=== PATIENT | female | born 1955 | race Caucasian/White ===

== ENCOUNTER 2021-02-13 10:24 | Inpatient (IN) ==
[2021-02-13] MEDS ORDERED: NS 1000 ML 1,000 ML IV ONE (11:01)
--- NOTE | 2021-02-13 11:21 | DR.GENAD ---
HPI Time Seen Time Seen by Provider: 02/13/21 10:58 Complaint/Symptoms Chief Complaint Doctors Comments: 65 y/o female presents with worsening breathing. Has been ill x 5 days, seen here yesterday and diagnosed with covid. Sent home on O2. Presented for infusion therapy this am, but is feeling worse, having low pulse ox at home, despite O2 therapy. Currently 90% on 3 L via NC. Is coughing, productive of white sputum. No prior h/o lung issues. Having fever, chills, body aches. Has had some nausea, vomiting, diarrhea, with decreased po intake. COVID-19 Has patient experienced Coronavirus symptoms: Yes Coronavirus symptoms experienced: Fever, Coughing and Shortness of Breath Nurses notes reviewed Nurses Notes Review: Yes Source History Provided: Patient Mode of Arrival Mode of Arrival: Wheelchair Timing Came on: Gradually Duration Duration: Constant Severity Severity: Moderate and Severe Modifying Factors Worsens:: activity Improves:: nothing PMH PMH Past Medical History: Seizures Past Surgical History: Yes Surgical History: Hysterectomy Family History Family Medical History: Diabetes Mellitus, Cancer, AR, Coronary Artery Disease and Hypertension Social History Do you use any recreational Drugs:: No ROS Review of Systems Constitutional: Chills, Fever, Malaise and Weakness Eyes: No Symptoms Reported ENTM: Nose Congestion Respiratoy: Productive Cough and Short of Breath Cardiovascular: No Symptoms Reported Gastrointestinal/Abdominal: Diarrhea, Nausea and Vomiting Genitourinary: No Symptoms Reported Neurological: Weakness Musculoskeletal: Muscle Pain Integumentary: No Symptoms Reported Hematologic/Lymphatic: No Symptoms Reported Endocrine: No Symptoms Reported Psychiatric: No Symptoms Reported All Other Systems: Reviewed and Negative PE Vital Signs Vitals: Blood Pressure [Left Arm] 113/60 General Limitations: No Limitations General Appearance: Alert and In No Apparent Distress Head Head Exam: Normal Inspection Eyes Eye exam: Normal Appearance ENT ENT Exam: Normal Exam Neck Neck Exam: Normal Inspection and Full ROM Chest Chest Inspection: Normal Inspection Respiratory Respiratory Exam: Bilateral: Rales (+ dry cough with deep breaths) Cardiovascular Cardiovascular Exam: Regular Rate, Normal Rhythm and Normal Heart Sounds Abdominal Exam Abdominal Exam: Normal Inspection and Normal Bowel Sounds; negative Tenderness Extremities Extremities Exam: Normal Inspection and Full ROM; negative Edema Back Back Exam: Normal Inspection Neurologic Neurological Exam: Alert, Oriented X3 and CN II-XII Intact; negative Motor Sensory Deficit Psychiatric Psychiatric Exam: Normal Affect Skin Skin Exam: Warm and Dry MDM Differential Diagnosis Differential Diagnosis: covid pneumonia, bacterial pneumonia, volume depletion, PE COURSE Treatment Treatment: Pt diagnosed with covid yesterday, having worsening hypoxia despite starting home O2 therapy. W/u initiated. CXR with bilateral pneumonia changes, probably covid, will cover with antibiotic. Given IV steroids, BS is elevated, given dose of IV regular insulin. Will admit, discussed pt with covering hospitalist, Dr. Gilmore. He accepts the admisson. ROR Labs Reviewed Laboratory Results Reviewed?: Yes Result Diagrams: 02/13/21 11:19 02/13/21 11:19 Laboratory: WBC 8.9 X10^3/uL (3.6-10.0) 02/13/21 11:19 RBC 5.05 X10^6/uL (3.5-5.4) 02/13/21 11:19 Hgb 13.6 g/dL (12.0-16.0) 02/13/21 11:19 Hct 40.5 % (36.0-47.0) 02/13/21 11:19 MCV 80.1 fL (80.0-100.0) 02/13/21 11:19 MCH 26.8 pg (27.0-34.0) L 02/13/21 11:19 MCHC 33.5 g/dL (33.0-35.0) 02/13/21 11:19 RDW 14.7 % (11.6-16.5) 02/13/21 11:19 Plt Count 214 X10^3/uL (150.0-450.0) 02/13/21 11:19 MPV 7.1 fL (7.4-11.0) L 02/13/21 11:19 Neut % (Auto) 86.9 % (42.0-75.0) H 02/13/21 11:19 Lymph % (Auto) 9.3 % (21.0-51.0) L 02/13/21 11:19 [place] % (Auto) 3.5 % (0.0-13.0) 02/13/21 11:19 Eos % (Auto) 0.0 % (0.9-2.9) L 02/13/21 11:19 Baso % (Auto) 0.3 % (0.2-1.0) 02/13/21 11:19 Neut # (Auto) 7.7 x10^3/uL (2.2-4.8) H 02/13/21 11:19 Lymph # (Auto) 0.8 X10^3/uL (1.3-2.9) L 02/13/21 11:19 [place] # (Auto) 0.3 x10^3/uL (0.3-0.8) 02/13/21 11:19 Eos # (Auto) 0.0 x10^3/uL (0.0-0.2) 02/13/21 11:19 Baso # (Auto) 0.0 X10^3/uL (0.0-0.1) 02/13/21 11:19 Absolute Nucleated RBC 0.0 /100WBC 02/13/21 11:19 D-Dimer 0.53 ug/ml (0.0-0.57) 02/13/21 11:17 Sample Site Rr 02/13/21 12:56 ABG pH 7.400 (7.35-7.45) 02/13/21 12:56 ABG pCO2 41.0 mmHg (35.0-45.0) 02/13/21 12:56 ABG pO2 67.0 mmHg (80.0-100.0) L 02/13/21 12:56 ABG HCO3 25.4 mmol/L (22-26) 02/13/21 12:56 ABG O2 Saturation 93.0 % (90-100) 02/13/21 12:56 ABG Base Excess 0.5 mmol/L (-2.0-2.0) 02/13/21 12:56 Gregory Test Pos 02/13/21 12:56 A-a Gradient 110.0 mmHg 02/13/21 12:56 FiO2 32.0 02/13/21 12:56 Blood Gas Comments Jacy well 02/13/21 12:56 Sodium 134 mmol/L (136-145) L 02/13/21 11:19 Corrected Sodium 140 mmol/L (136-145) 02/13/21 11:19 Potassium 3.7 mmol/L (3.5-5.1) 02/13/21 11:19 Chloride 97 mmol/L (98-107) L 02/13/21 11:19 Carbon Dioxide 26.3 mmol/L (21-32) 02/13/21 11:19 BUN 13 mg/dL (7-18) 02/13/21 11:19 Creatinine 1.00 mg/dL (0.55-1.02) 02/13/21 11:19 Est GFR (MDRD) Af Amer > 60 (>60) 02/13/21 11:19 Est GFR (MDRD) Non-Af 59 (>60) 02/13/21 11:19 Glucose 345 mg/dL (65-99) H 02/13/21 11:19 Calcium 7.8 mg/dL (8.5-10.1) L 02/13/21 11:19 Corrected Calcium 9.1 mg/dL (8.5-10.1) 02/13/21 11:19 Total Bilirubin 0.30 mg/dL (0.2-1.0) 02/13/21 11:19 AST 30 Units/L (15-37) 02/13/21 11:19 ALT 17 Units/L (12-78) 02/13/21 11:19 Alkaline Phosphatase 73 Units/L (46-116) 02/13/21 11:19 Creatine Kinase 119 Units/L (26-192) 02/13/21 11:19 CK-MB (CK-2) 1.3 ng/mL (0-4.0) 02/13/21 11:19 CK/CKMB % Calc 1.1 % (<4) 02/13/21 11:19 Troponin I < 0.02 ng/mL (0-1.5) 02/13/21 11:19 Total Protein 6.7 g/dL (6.4-8.2) 02/13/21 11:19 Albumin 2.4 g/dL (3.4-5.0) L 02/13/21 11:19 Globulin 4.3 g/dL (2.5-4.5) 02/13/21 11:19 Albumin/Globulin Ratio 0.6 Ratio (1.1-2.1) L 02/13/21 11:19 Other Results Comments: Labs overall acceptable except for elevated glucose, 345 (per pt, h/o borderline DM in the past, not treated). XRAY XRAY Interpreted by: Both X-ray Results: + marked increased bilateral interstitial opacifications. EKG Rate: 88 [place]: Normal Rhythm: NSR Block: None Hypertrophy: None ST: Normal Opioid Opioid Risk Tool Age (Henry box if 16-45): No History of Preadolescent Sexual Abuse: No Total: 0 Total Score Risk Category: Low Risk Copyright: Kosta EWING predicting aberrant behaviors Diagnosis Discharge Problem: Pneumonia due to COVID-19 virus, Hypoxia
[2021-02-13 11:35] LABS: BASOPHILS % (AUTO) 0.3 % (0.2-1.0); HEMATOCRIT 40.5 % (36.0-47.0); HEMOGLOBIN 13.6 g/dL (12.0-16.0); LYMPHOCYTES # (AUTO) 0.8 X10^3/uL (1.3-2.9); LYMPHOCYTES % (AUTO) 9.3 % (21.0-51.0); MEAN CORPUSCULAR HEMOGLOBIN 26.8 pg (27.0-34.0); MEAN CORPUSCULAR HGB CONC 33.5 g/dL (33.0-35.0); MEAN CORPUSCULAR VOLUME 80.1 fL (80.0-100.0); MEAN PLATELET VOLUME 7.1 fL (7.4-11.0); MONOCYTES # (AUTO) 0.3 x10^3/uL (0.3-0.8); MONOCYTES % (AUTO) 3.5 % (0.0-13.0); NEUTROPHILS # (AUTO) 7.7 x10^3/uL (2.2-4.8); NEUTROPHILS % (AUTO) 86.9 % (42.0-75.0); PLATELET COUNT 214 X10^3/uL (150.0-450.0); RED BLOOD COUNT 5.05 X10^6/uL (3.5-5.4); RED CELL DISTRIBUTION WIDTH 14.7 % (11.6-16.5); WHITE BLOOD COUNT 8.9 X10^3/uL (3.6-10.0)
[2021-02-13] MEDS ORDERED: NS 1000 ML 1,000 ML ONE ×2 (11:45→13:49)
[2021-02-13 11:56] LABS: ALANINE AMINOTRANSFERASE 17 Units/L (12-78); ALBUMIN 2.4 g/dL (3.4-5.0); ALKALINE PHOSPHATASE 73 Units/L (46-116); ASPARTATE AMINO TRANSFERASE 30 Units/L (15-37); BLOOD UREA NITROGEN 13 mg/dL (7-18); CALCIUM 7.8 mg/dL (8.5-10.1); CARBON DIOXIDE 26.3 mmol/L (21-32); CHLORIDE 97 mmol/L (98-107); CKMB % 1.1 % (<4); COR CA(FOR HYPOALB) 9.1 mg/dL (8.5-10.1); COR NA(FOR HYPERGLY) 140 mmol/L (136-145); CREATINE KINASE 119 Units/L (26-192); CREATINE KINASE MB 1.3 ng/mL (0-4.0); SODIUM 134 mmol/L (136-145); TOTAL PROTEIN 6.7 g/dL (6.4-8.2); TROPONIN I < 0.02 ng/mL (0-1.5); eGFR NON BLACK RACES 59 (>60)
--- NOTE | 2021-02-13 12:15 | RAD ---
CHEST, 1 VIEWHISTORY: covid, worsening hypoxiaStudy: Single view of the chest.Comparison:February 12, 2021Findings:The cardiomediastinal silhouette is normal. Worsening of bilateral insterstitial and airspace opacities. Osseous structures demonstrate no acute abnormality.IMPRESSION:1. Worsening multifocal pneumoniaElectronically signed by: NAYE CROW (Feb 13, 2021 12:13:17)
[2021-02-13 13:02] LABS: ABG ALLEN TEST POS; ABG BASE EXCESS 0.5 mmol/L (-2.0-2.0); ABG HCO3 25.4 mmol/L (22-26)
[2021-02-13] MEDS ORDERED: ROCEPHIN VIAL 1 GRAM 1 G in NS 100 ML IV + SPIKE MINIBAG* 100 ML IV ONE (13:04)
[2021-02-13] MEDS ORDERED: SOLU-Medrol 125 MG VIAL IVP ONE (13:18)
[2021-02-13] MEDS ORDERED: HumuLIN R SUBCUT ONE (13:19)
[2021-02-13] MEDS ORDERED: SOLU-Medrol 125 MG VIAL ONE (13:49)
[2021-02-13] MEDS ORDERED: ROCEPHIN 1 GRAM IV PREMIX 1 G/50 ML IV.SOLN. IV ONE (13:49)
[2021-02-13] MEDS ORDERED: HumuLIN R ONE (13:49)
[2021-02-13] MEDS ORDERED: REMDESIVIR 200 MG in NS 250 ML IV 250 ML IV ONE (13:51)
[2021-02-13] MEDS ORDERED: SOLU-Medrol 40 MG VIAL IVP SCH (14:00)
[2021-02-13] MEDS: NS 1000 ML 1,000 ML IV SCH (14:30)
[2021-02-13] MEDS: SOLU-Medrol 40 MG VIAL IVP SCH ×2 (14:32→21:20)
[2021-02-13] MEDS ORDERED: REMDESIVIR IV ONE ×2 (14:36→14:46)
[2021-02-13] MEDS ORDERED: NS 250 ML IV 250 ML IV ONE (14:36)
--- NOTE | 2021-02-13 16:08 | DR.H&P ---
H&P History & Physical for Day of: H&P Date: 02/13/21 Chief Complaint Chief Complaint: SOB Allergies Allergies Allergy/AdvReac Type Severity Reaction Status Date / Time No Known Drug Allergies Allergy Verified 02/12/21 08:46 History of Present Illness History of Present Illness: 65 yo wf with increasing SOB and hypoxia. sPO2 was 88% on Room air during evaluation to recieve Regen Cov. Because of this she was sent to ED for further workup. Workup revealed worsening bronchopneumonia due to Covid-19. She was subsequently admitted for inpatient to recieve treatment with Remdesivir protocol for Covid-19 and brochopneumonia. Past Medical History Past Medical History: Seizures Past Surgical History Surgical History: Hysterectomy Family History Family Medical History: Diabetes Mellitus, Cancer, AR, Coronary Artery Disease and Hypertension Social History Does patient currently use any type of tobacco product: No Have you used tobacco products in the last 12 months: No Does any household member use tobacco: No Alcohol Use: None Medications Home Medications: No Known Drug Allergies Allergy (Verified 02/12/21 08:46) Labs Result Diagrams: 02/14/21 04:50 02/14/21 04:50 Labs: Laboratory WBC 8.9 X10^3/uL (3.6-10.0) 02/13/21 11:19 RBC 5.05 X10^6/uL (3.5-5.4) 02/13/21 11:19 Hgb 13.6 g/dL (12.0-16.0) 02/13/21 11:19 Hct 40.5 % (36.0-47.0) 02/13/21 11:19 MCV 80.1 fL (80.0-100.0) 02/13/21 11:19 MCH 26.8 pg (27.0-34.0) L 02/13/21 11:19 MCHC 33.5 g/dL (33.0-35.0) 02/13/21 11:19 RDW 14.7 % (11.6-16.5) 02/13/21 11:19 Plt Count 214 X10^3/uL (150.0-450.0) 02/13/21 11:19 MPV 7.1 fL (7.4-11.0) L 02/13/21 11:19 Neut % (Auto) 86.9 % (42.0-75.0) H 02/13/21 11:19 Lymph % (Auto) 9.3 % (21.0-51.0) L 02/13/21 11:19 [place] % (Auto) 3.5 % (0.0-13.0) 02/13/21 11:19 Eos % (Auto) 0.0 % (0.9-2.9) L 02/13/21 11:19 Baso % (Auto) 0.3 % (0.2-1.0) 02/13/21 11:19 Neut # (Auto) 7.7 x10^3/uL (2.2-4.8) H 02/13/21 11:19 Lymph # (Auto) 0.8 X10^3/uL (1.3-2.9) L 02/13/21 11:19 [place] # (Auto) 0.3 x10^3/uL (0.3-0.8) 02/13/21 11:19 Eos # (Auto) 0.0 x10^3/uL (0.0-0.2) 02/13/21 11:19 Baso # (Auto) 0.0 X10^3/uL (0.0-0.1) 02/13/21 11:19 Absolute Nucleated RBC 0.0 /100WBC 02/13/21 11:19 D-Dimer 0.53 ug/ml (0.0-0.57) 02/13/21 11:17 Sample Site Rr 02/13/21 12:56 ABG pH 7.400 (7.35-7.45) 02/13/21 12:56 ABG pCO2 41.0 mmHg (35.0-45.0) 02/13/21 12:56 ABG pO2 67.0 mmHg (80.0-100.0) L 02/13/21 12:56 ABG HCO3 25.4 mmol/L (22-26) 02/13/21 12:56 ABG O2 Saturation 93.0 % (90-100) 02/13/21 12:56 ABG Base Excess 0.5 mmol/L (-2.0-2.0) 02/13/21 12:56 Gregory Test Pos 02/13/21 12:56 A-a Gradient 110.0 mmHg 02/13/21 12:56 FiO2 32.0 02/13/21 12:56 Blood Gas Comments Jacy well 02/13/21 12:56 Sodium 134 mmol/L (136-145) L 02/13/21 11:19 Corrected Sodium 140 mmol/L (136-145) 02/13/21 11:19 Potassium 3.7 mmol/L (3.5-5.1) 02/13/21 11:19 Chloride 97 mmol/L (98-107) L 02/13/21 11:19 Carbon Dioxide 26.3 mmol/L (21-32) 02/13/21 11:19 BUN 13 mg/dL (7-18) 02/13/21 11:19 Creatinine 1.00 mg/dL (0.55-1.02) 02/13/21 11:19 Est GFR (MDRD) Af Amer > 60 (>60) 02/13/21 11:19 Est GFR (MDRD) Non-Af 59 (>60) 02/13/21 11:19 Glucose 345 mg/dL (65-99) H 02/13/21 11:19 Calcium 7.8 mg/dL (8.5-10.1) L 02/13/21 11:19 Corrected Calcium 9.1 mg/dL (8.5-10.1) 02/13/21 11:19 Total Bilirubin 0.30 mg/dL (0.2-1.0) 02/13/21 11:19 AST 30 Units/L (15-37) 02/13/21 11:19 ALT 17 Units/L (12-78) 02/13/21 11:19 Alkaline Phosphatase 73 Units/L (46-116) 02/13/21 11:19 Creatine Kinase 119 Units/L (26-192) 02/13/21 11:19 CK-MB (CK-2) 1.3 ng/mL (0-4.0) 02/13/21 11:19 CK/CKMB % Calc 1.1 % (<4) 02/13/21 11:19 Troponin I < 0.02 ng/mL (0-1.5) 02/13/21 11:19 Total Protein 6.7 g/dL (6.4-8.2) 02/13/21 11:19 Albumin 2.4 g/dL (3.4-5.0) L 02/13/21 11:19 Globulin 4.3 g/dL (2.5-4.5) 02/13/21 11:19 Albumin/Globulin Ratio 0.6 Ratio (1.1-2.1) L 02/13/21 11:19 Review of Systems Constitutional: Weakness and Malaise Eyes: No Symptoms Reported ENT: No Symptoms Reported Respiratory: Cough, Shortness of Breath and SOB with Excertion Cardiovascular: No Symptoms Reported Gastrointestinal: No Symptoms Reported Genitourinary: No Symptoms Reported Musculoskeletal: No Symptoms Reported Skin: No Symptoms Reported Neurological: Weakness Physical Exam Vital Signs: Temperature 98.9 F Pulse Rate [Left Radial] 94 Pulse Rate 84 Respiratory Rate 24 Blood Pressure [Left Arm] 129/58 Blood Pressure 98/52 O2 Sat by Pulse Oximetry 92 Oriented: Normal Eyes: Normal Ear: Normal Nose: Normal Throat: Normal Respiratory: Diminished Throughout and Rhonchi Throughout Cardiovascular: Normal Auscultation: Bowel Sounds: Normal Palpation: Normal Tenderness: Normal Skin: Normal Psychiatric: Normal Mood Description: Anxious Affect: Normal Speech Pattern: Clear Assessment/Plan (1) Pneumonia due to COVID-19 virus: Narrative Support Text: Feels SOB. Status: Acute Plan: IV Doxycycline and Rocephin. (2) COVID-19 virus infection: Narrative Support Text: Getting worse since yesterday. Status: Acute Plan: IV Remdesivir. (3) Hypoxia: Status: Acute Plan: Supplemental O2. (4) Hyperglycemia: Status: Acute Plan: Cover with sliding scale regular insulin. Will check and see if a recent HbA1C has been done. Review H&P Reviewed: Yes Patient was examined?: Yes
[2021-02-13] MEDS ORDERED: NS 100 ML IV 100 ML ONE (16:20)
[2021-02-13] MEDS ORDERED: ASCORBIC ACID INJ MULTI-DOSE VIAL IV ONE (16:21)
[2021-02-13] MEDS: ASCORBIC ACID INJ MULTI-DOSE VIAL 1,500 MG in NS 100 ML IV 100 ML IV SCH ×2 (16:25→20:28)
[2021-02-13] MEDS: HumuLIN R SC PRN ×2 (17:44→20:29)
[2021-02-13 17:56] LABS: BASOPHILS % (AUTO) 0.1 % (0.2-1.0); HEMATOCRIT 40.3 % (36.0-47.0); HEMOGLOBIN 13.4 g/dL (12.0-16.0); LYMPHOCYTES # (AUTO) 0.5 X10^3/uL (1.3-2.9); LYMPHOCYTES % (AUTO) 5.9 % (21.0-51.0); MEAN CORPUSCULAR HEMOGLOBIN 26.7 pg (27.0-34.0); MEAN CORPUSCULAR HGB CONC 33.3 g/dL (33.0-35.0); MEAN CORPUSCULAR VOLUME 80.2 fL (80.0-100.0); MEAN PLATELET VOLUME 7.5 fL (7.4-11.0); MONOCYTES # (AUTO) 0.2 x10^3/uL (0.3-0.8); MONOCYTES % (AUTO) 2.6 % (0.0-13.0); NEUTROPHILS # (AUTO) 8.5 x10^3/uL (2.2-4.8); NEUTROPHILS % (AUTO) 91.4 % (42.0-75.0); PLATELET COUNT 182 X10^3/uL (150.0-450.0); RED BLOOD COUNT 5.03 X10^6/uL (3.5-5.4); RED CELL DISTRIBUTION WIDTH 14.9 % (11.6-16.5); WHITE BLOOD COUNT 9.3 X10^3/uL (3.6-10.0)
[2021-02-13 18:19] LABS: PLATELET MORPHOLOGY COMMENT NORMAL (NORMAL)
[2021-02-13 19:20] LABS: ALANINE AMINOTRANSFERASE 17 Units/L (12-78); ALBUMIN 2.3 g/dL (3.4-5.0); ALKALINE PHOSPHATASE 75 Units/L (46-116); ASPARTATE AMINO TRANSFERASE 32 Units/L (15-37); BLOOD UREA NITROGEN 12 mg/dL (7-18); CALCIUM 7.6 mg/dL (8.5-10.1); CARBON DIOXIDE 22.2 mmol/L (21-32); CHLORIDE 99 mmol/L (98-107); COR NA(FOR HYPERGLY) 142 mmol/L (136-145); CREATININE 0.77 mg/dL (0.55-1.02); SODIUM 135 mmol/L (136-145); TOTAL PROTEIN 6.7 g/dL (6.4-8.2); TROPONIN I < 0.02 ng/mL (0-1.5); eGFR NON BLACK RACES > 60 (>60)
[2021-02-13] MEDS ORDERED: TESSALON PERLES PO ONE (19:51)
[2021-02-13] MEDS ORDERED: DILANTIN CAP 100 MG EXT REL PO ONE (19:51)
[2021-02-13] MEDS ORDERED: PEPCID TAB 40 MG ONE (19:52)
[2021-02-13] MEDS ORDERED: LOVENOX INJ 30 MG SYR SC ONE (19:52)
[2021-02-13] MEDS ORDERED: VIBRAMYCIN PO ONE (19:52)
[2021-02-13] MEDS ORDERED: SOLU-Medrol 40 MG VIAL ONE (19:52)
[2021-02-13] MEDS ORDERED: ZINC SULFATE ONE (19:52)
[2021-02-13 19:59] LABS: BILIRUBIN,URINE NEGATIVE (NEGATIVE); BLOOD/HEMOGLOBIN,URINE NEGATIVE (NEGATIVE); GLUCOSE, URINE 4+ (NEGATIVE); KETONES,URINE 3+ (NEGATIVE); LEUKOCYTE ESTERASE ,URINE NEGATIVE (NEGATIVE); NITRITES,URINE NEGATIVE (NEGATIVE); PROTEIN,URINE NEGATIVE (NEGATIVE); UROBILINOGEN,URINE NORMAL (NORMAL)
[2021-02-13] MEDS: SNACK - Diabetic Appropriate PO SCH (20:00)
[2021-02-13 20:06] LABS: APPEARANCE,URINE CLEAR (CLEAR); COLOR,URINE YELLOW (YELLOW)
[2021-02-13] MEDS: LOVENOX INJ 30 MG SYR SC SCH (20:26)
[2021-02-13] MEDS: TESSALON PERLES PO PRN (20:27)
[2021-02-13] MEDS: PEPCID TAB 40 MG PO SCH (20:27)
[2021-02-13] MEDS: DILANTIN CAP 100 MG EXT REL PO SCH (20:28)
[2021-02-13] MEDS: VIBRAMYCIN PO SCH (20:28)
[2021-02-13] MEDS: ZINC SULFATE PO SCH (20:28)
[2021-02-13] MEDS: BROVANA IN SCH (21:00)
[2021-02-13] MEDS: PULMICORT NEB TX 0.5 MG NEB SCH (21:00)
[2021-02-14] MEDS: MOTRIN TAB 800 MG PO PRN ×2 (02:17→11:00)
[2021-02-14] MEDS ORDERED: ROBITUSSIN DM ONE ×2 (02:19→19:45)
[2021-02-14] MEDS: ROBITUSSIN DM PO PRN ×2 (02:40→12:17)
[2021-02-14] MEDS: ASCORBIC ACID INJ MULTI-DOSE VIAL 1,500 MG in NS 100 ML IV 100 ML IV SCH ×4 (04:02→20:49)
[2021-02-14 05:39] LABS: ABG BASE EXCESS -1.6 mmol/L (-2.0-2.0); ABG HCO3 22.9 mmol/L (22-26)
[2021-02-14 05:40] LABS: ABG ALLEN TEST POS
[2021-02-14] MEDS: SOLU-Medrol 40 MG VIAL IVP SCH ×3 (05:49→22:22)
[2021-02-14] MEDS: HumuLIN R SC PRN ×4 (05:50→20:50)
[2021-02-14 06:13] LABS: BASOPHILS % (AUTO) 0.1 % (0.2-1.0); HEMATOCRIT 37.5 % (36.0-47.0); HEMOGLOBIN 12.5 g/dL (12.0-16.0); LYMPHOCYTES # (AUTO) 0.7 X10^3/uL (1.3-2.9); MEAN CORPUSCULAR HEMOGLOBIN 26.8 pg (27.0-34.0); MEAN CORPUSCULAR HGB CONC 33.5 g/dL (33.0-35.0); MEAN CORPUSCULAR VOLUME 80.1 fL (80.0-100.0); MEAN PLATELET VOLUME 7.3 fL (7.4-11.0); MONOCYTES # (AUTO) 0.3 x10^3/uL (0.3-0.8); MONOCYTES % (AUTO) 3.6 % (0.0-13.0); NEUTROPHILS # (AUTO) 7.2 x10^3/uL (2.2-4.8); NEUTROPHILS % (AUTO) 88.3 % (42.0-75.0); PLATELET COUNT 218 X10^3/uL (150.0-450.0); RED BLOOD COUNT 4.68 X10^6/uL (3.5-5.4); RED CELL DISTRIBUTION WIDTH 14.9 % (11.6-16.5); WHITE BLOOD COUNT 8.1 X10^3/uL (3.6-10.0)
[2021-02-14 06:19] LABS: ALANINE AMINOTRANSFERASE 15 Units/L (12-78); ALKALINE PHOSPHATASE 63 Units/L (46-116); ASPARTATE AMINO TRANSFERASE 28 Units/L (15-37); BLOOD UREA NITROGEN 15 mg/dL (7-18); CALCIUM 7.4 mg/dL (8.5-10.1); CARBON DIOXIDE 24.4 mmol/L (21-32); CHLORIDE 102 mmol/L (98-107); COR NA(FOR HYPERGLY) 143 mmol/L (136-145); CREATININE 0.79 mg/dL (0.55-1.02); SODIUM 137 mmol/L (136-145); TOTAL PROTEIN 6.2 g/dL (6.4-8.2); eGFR NON BLACK RACES > 60 (>60)
[2021-02-14] MEDS: PEPCID TAB 40 MG PO SCH ×2 (08:18→20:49)
[2021-02-14] MEDS: TRICOR TAB 160 MG PO SCH (08:18)
[2021-02-14] MEDS: REMDESIVIR 100 MG in NS 250 ML IV 250 ML IV SCH (08:18)
[2021-02-14] MEDS: ZINC SULFATE PO SCH ×2 (08:19→20:49)
[2021-02-14] MEDS: VIBRAMYCIN PO SCH ×2 (08:19→20:49)
[2021-02-14] MEDS: TESSALON PERLES PO PRN (08:20)
[2021-02-14] MEDS: LOVENOX INJ 30 MG SYR SC SCH ×2 (08:27→20:48)
[2021-02-14] MEDS: LEVEMIR SC SCH ×2 (08:34→20:51)
--- NOTE | 2021-02-14 08:59 | PCM.PROG ---
Progress Note Progress Note for Day of Date of Exam: 02/14/21 Subjective Subjective: During the night the patient became shorter of breath. She was put on a venti-mask which helped her breath better she reported. She does want to be intubated if it came to that. Past Medical Family Social History Past Med/Fam/Surg Hx: No changes since H&P Allergies: Allergies No Known Drug Allergies Allergy (Verified 02/12/21 08:46) Review of Systems ROS: No change since H&P Vital Signs and I&O's Vital Signs: Temperature 97.7 F Pulse Rate [Left Radial] 77 Pulse Rate 97 Respiratory Rate 22 Blood Pressure [Right Arm] 137/63 Blood Pressure [Left Arm] 100/57 Blood Pressure 98/52 O2 Sat by Pulse Oximetry 95 Intake and Output: Intake & Output 02/11/21 02/12/21 02/13/21 02/14/21 11:59 11:59 11:59 11:59 Intake Total 1512 / 1512 Output Total 800 / 800 Balance 712 / 712 Physical Exam Oriented: Normal Eyes: Normal Ear: Normal Nose: Normal Throat: Normal Respiratory: Right, Left, Diminished and Rhonchi Cardiovascular: Normal Auscultation: Bowel Sounds: Normal Palpation: Normal Tenderness: Normal Skin: Normal Psychiatric: Normal Mood Description: Calm Affect: Normal Speech Pattern: Clear Laboratory and Diagnostics Result Diagrams: 02/14/21 04:50 02/14/21 04:50 Labs: Laboratory WBC 8.1 X10^3/uL (3.6-10.0) 02/14/21 04:50 RBC 4.68 X10^6/uL (3.5-5.4) 02/14/21 04:50 Hgb 12.5 g/dL (12.0-16.0) 02/14/21 04:50 Hct 37.5 % (36.0-47.0) 02/14/21 04:50 MCV 80.1 fL (80.0-100.0) 02/14/21 04:50 MCH 26.8 pg (27.0-34.0) L 02/14/21 04:50 MCHC 33.5 g/dL (33.0-35.0) 02/14/21 04:50 RDW 14.9 % (11.6-16.5) 02/14/21 04:50 Plt Count 218 X10^3/uL (150.0-450.0) 02/14/21 04:50 Plt Count Comment Adequate (ADEQUATE) 02/13/21 17:35 MPV 7.3 fL (7.4-11.0) L 02/14/21 04:50 Neut % (Auto) 88.3 % (42.0-75.0) H 02/14/21 04:50 Lymph % (Auto) 8.0 % (21.0-51.0) L 02/14/21 04:50 [place] % (Auto) 3.6 % (0.0-13.0) 02/14/21 04:50 Eos % (Auto) 0.0 % (0.9-2.9) L 02/14/21 04:50 Baso % (Auto) 0.1 % (0.2-1.0) L 02/14/21 04:50 Neut # (Auto) 7.2 x10^3/uL (2.2-4.8) H 02/14/21 04:50 Lymph # (Auto) 0.7 X10^3/uL (1.3-2.9) L 02/14/21 04:50 [place] # (Auto) 0.3 x10^3/uL (0.3-0.8) 02/14/21 04:50 Eos # (Auto) 0.0 x10^3/uL (0.0-0.2) 02/14/21 04:50 Baso # (Auto) 0.0 X10^3/uL (0.0-0.1) 02/14/21 04:50 Absolute Nucleated RBC 0.0 /100WBC 02/14/21 04:50 Total Counted 100 02/13/21 17:35 Neutrophils % (Manual) 96 % (39-76) H 02/13/21 17:35 Lymphocytes % (Manual) 4 % (13-43) L 02/13/21 17:35 Plt Morphology Comment Normal (NORMAL) 02/13/21 17:35 RBC Morphology Normal (NORMAL) 02/13/21 17:35 D-Dimer 0.53 ug/ml (0.0-0.57) 02/13/21 11:17 Sample Site Rr 02/14/21 05:00 ABG pH 7.400 (7.35-7.45) 02/14/21 05:00 ABG pCO2 37.0 mmHg (35.0-45.0) 02/14/21 05:00 ABG pO2 92.0 mmHg (80.0-100.0) 02/14/21 05:00 ABG HCO3 22.9 mmol/L (22-26) 02/14/21 05:00 ABG O2 Saturation 97.0 % (90-100) 02/14/21 05:00 ABG Base Excess -1.6 mmol/L (-2.0-2.0) 02/14/21 05:00 Gregory Test Pos 02/14/21 05:00 A-a Gradient 575.0 mmHg 02/14/21 05:00 FiO2 100.0 02/14/21 05:00 Blood Gas Comments Jacy well sw 02/14/21 05:00 Sodium 137 mmol/L (136-145) 02/14/21 04:50 Corrected Sodium 143 mmol/L (136-145) 02/14/21 04:50 Potassium 3.7 mmol/L (3.5-5.1) 02/14/21 04:50 Chloride 102 mmol/L (98-107) 02/14/21 04:50 Carbon Dioxide 24.4 mmol/L (21-32) 02/14/21 04:50 BUN 15 mg/dL (7-18) 02/14/21 04:50 Creatinine 0.79 mg/dL (0.55-1.02) 02/14/21 04:50 Est GFR (MDRD) Af Amer > 60 (>60) 02/14/21 04:50 Est GFR (MDRD) Non-Af > 60 (>60) 02/14/21 04:50 Glucose 348 mg/dL (65-99) H 02/14/21 04:50 POC Glucose (mg/dL) 318 mg/dL (65-99) H 02/14/21 05:21 Calcium 7.4 mg/dL (8.5-10.1) L 02/14/21 04:50 Corrected Calcium 9.0 mg/dL (8.5-10.1) 02/14/21 04:50 Total Bilirubin 0.30 mg/dL (0.2-1.0) 02/14/21 04:50 AST 28 Units/L (15-37) 02/14/21 04:50 ALT 15 Units/L (12-78) 02/14/21 04:50 Alkaline Phosphatase 63 Units/L (46-116) 02/14/21 04:50 Creatine Kinase 119 Units/L (26-192) 02/13/21 11:19 CK-MB (CK-2) 1.3 ng/mL (0-4.0) 02/13/21 11:19 CK/CKMB % Calc 1.1 % (<4) 02/13/21 11:19 Troponin I < 0.02 ng/mL (0-1.5) 02/13/21 17:35 C-Reactive Protein 166.50 mg/L (0-3.0) H 02/13/21 17:35 Total Protein 6.2 g/dL (6.4-8.2) L 02/14/21 04:50 Albumin 2.0 g/dL (3.4-5.0) L 02/14/21 04:50 Globulin 4.2 g/dL (2.5-4.5) 02/14/21 04:50 Albumin/Globulin Ratio 0.5 Ratio (1.1-2.1) L 02/14/21 04:50 Specimen Type Random urine 02/13/21 19:30 Urine Color Yellow (YELLOW) 02/13/21 19:30 Urine Appearance Clear (CLEAR) 02/13/21 19:30 Urine pH 5.0 (5.0 - 8.0) 02/13/21 19:30 Ur Specific [place] 1.005 (1.000-1.030) 02/13/21 19:30 Urine Protein Negative (NEGATIVE) 02/13/21 19:30 Urine Glucose (UA) 4+ (NEGATIVE) 02/13/21 19:30 Urine Ketones 3+ (NEGATIVE) 02/13/21 19:30 Urine Occult Blood Negative (NEGATIVE) 02/13/21 19:30 Urine Nitrite Negative (NEGATIVE) 02/13/21 19:30 Urine Bilirubin Negative (NEGATIVE) 02/13/21 19:30 Urine Urobilinogen Normal (NORMAL) 02/13/21 19:30 Ur Leukocyte Esterase Negative (NEGATIVE) 02/13/21 19:30 Radiology Reviewed: Yes Plan (1) Pneumonia due to COVID-19 virus: Status: Acute Plan: IV Doxycycline and Rocephin. (2) COVID-19 virus infection: Status: Acute Plan: IV Remdesivir. (3) Hypoxia: Status: Acute Plan: Supplemental O2 via venti-mask now. (4) Hyperglycemia: Status: Acute Plan: Cover with sliding scale regular insulin. Will check and see if a recent HbA1C has been done. Add levemir 10 units bid.
[2021-02-14] MEDS ORDERED: VITAMIN A PO SCH (09:00)
[2021-02-14] MEDS ORDERED: VITAMIN D (1.25MG) PO SCH (09:00)
[2021-02-14] MEDS: BROVANA IN SCH ×2 (09:37→21:05)
[2021-02-14] MEDS: PULMICORT NEB TX 0.5 MG NEB SCH ×2 (09:37→21:05)
[2021-02-14 11:01] LABS: ABG BASE EXCESS -1.6 mmol/L (-2.0-2.0); ABG HCO3 22.9 mmol/L (22-26)
[2021-02-14 11:02] LABS: ABG ALLEN TEST POS
[2021-02-14] MEDS: NS 1000 ML 1,000 ML IV SCH (14:02)
[2021-02-14] MEDS: ROBITUSSIN DM PO SCH ×3 (14:36→22:23)
[2021-02-14] MEDS ORDERED: TESSALON PERLES PO ONE (19:44)
[2021-02-14] MEDS: SNACK - Diabetic Appropriate PO SCH (20:00)
[2021-02-14] MEDS: DILANTIN CAP 100 MG EXT REL PO SCH (20:48)
[2021-02-14] MEDS: TESSALON PERLES PO SCH (22:23)
[2021-02-15] MEDS: ASCORBIC ACID INJ MULTI-DOSE VIAL 1,500 MG in NS 100 ML IV 100 ML IV SCH ×4 (03:54→20:44)
[2021-02-15] MEDS: ROBITUSSIN DM PO SCH ×7 (03:55→23:45)
[2021-02-15 04:59] LABS: BASOPHILS % (AUTO) 0.2 % (0.2-1.0); HEMOGLOBIN 13.6 g/dL (12.0-16.0); LYMPHOCYTES # (AUTO) 0.5 X10^3/uL (1.3-2.9); LYMPHOCYTES % (AUTO) 4.6 % (21.0-51.0); MEAN CORPUSCULAR HEMOGLOBIN 26.4 pg (27.0-34.0); MEAN CORPUSCULAR HGB CONC 33.3 g/dL (33.0-35.0); MEAN CORPUSCULAR VOLUME 79.4 fL (80.0-100.0); MEAN PLATELET VOLUME 7.2 fL (7.4-11.0); MONOCYTES # (AUTO) 0.4 x10^3/uL (0.3-0.8); MONOCYTES % (AUTO) 4.5 % (0.0-13.0); NEUTROPHILS # (AUTO) 9.1 x10^3/uL (2.2-4.8); NEUTROPHILS % (AUTO) 90.7 % (42.0-75.0); PLATELET COUNT 292 X10^3/uL (150.0-450.0); RED BLOOD COUNT 5.17 X10^6/uL (3.5-5.4); RED CELL DISTRIBUTION WIDTH 14.8 % (11.6-16.5)
[2021-02-15 05:02] LABS: ABG ALLEN TEST POS; ABG BASE EXCESS 2.8 mmol/L (-2.0-2.0); ABG HCO3 27.2 mmol/L (22-26)
[2021-02-15 05:13] LABS: ALANINE AMINOTRANSFERASE 12 Units/L (12-78); ALKALINE PHOSPHATASE 76 Units/L (46-116); ASPARTATE AMINO TRANSFERASE 32 Units/L (15-37); BLOOD UREA NITROGEN 13 mg/dL (7-18); CALCIUM 7.6 mg/dL (8.5-10.1); CHLORIDE 106 mmol/L (98-107); COR CA(FOR HYPOALB) 9.2 mg/dL (8.5-10.1); COR NA(FOR HYPERGLY) 146 mmol/L (136-145); CREATININE 0.75 mg/dL (0.55-1.02); MAGNESIUM 2.7 mg/dL (1.7-2.9); SODIUM 143 mmol/L (136-145); TOTAL PROTEIN 6.2 g/dL (6.4-8.2); eGFR NON BLACK RACES > 60 (>60)
[2021-02-15 05:36] LABS: BAND NEUTROPHILS % 2 % (0-10); PLATELET MORPHOLOGY COMMENT NORMAL (NORMAL)
[2021-02-15] MEDS: SOLU-Medrol 40 MG VIAL IVP SCH ×3 (05:58→21:32)
[2021-02-15] MEDS: TESSALON PERLES PO SCH ×3 (05:58→21:32)
[2021-02-15] MEDS: HumuLIN R SC PRN ×4 (05:59→20:44)
[2021-02-15] MEDS ORDERED: K-RIDER 10 MEQ/NS 100 ML 10 MEQ/100 ML BAG IV PRN (06:01)
[2021-02-15] MEDS ORDERED: MAGNESIUM SULFATE 1 GRAM/100 mL PREMIX 1 GM/100 ML BAG IV PRN (06:01)
[2021-02-15] MEDS ORDERED: POTASSIUM CHLORIDE LIQ 20 MEQ UDC PO PRN (06:01)
[2021-02-15] MEDS ORDERED: K-DUR TAB 20 MEQ PO PRN (06:01)
[2021-02-15] MEDS ORDERED: K-DUR TAB 20 MEQ PO ONE (06:04)
[2021-02-15] MEDS ORDERED: ZOFRAN INJ 4 MG VIAL IVP PRN (06:10)
[2021-02-15] MEDS ORDERED: ZOFRAN INJ 4 MG VIAL ONE (06:11)
[2021-02-15] MEDS: LEVEMIR SC SCH ×2 (08:08→20:43)
[2021-02-15] MEDS: REMDESIVIR 100 MG in NS 250 ML IV 250 ML IV SCH (08:09)
[2021-02-15] MEDS: LOVENOX INJ 30 MG SYR SC SCH ×2 (08:09→20:42)
[2021-02-15] MEDS: TRICOR TAB 160 MG PO SCH (08:09)
[2021-02-15] MEDS: PEPCID TAB 40 MG PO SCH ×2 (08:09→20:42)
[2021-02-15] MEDS: VITAMIN A PO SCH (08:10)
[2021-02-15] MEDS: VITAMIN D3 125 mcg (5,000 UNITS) PO SCH (08:10)
[2021-02-15] MEDS: VIBRAMYCIN PO SCH ×2 (08:10→20:42)
[2021-02-15] MEDS: ZINC SULFATE PO SCH ×2 (08:10→20:42)
[2021-02-15] MEDS ORDERED: VALIUM INJ IVP PRN (08:29)
[2021-02-15] MEDS: BROVANA IN SCH ×2 (09:25→20:50)
[2021-02-15] MEDS: PULMICORT NEB TX 0.5 MG NEB SCH ×2 (09:25→20:50)
[2021-02-15] MEDS: NS 1000 ML 1,000 ML IV SCH (13:26)
--- NOTE | 2021-02-15 18:27 | PCM.PROG ---
Progress Note Progress Note for Day of Date of Exam: 02/15/21 Subjective Subjective: During the night the patient became shorter of breath. She was put on a bipap which made her anxious. Currently she is on a nonrebreather which helped her breath better she reported. She does want to be intubated if it came to that. Past Medical Family Social History Past Med/Fam/Surg Hx: No changes since H&P Allergies: Allergies No Known Drug Allergies Allergy (Verified 02/12/21 08:46) Review of Systems ROS: No change since H&P ROS changes noted: Anxiety Vital Signs and I&O's Vital Signs: Temperature 98.3 F Pulse Rate [Left Radial] 95 Pulse Rate 88 Respiratory Rate 27 Blood Pressure [Right Arm] 136/64 Blood Pressure [Left Arm] 131/67 Blood Pressure 137/61 O2 Sat by Pulse Oximetry 91 Intake and Output: Intake & Output 02/13/21 02/14/21 02/15/21 02/16/21 11:59 11:59 11:59 11:59 Intake Total 1512 / 1512 3102 / 3102 670 / 670 Output Total 800 / 800 2600 / 2600 800 / 800 Balance 712 / 712 502 / 502 -130 / -130 Physical Exam Oriented: Normal Eyes: Normal Ear: Normal Respiratory: Right, Left, Diminished and Rhonchi Cardiovascular: Normal Auscultation: Bowel Sounds: Normal Tenderness: Normal Skin: Normal Psychiatric: Normal Mood Description: Calm and Anxious Affect: Normal Speech Pattern: Clear and Appropriate Laboratory and Diagnostics Result Diagrams: 02/15/21 04:10 02/15/21 04:10 Labs: Laboratory WBC 10.0 X10^3/uL (3.6-10.0) 02/15/21 04:10 RBC 5.17 X10^6/uL (3.5-5.4) 02/15/21 04:10 Hgb 13.6 g/dL (12.0-16.0) 02/15/21 04:10 Hct 41.0 % (36.0-47.0) 02/15/21 04:10 MCV 79.4 fL (80.0-100.0) L 02/15/21 04:10 MCH 26.4 pg (27.0-34.0) L 02/15/21 04:10 MCHC 33.3 g/dL (33.0-35.0) 02/15/21 04:10 RDW 14.8 % (11.6-16.5) 02/15/21 04:10 Plt Count 292 X10^3/uL (150.0-450.0) 02/15/21 04:10 Plt Count Comment Adequate (ADEQUATE) 02/15/21 04:10 MPV 7.2 fL (7.4-11.0) L 02/15/21 04:10 Neut % (Auto) 90.7 % (42.0-75.0) H 02/15/21 04:10 Lymph % (Auto) 4.6 % (21.0-51.0) L 02/15/21 04:10 [place] % (Auto) 4.5 % (0.0-13.0) 02/15/21 04:10 Eos % (Auto) 0.0 % (0.9-2.9) L 02/15/21 04:10 Baso % (Auto) 0.2 % (0.2-1.0) 02/15/21 04:10 Neut # (Auto) 9.1 x10^3/uL (2.2-4.8) H 02/15/21 04:10 Lymph # (Auto) 0.5 X10^3/uL (1.3-2.9) L 02/15/21 04:10 [place] # (Auto) 0.4 x10^3/uL (0.3-0.8) 02/15/21 04:10 Eos # (Auto) 0.0 x10^3/uL (0.0-0.2) 02/15/21 04:10 Baso # (Auto) 0.0 X10^3/uL (0.0-0.1) 02/15/21 04:10 Absolute Nucleated RBC 0.1 /100WBC 02/15/21 04:10 Total Counted 100 02/15/21 04:10 Neutrophils % (Manual) 90 % (39-76) H 02/15/21 04:10 Band Neutrophils % 2 % (0-10) 02/15/21 04:10 Lymphocytes % (Manual) 4 % (13-43) L 02/15/21 04:10 Monocytes % (Manual) 4 % (4-9) 02/15/21 04:10 Plt Morphology Comment Normal (NORMAL) 02/15/21 04:10 RBC Morphology Normal (NORMAL) 02/15/21 04:10 D-Dimer 0.53 ug/ml (0.0-0.57) 02/13/21 11:17 Sample Site [place]rad 02/15/21 05:00 ABG pH 7.440 (7.35-7.45) 02/15/21 05:00 ABG pCO2 40.0 mmHg (35.0-45.0) 02/15/21 05:00 ABG pO2 59.0 mmHg (80.0-100.0) L 02/15/21 05:00 ABG HCO3 27.2 mmol/L (22-26) H 02/15/21 05:00 ABG O2 Saturation 91.0 % (90-100) 02/15/21 05:00 ABG Base Excess 2.8 mmol/L (-2.0-2.0) H 02/15/21 05:00 Gregory Test Pos 02/15/21 05:00 A-a Gradient 604.0 mmHg 02/15/21 05:00 FiO2 100.0 02/15/21 05:00 Blood Gas [facility] 02/15/21 05:00 Sodium 143 mmol/L (136-145) 02/15/21 04:10 Corrected Sodium 146 mmol/L (136-145) H 02/15/21 04:10 Potassium 3.1 mmol/L (3.5-5.1) L 02/15/21 04:10 Chloride 106 mmol/L (98-107) 02/15/21 04:10 Carbon Dioxide 29.0 mmol/L (21-32) 02/15/21 04:10 BUN 13 mg/dL (7-18) 02/15/21 04:10 Creatinine 0.75 mg/dL (0.55-1.02) 02/15/21 04:10 Est GFR (MDRD) Af Amer > 60 (>60) 02/15/21 04:10 Est GFR (MDRD) Non-Af > 60 (>60) 02/15/21 04:10 Glucose 242 mg/dL (65-99) H 02/15/21 04:10 POC Glucose (mg/dL) 267 mg/dL (65-99) H 02/15/21 16:27 Hemoglobin A1c 13.4 % 02/14/21 04:50 Calcium 7.6 mg/dL (8.5-10.1) L 02/15/21 04:10 Corrected Calcium 9.2 mg/dL (8.5-10.1) 02/15/21 04:10 Magnesium 2.6 mg/dL (1.7-2.9) 02/15/21 04:10 Magnesium 2.7 mg/dL (1.7-2.9) 02/15/21 04:10 Total Bilirubin 0.30 mg/dL (0.2-1.0) 02/15/21 04:10 AST 32 Units/L (15-37) 02/15/21 04:10 ALT 12 Units/L (12-78) 02/15/21 04:10 Alkaline Phosphatase 76 Units/L (46-116) 02/15/21 04:10 Creatine Kinase 119 Units/L (26-192) 02/13/21 11:19 CK-MB (CK-2) 1.3 ng/mL (0-4.0) 02/13/21 11:19 CK/CKMB % Calc 1.1 % (<4) 02/13/21 11:19 Troponin I < 0.02 ng/mL (0-1.5) 02/13/21 17:35 C-Reactive Protein 92.00 mg/L (0-3.0) H 02/15/21 04:10 Total Protein 6.2 g/dL (6.4-8.2) L 02/15/21 04:10 Albumin 2.0 g/dL (3.4-5.0) L 02/15/21 04:10 Globulin 4.2 g/dL (2.5-4.5) 02/15/21 04:10 Albumin/Globulin Ratio 0.5 Ratio (1.1-2.1) L 02/15/21 04:10 Specimen Type Random urine 02/13/21 19:30 Urine Color Yellow (YELLOW) 02/13/21 19:30 Urine Appearance Clear (CLEAR) 02/13/21 19:30 Urine pH 5.0 (5.0 - 8.0) 02/13/21 19:30 Ur Specific [place] 1.005 (1.000-1.030) 02/13/21 19:30 Urine Protein Negative (NEGATIVE) 02/13/21 19:30 Urine Glucose (UA) 4+ (NEGATIVE) 02/13/21 19:30 Urine Ketones 3+ (NEGATIVE) 02/13/21 19:30 Urine Occult Blood Negative (NEGATIVE) 02/13/21 19:30 Urine Nitrite Negative (NEGATIVE) 02/13/21 19:30 Urine Bilirubin Negative (NEGATIVE) 02/13/21 19:30 Urine Urobilinogen Normal (NORMAL) 02/13/21 19:30 Ur Leukocyte Esterase Negative (NEGATIVE) 02/13/21 19:30 Radiology Reviewed: Yes Plan (1) Pneumonia due to COVID-19 virus: Status: Acute Plan: IV Doxycycline and Rocephin. (2) COVID-19 virus infection: Status: Acute Plan: IV Remdesivir. (3) Hypoxia: Status: Acute Plan: Supplemental O2 via nonrebreather now. (4) Hyperglycemia: Status: Acute Plan: Cover with sliding scale regular insulin. Will check and see if a recent HbA1C has been done. increase levemir to 20 units bid. (5) Acute anxiety: Status: Acute Plan: valium prn
[2021-02-15] MEDS: SNACK - Diabetic Appropriate PO SCH (20:00)
[2021-02-15] MEDS: DILANTIN CAP 100 MG EXT REL PO SCH (20:42)
[2021-02-15] MEDS ORDERED: MORPHINE SULFATE INJ 2 MG INJ ONE (21:36)
[2021-02-15] MEDS: MORPHINE SULFATE INJ 2 MG INJ IVP PRN (21:50)
[2021-02-16 00:10] LABS: ABG BASE EXCESS 3.5 mmol/L (-2.0-2.0); ABG HCO3 27.8 mmol/L (22-26)
[2021-02-16 00:11] LABS: ABG ALLEN TEST POS
[2021-02-16] MEDS ORDERED: VALIUM INJ ONE (01:05)
[2021-02-16] MEDS: VALIUM INJ IVP PRN ×2 (01:15→10:30)
[2021-02-16] MEDS: MORPHINE SULFATE INJ 2 MG INJ IVP PRN ×4 (02:59→19:36)
[2021-02-16] MEDS: ASCORBIC ACID INJ MULTI-DOSE VIAL 1,500 MG in NS 100 ML IV 100 ML IV SCH ×4 (02:59→21:28)
[2021-02-16] MEDS: ROBITUSSIN DM PO SCH ×7 (03:44→22:57)
[2021-02-16 05:41] LABS: ABG BASE EXCESS 4.1 mmol/L (-2.0-2.0); ABG HCO3 28.5 mmol/L (22-26)
[2021-02-16 05:41] LABS: BILIRUBIN,URINE NEGATIVE (NEGATIVE); BLOOD/HEMOGLOBIN,URINE NEGATIVE (NEGATIVE); GLUCOSE, URINE 4+ (NEGATIVE); KETONES,URINE 1+ (NEGATIVE); LEUKOCYTE ESTERASE ,URINE NEGATIVE (NEGATIVE); NITRITES,URINE NEGATIVE (NEGATIVE); PROTEIN,URINE 1+ (NEGATIVE); UROBILINOGEN,URINE NORMAL (NORMAL)
[2021-02-16 05:42] LABS: ABG ALLEN TEST POS
[2021-02-16 05:50] LABS: APPEARANCE,URINE CLEAR (CLEAR); BACTERIA,URINE NEGATIVE /HPF (NEGATIVE); COLOR,URINE PALE YELLOW (YELLOW); RBC,URINE NONE SEEN /HPF (0-3); SQUAMOUS EPITHELIAL CELL,UR RARE /HPF (NEGATIVE); YEAST,URINE FEW /HPF (NEGATIVE)
[2021-02-16 06:08] LABS: BASOPHILS % (AUTO) 0.1 % (0.2-1.0); HEMATOCRIT 43.7 % (36.0-47.0); HEMOGLOBIN 14.4 g/dL (12.0-16.0); LYMPHOCYTES # (AUTO) 0.5 X10^3/uL (1.3-2.9); LYMPHOCYTES % (AUTO) 4.2 % (21.0-51.0); MEAN CORPUSCULAR HEMOGLOBIN 26.4 pg (27.0-34.0); MEAN CORPUSCULAR VOLUME 79.8 fL (80.0-100.0); MEAN PLATELET VOLUME 7.5 fL (7.4-11.0); MONOCYTES # (AUTO) 0.5 x10^3/uL (0.3-0.8); NEUTROPHILS % (AUTO) 91.7 % (42.0-75.0); PLATELET COUNT 337 X10^3/uL (150.0-450.0); RED BLOOD COUNT 5.47 X10^6/uL (3.5-5.4); RED CELL DISTRIBUTION WIDTH 15.2 % (11.6-16.5)
[2021-02-16 06:12] LABS: ALANINE AMINOTRANSFERASE 17 Units/L (12-78); ALBUMIN 2.1 g/dL (3.4-5.0); ALKALINE PHOSPHATASE 110 Units/L (46-116); ASPARTATE AMINO TRANSFERASE 42 Units/L (15-37); BLOOD UREA NITROGEN 12 mg/dL (7-18); CALCIUM 7.6 mg/dL (8.5-10.1); CARBON DIOXIDE 28.6 mmol/L (21-32); CHLORIDE 105 mmol/L (98-107); COR CA(FOR HYPOALB) 9.1 mg/dL (8.5-10.1); COR NA(FOR HYPERGLY) 144 mmol/L (136-145); CREATININE 0.84 mg/dL (0.55-1.02); SODIUM 141 mmol/L (136-145); TOTAL PROTEIN 6.5 g/dL (6.4-8.2); eGFR NON BLACK RACES > 60 (>60)
[2021-02-16] MEDS: TESSALON PERLES PO SCH ×3 (06:12→21:15)
[2021-02-16] MEDS: SOLU-Medrol 40 MG VIAL IVP SCH ×3 (06:12→21:20)
[2021-02-16] MEDS: HumuLIN R SC PRN (06:13)
[2021-02-16] MEDS: NS 1000 ML 1,000 ML IV SCH ×2 (06:30→13:50)
[2021-02-16 07:19] LABS: PLATELET MORPHOLOGY COMMENT NORMAL (NORMAL)
--- NOTE | 2021-02-16 07:33 | RAD ---
HISTORYCOVID PNEUMONIASTUDYCHEST, 1 [id number] bilateral areas of opacity could be bronchopneumonia. This has progressed from 3 days ago.Relative sparing of the left apex. But there is no pneumothorax or pleural effusion.The heart size is magnified.Bones are unremarkable.EKG leads are noted.IMPRESSION1. Progressed pneumoniaElectronically signed by: Aston Boss (Feb 16, 2021 07:31:18)
[2021-02-16] MEDS: LEVEMIR SC SCH ×2 (08:51→21:29)
[2021-02-16] MEDS: PULMICORT NEB TX 0.5 MG NEB SCH ×2 (08:52→20:45)
[2021-02-16] MEDS: BROVANA IN SCH ×2 (08:52→20:45)
[2021-02-16] MEDS: LOVENOX INJ 30 MG SYR SC SCH ×2 (08:54→21:28)
[2021-02-16] MEDS ORDERED: INVANZ INJ 1 GM VIAL 1 GM in NS 100 ML IV + SPIKE MINIBAG* 100 ML IV SCH (09:00)
[2021-02-16] MEDS: PEPCID TAB 40 MG PO SCH ×2 (09:07→21:25)
[2021-02-16] MEDS: TRICOR TAB 160 MG PO SCH (09:09)
[2021-02-16] MEDS: VIBRAMYCIN PO SCH ×2 (09:09→21:25)
[2021-02-16] MEDS: REMDESIVIR 100 MG in NS 250 ML IV 250 ML IV SCH (09:09)
[2021-02-16] MEDS: VITAMIN A PO SCH (09:10)
[2021-02-16] MEDS: VITAMIN D3 125 mcg (5,000 UNITS) PO SCH (09:10)
[2021-02-16] MEDS: ZINC SULFATE PO SCH ×2 (09:10→21:15)
--- NOTE | 2021-02-16 15:29 | PCM.PROG ---
Progress Note Progress Note for Day of Date of Exam: 02/16/21 Subjective Subjective: During the night the patient became shorter of breath. Currently she is on bipap which helped her breath better she reported. Anxiety is better with valium. She does want to be intubated if it came to that. Past Medical Family Social History Past Med/Fam/Surg Hx: No changes since H&P Allergies: Allergies No Known Drug Allergies Allergy (Verified 02/12/21 08:46) Review of Systems ROS: No change since H&P Vital Signs and I&O's Vital Signs: Temperature 98.2 F Pulse Rate [Left Radial] 95 Pulse Rate 99 Respiratory Rate 32 Blood Pressure [Right Arm] 136/64 Blood Pressure [Left Arm] 131/67 Blood Pressure 157/72 O2 Sat by Pulse Oximetry 85 Intake and Output: Intake & Output 02/14/21 02/15/21 02/16/21 02/17/21 11:59 11:59 11:59 11:59 Intake Total 1512 / 1512 3102 / 3102 1570 / 1570 Output Total 800 / 800 2600 / 2600 1600 / 1600 Balance 712 / 712 502 / 502 -30 / -30 Physical Exam Oriented: Normal Eyes: Normal Ear: Normal Nose: Normal Throat: Normal Respiratory: Right, Left, Diminished and Rhonchi Cardiovascular: Normal Auscultation: Bowel Sounds: Normal Tenderness: Normal Skin: Normal Psychiatric: Normal Mood Description: Calm and Anxious Affect: Normal Speech Pattern: Clear and Appropriate Laboratory and Diagnostics Result Diagrams: 02/16/21 05:05 02/16/21 05:05 Labs: Laboratory WBC 12.0 X10^3/uL (3.6-10.0) H 02/16/21 05:05 RBC 5.47 X10^6/uL (3.5-5.4) H 02/16/21 05:05 Hgb 14.4 g/dL (12.0-16.0) 02/16/21 05:05 Hct 43.7 % (36.0-47.0) 02/16/21 05:05 MCV 79.8 fL (80.0-100.0) L 02/16/21 05:05 MCH 26.4 pg (27.0-34.0) L 02/16/21 05:05 MCHC 33.0 g/dL (33.0-35.0) 02/16/21 05:05 RDW 15.2 % (11.6-16.5) 02/16/21 05:05 Plt Count 337 X10^3/uL (150.0-450.0) 02/16/21 05:05 Plt Count Comment Adequate (ADEQUATE) 02/16/21 05:05 MPV 7.5 fL (7.4-11.0) 02/16/21 05:05 Neut % (Auto) 91.7 % (42.0-75.0) H 02/16/21 05:05 Lymph % (Auto) 4.2 % (21.0-51.0) L 02/16/21 05:05 [place] % (Auto) 4.0 % (0.0-13.0) 02/16/21 05:05 Eos % (Auto) 0.0 % (0.9-2.9) L 02/16/21 05:05 Baso % (Auto) 0.1 % (0.2-1.0) L 02/16/21 05:05 Neut # (Auto) 11.0 x10^3/uL (2.2-4.8) H 02/16/21 05:05 Lymph # (Auto) 0.5 X10^3/uL (1.3-2.9) L 02/16/21 05:05 [place] # (Auto) 0.5 x10^3/uL (0.3-0.8) 02/16/21 05:05 Eos # (Auto) 0.0 x10^3/uL (0.0-0.2) 02/16/21 05:05 Baso # (Auto) 0.0 X10^3/uL (0.0-0.1) 02/16/21 05:05 Absolute Nucleated RBC 0.0 /100WBC 02/16/21 05:05 Total Counted 100 02/16/21 05:05 Neutrophils % (Manual) 92 % (39-76) H 02/16/21 05:05 Band Neutrophils % 2 % (0-10) 02/15/21 04:10 Lymphocytes % (Manual) 5 % (13-43) L 02/16/21 05:05 Monocytes % (Manual) 3 % (4-9) L 02/16/21 05:05 Plt Morphology Comment Normal (NORMAL) 02/16/21 05:05 RBC Morphology Normal (NORMAL) 02/16/21 05:05 D-Dimer 0.53 ug/ml (0.0-0.57) 02/13/21 11:17 Sample Site Lrad 02/16/21 05:38 ABG pH 7.450 (7.35-7.45) 02/16/21 05:38 ABG pCO2 41.0 mmHg (35.0-45.0) 02/16/21 05:38 ABG pO2 143.0 mmHg (80.0-100.0) H 02/16/21 05:38 ABG HCO3 28.5 mmol/L (22-26) H 02/16/21 05:38 ABG O2 Saturation 99.0 % (90-100) 02/16/21 05:38 ABG Base Excess 4.1 mmol/L (-2.0-2.0) H 02/16/21 05:38 Gregory Test Pos 02/16/21 05:38 A-a Gradient 519.0 mmHg 02/16/21 05:38 FiO2 100.0 02/16/21 05:38 Blood Gas Comments Jacy well mts 02/16/21 05:38 Sodium 141 mmol/L (136-145) 02/16/21 05:05 Corrected Sodium 144 mmol/L (136-145) 02/16/21 05:05 Potassium 3.6 mmol/L (3.5-5.1) 02/16/21 05:05 Chloride 105 mmol/L (98-107) 02/16/21 05:05 Carbon Dioxide 28.6 mmol/L (21-32) 02/16/21 05:05 BUN 12 mg/dL (7-18) 02/16/21 05:05 Creatinine 0.84 mg/dL (0.55-1.02) 02/16/21 05:05 Est GFR (MDRD) Af Amer > 60 (>60) 02/16/21 05:05 Est GFR (MDRD) Non-Af > 60 (>60) 02/16/21 05:05 Glucose 242 mg/dL (65-99) H 02/16/21 05:05 POC Glucose (mg/dL) 165 mg/dL (65-99) H 02/16/21 11:42 Hemoglobin A1c 13.4 % 02/14/21 04:50 Calcium 7.6 mg/dL (8.5-10.1) L 02/16/21 05:05 Corrected Calcium 9.1 mg/dL (8.5-10.1) 02/16/21 05:05 Magnesium 2.6 mg/dL (1.7-2.9) 02/15/21 04:10 Magnesium 2.7 mg/dL (1.7-2.9) 02/15/21 04:10 Total Bilirubin 0.30 mg/dL (0.2-1.0) 02/16/21 05:05 AST 42 Units/L (15-37) H 02/16/21 05:05 ALT 17 Units/L (12-78) 02/16/21 05:05 Alkaline Phosphatase 110 Units/L (46-116) 02/16/21 05:05 Creatine Kinase 119 Units/L (26-192) 02/13/21 11:19 CK-MB (CK-2) 1.3 ng/mL (0-4.0) 02/13/21 11:19 CK/CKMB % Calc 1.1 % (<4) 02/13/21 11:19 Troponin I < 0.02 ng/mL (0-1.5) 02/13/21 17:35 C-Reactive Protein 52.60 mg/L (0-3.0) H 02/16/21 05:05 B-Natriuretic Peptide 66.7 pg/mL (0-79) 02/16/21 05:05 Total Protein 6.5 g/dL (6.4-8.2) 02/16/21 05:05 Albumin 2.1 g/dL (3.4-5.0) L 02/16/21 05:05 Globulin 4.4 g/dL (2.5-4.5) 02/16/21 05:05 Albumin/Globulin Ratio 0.5 Ratio (1.1-2.1) L 02/16/21 05:05 Specimen Type Catherized urine 02/16/21 04:20 Urine Color Pale yellow (YELLOW) 02/16/21 04:20 Urine Appearance Clear (CLEAR) 02/16/21 04:20 Urine pH 6.0 (5.0 - 8.0) 02/16/21 04:20 Ur Specific [place] 1.015 (1.000-1.030) 02/16/21 04:20 Urine Protein 1+ (NEGATIVE) 02/16/21 04:20 Urine Glucose (UA) 4+ (NEGATIVE) 02/16/21 04:20 Urine Ketones 1+ (NEGATIVE) 02/16/21 04:20 Urine Occult Blood Negative (NEGATIVE) 02/16/21 04:20 Urine Nitrite Negative (NEGATIVE) 02/16/21 04:20 Urine Bilirubin Negative (NEGATIVE) 02/16/21 04:20 Urine Urobilinogen Normal (NORMAL) 02/16/21 04:20 Ur Leukocyte Esterase Negative (NEGATIVE) 02/16/21 04:20 Urine RBC None seen /HPF (0-3) 02/16/21 04:20 Urine WBC None seen /HPF (0-5) 02/16/21 04:20 Ur Squamous Epith Cells Rare /HPF (NEGATIVE) 02/16/21 04:20 Urine Bacteria Negative /HPF (NEGATIVE) 02/16/21 04:20 Urine Yeast Few /HPF (NEGATIVE) 02/16/21 04:20 Ur Culture Indicated? No/not indicated 02/16/21 04:20 Radiology Reviewed: Yes Plan (1) Pneumonia due to COVID-19 virus: Status: Acute Plan: IV Doxycycline and Rocephin. Added Invanz this am. (2) COVID-19 virus infection: Status: Acute Plan: IV Remdesivir. (3) Hypoxia: Status: Acute Plan: Supplemental O2 via nonrebreather now. ABG results looked good on bipap. (4) Hyperglycemia: Status: Acute Plan: Cover with sliding scale regular insulin. Will check and see if a recent HbA1C has been done. increase levemir to 20 units bid. (5) Acute anxiety: Status: Acute Narrative Support Text: The higher dose valium at 10mg worked more effectively than 5mg. Plan: valium prn
[2021-02-16] MEDS: SNACK - Diabetic Appropriate PO SCH (21:00)
[2021-02-16] MEDS: DILANTIN CAP 100 MG EXT REL PO SCH (21:15)
[2021-02-17] MEDS: ASCORBIC ACID INJ MULTI-DOSE VIAL 1,500 MG in NS 100 ML IV 100 ML IV SCH ×4 (04:25→22:10)
[2021-02-17] MEDS: ROBITUSSIN DM PO SCH ×8 (04:39→22:49)
[2021-02-17 04:56] LABS: ABG BASE EXCESS 8.1 mmol/L (-2.0-2.0)
[2021-02-17 04:57] LABS: ABG ALLEN TEST POS
[2021-02-17 05:15] LABS: BASOPHILS % (AUTO) 0.2 % (0.2-1.0); EOSINOPHILS % (AUTO) 0.5 % (0.9-2.9); HEMATOCRIT 41.3 % (36.0-47.0); HEMOGLOBIN 13.6 g/dL (12.0-16.0); LYMPHOCYTES # (AUTO) 0.4 X10^3/uL (1.3-2.9); LYMPHOCYTES % (AUTO) 4.4 % (21.0-51.0); MEAN CORPUSCULAR HEMOGLOBIN 26.2 pg (27.0-34.0); MEAN CORPUSCULAR HGB CONC 32.8 g/dL (33.0-35.0); MEAN CORPUSCULAR VOLUME 79.9 fL (80.0-100.0); MEAN PLATELET VOLUME 7.3 fL (7.4-11.0); MONOCYTES # (AUTO) 0.2 x10^3/uL (0.3-0.8); MONOCYTES % (AUTO) 2.1 % (0.0-13.0); NEUTROPHILS # (AUTO) 7.9 x10^3/uL (2.2-4.8); NEUTROPHILS % (AUTO) 92.8 % (42.0-75.0); PLATELET COUNT 267 X10^3/uL (150.0-450.0); RED BLOOD COUNT 5.17 X10^6/uL (3.5-5.4); RED CELL DISTRIBUTION WIDTH 15.1 % (11.6-16.5); WHITE BLOOD COUNT 8.6 X10^3/uL (3.6-10.0)
[2021-02-17 05:27] LABS: ALANINE AMINOTRANSFERASE 11 Units/L (12-78); ALBUMIN 1.9 g/dL (3.4-5.0); ALKALINE PHOSPHATASE 91 Units/L (46-116); ASPARTATE AMINO TRANSFERASE 37 Units/L (15-37); BLOOD UREA NITROGEN 11 mg/dL (7-18); CALCIUM 7.3 mg/dL (8.5-10.1); CARBON DIOXIDE 28.5 mmol/L (21-32); CHLORIDE 107 mmol/L (98-107); COR NA(FOR HYPERGLY) 146 mmol/L (136-145); CREATININE 0.66 mg/dL (0.55-1.02); SODIUM 145 mmol/L (136-145); eGFR NON BLACK RACES > 60 (>60)
[2021-02-17 05:48] LABS: HYPOCHROMASIA SLIGHT; MICROCYTOSIS SLIGHT; PLATELET MORPHOLOGY COMMENT NORMAL (NORMAL)
[2021-02-17] MEDS: SOLU-Medrol 40 MG VIAL IVP SCH ×3 (06:02→22:10)
[2021-02-17] MEDS: TESSALON PERLES PO SCH ×3 (06:25→22:49)
[2021-02-17] MEDS: BROVANA IN SCH ×2 (09:17→21:00)
[2021-02-17] MEDS: PULMICORT NEB TX 0.5 MG NEB SCH ×2 (09:17→21:00)
[2021-02-17] MEDS: LEVEMIR SC SCH ×2 (09:59→22:42)
[2021-02-17] MEDS: LOVENOX INJ 30 MG SYR SC SCH ×2 (09:59→22:47)
[2021-02-17] MEDS: REMDESIVIR 100 MG in NS 250 ML IV 250 ML IV SCH (10:00)
[2021-02-17] MEDS: TRICOR TAB 160 MG PO SCH (10:00)
[2021-02-17] MEDS: PEPCID TAB 40 MG PO SCH ×2 (10:00→22:48)
[2021-02-17] MEDS: MORPHINE SULFATE INJ 2 MG INJ IVP PRN ×4 (10:00→23:01)
[2021-02-17] MEDS: VIBRAMYCIN PO SCH ×2 (10:00→22:49)
[2021-02-17] MEDS: ZINC SULFATE PO SCH ×2 (10:01→22:49)
[2021-02-17] MEDS: VITAMIN A PO SCH (10:01)
[2021-02-17] MEDS: VITAMIN D3 125 mcg (5,000 UNITS) PO SCH (10:01)
[2021-02-17] MEDS: INVANZ INJ 1 GM VIAL 1 GM in NS 100 ML IV 100 ML IV SCH (10:16)
[2021-02-17] MEDS: NS 1000 ML 1,000 ML IV SCH (14:33)
--- NOTE | 2021-02-17 15:27 | PCM.PROG ---
Progress Note Progress Note for Day of Date of Exam: 02/17/21 Subjective Subjective: Still having difficulty breathing. She does want to be intubated if it came to that. Past Medical Family Social History Past Med/Fam/Surg Hx: No changes since H&P Allergies: Allergies No Known Drug Allergies Allergy (Verified 02/12/21 08:46) Review of Systems ROS: No change since H&P Vital Signs and I&O's Vital Signs: Temperature 97.6 F Pulse Rate [Left Radial] 95 Pulse Rate 83 Respiratory Rate 30 Blood Pressure [Right Arm] 136/64 Blood Pressure [Left Arm] 131/67 Blood Pressure 171/73 O2 Sat by Pulse Oximetry 92 Intake and Output: Intake & Output 02/15/21 02/16/21 02/17/21 02/18/21 11:59 11:59 11:59 11:59 Intake Total 3102 / 3102 1570 / 1570 2520 / 2520 Output Total 2600 / 2600 1600 / 1600 2100 / 2100 Balance 502 / 502 -30 / -30 420 / 420 Physical Exam Oriented: Normal Respiratory: Right, Left, Diminished and Rhonchi Cardiovascular: Normal : Normal Auscultation: Bowel Sounds: Normal Palpation: Normal Tenderness: Normal Skin: Normal Psychiatric: Normal Mood Description: Calm Affect: Normal Speech Pattern: Clear and Appropriate Laboratory and Diagnostics Result Diagrams: 02/17/21 04:34 02/17/21 04:34 Labs: Laboratory WBC 8.6 X10^3/uL (3.6-10.0) 02/17/21 04:34 RBC 5.17 X10^6/uL (3.5-5.4) 02/17/21 04:34 Hgb 13.6 g/dL (12.0-16.0) 02/17/21 04:34 Hct 41.3 % (36.0-47.0) 02/17/21 04:34 MCV 79.9 fL (80.0-100.0) L 02/17/21 04:34 MCH 26.2 pg (27.0-34.0) L 02/17/21 04:34 MCHC 32.8 g/dL (33.0-35.0) L 02/17/21 04:34 RDW 15.1 % (11.6-16.5) 02/17/21 04:34 Plt Count 267 X10^3/uL (150.0-450.0) 02/17/21 04:34 Plt Count Comment Adequate (ADEQUATE) 02/17/21 04:34 MPV 7.3 fL (7.4-11.0) L 02/17/21 04:34 Neut % (Auto) 92.8 % (42.0-75.0) H 02/17/21 04:34 Lymph % (Auto) 4.4 % (21.0-51.0) L 02/17/21 04:34 [place] % (Auto) 2.1 % (0.0-13.0) 02/17/21 04:34 Eos % (Auto) 0.5 % (0.9-2.9) L 02/17/21 04:34 Baso % (Auto) 0.2 % (0.2-1.0) 02/17/21 04:34 Neut # (Auto) 7.9 x10^3/uL (2.2-4.8) H 02/17/21 04:34 Lymph # (Auto) 0.4 X10^3/uL (1.3-2.9) L 02/17/21 04:34 [place] # (Auto) 0.2 x10^3/uL (0.3-0.8) L 02/17/21 04:34 Eos # (Auto) 0.0 x10^3/uL (0.0-0.2) 02/17/21 04:34 Baso # (Auto) 0.0 X10^3/uL (0.0-0.1) 02/17/21 04:34 Absolute Nucleated RBC 0.1 /100WBC 02/17/21 04:34 Total Counted 100 02/17/21 04:34 Neutrophils % (Manual) 95 % (39-76) H 02/17/21 04:34 Band Neutrophils % 2 % (0-10) 02/15/21 04:10 Lymphocytes % (Manual) 3 % (13-43) L 02/17/21 04:34 Monocytes % (Manual) 2 % (4-9) L 02/17/21 04:34 Plt Morphology Comment Normal (NORMAL) 02/17/21 04:34 RBC Morphology Abnormal (NORMAL) A 02/17/21 04:34 Hypochromasia Slight A 02/17/21 04:34 Microcytosis Slight A 02/17/21 04:34 D-Dimer 0.53 ug/ml (0.0-0.57) 02/13/21 11:17 Sample Site Lrad 02/17/21 04:52 ABG pH 7.500 (7.35-7.45) H 02/17/21 04:52 ABG pCO2 41.0 mmHg (35.0-45.0) 02/17/21 04:52 ABG pO2 49.0 mmHg (80.0-100.0) L* 02/17/21 04:52 ABG HCO3 32.0 mmol/L (22-26) H* 02/17/21 04:52 ABG O2 Saturation 88.0 % (90-100) L 02/17/21 04:52 ABG Base Excess 8.1 mmol/L (-2.0-2.0) H 02/17/21 04:52 Gregory Test Pos 02/17/21 04:52 A-a Gradient 399.0 mmHg 02/17/21 04:52 FiO2 70.0 02/17/21 04:52 Blood Gas Comments Jacy well ms 02/17/21 04:52 Sodium 145 mmol/L (136-145) 02/17/21 04:34 Corrected Sodium 146 mmol/L (136-145) H 02/17/21 04:34 Potassium 3.4 mmol/L (3.5-5.1) L 02/17/21 04:34 Chloride 107 mmol/L (98-107) 02/17/21 04:34 Carbon Dioxide 28.5 mmol/L (21-32) 02/17/21 04:34 BUN 11 mg/dL (7-18) 02/17/21 04:34 Creatinine 0.66 mg/dL (0.55-1.02) 02/17/21 04:34 Est GFR (MDRD) Af Amer > 60 (>60) 02/17/21 04:34 Est GFR (MDRD) Non-Af > 60 (>60) 02/17/21 04:34 Glucose 142 mg/dL (65-99) H 02/17/21 04:34 POC Glucose (mg/dL) 184 mg/dL (65-99) H 02/17/21 11:25 Hemoglobin A1c 13.4 % 02/14/21 04:50 Calcium 7.3 mg/dL (8.5-10.1) L 02/17/21 04:34 Corrected Calcium 9.0 mg/dL (8.5-10.1) 02/17/21 04:34 Magnesium 2.6 mg/dL (1.7-2.9) 02/15/21 04:10 Magnesium 2.7 mg/dL (1.7-2.9) 02/15/21 04:10 Total Bilirubin 0.30 mg/dL (0.2-1.0) 02/17/21 04:34 AST 37 Units/L (15-37) 02/17/21 04:34 ALT 11 Units/L (12-78) L 02/17/21 04:34 Alkaline Phosphatase 91 Units/L (46-116) 02/17/21 04:34 Creatine Kinase 119 Units/L (26-192) 02/13/21 11:19 CK-MB (CK-2) 1.3 ng/mL (0-4.0) 02/13/21 11:19 CK/CKMB % Calc 1.1 % (<4) 02/13/21 11:19 Troponin I < 0.02 ng/mL (0-1.5) 02/13/21 17:35 C-Reactive Protein 52.60 mg/L (0-3.0) H 02/16/21 05:05 B-Natriuretic Peptide 66.7 pg/mL (0-79) 02/16/21 05:05 Total Protein 6.0 g/dL (6.4-8.2) L 02/17/21 04:34 Albumin 1.9 g/dL (3.4-5.0) L 02/17/21 04:34 Globulin 4.1 g/dL (2.5-4.5) 02/17/21 04:34 Albumin/Globulin Ratio 0.5 Ratio (1.1-2.1) L 02/17/21 04:34 Specimen Type Catherized urine 02/16/21 04:20 Urine Color Pale yellow (YELLOW) 02/16/21 04:20 Urine Appearance Clear (CLEAR) 02/16/21 04:20 Urine pH 6.0 (5.0 - 8.0) 02/16/21 04:20 Ur Specific [place] 1.015 (1.000-1.030) 02/16/21 04:20 Urine Protein 1+ (NEGATIVE) 02/16/21 04:20 Urine Glucose (UA) 4+ (NEGATIVE) 02/16/21 04:20 Urine Ketones 1+ (NEGATIVE) 02/16/21 04:20 Urine Occult Blood Negative (NEGATIVE) 02/16/21 04:20 Urine Nitrite Negative (NEGATIVE) 02/16/21 04:20 Urine Bilirubin Negative (NEGATIVE) 02/16/21 04:20 Urine Urobilinogen Normal (NORMAL) 02/16/21 04:20 Ur Leukocyte Esterase Negative (NEGATIVE) 02/16/21 04:20 Urine RBC None seen /HPF (0-3) 02/16/21 04:20 Urine WBC None seen /HPF (0-5) 02/16/21 04:20 Ur Squamous Epith Cells Rare /HPF (NEGATIVE) 02/16/21 04:20 Urine Bacteria Negative /HPF (NEGATIVE) 02/16/21 04:20 Urine Yeast Few /HPF (NEGATIVE) 02/16/21 04:20 Ur Culture Indicated? No/not indicated 02/16/21 04:20 Plan (1) Pneumonia due to COVID-19 virus: Status: Acute Narrative Support Text: Awaiting todays CXR report. Leukocytosis has no rmalized. Plan: IV Doxycycline and Invanz. Will discontinue Rocephin. (2) COVID-19 virus infection: Status: Acute Narrative Support Text: Today is day 5 for IV Remdsevir. Plan: IV Remdesivir. (3) Hypoxia: Status: Acute Plan: Supplemental O2 via bipap now, O2 sat drops when bipap is removed. (4) Hyperglycemia: Status: Acute Narrative Support Text: Much improved since increasing levemir. Plan: Cover with sliding scale regular insulin. Will check and see if a recent HbA1C has been done. increase levemir to 20 units bid. (5) Acute anxiety: Status: Acute Plan: valium prn (6) Hypokalemia: Status: Acute Plan: Potassium replacement protocol.
[2021-02-17] MEDS: HumuLIN R SC PRN (16:06)
[2021-02-17] MEDS: VALIUM INJ IVP PRN (16:08)
[2021-02-17 16:59] LABS: ABG BASE EXCESS 5.5 mmol/L (-2.0-2.0); ABG HCO3 29.9 mmol/L (22-26)
--- NOTE | 2021-02-17 18:40 | RAD ---
HISTORYCOVID PNEUMONIA, HYPOXIASTUDYCHEST, 1 VIEWCOMPARISONSeptember 2020TECHNIQUEPortable chest radiographFINDINGSInterval development of diffuse subcutaneous emphysema associated with the base of the neck communicating with pneumomediastinum. There is been interval development of a right-sided pneumothorax with at least 28 mm of pleural separation. Estimated volume of the pneumothorax is approximately 15-20 percent. Diffuse bilateral alveolar ground-glass opacities with air bronchograms noted. Heart size is normal.There also may be a tiny left apical pneumothorax. Subcutaneous emphysema is associated with the bilateral chest wall as well.IMPRESSIONInterval development of a right-sided pneumothorax estimated volume of 15 20 percent and possible tiny left apical pneumothoraxDiffuse bilateral subcutaneous emphysema of the base of the neck and chest wall as well as pneumomediastinumPersistent diffuse bilateral alveolar ground-glass opacities associated with COVID-19 pneumonia.Electronically signed by: CELIA TUCKER (Feb 17, 2021 18:39:13)
[2021-02-17] MEDS: SNACK - Diabetic Appropriate PO SCH (20:30)
[2021-02-17 20:43] LABS: ABG BASE EXCESS 6.8 mmol/L (-2.0-2.0)
[2021-02-17 20:44] LABS: ABG HCO3 31.3 mmol/L (22-26)
[2021-02-17 20:45] LABS: ABG ALLEN TEST POS
[2021-02-17] MEDS ORDERED: CATAPRES-TTS-1 TD SCH (21:00)
[2021-02-17] MEDS ORDERED: XYLOCAINE 1 % (PLAIN) ONE (21:09)
[2021-02-17] MEDS ORDERED: NS IRRIGATION* 500 ML IR ONE (21:12)
--- NOTE | 2021-02-17 21:15 | RAD ---
EXAM: CHEST X-RAYHISTORY: Progressive subcutaneous emphysema.TECHNIQUE: AP chest x-ray dated February 17, 2021 at 8:50 PM.COMPARISON: CXR dated February 17, 2021 at 8:46 PM and CXR dated February 16, 2021.FINDINGS:There is interval development of a moderate (estimated 25%) right pneumothorax since yesterday's exam. There is also interval development of extensive pneumomediastinum, soft tissue neck and soft tissue chest wall emphysema, presumed sequela of air leak from pneumothorax; cannot rule out concomitant occult tracheal or esophageal tear or rupture in the appropriate clinical setting. Consider follow-up evaluation with CT for further assessment as clinically warranted.The heart size and mediastinum are otherwise within normal limits. There is stable appearance of severe diffuse bilateral lung parenchymal infiltrates (relatively mild in the lung apices, in keeping with acute pneumonia; rule out Covid pneumonia.No gross pleural effusion is seen. The visualized bony structures are within normal limits.IMPRESSION:1. Interval development of a moderate (estimated 25%) right pneumothorax since yesterday's exam; rule out tension pneumothorax.2. Interval development of extensive pneumomediastinum, soft tissue neck and soft tissue chest wall emphysema, presumed sequela of air leak from pneumothorax compared with yesterday's exam; cannot rule out concomitant occult tracheal or esophageal tear or rupture in the appropriate clinical setting. Consider follow-up evaluation with CT for further assessment as clinically warranted.3. Stable appearance of severe diffuse bilateral lung parenchymal infiltrates (relatively mild in the lung apices, in keeping with acute pneumonia; rule out Covid pneumonia.Electronically signed by: Qi Pedersen (Feb 17, 2021 21:13:40)
--- NOTE | 2021-02-17 22:08 | RAD ---
EXAM: CHEST X-RAYHISTORY: Chest tube placement verification.TECHNIQUE: AP chest x-ray dated February 17, 2021 at 9:34 PM.COMPARISON: CXR dated February 17, 2021 at 8:46 PM.FINDINGS:There is interval placement of a right-sided chest tube with the distal tip superimposed on the central/right perihilar hemithorax. There is significant interval improvement of previously seen right pneumothorax, with mild (estimated 2 to 5%) residual pneumothorax noted.Stable appearance of extensive pneumomediastinum, soft tissue neck emphysema and chest wall emphysema. The heart size and mediastinum are otherwise within normal limits.There is stable severe diffuse lung parenchymal infiltrate. No gross pleural effusion is seen. The visualized bony structures are within normal limits.IMPRESSION:1. Status post interval placement of a right-sided chest tube with the distal tip superimposed on the central/right perihilar hemithorax.2. Significant interval improvement of previously seen right pneumothorax, with mild (estimated 2 to 5%) residual pneumothorax noted.3. Stable appearance of extensive pneumomediastinum, soft tissue neck emphysema and chest wall emphysema.4. Stable severe diffuse bilateral lung infiltrates.Electronically signed by: Qi Pedersen (Feb 17, 2021 22:05:38)
[2021-02-17] MEDS ORDERED: DILANTIN INJ 100 MG VIAL IVP ONE (22:23)
[2021-02-17] MEDS: DILANTIN CAP 100 MG EXT REL PO SCH (22:42)
--- NOTE | 2021-02-17 23:26 | DR.CONSULT ---
CONSULT Consultation for Day of: Date: 02/17/21 Chief Complaint Chief Complaint: Increasing shortness of breath. Chest x-ray now shows a right- sided pneumothorax in addition to bilateral pneumonia secondary to COVID infection. Allergies Allergies Allergy/AdvReac Type Severity Reaction Status Date / Time No Known Drug Allergies Allergy Verified 02/12/21 08:46 History of Present Illness History of Present Illness: 65 year old female not vaccinated for covid with positive covid tests and failed treatment with antibodies and developed increasing shortness of breath and chest x-ray consistent with bilateral pneumonia. Patient admitted for antibiotics, Remdesivir, and steroids. Patient with increasing dyspnea today and chest x-ray showed approximately 20% pne umothorax and repeat chest x-ray showed increase in the size of the thorax to approximately 25% the significant bilateral infiltrates. Past Medical History Past Medical History: Diabetes (patient had been borderline but that has been accelerated by the use of steroids. ) and Seizures Past Surgical History Surgical History: Hysterectomy (Bilateral oophorectomy in addition to hysterectomy ) Family History Family Medical History: Diabetes Mellitus and Cancer Social History Does patient currently use any type of tobacco product: No Have you used tobacco products in the last 12 months: No Type of Tobacco Use: None Does any household member use tobacco: No Alcohol Use: None Drug Use: None Medications Home Medications: No Known Drug Allergies Allergy (Verified 02/12/21 08:46) CONTINUE taking the following medications phenytoin sodium extended 100 mg PO HS 02/14/21 [History] Review of Systems Constitutional: Other (patient with significant dyskinesia on BiPAP. Significant crepitance the both chests consistent with barotrauma ) Respiratory: Other (significant dyspnea ) Physical Exam Vital Signs: Temperature 97.6 F Pulse Rate [Left Radial] 95 Pulse Rate 109 Respiratory Rate 30 Blood Pressure [Right Arm] 136/64 Blood Pressure [Left Arm] 131/67 Blood Pressure 141/73 O2 Sat by Pulse Oximetry 92 hemoglobin equal 13. 6, white blood cell count equal 8. 6 ,chest x-ray as described above Oriented: Normal Eyes: Normal Ear: Normal Nose: Normal Throat: Normal Respiratory: Diminished Throughout (significant crepitance of both chests) Cardiovascular: Normal : Normal Auscultation: Bowel Sounds: Normal Palpation: Normal Tenderness: Normal Skin: Normal Musculoskeletal: Normal Mood Description: Anxious Plan Plan: replace right side of chest tube. Risks and benefits discussed with the patient and her daughter at bedside. They agree to proceed.
--- NOTE | 2021-02-17 23:43 | DR.OPNOTE ---
OP NOTE Pre-Op Diagnosis: Right sided pneumothorax Post-Op Diagnosis: same Procedure Date Date Of Procedure: 02/17/21 Procedure: Right chest prepped and draped in sterile fashion. The skin over lying the anterior lateral right chest just over the 7th intercostal space infiltrated with 1% Xylocaine and a 1 inch incision made. Dissection carried through the subcutaneous tissue to the chest wall with a hemostat and a hemostat use to puncture into the right chest with significant caro of air and fluid. 28 Sami chest tube placed. The chest tube was secured to the skin with interrupted silk sutures. Dressing applied. Post procedure chest x-ray show near complete resolution of the pneumothorax. Chest to place to 20 centimeters of H2O suction. Type of Anesthesia: Local (8 cc of 1% Xylocaine ) Findings: as above EBL: minimal Drains/Tubes Placed: Chest Tube (28 Fr) Complications:: none Needle/Sponge Count:: correct Disposition/Condition: Pt. tolerated procedure without difficulty.
[2021-02-18] MEDS: MORPHINE SULFATE INJ 2 MG INJ IVP PRN ×5 (02:30→12:43)
[2021-02-18] MEDS: ROBITUSSIN DM PO SCH ×3 (02:39→13:18)
[2021-02-18] MEDS ORDERED: MORPHINE SULFATE INJ 2 MG INJ ONE (04:27)
[2021-02-18] MEDS: ASCORBIC ACID INJ MULTI-DOSE VIAL 1,500 MG in NS 100 ML IV 100 ML IV SCH ×4 (04:50→21:34)
[2021-02-18 05:16] LABS: BASOPHILS % (AUTO) 0.1 % (0.2-1.0); HEMOGLOBIN 14.6 g/dL (12.0-16.0); LYMPHOCYTES # (AUTO) 0.2 X10^3/uL (1.3-2.9); LYMPHOCYTES % (AUTO) 2.1 % (21.0-51.0); MEAN CORPUSCULAR HEMOGLOBIN 26.4 pg (27.0-34.0); MEAN CORPUSCULAR HGB CONC 33.1 g/dL (33.0-35.0); MEAN CORPUSCULAR VOLUME 79.6 fL (80.0-100.0); MEAN PLATELET VOLUME 7.2 fL (7.4-11.0); MONOCYTES # (AUTO) 0.2 x10^3/uL (0.3-0.8); MONOCYTES % (AUTO) 1.8 % (0.0-13.0); NEUTROPHILS # (AUTO) 11.5 x10^3/uL (2.2-4.8); PLATELET COUNT 231 X10^3/uL (150.0-450.0); RED BLOOD COUNT 5.52 X10^6/uL (3.5-5.4); RED CELL DISTRIBUTION WIDTH 15.2 % (11.6-16.5)
[2021-02-18 05:18] LABS: ALANINE AMINOTRANSFERASE 12 Units/L (12-78); ALBUMIN 1.8 g/dL (3.4-5.0); ALKALINE PHOSPHATASE 130 Units/L (46-116); ASPARTATE AMINO TRANSFERASE 42 Units/L (15-37); BLOOD UREA NITROGEN 12 mg/dL (7-18); CALCIUM 7.6 mg/dL (8.5-10.1); CARBON DIOXIDE 27.7 mmol/L (21-32); CHLORIDE 105 mmol/L (98-107); COR CA(FOR HYPOALB) 9.4 mg/dL (8.5-10.1); COR NA(FOR HYPERGLY) 149 mmol/L (136-145); CREATININE 0.77 mg/dL (0.55-1.02); SODIUM 145 mmol/L (136-145); TOTAL PROTEIN 6.5 g/dL (6.4-8.2); eGFR NON BLACK RACES > 60 (>60)
[2021-02-18] MEDS: TESSALON PERLES PO SCH (05:54)
[2021-02-18] MEDS: SOLU-Medrol 40 MG VIAL IVP SCH ×3 (05:54→21:36)
[2021-02-18 06:06] LABS: ABG ALLEN TEST POS; ABG BASE EXCESS 2.4 mmol/L (-2.0-2.0); ABG HCO3 27.2 mmol/L (22-26)
[2021-02-18 06:19] LABS: BAND NEUTROPHILS % 2 % (0-10); HYPOCHROMASIA SLIGHT; MICROCYTOSIS SLIGHT; PLATELET MORPHOLOGY COMMENT NORMAL (NORMAL)
[2021-02-18] MEDS: LEVEMIR SC SCH ×2 (08:08→21:35)
[2021-02-18] MEDS: LOVENOX INJ 30 MG SYR SC SCH ×2 (08:09→21:36)
[2021-02-18] MEDS: INVANZ INJ 1 GM VIAL 1 GM in NS 100 ML IV 100 ML IV SCH (08:09)
[2021-02-18] MEDS: PULMICORT NEB TX 0.5 MG NEB SCH ×2 (08:23→20:50)
[2021-02-18] MEDS: BROVANA IN SCH ×2 (08:23→20:50)
--- NOTE | 2021-02-18 08:35 | RAD ---
HISTORYCOVID WITH BRONCHOPNEUMONIA HYSTER, SEIZURESSTUDYCHEST, 1 [id number] trachea is midline. There is a right base chest tube unchanged since prior. There is severe subcutaneous emphysema. There is also pneumomediastinum. There is a right apical pneumothorax slightly increased since prior with the pleural line projecting at at the 4th posterior rib. There is persistent diffuse alveolar and ground-glass radiopacities. Difference with prior study could be technical.IMPRESSIONPersistent bibasal alveolar and ground-glass radiopacitiesMild interval increase of right apical pneumothorax with the pleural line projecting at the level of the 4th posterior rib approximately 20 percent.Worsening pneumomediastinum with new air surrounding the heart.Electronically signed by: Queenie Arredondo (Feb 18, 2021 08:33:46)
[2021-02-18] MEDS: CHECK PATCH XX SCH ×2 (08:47→21:15)
[2021-02-18] MEDS: VIBRAMYCIN PO SCH (08:52)
[2021-02-18] MEDS: TRICOR TAB 160 MG PO SCH (08:52)
[2021-02-18] MEDS: PEPCID TAB 40 MG PO SCH (08:52)
[2021-02-18] MEDS: ZINC SULFATE PO SCH (08:53)
[2021-02-18] MEDS: VITAMIN A PO SCH (08:53)
[2021-02-18] MEDS: VITAMIN D3 125 mcg (5,000 UNITS) PO SCH (08:53)
--- NOTE | 2021-02-18 08:55 | PCM.PROG ---
Progress Note Progress Note for Day of Date of Exam: 02/18/21 Subjective Subjective: Patient had spontaneous right sided pneumothorax yesterday. Surgery was called and a chest tube was placed. This morning the patient reports she is tired and wants to be intubated. She is a full code at this time. Past Medical Family Social History Past Med/Fam/Surg Hx: No changes since H&P Allergies: Allergies No Known Drug Allergies Allergy (Verified 02/12/21 08:46) Review of Systems ROS: No change since H&P Vital Signs and I&O's Vital Signs: Temperature 98.8 F Pulse Rate [Left Radial] 95 Pulse Rate 114 Respiratory Rate 33 Blood Pressure [Right Arm] 136/64 Blood Pressure [Left Arm] 131/67 Blood Pressure 170/81 O2 Sat by Pulse Oximetry 90 Intake and Output: Intake & Output 02/15/21 02/16/21 02/17/21 02/18/21 11:59 11:59 11:59 11:59 Intake Total 3102 / 3102 1570 / 1570 2520 / 2520 965 / 965 Output Total 2600 / 2600 1600 / 1600 2100 / 2100 1510 / 1510 Balance 502 / 502 -30 / -30 420 / 420 -545 / -545 Physical Exam Respiratory: Right, Left, Diminished and Rhonchi Cardiovascular: Tachycardia : Normal Auscultation: Bowel Sounds: Normal Tenderness: Normal Skin: Normal Musculoskeletal: Normal Psychiatric: Anxiety Mood Description: Anxious Affect: Quiet Speech Pattern: Appropriate Laboratory and Diagnostics Result Diagrams: 02/18/21 04:51 02/18/21 04:51 Labs: Laboratory WBC 12.0 X10^3/uL (3.6-10.0) H 02/18/21 04:51 RBC 5.52 X10^6/uL (3.5-5.4) H 02/18/21 04:51 Hgb 14.6 g/dL (12.0-16.0) 02/18/21 04:51 Hct 44.0 % (36.0-47.0) 02/18/21 04:51 MCV 79.6 fL (80.0-100.0) L 02/18/21 04:51 MCH 26.4 pg (27.0-34.0) L 02/18/21 04:51 MCHC 33.1 g/dL (33.0-35.0) 02/18/21 04:51 RDW 15.2 % (11.6-16.5) 02/18/21 04:51 Plt Count 231 X10^3/uL (150.0-450.0) 02/18/21 04:51 Plt Count Comment Adequate (ADEQUATE) 02/18/21 04:51 MPV 7.2 fL (7.4-11.0) L 02/18/21 04:51 Neut % (Auto) 96.0 % (42.0-75.0) H 02/18/21 04:51 Lymph % (Auto) 2.1 % (21.0-51.0) L 02/18/21 04:51 [place] % (Auto) 1.8 % (0.0-13.0) 02/18/21 04:51 Eos % (Auto) 0.0 % (0.9-2.9) L 02/18/21 04:51 Baso % (Auto) 0.1 % (0.2-1.0) L 02/18/21 04:51 Neut # (Auto) 11.5 x10^3/uL (2.2-4.8) H 02/18/21 04:51 Lymph # (Auto) 0.2 X10^3/uL (1.3-2.9) L 02/18/21 04:51 [place] # (Auto) 0.2 x10^3/uL (0.3-0.8) L 02/18/21 04:51 Eos # (Auto) 0.0 x10^3/uL (0.0-0.2) 02/18/21 04:51 Baso # (Auto) 0.0 X10^3/uL (0.0-0.1) 02/18/21 04:51 Absolute Nucleated RBC 0.0 /100WBC 02/18/21 04:51 Total Counted 100 02/18/21 04:51 Neutrophils % (Manual) 96 % (39-76) H 02/18/21 04:51 Band Neutrophils % 2 % (0-10) 02/18/21 04:51 Lymphocytes % (Manual) 1 % (13-43) L 02/18/21 04:51 Monocytes % (Manual) 1 % (4-9) L 02/18/21 04:51 Plt Morphology Comment Normal (NORMAL) 02/18/21 04:51 RBC Morphology Abnormal (NORMAL) A 02/18/21 04:51 Hypochromasia Slight A 02/18/21 04:51 Microcytosis Slight A 02/18/21 04:51 D-Dimer 0.53 ug/ml (0.0-0.57) 02/13/21 11:17 Sample Site Rrad 02/18/21 06:00 ABG pH 7.420 (7.35-7.45) 02/18/21 06:00 ABG pCO2 42.0 mmHg (35.0-45.0) 02/18/21 06:00 ABG pO2 54.0 mmHg (80.0-100.0) L 02/18/21 06:00 ABG HCO3 27.2 mmol/L (22-26) H 02/18/21 06:00 ABG O2 Saturation 88.0 % (90-100) L 02/18/21 06:00 ABG Base Excess 2.4 mmol/L (-2.0-2.0) H 02/18/21 06:00 Gregory Test Pos 02/18/21 06:00 A-a Gradient 607.0 mmHg 02/18/21 06:00 FiO2 100.0 02/18/21 06:00 Blood Gas Comments Jacy abg well-mtf 02/18/21 06:00 Sodium 145 mmol/L (136-145) 02/18/21 04:51 Corrected Sodium 149 mmol/L (136-145) H 02/18/21 04:51 Potassium 3.5 mmol/L (3.5-5.1) 02/18/21 04:51 Chloride 105 mmol/L (98-107) 02/18/21 04:51 Carbon Dioxide 27.7 mmol/L (21-32) 02/18/21 04:51 BUN 12 mg/dL (7-18) 02/18/21 04:51 Creatinine 0.77 mg/dL (0.55-1.02) 02/18/21 04:51 Est GFR (MDRD) Af Amer > 60 (>60) 02/18/21 04:51 Est GFR (MDRD) Non-Af > 60 (>60) 02/18/21 04:51 Glucose 247 mg/dL (65-99) H 02/18/21 04:51 POC Glucose (mg/dL) 213 mg/dL (65-99) H 02/17/21 19:46 Hemoglobin A1c 13.4 % 02/14/21 04:50 Calcium 7.6 mg/dL (8.5-10.1) L 02/18/21 04:51 Corrected Calcium 9.4 mg/dL (8.5-10.1) 02/18/21 04:51 Magnesium 2.6 mg/dL (1.7-2.9) 02/15/21 04:10 Magnesium 2.7 mg/dL (1.7-2.9) 02/15/21 04:10 Total Bilirubin 0.40 mg/dL (0.2-1.0) 02/18/21 04:51 AST 42 Units/L (15-37) H 02/18/21 04:51 ALT 12 Units/L (12-78) 02/18/21 04:51 Alkaline Phosphatase 130 Units/L (46-116) H 02/18/21 04:51 Creatine Kinase 119 Units/L (26-192) 02/13/21 11:19 CK-MB (CK-2) 1.3 ng/mL (0-4.0) 02/13/21 11:19 CK/CKMB % Calc 1.1 % (<4) 02/13/21 11:19 Troponin I < 0.02 ng/mL (0-1.5) 02/13/21 17:35 C-Reactive Protein 194.70 mg/L (0-3.0) H 02/18/21 04:51 B-Natriuretic Peptide 66.7 pg/mL (0-79) 02/16/21 05:05 Total Protein 6.5 g/dL (6.4-8.2) 02/18/21 04:51 Albumin 1.8 g/dL (3.4-5.0) L 02/18/21 04:51 Globulin 4.7 g/dL (2.5-4.5) H 02/18/21 04:51 Albumin/Globulin Ratio 0.4 Ratio (1.1-2.1) L 02/18/21 04:51 Specimen Type Catherized urine 02/16/21 04:20 Urine Color Pale yellow (YELLOW) 02/16/21 04:20 Urine Appearance Clear (CLEAR) 02/16/21 04:20 Urine pH 6.0 (5.0 - 8.0) 02/16/21 04:20 Ur Specific [place] 1.015 (1.000-1.030) 02/16/21 04:20 Urine Protein 1+ (NEGATIVE) 02/16/21 04:20 Urine Glucose (UA) 4+ (NEGATIVE) 02/16/21 04:20 Urine Ketones 1+ (NEGATIVE) 02/16/21 04:20 Urine Occult Blood Negative (NEGATIVE) 02/16/21 04:20 Urine Nitrite Negative (NEGATIVE) 02/16/21 04:20 Urine Bilirubin Negative (NEGATIVE) 02/16/21 04:20 Urine Urobilinogen Normal (NORMAL) 02/16/21 04:20 Ur Leukocyte Esterase Negative (NEGATIVE) 02/16/21 04:20 Urine RBC None seen /HPF (0-3) 02/16/21 04:20 Urine WBC None seen /HPF (0-5) 02/16/21 04:20 Ur Squamous Epith Cells Rare /HPF (NEGATIVE) 02/16/21 04:20 Urine Bacteria Negative /HPF (NEGATIVE) 02/16/21 04:20 Urine Yeast Few /HPF (NEGATIVE) 02/16/21 04:20 Ur Culture Indicated? No/not indicated 02/16/21 04:20 Radiology Reviewed: Yes Plan (1) Pneumonia due to COVID-19 virus: Status: Acute Narrative Support Text: Pneumonia still present per CXR. Plan: IV Doxycycline and Invanz. (2) COVID-19 virus infection: Status: Acute Plan: IV Remdesivir infusion was completed on 02/17/21 after 5 days of infusion. (3) Hypoxia: Status: Acute Plan: Patient to be intubated. (4) Hyperglycemia: Status: Acute Plan: Cover with sliding scale regular insulin. Will check and see if a recent HbA1C has been done. increase levemir to 20 units bid. (5) Acute anxiety: Status: Acute Plan: valium prn (6) Hypokalemia: Status: Resolved Plan: Potassium replacement protocol. (7) Spontaneous pneumothorax: Status: Acute Plan: Chest tube placed on 02/17/21. (8) Respiratory distress: Status: Acute Narrative Support Text: Patient is getting tired and requests to be intubated. Plan: Will have patient intubated today on 02/18/21. (9) HTN (hypertension): Status: Acute Narrative Support Text: BP still elevated at this time. Plan: Clonidine Patch 0.1 mg started yesterday. Will increase to 0.2 mg today.
[2021-02-18] MEDS ORDERED: CATAPRES-TTS-2 TD SCH (09:00)
[2021-02-18] MEDS: HumuLIN R SC PRN ×2 (12:50→18:00)
[2021-02-18] MEDS ORDERED: DIPRIVAN VIAL 20 ML ONE (13:27)
[2021-02-18] MEDS ORDERED: QUELICIN (OR ANECTINE) ONE (13:28)
[2021-02-18] MEDS ORDERED: DIPRIVAN PREMIX 1 GRAM IV 1,000 MG/100 ML VIAL ONE (13:29)
[2021-02-18] MEDS ORDERED: VERSED ONE (13:36)
[2021-02-18] MEDS ORDERED: NS 100 ML IV 100 ML ONE ×2 (13:36→22:52)
[2021-02-18] MEDS: DIPRIVAN PREMIX 1 GRAM IV 1,000 MG/100 ML VIAL IV PRN (14:30)
[2021-02-18] MEDS: VERSED 100 MG in NS 100 ML IV 80 ML IV PRN (15:00)
[2021-02-18 15:05] LABS: ABG BASE EXCESS 2.5 mmol/L (-2.0-2.0)
[2021-02-18 15:06] LABS: ABG ALLEN TEST POS; ABG HCO3 31.6 mmol/L (22-26)
--- NOTE | 2021-02-18 15:30 | RAD ---
HISTORYET TUBE PLACEMENTSTUDYCHEST, 1 [id number]/27/2021FINDINGSThe cardiomediastinal silhouette is stable. Endotracheal tube placement with tip approximately 4.0 cm above the alejandra. Right chest tube unchanged. Slightly decreased size of small right apical pneumothorax. Similar subcutaneous free gas overlying the chest. Similar pneumomediastinum. Similar bilateral airspace opacities. The bony thorax appears intact.IMPRESSIONEndotracheal tube placement with tip 4.0 cm above the alejandra.Decreasing size of small right apical pneumothorax.Electronically signed by: FLOR ESPINOZA (Feb 18, 2021 15:29:57)
[2021-02-18] MEDS: ZEMURON 100 MG VIAL 500 MG in NS 500 ML IV 450 ML IV PRN (16:43)
--- NOTE | 2021-02-18 16:48 | DR.UPDATE ---
H&P Update History and Physical Update: History and Physical reviewed and patient examined. Changes noted: NO Yes with the following:will place central and art lines H&P Reviewed: Yes Patient was examined?: Yes Procedures (ALL) - Arterial Line Consent obtained: written consent Time out performed: Yes Size(gauge): 20 Technique used: guided wire technique Post-procedure: line sutured into place Patient tolerated procedure: Yes Site: right, radial - Central Line Placement PCM.CLCO: written consent Time out performed: Yes Patient placed pm monitor/pulse ox: Yes MD prep: mask, gown, gloves, other Centrial line prep: chlorhexidine scrub, sterile drapes applied Local anesthsia used: lidocane 1% Ultrasound used for placement: Yes (R IJ attempted x1, R fem vis with u/s) Central line lumen ininserted: triple Post procedure: sutured in place, good blood return, all ports aspirated, flushed,capped, sterile dressing applied Post procedure xray: tip oc catheter in good position Patient tolerated procedure: Yes Complications: none
[2021-02-18] MEDS ORDERED: LOPRESSOR INJ 5 MG AMP IVP PRN (17:31)
[2021-02-18] MEDS ORDERED: LOPRESSOR INJ 5 MG AMP ONE (17:38)
[2021-02-18] MEDS: NS 1000 ML 1,000 ML IV SCH (18:12)
[2021-02-18] MEDS: LACRI-LUBE S.O.P. AFFEYE SCH ×2 (18:13→21:35)
--- NOTE | 2021-02-18 19:39 | NOTE.SOAP ---
Soap Note Note for Day of Date of Exam: 02/18/21 Subjective Data Subjective Data: Patients seen in consultation by me last night for right spontaneous pneumothorax with tension. Patient with severe covid pneumonia. She has since deteriorated and has been intubated and placed on the ventilator. Patient on 100% inspired oxygen . Objective Data Pulse Rate: 109 Respiratory Rate: 28 Blood Pressure: 95/56 O2 Sat by Pulse Oximetry: 92 Objective Data: Still with significant subcutaneous emphysema those chest arriaga .history with significant serous drainage around it as they expected. Chest x- ray consistent with bilateral severe pneumonia .Small air leak in chest tube. Small Right apicalpneumothorax present. Assessment Assessment: Tension spontaneous right pneumothorax resolved with chest tube . Severe covid pneumonia with deterioration requiring intubation . Plan Plan: Patient being cared for by the hospitalist service. I will continue to observe the chest tube.
[2021-02-18] MEDS: SNACK - Diabetic Appropriate PO SCH (21:09)
[2021-02-18] MEDS: LOPRESSOR INJ 5 MG AMP IVP SCH (21:15)
[2021-02-18] MEDS: DILANTIN INJ 100 MG VIAL IVP SCH (21:25)
[2021-02-18] MEDS ORDERED: CARDIZEM INJ 125 MG VIAL ONE (22:49)
[2021-02-18] MEDS: CARDIZEM INJ 125 MG VIAL 125 MG in NS 100 ML IV 100 ML IV PRN (23:06)
[2021-02-18] MEDS: PEPCID 20 MG IV PREMIX* 20 MG/50 ML BAG IV SCH (23:07)
[2021-02-18] MEDS: VIBRAMYCIN 100 MG in D5W 250 ML IV 250 ML IV SCH (23:45)
[2021-02-19] MEDS: ZEMURON 100 MG VIAL 500 MG in NS 500 ML IV 450 ML IV PRN ×2 (01:03→13:13)
--- NOTE | 2021-02-19 01:13 | RAD ---
HISTORYNG PLACEMENT HYSTER, [id number]/27/2021FINDINGSEvaluation of the abdomen demonstrates a normal bowel gas pattern. NG tube tip in distal stomach. No pathological soft tissue mass or calcification can be obs erved. Subcutaneous emphysema seen in the chest and abdominal wall. The bony structures are grossly i ntact.IMPRESSIONNG tube tip in distal stomachElectronically signed by: Danilo Tariq (Feb 19, 2021 01 :11:27)
[2021-02-19] MEDS ORDERED: NS 1000 ML 1,000 ML IV ONE (01:47)
[2021-02-19] MEDS: ASCORBIC ACID INJ MULTI-DOSE VIAL 1,500 MG in NS 100 ML IV 100 ML IV SCH ×4 (04:06→21:01)
[2021-02-19 04:32] LABS: ABG BASE EXCESS 1.3 mmol/L (-2.0-2.0)
[2021-02-19] MEDS: SOLU-Medrol 40 MG VIAL IVP SCH ×3 (05:31→21:04)
[2021-02-19 05:42] LABS: BASOPHILS % (AUTO) 0.1 % (0.2-1.0); HEMATOCRIT 44.5 % (36.0-47.0); HEMOGLOBIN 13.8 g/dL (12.0-16.0); LYMPHOCYTES # (AUTO) 0.2 X10^3/uL (1.3-2.9); LYMPHOCYTES % (AUTO) 1.1 % (21.0-51.0); MEAN CORPUSCULAR HEMOGLOBIN 25.8 pg (27.0-34.0); MEAN CORPUSCULAR HGB CONC 31.1 g/dL (33.0-35.0); MEAN CORPUSCULAR VOLUME 83.2 fL (80.0-100.0); MEAN PLATELET VOLUME 7.4 fL (7.4-11.0); MONOCYTES # (AUTO) 0.2 x10^3/uL (0.3-0.8); MONOCYTES % (AUTO) 1.6 % (0.0-13.0); NEUTROPHILS # (AUTO) 14.2 x10^3/uL (2.2-4.8); NEUTROPHILS % (AUTO) 97.2 % (42.0-75.0); PLATELET COUNT 168 X10^3/uL (150.0-450.0); RED BLOOD COUNT 5.35 X10^6/uL (3.5-5.4); RED CELL DISTRIBUTION WIDTH 16.4 % (11.6-16.5); WHITE BLOOD COUNT 14.6 X10^3/uL (3.6-10.0)
[2021-02-19 05:53] LABS: ALANINE AMINOTRANSFERASE 11 Units/L (12-78); ALBUMIN 1.6 g/dL (3.4-5.0); ALKALINE PHOSPHATASE 114 Units/L (46-116); ASPARTATE AMINO TRANSFERASE 27 Units/L (15-37); BLOOD UREA NITROGEN 25 mg/dL (7-18); CALCIUM 7.2 mg/dL (8.5-10.1); CARBON DIOXIDE 32.1 mmol/L (21-32); CHLORIDE 114 mmol/L (98-107); COR CA(FOR HYPOALB) 9.1 mg/dL (8.5-10.1); COR NA(FOR HYPERGLY) 155 mmol/L (136-145); CREATININE 1.09 mg/dL (0.55-1.02); TOTAL PROTEIN 6.3 g/dL (6.4-8.2); eGFR NON BLACK RACES 54 (>60)
[2021-02-19] MEDS: HumuLIN R SC PRN ×3 (05:54→16:52)
--- NOTE | 2021-02-19 05:57 | RAD ---
HISTORYSOB, VENTILATOR DEPENDENCE HYSTER, SEIZURESSTUDYCHEST, 1 [id number]/27/2021FINDINGSThe trachea is midline. Endotracheal tube above the alejandra. NG tube below the hemidiaphragm. Right chest tube unchanged. The cardiac silhouette is unremarkable. Bilateral airspace opacities unchanged. Small pneumomediastinum unchanged. Extensive subcutaneous emphysema a slightly increased from prior study. No obvious pneumothorax. The bony thorax is unremarkable.IMPRESSIONExtensive subcutaneous emphysema slightly increased from previous 02/18/2021.Bilateral airspace opacities and pneumomediastinum unchanged.Electronically signed by: Danilo Tariq (Feb 19, 2021 05:54:53)
[2021-02-19 06:19] LABS: SODIUM 151 mmol/L (136-145)
[2021-02-19 06:23] LABS: BAND NEUTROPHILS % 3 % (0-10); HYPOCHROMASIA SLIGHT; PLATELET MORPHOLOGY COMMENT NORMAL (NORMAL)
[2021-02-19] MEDS: BROVANA IN SCH ×2 (09:20→21:10)
[2021-02-19] MEDS: PULMICORT NEB TX 0.5 MG NEB SCH ×2 (09:20→21:10)
[2021-02-19] MEDS: DILANTIN INJ 100 MG VIAL IVP SCH ×2 (09:39→21:02)
[2021-02-19] MEDS: LOPRESSOR INJ 5 MG AMP IVP SCH ×2 (09:41→21:23)
[2021-02-19] MEDS: LOVENOX INJ 30 MG SYR SC SCH ×2 (09:41→21:02)
[2021-02-19] MEDS: INVANZ INJ 1 GM VIAL 1 GM in NS 100 ML IV 100 ML IV SCH (09:42)
[2021-02-19] MEDS: LEVEMIR SC SCH ×2 (09:42→21:02)
[2021-02-19] MEDS: LACRI-LUBE S.O.P. AFFEYE SCH ×2 (09:43→21:02)
[2021-02-19] MEDS: PEPCID 20 MG IV PREMIX* 20 MG/50 ML BAG IV SCH ×2 (09:43→21:30)
[2021-02-19] MEDS: DIPRIVAN PREMIX 1 GRAM IV 1,000 MG/100 ML VIAL IV PRN (09:47)
[2021-02-19] MEDS: CHECK PATCH XX SCH ×2 (10:39→21:02)
[2021-02-19] MEDS: VITAMIN A PO SCH (10:42)
[2021-02-19] MEDS: D5W 250 ML IV 250 ML IV SCH ×2 (10:59→23:10)
[2021-02-19] MEDS: VIBRAMYCIN 100 MG in D5W 250 ML IV 250 ML IV SCH ×2 (11:55→22:45)
--- NOTE | 2021-02-19 13:01 | PCM.PROG ---
Progress Note Progress Note for Day of Date of Exam: 02/19/21 Subjective Subjective: Patient was ventilated yesterday afternoon per request by patient as she was getting tired while struggling to breathe. During the night patient became tachycardic and Lopressor then later on Cardizem was added. This am the patient I discussed the patients condition with the present family member telling her of the worsening condition of the patient. She reported that she will tell her family. Past Medical Family Social History Past Med/Fam/Surg Hx: No changes since H&P Allergies: Allergies No Known Drug Allergies Allergy (Verified 02/12/21 08:46) Review of Systems ROS: No change since H&P and Changes notes (describe) ROS changes noted: Tachycardia Vital Signs and I&O's Vital Signs: Temperature 98.0 F Pulse Rate [Left Radial] 95 Pulse Rate 119 Respiratory Rate 28 Blood Pressure [Right Arm] 136/64 Blood Pressure [Left Arm] 131/67 Blood Pressure 112/56 O2 Sat by Pulse Oximetry 92 Intake and Output: Intake & Output 02/17/21 02/18/21 02/19/21 02/20/21 11:59 11:59 11:59 11:59 Intake Total 2520 / 2520 965 / 965 2819 / 2904 85 / 85 Output Total 2100 / 2100 1510 / 1510 1156 / 1881 725 / 725 Balance 420 / 420 -545 / -545 1663 / 1023 -640 / -640 Physical Exam Oriented: Unable to test Respiratory: Right, Left, Diminished and Rhonchi Cardiovascular: Tachycardia Auscultation: Bowel Sounds: Normal Palpation: Normal Tenderness: Normal Skin: Normal Speech Pattern: Artificially Ventilated Laboratory and Diagnostics Result Diagrams: 02/19/21 05:03 02/19/21 05:03 Labs: 02/18/21 14:02 Sputum - Endotracheal Wash Sputum Culture - Preliminary 02/18/21 14:02 Sputum - Endotracheal Wash - Final Laboratory WBC 14.6 X10^3/uL (3.6-10.0) H 02/19/21 05:03 RBC 5.35 X10^6/uL (3.5-5.4) 02/19/21 05:03 Hgb 13.8 g/dL (12.0-16.0) 02/19/21 05:03 Hct 44.5 % (36.0-47.0) 02/19/21 05:03 MCV 83.2 fL (80.0-100.0) 02/19/21 05:03 MCH 25.8 pg (27.0-34.0) L 02/19/21 05:03 MCHC 31.1 g/dL (33.0-35.0) L 02/19/21 05:03 RDW 16.4 % (11.6-16.5) 02/19/21 05:03 Plt Count 168 X10^3/uL (150.0-450.0) 02/19/21 05:03 Plt Count Comment Adequate (ADEQUATE) 02/19/21 05:03 MPV 7.4 fL (7.4-11.0) 02/19/21 05:03 Neut % (Auto) 97.2 % (42.0-75.0) H 02/19/21 05:03 Lymph % (Auto) 1.1 % (21.0-51.0) L 02/19/21 05:03 [place] % (Auto) 1.6 % (0.0-13.0) 02/19/21 05:03 Eos % (Auto) 0.0 % (0.9-2.9) L 02/19/21 05:03 Baso % (Auto) 0.1 % (0.2-1.0) L 02/19/21 05:03 Neut # (Auto) 14.2 x10^3/uL (2.2-4.8) H 02/19/21 05:03 Lymph # (Auto) 0.2 X10^3/uL (1.3-2.9) L 02/19/21 05:03 [place] # (Auto) 0.2 x10^3/uL (0.3-0.8) L 02/19/21 05:03 Eos # (Auto) 0.0 x10^3/uL (0.0-0.2) 02/19/21 05:03 Baso # (Auto) 0.0 X10^3/uL (0.0-0.1) 02/19/21 05:03 Absolute Nucleated RBC 0.0 /100WBC 02/19/21 05:03 Total Counted 100 02/19/21 05:03 Neutrophils % (Manual) 94 % (39-76) H 02/19/21 05:03 Band Neutrophils % 3 % (0-10) 02/19/21 05:03 Lymphocytes % (Manual) 1 % (13-43) L 02/19/21 05:03 Monocytes % (Manual) 1 % (4-9) L 02/19/21 05:03 Plt Morphology Comment Normal (NORMAL) 02/19/21 05:03 RBC Morphology Abnormal (NORMAL) A 02/19/21 05:03 Hypochromasia Slight A 02/19/21 05:03 Microcytosis Slight A 02/18/21 04:51 D-Dimer 0.53 ug/ml (0.0-0.57) 02/13/21 11:17 Sample Site Radha 02/19/21 04:25 ABG pH 7.140 (7.35-7.45) L* 02/19/21 04:25 ABG pCO2 97.0 mmHg (35.0-45.0) H* 02/19/21 04:25 ABG pO2 71.0 mmHg (80.0-100.0) L 02/19/21 04:25 ABG HCO3 33.0 mmol/L (22-26) H* 02/19/21 04:25 ABG O2 Saturation 88.0 % (90-100) L 02/19/21 04:25 ABG Base Excess 1.3 mmol/L (-2.0-2.0) 02/19/21 04:25 Gregory Test N/a 02/19/21 04:25 A-a Gradient 521.0 mmHg 02/19/21 04:25 FiO2 100.0 02/19/21 04:25 Blood Gas Comments Jacy well ae 02/19/21 04:25 Sodium 151 mmol/L (136-145) H* 02/19/21 05:03 Corrected Sodium 155 mmol/L (136-145) H 02/19/21 05:03 Potassium 4.6 mmol/L (3.5-5.1) 02/19/21 05:03 Chloride 114 mmol/L (98-107) H 02/19/21 05:03 Carbon Dioxide 32.1 mmol/L (21-32) H 02/19/21 05:03 BUN 25 mg/dL (7-18) H 02/19/21 05:03 Creatinine 1.09 mg/dL (0.55-1.02) H 02/19/21 05:03 Est GFR (MDRD) Af Amer > 60 (>60) 02/19/21 05:03 Est GFR (MDRD) Non-Af 54 (>60) L 02/19/21 05:03 Glucose 285 mg/dL (65-99) H 02/19/21 05:03 POC Glucose (mg/dL) 253 mg/dL (65-99) H 02/19/21 10:51 Hemoglobin A1c 13.4 % 02/14/21 04:50 Calcium 7.2 mg/dL (8.5-10.1) L 02/19/21 05:03 Corrected Calcium 9.1 mg/dL (8.5-10.1) 02/19/21 05:03 Magnesium 3.0 mg/dL (1.7-2.9) H 02/19/21 05:03 Total Bilirubin 0.20 mg/dL (0.2-1.0) 02/19/21 05:03 AST 27 Units/L (15-37) 02/19/21 05:03 ALT 11 Units/L (12-78) L 02/19/21 05:03 Alkaline Phosphatase 114 Units/L (46-116) 02/19/21 05:03 Creatine Kinase 119 Units/L (26-192) 02/13/21 11:19 CK-MB (CK-2) 1.3 ng/mL (0-4.0) 02/13/21 11:19 CK/CKMB % Calc 1.1 % (<4) 02/13/21 11:19 Troponin I < 0.02 ng/mL (0-1.5) 02/13/21 17:35 C-Reactive Protein Cancelled 02/19/21 05:03 B-Natriuretic Peptide 66.7 pg/mL (0-79) 02/16/21 05:05 Total Protein 6.3 g/dL (6.4-8.2) L 02/19/21 05:03 Albumin 1.6 g/dL (3.4-5.0) L 02/19/21 05:03 Globulin 4.7 g/dL (2.5-4.5) H 02/19/21 05:03 Albumin/Globulin Ratio 0.3 Ratio (1.1-2.1) L 02/19/21 05:03 Specimen Type Catherized urine 02/16/21 04:20 Urine Color Pale yellow (YELLOW) 02/16/21 04:20 Urine Appearance Clear (CLEAR) 02/16/21 04:20 Urine pH 6.0 (5.0 - 8.0) 02/16/21 04:20 Ur Specific [place] 1.015 (1.000-1.030) 02/16/21 04:20 Urine Protein 1+ (NEGATIVE) 02/16/21 04:20 Urine Glucose (UA) 4+ (NEGATIVE) 02/16/21 04:20 Urine Ketones 1+ (NEGATIVE) 02/16/21 04:20 Urine Occult Blood Negative (NEGATIVE) 02/16/21 04:20 Urine Nitrite Negative (NEGATIVE) 02/16/21 04:20 Urine Bilirubin Negative (NEGATIVE) 02/16/21 04:20 Urine Urobilinogen Normal (NORMAL) 02/16/21 04:20 Ur Leukocyte Esterase Negative (NEGATIVE) 02/16/21 04:20 Urine RBC None seen /HPF (0-3) 02/16/21 04:20 Urine WBC None seen /HPF (0-5) 02/16/21 04:20 Ur Squamous Epith Cells Rare /HPF (NEGATIVE) 02/16/21 04:20 Urine Bacteria Negative /HPF (NEGATIVE) 02/16/21 04:20 Urine Yeast Few /HPF (NEGATIVE) 02/16/21 04:20 Ur Culture Indicated? No/not indicated 02/16/21 04:20 Radiology Reviewed: Yes Plan (1) Pneumonia due to COVID-19 virus: Status: Acute Plan: IV Doxycycline and Invanz. (2) COVID-19 virus infection: Status: Acute Narrative Support Text: Patient has poor prognosis overall now since development of spontaneous pneumothorax and being placed on ventilator yesterday. Plan: IV Remdesivir infusion was completed on 02/17/21 after 5 days of infusion. (3) Hypoxia: Status: Acute Plan: Continue ventilation. Will ween as tolerated off of vent. (4) Hyperglycemia: Status: Acute Plan: Cover with sliding scale regular insulin. Will check and see if a recent HbA1C has been done. increase levemir to 20 units bid. (5) Acute anxiety: Status: Acute Plan: valium prn (6) Hypokalemia: Status: Resolved Plan: Potassium replacement protocol as needed. (7) Spontaneous pneumothorax: Status: Acute Plan: Chest tube placed on 02/17/21. Still unresolved at this time. (8) Respiratory distress: Status: Inactive Plan: Will have patient intubated today on 02/18/21. (9) HTN (hypertension): Status: Acute Plan: Clonidine Patch 0.1 mg started yesterday. Will increase to 0.2 mg today. (10) Dehydration with hypernatremia: Status: Acute Plan: Change IVF to D5NS@75ml/hr (11) Subcutaneous air: Status: Acute Narrative Support Text: Worsening Plan: Continue with Chest tube (12) Pneumomediastinum: Status: Acute Plan: Continue with chest tube (13) Respiratory failure: Status: Acute Plan: Continue patient on ventilator. (14) Respiratory acidosis: Status: Acute Plan: Will increase Tidal Volume from 310 to 350.
[2021-02-19] MEDS: VERSED 100 MG in NS 100 ML IV 80 ML IV PRN (16:10)
[2021-02-19] MEDS: CARDIZEM INJ 125 MG VIAL 125 MG in NS 100 ML IV 100 ML IV PRN (16:13)
[2021-02-19] MEDS: SNACK - Diabetic Appropriate PO SCH (20:10)
[2021-02-19] MEDS ORDERED: DOPAMINE IV PREMIX 400 MG/250 ML 400 MG/250 ML BAG IV ONE (21:19)
[2021-02-19] MEDS: DOPAMINE IV PREMIX 400 MG/250 ML 400 MG/250 ML BAG IV PRN (21:20)
[2021-02-20] MEDS: CARDIZEM INJ 125 MG VIAL 125 MG in NS 100 ML IV 100 ML IV PRN (02:10)
[2021-02-20] MEDS: DIPRIVAN PREMIX 1 GRAM IV 1,000 MG/100 ML VIAL IV PRN ×2 (03:17→11:43)
[2021-02-20] MEDS: ASCORBIC ACID INJ MULTI-DOSE VIAL 1,500 MG in NS 100 ML IV 100 ML IV SCH ×2 (03:37→09:41)
[2021-02-20 05:02] LABS: ABG BASE EXCESS 6.2 mmol/L (-2.0-2.0)
[2021-02-20 05:03] LABS: ABG HCO3 34.9 mmol/L (22-26)
[2021-02-20] MEDS: DOPAMINE IV PREMIX 400 MG/250 ML 400 MG/250 ML BAG IV PRN ×3 (05:10→17:14)
[2021-02-20] MEDS: ZEMURON 100 MG VIAL 500 MG in NS 500 ML IV 450 ML IV PRN (05:10)
[2021-02-20 05:26] LABS: BASOPHILS % (AUTO) 0 % (0.2-1.0); HEMATOCRIT 41.7 % (36.0-47.0); HEMOGLOBIN 13.2 g/dL (12.0-16.0); LYMPHOCYTES # (AUTO) 0.2 X10^3/uL (1.3-2.9); LYMPHOCYTES % (AUTO) 1.9 % (21.0-51.0); MEAN CORPUSCULAR HEMOGLOBIN 26.1 pg (27.0-34.0); MEAN CORPUSCULAR HGB CONC 31.5 g/dL (33.0-35.0); MEAN PLATELET VOLUME 7.6 fL (7.4-11.0); MONOCYTES # (AUTO) 0.3 x10^3/uL (0.3-0.8); MONOCYTES % (AUTO) 2.4 % (0.0-13.0); NEUTROPHILS # (AUTO) 11.4 x10^3/uL (2.2-4.8); NEUTROPHILS % (AUTO) 95.7 % (42.0-75.0); PLATELET COUNT 168 X10^3/uL (150.0-450.0); RED BLOOD COUNT 5.03 X10^6/uL (3.5-5.4); RED CELL DISTRIBUTION WIDTH 16.4 % (11.6-16.5); WHITE BLOOD COUNT 11.9 X10^3/uL (3.6-10.0)
[2021-02-20 05:37] LABS: ALBUMIN 1.5 g/dL (3.4-5.0); CALCIUM 7.4 mg/dL (8.5-10.1); CARBON DIOXIDE 31.9 mmol/L (21-32); COR CA(FOR HYPOALB) 9.4 mg/dL (8.5-10.1); CREATININE 1.45 mg/dL (0.55-1.02)
--- NOTE | 2021-02-20 05:48 | RAD ---
HISTORYCOVID PNEUMONIA, VENTILATOR DEPENDENCE HYSTER, SEIZURESSTUDYCHEST, 1 [id number]/2021FINDINGSThe trachea is midline. Endotracheal tube tip above the alejandra. NG tube below the hemidiaphragm. Right chest tube unchanged. The cardiac silhouette is unremarkable. Bilateral airspace opacities unchanged. Pneumomediastinum unchanged. Extensive subcutaneous emphysema also unchanged. No obvious pneumothorax. The bony thorax is unremarkable.IMPRESSIONStable portable chestElectronically signed by: Danilo Tariq (Feb 20, 2021 05:46:06)
[2021-02-20 06:04] LABS: BAND NEUTROPHILS % 2 % (0-10)
[2021-02-20 06:07] LABS: HYPOCHROMASIA SLIGHT; PLATELET MORPHOLOGY COMMENT NORMAL (NORMAL)
[2021-02-20] MEDS: SOLU-Medrol 40 MG VIAL IVP SCH ×3 (06:24→21:05)
[2021-02-20] MEDS: HumuLIN R SC PRN ×3 (06:40→17:18)
[2021-02-20] MEDS: VERSED 100 MG in NS 100 ML IV 80 ML IV PRN ×2 (06:56→17:15)
[2021-02-20] MEDS: PULMICORT NEB TX 0.5 MG NEB SCH ×2 (09:40→21:21)
[2021-02-20] MEDS: BROVANA IN SCH ×2 (09:40→21:21)
[2021-02-20] MEDS: VIBRAMYCIN 100 MG in D5W 250 ML IV 250 ML IV SCH ×2 (09:41→21:05)
[2021-02-20] MEDS: INVANZ INJ 1 GM VIAL 1 GM in NS 100 ML IV 100 ML IV SCH (09:41)
[2021-02-20] MEDS: PEPCID 20 MG IV PREMIX* 20 MG/50 ML BAG IV SCH (09:42)
[2021-02-20] MEDS: LOVENOX INJ 30 MG SYR SC SCH ×2 (09:42→21:04)
[2021-02-20] MEDS: LOPRESSOR INJ 5 MG AMP IVP SCH ×2 (09:43→21:03)
[2021-02-20] MEDS: DILANTIN INJ 100 MG VIAL IVP SCH ×2 (09:43→21:02)
[2021-02-20] MEDS: LACRI-LUBE S.O.P. AFFEYE SCH ×2 (09:43→21:03)
[2021-02-20] MEDS: VITAMIN A PO SCH (09:44)
[2021-02-20] MEDS: LEVEMIR SC SCH ×2 (09:44→21:34)
[2021-02-20] MEDS: D5W 1000 ML IV 1,000 ML IV SCH ×2 (10:21→17:19)
--- NOTE | 2021-02-20 14:23 | PCM.PROG ---
Progress Note Progress Note for Day of Date of Exam: 02/20/21 Subjective Subjective: Patient was ventilated 2 days ago per request by patient as she was getting tired while struggling to breathe. Patient became hypotensive last night and a Dopamine gtt was started per protocol. Also last night the family signed a limited DNR. They request no CPR but medical managment. Past Medical Family Social History Past Med/Fam/Surg Hx: No changes since H&P Allergies: Allergies No Known Drug Allergies Allergy (Verified 02/12/21 08:46) Review of Systems ROS: Changes notes (describe) ROS changes noted: Hypotension Vital Signs and I&O's Vital Signs: Temperature 99.0 F Pulse Rate [Left Radial] 95 Pulse Rate 129 Respiratory Rate 28 Blood Pressure [Right Arm] 136/64 Blood Pressure [Left Arm] 131/67 Blood Pressure 140/64 O2 Sat by Pulse Oximetry 90 Intake and Output: Intake & Output 02/18/21 02/19/21 02/20/21 02/21/21 11:59 11:59 11:59 11:59 Intake Total 965 / 965 2819 / 2904 3682 / 3682 Output Total 1510 / 1510 1156 / 1881 2035 / 203 Balance -545 / -545 1663 / 1023 1646 / 1646 Physical Exam Oriented: Unable to test Respiratory: Right, Left, Diminished and Rhonchi Cardiovascular: Tachycardia Auscultation: Bowel Sounds: Decreased Tenderness: Normal Musculoskeletal: Normal Speech Pattern: Artificially Ventilated Laboratory and Diagnostics Result Diagrams: 02/20/21 04:58 02/20/21 04:58 Labs: 02/18/21 14:02 Sputum - Endotracheal Wash Sputum Culture - Preliminary 02/18/21 14:02 Sputum - Endotracheal Wash - Final Laboratory WBC 11.9 X10^3/uL (3.6-10.0) H 02/20/21 04:58 RBC 5.03 X10^6/uL (3.5-5.4) 02/20/21 04:58 Hgb 13.2 g/dL (12.0-16.0) 02/20/21 04:58 Hct 41.7 % (36.0-47.0) 02/20/21 04:58 MCV 83.0 fL (80.0-100.0) 02/20/21 04:58 MCH 26.1 pg (27.0-34.0) L 02/20/21 04:58 MCHC 31.5 g/dL (33.0-35.0) L 02/20/21 04:58 RDW 16.4 % (11.6-16.5) 02/20/21 04:58 Plt Count 168 X10^3/uL (150.0-450.0) 02/20/21 04:58 Plt Count Comment Adequate (ADEQUATE) 02/20/21 04:58 MPV 7.6 fL (7.4-11.0) 02/20/21 04:58 Neut % (Auto) 95.7 % (42.0-75.0) H 02/20/21 04:58 Lymph % (Auto) 1.9 % (21.0-51.0) L 02/20/21 04:58 [place] % (Auto) 2.4 % (0.0-13.0) 02/20/21 04:58 Eos % (Auto) 0.0 % (0.9-2.9) L 02/20/21 04:58 Baso % (Auto) 0 % (0.2-1.0) L 02/20/21 04:58 Neut # (Auto) 11.4 x10^3/uL (2.2-4.8) H 02/20/21 04:58 Lymph # (Auto) 0.2 X10^3/uL (1.3-2.9) L 02/20/21 04:58 [place] # (Auto) 0.3 x10^3/uL (0.3-0.8) 02/20/21 04:58 Eos # (Auto) 0.0 x10^3/uL (0.0-0.2) 02/20/21 04:58 Baso # (Auto) 0.0 X10^3/uL (0.0-0.1) 02/20/21 04:58 Absolute Nucleated RBC 0.0 /100WBC 02/20/21 04:58 Total Counted 100 02/20/21 04:58 Neutrophils % (Manual) 95 % (39-76) H 02/20/21 04:58 Band Neutrophils % 2 % (0-10) 02/20/21 04:58 Lymphocytes % (Manual) 1 % (13-43) L 02/20/21 04:58 Monocytes % (Manual) 2 % (4-9) L 02/20/21 04:58 Plt Morphology Comment Normal (NORMAL) 02/20/21 04:58 RBC Morphology Abnormal (NORMAL) A 02/20/21 04:58 Hypochromasia Slight A 02/20/21 04:58 Microcytosis Slight A 02/18/21 04:51 D-Dimer 0.53 ug/ml (0.0-0.57) 02/13/21 11:17 Sample Site Art-line 02/20/21 04:59 ABG pH 7.300 (7.35-7.45) L 02/20/21 04:59 ABG pCO2 71.0 mmHg (35.0-45.0) H* 02/20/21 04:59 ABG pO2 53.0 mmHg (80.0-100.0) L 02/20/21 04:59 ABG HCO3 34.9 mmol/L (22-26) H* 02/20/21 04:59 ABG O2 Saturation 83.0 % (90-100) L* 02/20/21 04:59 ABG Base Excess 6.2 mmol/L (-2.0-2.0) H 02/20/21 04:59 Gregory Test Na 02/20/21 04:59 A-a Gradient 571.0 mmHg 02/20/21 04:59 FiO2 100.0 02/20/21 04:59 Blood Gas Comments Jacy well-mtf 02/20/21 04:59 Sodium 153 mmol/L (136-145) H* 02/20/21 04:58 Corrected Sodium 158 mmol/L (136-145) H 02/20/21 04:58 Potassium 4.3 mmol/L (3.5-5.1) 02/20/21 04:58 Chloride 117 mmol/L (98-107) H* 02/20/21 04:58 Carbon Dioxide 31.9 mmol/L (21-32) 02/20/21 04:58 BUN 32 mg/dL (7-18) H 02/20/21 04:58 Creatinine 1.45 mg/dL (0.55-1.02) H 02/20/21 04:58 Est GFR (MDRD) Af Amer 47 (>60) L 02/20/21 04:58 Est GFR (MDRD) Non-Af 39 (>60) L 02/20/21 04:58 Glucose 324 mg/dL (65-99) H 02/20/21 04:58 POC Glucose (mg/dL) 377 mg/dL (65-99) H 02/20/21 11:33 Hemoglobin A1c 13.4 % 02/14/21 04:50 Calcium 7.4 mg/dL (8.5-10.1) L 02/20/21 04:58 Corrected Calcium 9.4 mg/dL (8.5-10.1) 02/20/21 04:58 Magnesium 3.0 mg/dL (1.7-2.9) H 02/19/21 05:03 Total Bilirubin 0.30 mg/dL (0.2-1.0) 02/20/21 04:58 AST 22 Units/L (15-37) 02/20/21 04:58 ALT 10 Units/L (12-78) L 02/20/21 04:58 Alkaline Phosphatase 95 Units/L (46-116) 02/20/21 04:58 Creatine Kinase 119 Units/L (26-192) 02/13/21 11:19 CK-MB (CK-2) 1.3 ng/mL (0-4.0) 02/13/21 11:19 CK/CKMB % Calc 1.1 % (<4) 02/13/21 11:19 Troponin I < 0.02 ng/mL (0-1.5) 02/13/21 17:35 C-Reactive Protein 109.00 mg/L (0-3.0) H 02/20/21 04:58 B-Natriuretic Peptide 66.7 pg/mL (0-79) 02/16/21 05:05 Total Protein 6.0 g/dL (6.4-8.2) L 02/20/21 04:58 Albumin 1.5 g/dL (3.4-5.0) L 02/20/21 04:58 Globulin 4.5 g/dL (2.5-4.5) 02/20/21 04:58 Albumin/Globulin Ratio 0.3 Ratio (1.1-2.1) L 02/20/21 04:58 Specimen Type Catherized urine 02/16/21 04:20 Urine Color Pale yellow (YELLOW) 02/16/21 04:20 Urine Appearance Clear (CLEAR) 02/16/21 04:20 Urine pH 6.0 (5.0 - 8.0) 02/16/21 04:20 Ur Specific [place] 1.015 (1.000-1.030) 02/16/21 04:20 Urine Protein 1+ (NEGATIVE) 02/16/21 04:20 Urine Glucose (UA) 4+ (NEGATIVE) 02/16/21 04:20 Urine Ketones 1+ (NEGATIVE) 02/16/21 04:20 Urine Occult Blood Negative (NEGATIVE) 02/16/21 04:20 Urine Nitrite Negative (NEGATIVE) 02/16/21 04:20 Urine Bilirubin Negative (NEGATIVE) 02/16/21 04:20 Urine Urobilinogen Normal (NORMAL) 02/16/21 04:20 Ur Leukocyte Esterase Negative (NEGATIVE) 02/16/21 04:20 Urine RBC None seen /HPF (0-3) 02/16/21 04:20 Urine WBC None seen /HPF (0-5) 02/16/21 04:20 Ur Squamous Epith Cells Rare /HPF (NEGATIVE) 02/16/21 04:20 Urine Bacteria Negative /HPF (NEGATIVE) 02/16/21 04:20 Urine Yeast Few /HPF (NEGATIVE) 02/16/21 04:20 Ur Culture Indicated? No/not indicated 02/16/21 04:20 Radiology Reviewed: Yes Plan (1) Pneumonia due to COVID-19 virus: Status: Acute Plan: IV Doxycycline and Invanz. (2) COVID-19 virus infection: Status: Acute Plan: IV Remdesivir infusion was completed on 02/17/21 after 5 days of infusion. (3) Hypoxia: Status: Acute Plan: Continue ventilation. Will ween as tolerated off of vent. (4) Hyperglycemia: Status: Acute Narrative Support Text: Glucose not controlled. Plan: Cover with sliding scale regular insulin. increase levemir to 30 units bid. (5) Acute anxiety: Status: Resolved (6) Hypokalemia: Status: Resolved Plan: Potassium replacement protocol as needed. (7) Spontaneous pneumothorax: Status: Resolved Plan: Chest tube placed on 02/17/21. Will discuss with General Surgery managing Chest Tube. (8) Respiratory distress: Status: Inactive Plan: Will have patient intubated today on 02/18/21. (9) HTN (hypertension): Status: Inactive Plan: Patient was taken off clonidine patch when lopressor was started. (10) Dehydration with hypernatremia: Status: Acute Plan: Change IVF to D5NS@125ml/hr (11) Subcutaneous air: Status: Acute Plan: Continue with Chest tube. Will discuss with General Surgeon. (12) Pneumomediastinum: Status: Acute Plan: Continue with chest tube (13) Respiratory failure: Status: Acute Plan: Continue patient on ventilator. (14) Respiratory acidosis: Status: Acute Narrative Support Text: Overall improved today. Plan: Will increase Tidal Volume from 310 to 350. (15) Candidiasis of lung: Status: Acute Plan: Start IV Diflucan today.
--- NOTE | 2021-02-20 15:00 | RAD ---
HISTORYOG TUBE PLACEMENTSTUDYKUB x-ray abdomen one viewCOMPARISONX-ray 02/19/2021FINDINGSOG tube tip is in the region of the fundus of the stomach but the side hole is in the distal esophagus. The tube should be advanced approximately 6 cm.IMPRESSIONSide-hole of the OG tube is in the distal esophagus. Tube should be advanced 6 cm.Electronically signed by: Andrea Wheeler (Feb 20, 2021 14:58:36)
[2021-02-20] MEDS: TYLENOL 325 MG TAB PO PRN (17:13)
[2021-02-20] MEDS: DIFLUCAN 100 MG IV (MIX by PHARMACY)* 100 MG/50 ML BAG IV SCH (17:18)
[2021-02-20] MEDS: SNACK - Diabetic Appropriate PO SCH (19:53)
[2021-02-20] MEDS ORDERED: NS 100 ML IV 100 ML ONE (20:01)
[2021-02-20] MEDS: ASCORBIC ACID INJ MULTI-DOSE VIAL 1,500 MG in NS 50 ML IV 50 ML IV SCH (20:56)
[2021-02-20] MEDS ORDERED: MILK OF MAGNESIA PO PRN (23:48)
[2021-02-21] MEDS: DOPAMINE IV PREMIX 400 MG/250 ML 400 MG/250 ML BAG IV PRN ×2 (00:48→05:15)
[2021-02-21] MEDS: D5W 1000 ML IV 1,000 ML IV SCH ×4 (03:00→21:19)
[2021-02-21] MEDS: ASCORBIC ACID INJ MULTI-DOSE VIAL 1,500 MG in NS 50 ML IV 50 ML IV SCH ×4 (03:21→21:14)
[2021-02-21] MEDS: DIPRIVAN PREMIX 1 GRAM IV 1,000 MG/100 ML VIAL IV PRN ×2 (04:30→17:13)
[2021-02-21] MEDS: VERSED 100 MG in NS 100 ML IV 80 ML IV PRN ×2 (04:50→17:12)
[2021-02-21 04:55] LABS: ABG BASE EXCESS 6.4 mmol/L (-2.0-2.0)
[2021-02-21 04:56] LABS: ABG HCO3 34.3 mmol/L (22-26)
[2021-02-21] MEDS ORDERED: DOPAMINE IV PREMIX 400 MG/250 ML 400 MG/250 ML BAG IV ONE (05:10)
[2021-02-21 05:27] LABS: BASOPHILS # (AUTO) 0.1 X10^3/uL (0.0-0.1); BASOPHILS % (AUTO) 0.5 % (0.2-1.0); HEMATOCRIT 40.2 % (36.0-47.0); HEMOGLOBIN 12.6 g/dL (12.0-16.0); LYMPHOCYTES # (AUTO) 0.3 X10^3/uL (1.3-2.9); MEAN CORPUSCULAR HEMOGLOBIN 26.2 pg (27.0-34.0); MEAN CORPUSCULAR HGB CONC 31.5 g/dL (33.0-35.0); MEAN CORPUSCULAR VOLUME 83.2 fL (80.0-100.0); MEAN PLATELET VOLUME 7.6 fL (7.4-11.0); MONOCYTES # (AUTO) 0.3 x10^3/uL (0.3-0.8); MONOCYTES % (AUTO) 3.1 % (0.0-13.0); NEUTROPHILS # (AUTO) 9.7 x10^3/uL (2.2-4.8); NEUTROPHILS % (AUTO) 93.4 % (42.0-75.0); PLATELET COUNT 175 X10^3/uL (150.0-450.0); RED BLOOD COUNT 4.83 X10^6/uL (3.5-5.4); RED CELL DISTRIBUTION WIDTH 15.9 % (11.6-16.5); WHITE BLOOD COUNT 10.4 X10^3/uL (3.6-10.0)
[2021-02-21 05:38] LABS: ALBUMIN 1.5 g/dL (3.4-5.0); CALCIUM 7.3 mg/dL (8.5-10.1); CARBON DIOXIDE 31.9 mmol/L (21-32); COR CA(FOR HYPOALB) 9.3 mg/dL (8.5-10.1); CREATININE 1.48 mg/dL (0.55-1.02); TOTAL PROTEIN 5.9 g/dL (6.4-8.2)
[2021-02-21 05:59] LABS: PLATELET MORPHOLOGY COMMENT NORMAL (NORMAL)
[2021-02-21 06:00] LABS: HYPOCHROMASIA SLIGHT
[2021-02-21] MEDS: SOLU-Medrol 40 MG VIAL IVP SCH ×3 (06:01→21:19)
[2021-02-21] MEDS: HumuLIN R SC PRN ×4 (06:03→21:55)
[2021-02-21 08:18] VITALS: BMI 34.9
[2021-02-21] MEDS: PULMICORT NEB TX 0.5 MG NEB SCH ×2 (08:20→21:26)
[2021-02-21] MEDS: BROVANA IN SCH ×2 (08:20→21:26)
[2021-02-21] MEDS: DIFLUCAN 100 MG IV (MIX by PHARMACY)* 100 MG/50 ML BAG IV SCH (08:49)
[2021-02-21] MEDS: LACRI-LUBE S.O.P. AFFEYE SCH ×2 (08:50→21:15)
[2021-02-21] MEDS: INVANZ INJ 1 GM VIAL 1 GM in NS 100 ML IV 100 ML IV SCH (08:50)
[2021-02-21] MEDS: VIBRAMYCIN 100 MG in D5W 250 ML IV 250 ML IV SCH ×2 (08:51→21:18)
[2021-02-21] MEDS: PEPCID 20 MG IV PREMIX* 20 MG/50 ML BAG IV SCH (08:51)
[2021-02-21] MEDS: LEVEMIR SC SCH ×2 (08:51→21:15)
[2021-02-21] MEDS: LOVENOX INJ 30 MG SYR SC SCH ×2 (08:52→21:17)
[2021-02-21] MEDS: DILANTIN INJ 100 MG VIAL IVP SCH ×2 (08:52→21:14)
[2021-02-21] MEDS: LOPRESSOR INJ 5 MG AMP IVP SCH ×2 (08:52→21:17)
[2021-02-21] MEDS: VITAMIN A PO SCH (10:33)
--- NOTE | 2021-02-21 12:31 | RAD ---
HISTORYCOVID PNEUMONIA, VENTILATOR DEPENDENCESTUDYCHEST x-ray, 1 VIEWCOMPARISONX-ray from previous dayFINDINGSProminent soft tissue emphysema is seen, unchanged. There is pneumomediastinum. Right-sided chest tube is unchanged in position. No definite pneumothorax is seen. Heart is normal in size. Diffuse lung infiltrates are unchanged. Enteric tube passes into the stomach. Endotracheal tube terminates 3.5 cm above the alejandra.IMPRESSIONAppearance of the chest is unchanged.Electronically signed by: Andrea Wheeler (Feb 21, 2021 08:16:59)
--- NOTE | 2021-02-21 15:42 | PCM.PROG ---
Progress Note Progress Note for Day of Date of Exam: 02/21/21 Subjective Subjective: Pt. ventilated. Past Medical Family Social History Past Med/Fam/Surg Hx: No changes since H&P Allergies: Allergies No Known Drug Allergies Allergy (Verified 02/12/21 08:46) Review of Systems ROS: No change since H&P and Changes notes (describe) Vital Signs and I&O's Vital Signs: Temperature 100.9 F Pulse Rate [Left Radial] 95 Pulse Rate 109 Respiratory Rate 28 Blood Pressure [Right Arm] 136/64 Blood Pressure [Left Arm] 131/67 Blood Pressure 127/60 O2 Sat by Pulse Oximetry 94 Intake and Output: Intake & Output 02/19/21 02/20/21 02/21/21 02/22/21 11:59 11:59 11:59 11:59 Intake Total 2819 / 2904 3682 / 3682 7742 / 7742 0 / 0 Output Total 1156 / 1881 2036 / 2036 3130 / 3130 Balance 1663 / 1023 1646 / 1646 4612 / 4612 0 / 0 Physical Exam Oriented: Unable to test Respiratory: Right, Left, Diminished and Rhonchi Cardiovascular: Tachycardia Auscultation: Bowel Sounds: Decreased Tenderness: Normal Skin: Normal Speech Pattern: Artificially Ventilated Laboratory and Diagnostics Result Diagrams: 02/21/21 05:01 02/21/21 05:01 Labs: 02/18/21 14:02 Sputum - Endotracheal Wash Sputum Culture - Preliminary 02/18/21 14:02 Sputum - Endotracheal Wash - Final Laboratory WBC 10.4 X10^3/uL (3.6-10.0) H 02/21/21 05:01 RBC 4.83 X10^6/uL (3.5-5.4) 02/21/21 05:01 Hgb 12.6 g/dL (12.0-16.0) 02/21/21 05:01 Hct 40.2 % (36.0-47.0) 02/21/21 05:01 MCV 83.2 fL (80.0-100.0) 02/21/21 05:01 MCH 26.2 pg (27.0-34.0) L 02/21/21 05:01 MCHC 31.5 g/dL (33.0-35.0) L 02/21/21 05:01 RDW 15.9 % (11.6-16.5) 02/21/21 05:01 Plt Count 175 X10^3/uL (150.0-450.0) 02/21/21 05:01 Plt Count Comment Adequate (ADEQUATE) 02/21/21 05:01 MPV 7.6 fL (7.4-11.0) 02/21/21 05:01 Neut % (Auto) 93.4 % (42.0-75.0) H 02/21/21 05:01 Lymph % (Auto) 3.0 % (21.0-51.0) L 02/21/21 05:01 [place] % (Auto) 3.1 % (0.0-13.0) 02/21/21 05:01 Eos % (Auto) 0.0 % (0.9-2.9) L 02/21/21 05:01 Baso % (Auto) 0.5 % (0.2-1.0) 02/21/21 05:01 Neut # (Auto) 9.7 x10^3/uL (2.2-4.8) H 02/21/21 05:01 Lymph # (Auto) 0.3 X10^3/uL (1.3-2.9) L 02/21/21 05:01 [place] # (Auto) 0.3 x10^3/uL (0.3-0.8) 02/21/21 05:01 Eos # (Auto) 0.0 x10^3/uL (0.0-0.2) 02/21/21 05:01 Baso # (Auto) 0.1 X10^3/uL (0.0-0.1) 02/21/21 05:01 Absolute Nucleated RBC 0.1 /100WBC 02/21/21 05:01 Total Counted 100 02/21/21 05:01 Neutrophils % (Manual) 97 % (39-76) H 02/21/21 05:01 Band Neutrophils % 2 % (0-10) 02/20/21 04:58 Lymphocytes % (Manual) 1 % (13-43) L 02/21/21 05:01 Monocytes % (Manual) 2 % (4-9) L 02/21/21 05:01 Plt Morphology Comment Normal (NORMAL) 02/21/21 05:01 RBC Morphology Abnormal (NORMAL) A 02/21/21 05:01 Hypochromasia Slight A 02/21/21 05:01 Microcytosis Slight A 02/18/21 04:51 D-Dimer 0.53 ug/ml (0.0-0.57) 02/13/21 11:17 Sample Site Art-line 02/21/21 04:49 ABG pH 7.330 (7.35-7.45) L 02/21/21 04:49 ABG pCO2 65.0 mmHg (35.0-45.0) H* 02/21/21 04:49 ABG pO2 64.0 mmHg (80.0-100.0) L 02/21/21 04:49 ABG HCO3 34.3 mmol/L (22-26) H* 02/21/21 04:49 ABG O2 Saturation 90.0 % (90-100) 02/21/21 04:49 ABG Base Excess 6.4 mmol/L (-2.0-2.0) H 02/21/21 04:49 Gregory Test Na 02/21/21 04:49 A-a Gradient 568.0 mmHg 02/21/21 04:49 FiO2 100.0 02/21/21 04:49 Blood Gas Comments Jacy well-mtf 02/21/21 04:49 Sodium 153 mmol/L (136-145) H* 02/21/21 05:01 Corrected Sodium 158 mmol/L (136-145) H 02/21/21 05:01 Potassium 4.7 mmol/L (3.5-5.1) 02/21/21 05:01 Chloride 117 mmol/L (98-107) H* 02/21/21 05:01 Carbon Dioxide 31.9 mmol/L (21-32) 02/21/21 05:01 BUN 34 mg/dL (7-18) H 02/21/21 05:01 Creatinine 1.48 mg/dL (0.55-1.02) H 02/21/21 05:01 Est GFR (MDRD) Af Amer 46 (>60) L 02/21/21 05:01 Est GFR (MDRD) Non-Af 38 (>60) L 02/21/21 05:01 Glucose 329 mg/dL (65-99) H 02/21/21 05:01 POC Glucose (mg/dL) 309 mg/dL (65-99) H 02/21/21 11:08 Hemoglobin A1c 13.4 % 02/14/21 04:50 Calcium 7.3 mg/dL (8.5-10.1) L 02/21/21 05:01 Corrected Calcium 9.3 mg/dL (8.5-10.1) 02/21/21 05:01 Magnesium 3.0 mg/dL (1.7-2.9) H 02/19/21 05:03 Total Bilirubin 0.30 mg/dL (0.2-1.0) 02/21/21 05:01 AST 21 Units/L (15-37) 02/21/21 05:01 ALT 9 Units/L (12-78) L 02/21/21 05:01 Alkaline Phosphatase 87 Units/L (46-116) 02/21/21 05:01 Creatine Kinase 119 Units/L (26-192) 02/13/21 11:19 CK-MB (CK-2) 1.3 ng/mL (0-4.0) 02/13/21 11:19 CK/CKMB % Calc 1.1 % (<4) 02/13/21 11:19 Troponin I < 0.02 ng/mL (0-1.5) 02/13/21 17:35 C-Reactive Protein 109.00 mg/L (0-3.0) H 02/20/21 04:58 B-Natriuretic Peptide 66.7 pg/mL (0-79) 02/16/21 05:05 Total Protein 5.9 g/dL (6.4-8.2) L 02/21/21 05:01 Albumin 1.5 g/dL (3.4-5.0) L 02/21/21 05:01 Globulin 4.4 g/dL (2.5-4.5) 02/21/21 05:01 Albumin/Globulin Ratio 0.3 Ratio (1.1-2.1) L 02/21/21 05:01 Specimen Type Catherized urine 02/16/21 04:20 Urine Color Pale yellow (YELLOW) 02/16/21 04:20 Urine Appearance Clear (CLEAR) 02/16/21 04:20 Urine pH 6.0 (5.0 - 8.0) 02/16/21 04:20 Ur Specific [place] 1.015 (1.000-1.030) 02/16/21 04:20 Urine Protein 1+ (NEGATIVE) 02/16/21 04:20 Urine Glucose (UA) 4+ (NEGATIVE) 02/16/21 04:20 Urine Ketones 1+ (NEGATIVE) 02/16/21 04:20 Urine Occult Blood Negative (NEGATIVE) 02/16/21 04:20 Urine Nitrite Negative (NEGATIVE) 02/16/21 04:20 Urine Bilirubin Negative (NEGATIVE) 02/16/21 04:20 Urine Urobilinogen Normal (NORMAL) 02/16/21 04:20 Ur Leukocyte Esterase Negative (NEGATIVE) 02/16/21 04:20 Urine RBC None seen /HPF (0-3) 02/16/21 04:20 Urine WBC None seen /HPF (0-5) 02/16/21 04:20 Ur Squamous Epith Cells Rare /HPF (NEGATIVE) 02/16/21 04:20 Urine Bacteria Negative /HPF (NEGATIVE) 02/16/21 04:20 Urine Yeast Few /HPF (NEGATIVE) 02/16/21 04:20 Ur Culture Indicated? No/not indicated 02/16/21 04:20 Radiology Reviewed: Yes Plan (1) Pneumonia due to COVID-19 virus: Status: Acute Plan: IV Doxycycline and Invanz. (2) COVID-19 virus infection: Status: Acute Plan: IV Remdesivir infusion was completed on 02/17/21 after 5 days of infusion. (3) Hypoxia: Status: Acute Plan: Continue ventilation. Will ween as tolerated off of vent. (4) Hyperglycemia: Status: Acute Plan: Cover with sliding scale regular insulin. increase Levemir to 40 units bid. (5) Acute anxiety: Status: Resolved Plan: valium prn (6) Hypokalemia: Status: Resolved Plan: Potassium replacement protocol as needed. (7) Spontaneous pneumothorax: Status: Resolved Narrative Support Text: Resolved on 02/20/21. Plan: Clamped Chest Tube. (8) Respiratory distress: Status: Inactive (9) HTN (hypertension): Status: Inactive (10) Dehydration with hypernatremia: Status: Acute Plan: Change IVF to D5NS@150ml/hr (11) Subcutaneous air: Status: Acute Narrative Support Text: Still present. Plan: Continue to monitor. (12) Pneumomediastinum: Status: Acute Narrative Support Text: Still present. Plan: Cont. to monitor. (13) Respiratory failure: Status: Acute Plan: Continue patient on ventilator. (14) Respiratory acidosis: Status: Acute Narrative Support Text: Much improved. Nearly resolved. Plan: Cont. Tv at 350 (15) Candidiasis of lung: Status: Acute Plan: Continue IV Diflucan. (16) Hypoalbuminemia due to protein-calorie malnutrition: Status: Acute Plan: OG tube placed. Tube feedings with Jevity 1.5
[2021-02-21] MEDS: ZEMURON 100 MG VIAL 500 MG in NS 500 ML IV 450 ML IV PRN (17:12)
[2021-02-21] MEDS: SNACK - Diabetic Appropriate PO SCH (20:01)
[2021-02-22] MEDS: D5W 1000 ML IV 1,000 ML IV SCH ×5 (02:20→17:42)
[2021-02-22] MEDS: ASCORBIC ACID INJ MULTI-DOSE VIAL 1,500 MG in NS 50 ML IV 50 ML IV SCH ×4 (02:20→21:23)
[2021-02-22 05:25] LABS: BASOPHILS % (AUTO) 0.3 % (0.2-1.0); HEMATOCRIT 40.5 % (36.0-47.0); HEMOGLOBIN 12.4 g/dL (12.0-16.0); LYMPHOCYTES # (AUTO) 0.4 X10^3/uL (1.3-2.9); LYMPHOCYTES % (AUTO) 2.9 % (21.0-51.0); MEAN CORPUSCULAR HEMOGLOBIN 26.2 pg (27.0-34.0); MEAN CORPUSCULAR HGB CONC 30.8 g/dL (33.0-35.0); MEAN CORPUSCULAR VOLUME 85.2 fL (80.0-100.0); MEAN PLATELET VOLUME 8.1 fL (7.4-11.0); MONOCYTES # (AUTO) 0.3 x10^3/uL (0.3-0.8); MONOCYTES % (AUTO) 2.3 % (0.0-13.0); NEUTROPHILS % (AUTO) 94.5 % (42.0-75.0); PLATELET COUNT 143 X10^3/uL (150.0-450.0); RED BLOOD COUNT 4.75 X10^6/uL (3.5-5.4); RED CELL DISTRIBUTION WIDTH 17.1 % (11.6-16.5); WHITE BLOOD COUNT 13.8 X10^3/uL (3.6-10.0)
[2021-02-22] MEDS: SOLU-Medrol 40 MG VIAL IVP SCH ×3 (05:33→23:05)
[2021-02-22 05:37] LABS: ABG BASE EXCESS 3.9 mmol/L (-2.0-2.0)
[2021-02-22 05:38] LABS: ABG HCO3 33.3 mmol/L (22-26)
[2021-02-22 05:44] LABS: ALBUMIN 1.5 g/dL (3.4-5.0); CALCIUM 7.3 mg/dL (8.5-10.1); COR CA(FOR HYPOALB) 9.3 mg/dL (8.5-10.1); CREATININE 1.23 mg/dL (0.55-1.02); TOTAL PROTEIN 5.5 g/dL (6.4-8.2)
[2021-02-22 06:09] LABS: PLATELET MORPHOLOGY COMMENT NORMAL (NORMAL)
[2021-02-22] MEDS: VERSED 100 MG in NS 100 ML IV 80 ML IV PRN ×2 (06:19→17:40)
[2021-02-22] MEDS: PEPCID 20 MG IV PREMIX* 20 MG/50 ML BAG IV SCH (09:24)
[2021-02-22] MEDS: LEVEMIR SC SCH ×2 (09:35→21:24)
[2021-02-22] MEDS: LACRI-LUBE S.O.P. AFFEYE SCH ×2 (09:35→21:24)
[2021-02-22] MEDS: DILANTIN INJ 100 MG VIAL IVP SCH ×2 (09:35→22:17)
[2021-02-22] MEDS: INVANZ INJ 1 GM VIAL 1 GM in NS 100 ML IV 100 ML IV SCH (09:35)
[2021-02-22] MEDS: LOVENOX INJ 30 MG SYR SC SCH ×2 (09:36→21:25)
[2021-02-22] MEDS: VIBRAMYCIN 100 MG in D5W 250 ML IV 250 ML IV SCH ×2 (09:36→22:17)
[2021-02-22] MEDS: LOPRESSOR INJ 5 MG AMP IVP SCH (09:36)
[2021-02-22] MEDS: VITAMIN A PO SCH (09:37)
[2021-02-22] MEDS: PULMICORT NEB TX 0.5 MG NEB SCH ×2 (09:45→20:10)
[2021-02-22] MEDS: BROVANA IN SCH ×2 (09:45→20:10)
[2021-02-22] MEDS: HumuLIN R SC PRN ×3 (10:50→21:26)
[2021-02-22] MEDS ORDERED: ALBUMIN HUMAN 25%- 100 ML 100 ML IV ONE (11:25)
[2021-02-22] MEDS: DIFLUCAN 100 MG IV (MIX by PHARMACY)* 100 MG/50 ML BAG IV SCH (14:28)
--- NOTE | 2021-02-22 15:00 | PCM.PROG ---
Progress Note Progress Note for Day of Date of Exam: 02/22/21 Subjective Subjective: Pt. ventilated. Past Medical Family Social History Past Med/Fam/Surg Hx: No changes since H&P Allergies: Allergies No Known Drug Allergies Allergy (Verified 02/12/21 08:46) Review of Systems ROS: No change since H&P Vital Signs and I&O's Vital Signs: Temperature 98.2 F Pulse Rate [Left Radial] 95 Pulse Rate 115 Respiratory Rate 29 Blood Pressure [Right Arm] 136/64 Blood Pressure [Left Arm] 131/67 Blood Pressure 146/70 O2 Sat by Pulse Oximetry 98 Intake and Output: Intake & Output 02/20/21 02/21/21 02/22/21 02/23/21 11:59 11:59 11:59 11:59 Intake Total 3682 / 3682 7742 / 7742 6230 / 6230 Output Total 2035 / 2035 3130 / 3130 2815 / 2815 Balance 1646 / 1646 4612 / 4612 3415 / 3415 Physical Exam Oriented: Unable to test Respiratory: Right, Left and Diminished Cardiovascular: Tachycardia Auscultation: Bowel Sounds: Decreased Tenderness: Normal Skin: Normal Speech Pattern: Artificially Ventilated Laboratory and Diagnostics Result Diagrams: 02/22/21 04:54 02/22/21 04:54 Labs: 02/20/21 17:27 Blood Blood Culture - Preliminary 02/20/21 17:18 Blood Blood Culture - Preliminary 02/18/21 14:02 Sputum - Endotracheal Wash Sputum Culture - Preliminary 02/18/21 14:02 Sputum - Endotracheal Wash - Final Laboratory WBC 13.8 X10^3/uL (3.6-10.0) H 02/22/21 04:54 RBC 4.75 X10^6/uL (3.5-5.4) 02/22/21 04:54 Hgb 12.4 g/dL (12.0-16.0) 02/22/21 04:54 Hct 40.5 % (36.0-47.0) 02/22/21 04:54 MCV 85.2 fL (80.0-100.0) 02/22/21 04:54 MCH 26.2 pg (27.0-34.0) L 02/22/21 04:54 MCHC 30.8 g/dL (33.0-35.0) L 02/22/21 04:54 RDW 17.1 % (11.6-16.5) H 02/22/21 04:54 Plt Count 143 X10^3/uL (150.0-450.0) L 02/22/21 04:54 Plt Count Comment Decreased (ADEQUATE) A 02/22/21 04:54 MPV 8.1 fL (7.4-11.0) 02/22/21 04:54 Neut % (Auto) 94.5 % (42.0-75.0) H 02/22/21 04:54 Lymph % (Auto) 2.9 % (21.0-51.0) L 02/22/21 04:54 [place] % (Auto) 2.3 % (0.0-13.0) 02/22/21 04:54 Eos % (Auto) 0.0 % (0.9-2.9) L 02/22/21 04:54 Baso % (Auto) 0.3 % (0.2-1.0) 02/22/21 04:54 Neut # (Auto) 13.0 x10^3/uL (2.2-4.8) H 02/22/21 04:54 Lymph # (Auto) 0.4 X10^3/uL (1.3-2.9) L 02/22/21 04:54 [place] # (Auto) 0.3 x10^3/uL (0.3-0.8) 02/22/21 04:54 Eos # (Auto) 0.0 x10^3/uL (0.0-0.2) 02/22/21 04:54 Baso # (Auto) 0.0 X10^3/uL (0.0-0.1) 02/22/21 04:54 Absolute Nucleated RBC 0.1 /100WBC 02/22/21 04:54 Total Counted 100 02/22/21 04:54 Neutrophils % (Manual) 97 % (39-76) H 02/22/21 04:54 Band Neutrophils % 2 % (0-10) 02/20/21 04:58 Lymphocytes % (Manual) 3 % (13-43) L 02/22/21 04:54 Monocytes % (Manual) 2 % (4-9) L 02/21/21 05:01 Plt Morphology Comment Normal (NORMAL) 02/22/21 04:54 RBC Morphology Normal (NORMAL) 02/22/21 04:54 Hypochromasia Slight A 02/21/21 05:01 Microcytosis Slight A 02/18/21 04:51 D-Dimer 0.53 ug/ml (0.0-0.57) 02/13/21 11:17 Sample Site A line 02/22/21 05:00 ABG pH 7.250 (7.35-7.45) L 02/22/21 05:00 ABG pCO2 76.0 mmHg (35.0-45.0) H* 02/22/21 05:00 ABG pO2 78.0 mmHg (80.0-100.0) L 02/22/21 05:00 ABG HCO3 33.3 mmol/L (22-26) H* 02/22/21 05:00 ABG O2 Saturation 93.0 % (90-100) 02/22/21 05:00 ABG Base Excess 3.9 mmol/L (-2.0-2.0) H 02/22/21 05:00 Gregory Test Na 02/22/21 05:00 A-a Gradient 540.0 mmHg 02/22/21 05:00 FiO2 100.0 02/22/21 05:00 Blood Gas Comments Jacy well sw 02/22/21 05:00 Sodium 145 mmol/L (136-145) 02/22/21 04:54 Corrected Sodium 152 mmol/L (136-145) H 02/22/21 04:54 Potassium 4.7 mmol/L (3.5-5.1) 02/22/21 04:54 Chloride 110 mmol/L (98-107) H 02/22/21 04:54 Carbon Dioxide 29.0 mmol/L (21-32) 02/22/21 04:54 BUN 32 mg/dL (7-18) H 02/22/21 04:54 Creatinine 1.23 mg/dL (0.55-1.02) H 02/22/21 04:54 Est GFR (MDRD) Af Amer 57 (>60) L 02/22/21 04:54 Est GFR (MDRD) Non-Af 47 (>60) L 02/22/21 04:54 Glucose 378 mg/dL (65-99) H 02/22/21 04:54 POC Glucose (mg/dL) 329 mg/dL (65-99) H 02/22/21 10:46 Hemoglobin A1c 13.4 % 02/14/21 04:50 Calcium 7.3 mg/dL (8.5-10.1) L 02/22/21 04:54 Corrected Calcium 9.3 mg/dL (8.5-10.1) 02/22/21 04:54 Magnesium 3.0 mg/dL (1.7-2.9) H 02/19/21 05:03 Total Bilirubin 0.30 mg/dL (0.2-1.0) 02/22/21 04:54 AST 42 Units/L (15-37) H 02/22/21 04:54 ALT 23 Units/L (12-78) 02/22/21 04:54 Alkaline Phosphatase 120 Units/L (46-116) H 02/22/21 04:54 Creatine Kinase 119 Units/L (26-192) 02/13/21 11:19 CK-MB (CK-2) 1.3 ng/mL (0-4.0) 02/13/21 11:19 CK/CKMB % Calc 1.1 % (<4) 02/13/21 11:19 Troponin I < 0.02 ng/mL (0-1.5) 02/13/21 17:35 C-Reactive Protein 21.20 mg/L (0-3.0) H 02/22/21 04:54 B-Natriuretic Peptide 66.7 pg/mL (0-79) 02/16/21 05:05 Total Protein 5.5 g/dL (6.4-8.2) L 02/22/21 04:54 Albumin 1.5 g/dL (3.4-5.0) L 02/22/21 04:54 Globulin 4.0 g/dL (2.5-4.5) 02/22/21 04:54 Albumin/Globulin Ratio 0.4 Ratio (1.1-2.1) L 02/22/21 04:54 Specimen Type Catherized urine 02/16/21 04:20 Urine Color Pale yellow (YELLOW) 02/16/21 04:20 Urine Appearance Clear (CLEAR) 02/16/21 04:20 Urine pH 6.0 (5.0 - 8.0) 02/16/21 04:20 Ur Specific [place] 1.015 (1.000-1.030) 02/16/21 04:20 Urine Protein 1+ (NEGATIVE) 02/16/21 04:20 Urine Glucose (UA) 4+ (NEGATIVE) 02/16/21 04:20 Urine Ketones 1+ (NEGATIVE) 02/16/21 04:20 Urine Occult Blood Negative (NEGATIVE) 02/16/21 04:20 Urine Nitrite Negative (NEGATIVE) 02/16/21 04:20 Urine Bilirubin Negative (NEGATIVE) 02/16/21 04:20 Urine Urobilinogen Normal (NORMAL) 02/16/21 04:20 Ur Leukocyte Esterase Negative (NEGATIVE) 02/16/21 04:20 Urine RBC None seen /HPF (0-3) 02/16/21 04:20 Urine WBC None seen /HPF (0-5) 02/16/21 04:20 Ur Squamous Epith Cells Rare /HPF (NEGATIVE) 02/16/21 04:20 Urine Bacteria Negative /HPF (NEGATIVE) 02/16/21 04:20 Urine Yeast Few /HPF (NEGATIVE) 02/16/21 04:20 Ur Culture Indicated? No/not indicated 02/16/21 04:20 Plan (1) Pneumonia due to COVID-19 virus: Status: Acute Plan: IV Doxycycline and Invanz. (2) COVID-19 virus infection: Status: Acute Plan: IV Remdesivir infusion was completed on 02/17/21 after 5 days of infusion. (3) Hypoxia: Status: Acute Narrative Support Text: Improving. Plan: Continue ventilation. Will ween as tolerated off of vent. (4) Hyperglycemia: Status: Acute Plan: Cover with sliding scale regular insulin. increase Levemir to 50 units bid. (5) Acute anxiety: Status: Resolved Plan: valium prn (6) Hypokalemia: Status: Resolved Plan: Potassium replacement protocol as needed. (7) Spontaneous pneumothorax: Status: Resolved Plan: Clamped Chest Tube. (8) Respiratory distress: Status: Inactive Plan: Patient intubated on 02/18/21. (9) HTN (hypertension): Status: Inactive Narrative Support Text: Stable. Plan: Monitor BP for now. (10) Dehydration with hypernatremia: Status: Acute Narrative Support Text: Improved. Plan: Cont. IVF at D5NS@150ml/hr (11) Subcutaneous air: Status: Acute Plan: Continue to monitor. (12) Pneumomediastinum: Status: Acute Plan: Cont. to monitor. (13) Respiratory failure: Status: Acute Narrative Support Text: Improving still. Plan: Continue patient on ventilator. (14) Respiratory acidosis: Status: Acute Plan: Increase Tv to 380 (15) Candidiasis of lung: Status: Acute Plan: Continue IV Diflucan. (16) Hypoalbuminemia due to protein-calorie malnutrition: Status: Acute Plan: OG tube placed. Tube feeding changed to Glucerna. (17) Hypotension: Status: Acute Narrative Support Text: Resolved on 02/21/21. Plan: Dopamine was discontinued on 02/21/21
--- NOTE | 2021-02-22 16:00 | DR.PROGNOT ---
Hospital Progress Notes - Progress Note for Day of: Progress Note Date: 02/22/21 - Chief Complaint Chief Complaint: Pt is seen with Rt pneumothorax , s/p placement of chest tube . the lung is still expanded with the tube in place . - Past Medical Family Social History Past Med/Fam/Surg Hx: No changes since H&P Allergies: Allergies No Known Drug Allergies Allergy (Verified 02/12/21 08:46) - Review Of Systems ROS: No change since H&P Changes in ROS: Hypotension - Vital Signs Vital Signs: Temperature 98.2 F Pulse Rate [Left Radial] 95 Pulse Rate 113 Respiratory Rate 29 Blood Pressure [Right Arm] 136/64 Blood Pressure [Left Arm] 131/67 Blood Pressure 146/67 O2 Sat by Pulse Oximetry 98 - Physical Exam Oriented: Unable to test Eyes: Normal Ear: Normal Nose: Normal Throat: Normal Respiratory: Right, Left, Diminished, OTHER (Pt is on on mechanical ventilation ) Cardiovascular: Tachycardia : Normal GI:Auscultation: Decreased GI:Palpation: Normal GI: Tenderness: Normal Skin: Other (sub curaneous emphysema ) Musculoskeletal: Normal Psychiatric: Anxiety Mood Description: Anxious Affect: Quiet Speech Pattern: Artificially Ventilated - Laboratory and Diagnostics Result Diagrams: 02/22/21 04:54 02/22/21 04:54 Labs: 02/20/21 17:27 Blood Blood Culture - Preliminary 02/20/21 17:18 Blood Blood Culture - Preliminary 02/18/21 14:02 Sputum - Endotracheal Wash Sputum Culture - Preliminary 02/18/21 14:02 Sputum - Endotracheal Wash - Final Laboratory WBC 13.8 X10^3/uL (3.6-10.0) H 02/22/21 04:54 RBC 4.75 X10^6/uL (3.5-5.4) 02/22/21 04:54 Hgb 12.4 g/dL (12.0-16.0) 02/22/21 04:54 Hct 40.5 % (36.0-47.0) 02/22/21 04:54 MCV 85.2 fL (80.0-100.0) 02/22/21 04:54 MCH 26.2 pg (27.0-34.0) L 02/22/21 04:54 MCHC 30.8 g/dL (33.0-35.0) L 02/22/21 04:54 RDW 17.1 % (11.6-16.5) H 02/22/21 04:54 Plt Count 143 X10^3/uL (150.0-450.0) L 02/22/21 04:54 Plt Count Comment Decreased (ADEQUATE) A 02/22/21 04:54 MPV 8.1 fL (7.4-11.0) 02/22/21 04:54 Neut % (Auto) 94.5 % (42.0-75.0) H 02/22/21 04:54 Lymph % (Auto) 2.9 % (21.0-51.0) L 02/22/21 04:54 [place] % (Auto) 2.3 % (0.0-13.0) 02/22/21 04:54 Eos % (Auto) 0.0 % (0.9-2.9) L 02/22/21 04:54 Baso % (Auto) 0.3 % (0.2-1.0) 02/22/21 04:54 Neut # (Auto) 13.0 x10^3/uL (2.2-4.8) H 02/22/21 04:54 Lymph # (Auto) 0.4 X10^3/uL (1.3-2.9) L 02/22/21 04:54 [place] # (Auto) 0.3 x10^3/uL (0.3-0.8) 02/22/21 04:54 Eos # (Auto) 0.0 x10^3/uL (0.0-0.2) 02/22/21 04:54 Baso # (Auto) 0.0 X10^3/uL (0.0-0.1) 02/22/21 04:54 Absolute Nucleated RBC 0.1 /100WBC 02/22/21 04:54 Total Counted 100 02/22/21 04:54 Neutrophils % (Manual) 97 % (39-76) H 02/22/21 04:54 Band Neutrophils % 2 % (0-10) 02/20/21 04:58 Lymphocytes % (Manual) 3 % (13-43) L 02/22/21 04:54 Monocytes % (Manual) 2 % (4-9) L 02/21/21 05:01 Plt Morphology Comment Normal (NORMAL) 02/22/21 04:54 RBC Morphology Normal (NORMAL) 02/22/21 04:54 Hypochromasia Slight A 02/21/21 05:01 Microcytosis Slight A 02/18/21 04:51 D-Dimer 0.53 ug/ml (0.0-0.57) 02/13/21 11:17 Sample Site A line 02/22/21 05:00 ABG pH 7.250 (7.35-7.45) L 02/22/21 05:00 ABG pCO2 76.0 mmHg (35.0-45.0) H* 02/22/21 05:00 ABG pO2 78.0 mmHg (80.0-100.0) L 02/22/21 05:00 ABG HCO3 33.3 mmol/L (22-26) H* 02/22/21 05:00 ABG O2 Saturation 93.0 % (90-100) 02/22/21 05:00 ABG Base Excess 3.9 mmol/L (-2.0-2.0) H 02/22/21 05:00 Gregory Test Na 02/22/21 05:00 A-a Gradient 540.0 mmHg 02/22/21 05:00 FiO2 100.0 02/22/21 05:00 Blood Gas Comments Jacy well sw 02/22/21 05:00 Sodium 145 mmol/L (136-145) 02/22/21 04:54 Corrected Sodium 152 mmol/L (136-145) H 02/22/21 04:54 Potassium 4.7 mmol/L (3.5-5.1) 02/22/21 04:54 Chloride 110 mmol/L (98-107) H 02/22/21 04:54 Carbon Dioxide 29.0 mmol/L (21-32) 02/22/21 04:54 BUN 32 mg/dL (7-18) H 02/22/21 04:54 Creatinine 1.23 mg/dL (0.55-1.02) H 02/22/21 04:54 Est GFR (MDRD) Af Amer 57 (>60) L 02/22/21 04:54 Est GFR (MDRD) Non-Af 47 (>60) L 02/22/21 04:54 Glucose 378 mg/dL (65-99) H 02/22/21 04:54 POC Glucose (mg/dL) 329 mg/dL (65-99) H 02/22/21 10:46 Hemoglobin A1c 13.4 % 02/14/21 04:50 Calcium 7.3 mg/dL (8.5-10.1) L 02/22/21 04:54 Corrected Calcium 9.3 mg/dL (8.5-10.1) 02/22/21 04:54 Magnesium 3.0 mg/dL (1.7-2.9) H 02/19/21 05:03 Total Bilirubin 0.30 mg/dL (0.2-1.0) 02/22/21 04:54 AST 42 Units/L (15-37) H 02/22/21 04:54 ALT 23 Units/L (12-78) 02/22/21 04:54 Alkaline Phosphatase 120 Units/L (46-116) H 02/22/21 04:54 Creatine Kinase 119 Units/L (26-192) 02/13/21 11:19 CK-MB (CK-2) 1.3 ng/mL (0-4.0) 02/13/21 11:19 CK/CKMB % Calc 1.1 % (<4) 02/13/21 11:19 Troponin I < 0.02 ng/mL (0-1.5) 02/13/21 17:35 C-Reactive Protein 21.20 mg/L (0-3.0) H 02/22/21 04:54 B-Natriuretic Peptide 66.7 pg/mL (0-79) 02/16/21 05:05 Total Protein 5.5 g/dL (6.4-8.2) L 02/22/21 04:54 Albumin 1.5 g/dL (3.4-5.0) L 02/22/21 04:54 Globulin 4.0 g/dL (2.5-4.5) 02/22/21 04:54 Albumin/Globulin Ratio 0.4 Ratio (1.1-2.1) L 02/22/21 04:54 Specimen Type Catherized urine 02/16/21 04:20 Urine Color Pale yellow (YELLOW) 02/16/21 04:20 Urine Appearance Clear (CLEAR) 02/16/21 04:20 Urine pH 6.0 (5.0 - 8.0) 02/16/21 04:20 Ur Specific [place] 1.015 (1.000-1.030) 02/16/21 04:20 Urine Protein 1+ (NEGATIVE) 02/16/21 04:20 Urine Glucose (UA) 4+ (NEGATIVE) 02/16/21 04:20 Urine Ketones 1+ (NEGATIVE) 02/16/21 04:20 Urine Occult Blood Negative (NEGATIVE) 02/16/21 04:20 Urine Nitrite Negative (NEGATIVE) 02/16/21 04:20 Urine Bilirubin Negative (NEGATIVE) 02/16/21 04:20 Urine Urobilinogen Normal (NORMAL) 02/16/21 04:20 Ur Leukocyte Esterase Negative (NEGATIVE) 02/16/21 04:20 Urine RBC None seen /HPF (0-3) 02/16/21 04:20 Urine WBC None seen /HPF (0-5) 02/16/21 04:20 Ur Squamous Epith Cells Rare /HPF (NEGATIVE) 02/16/21 04:20 Urine Bacteria Negative /HPF (NEGATIVE) 02/16/21 04:20 Urine Yeast Few /HPF (NEGATIVE) 02/16/21 04:20 Ur Culture Indicated? No/not indicated 02/16/21 04:20 - Assessment and Plan 1: Covid pneumonia with respiratory failure . on mechanical ventilation . Rt pneumothorax required chest tube . pneumomediastinum and sub cutaneous emphysema . to keep the chest tube today and check chest Xray in am .. - Problem Patient Problems: Patient Problems Pneumonia due to COVID-19 virus (Acute) U07.1, J12.82 Hypoxia (Acute) R09.02
--- NOTE | 2021-02-22 16:19 | RAD ---
HISTORYRESPIRATORY FAILURE PMH: SEIZURES PSH: HYSTSTUDYCHEST, 1 VIEWCOMPARISONPortable chest February 21, 2021.FINDINGSThe trachea is midline. An ET tube is in place with the tip 3 cm above the alejandra. An NG tube is in place with the tip below the diaphragm. A right-sided chest tube is in place but no pneumothorax is seen currently. There is bilateral worsening airspace opacification compared to 22 February 2020. Pneumomediastinum is seen on the left no definite pneumothorax is seen. Subcutaneous emphysema persists bilaterally over the lower neck and bilateral chest wall. The cardiac silhouette is unremarkable. The lungs are clear without focal infiltrate or effusion. The bony thorax is unremarkable.IMPRESSIONWorsening airspace disease bilaterally is specially in the left when compared to the prior study of February 21, 2021.ETT and NG tube in place. Right-sided chest tube is in place without visualized pneumothorax.Pneumomediastinum is seen along the left heart border but no pneumothorax is seen on the left or right.Subcutaneous emphysema persists.Electronically signed by: RADHA RAY (Feb 22, 2021 16:17:40)
[2021-02-22] MEDS: DIPRIVAN PREMIX 1 GRAM IV 1,000 MG/100 ML VIAL IV PRN ×2 (17:39→22:00)
[2021-02-22] MEDS: SNACK - Diabetic Appropriate PO SCH (20:21)
[2021-02-22] MEDS: ZEMURON 100 MG VIAL 500 MG in NS 500 ML IV 450 ML IV PRN (23:15)
[2021-02-23] MEDS: LOPRESSOR INJ 5 MG AMP IVP SCH ×3 (02:12→21:32)
[2021-02-23] MEDS: ASCORBIC ACID INJ MULTI-DOSE VIAL 1,500 MG in NS 50 ML IV 50 ML IV SCH ×4 (02:51→21:30)
[2021-02-23] MEDS: D5W 1000 ML IV 1,000 ML IV SCH ×3 (04:16→18:38)
[2021-02-23 04:43] LABS: ABG BASE EXCESS 5.6 mmol/L (-2.0-2.0)
[2021-02-23 04:45] LABS: ABG HCO3 34.9 mmol/L (22-26)
[2021-02-23 05:12] LABS: BASOPHILS % (AUTO) 0.1 % (0.2-1.0); HEMATOCRIT 37.9 % (36.0-47.0); HEMOGLOBIN 11.8 g/dL (12.0-16.0); LYMPHOCYTES # (AUTO) 0.4 X10^3/uL (1.3-2.9); LYMPHOCYTES % (AUTO) 2.4 % (21.0-51.0); MEAN CORPUSCULAR HGB CONC 31.2 g/dL (33.0-35.0); MEAN CORPUSCULAR VOLUME 83.3 fL (80.0-100.0); MEAN PLATELET VOLUME 8.5 fL (7.4-11.0); MONOCYTES # (AUTO) 0.2 x10^3/uL (0.3-0.8); MONOCYTES % (AUTO) 1.5 % (0.0-13.0); NEUTROPHILS # (AUTO) 14.7 x10^3/uL (2.2-4.8); PLATELET COUNT 118 X10^3/uL (150.0-450.0); RED BLOOD COUNT 4.54 X10^6/uL (3.5-5.4); RED CELL DISTRIBUTION WIDTH 15.8 % (11.6-16.5); WHITE BLOOD COUNT 15.3 X10^3/uL (3.6-10.0)
[2021-02-23 05:16] LABS: ALANINE AMINOTRANSFERASE 27 Units/L (12-78); ALBUMIN 1.8 g/dL (3.4-5.0); ALKALINE PHOSPHATASE 130 Units/L (46-116); ASPARTATE AMINO TRANSFERASE 41 Units/L (15-37); BLOOD UREA NITROGEN 29 mg/dL (7-18); CALCIUM 7.2 mg/dL (8.5-10.1); CARBON DIOXIDE 32.6 mmol/L (21-32); CHLORIDE 106 mmol/L (98-107); COR NA(FOR HYPERGLY) 146 mmol/L (136-145); CREATININE 1.03 mg/dL (0.55-1.02); SODIUM 143 mmol/L (136-145); TOTAL PROTEIN 5.1 g/dL (6.4-8.2); eGFR NON BLACK RACES 57 (>60)
[2021-02-23 05:59] LABS: PLATELET MORPHOLOGY COMMENT NORMAL (NORMAL)
--- NOTE | 2021-02-23 06:12 | RAD ---
HISTORYCOVID PNEUMONIASTUDYSingle-view [id number]/2021FINDINGSAn endotracheal tube is observed stable in position with a nasogastric tube courses through the esophagus. The cardiac silhouette is enlarged with a tortuous thoracic aorta. Diffuse airspace opacities throughout the right left zehra thorax remain with mild improved aeration. Right-sided chest tube remains stable in position with diffuse subcutaneous air throughout the chest. Left apical pneumothorax is suspected but difficult visualized given the extensive subcutaneous air obscuring visualization of the lung markings. The bony thorax is unremarkable.IMPRESSIONDiffuse airspace opacity throughout the right and left zehra thorax consistent with COVID pneumonia and likely underlying ARDS. Right-sided chest tube is noted to be in position without associated pneumothorax identified. A small 10 percent left apical pneumothorax is likely present but perception is difficult given the extensive subcutaneous air throughout the chest.Stable tubes and support lines.Electronically signed by: ALISHA JACKSON (Feb 23, 2021 06:10:55)
[2021-02-23] MEDS: SOLU-Medrol 40 MG VIAL IVP SCH ×3 (06:37→21:36)
--- NOTE | 2021-02-23 08:39 | DR.PROGNOT ---
Hospital Progress Notes - Progress Note for Day of: Progress Note Date: 02/23/21 - Chief Complaint Chief Complaint: repeated chest Xray showed complete expansion of RT lung and very small Lt pneumothorax . no tidaling in the chest tube . - Past Medical Family Social History Past Med/Fam/Surg Hx: No changes since H&P Allergies: Allergies No Known Drug Allergies Allergy (Verified 02/12/21 08:46) - Review Of Systems ROS: No change since H&P Changes in ROS: Hypotension - Vital Signs Vital Signs: Temperature 97.8 F Pulse Rate [Left Radial] 95 Pulse Rate 103 Respiratory Rate 28 Blood Pressure [Right Arm] 136/64 Blood Pressure [Left Arm] 131/67 Blood Pressure 127/60 O2 Sat by Pulse Oximetry 107 - Physical Exam Oriented: Unable to test Eyes: Normal Ear: Normal Nose: Normal Throat: Normal Respiratory: Right, Left, Diminished, OTHER (Pt is on on mechanical ventilation ) Cardiovascular: Tachycardia : Normal GI:Auscultation: Decreased GI:Palpation: Normal GI: Tenderness: Normal Skin: Other (sub curaneous emphysema ) Musculoskeletal: Normal Psychiatric: Anxiety Mood Description: Anxious Affect: Quiet Speech Pattern: Artificially Ventilated - Laboratory and Diagnostics Result Diagrams: 02/23/21 04:35 02/23/21 04:35 Labs: 02/20/21 17:27 Blood Blood Culture - Preliminary 02/20/21 17:18 Blood Blood Culture - Preliminary 02/18/21 14:02 Sputum - Endotracheal Wash Sputum Culture - Preliminary 02/18/21 14:02 Sputum - Endotracheal Wash - Final Laboratory WBC 15.3 X10^3/uL (3.6-10.0) H 02/23/21 04:35 RBC 4.54 X10^6/uL (3.5-5.4) 02/23/21 04:35 Hgb 11.8 g/dL (12.0-16.0) L 02/23/21 04:35 Hct 37.9 % (36.0-47.0) 02/23/21 04:35 MCV 83.3 fL (80.0-100.0) 02/23/21 04:35 MCH 26.0 pg (27.0-34.0) L 02/23/21 04:35 MCHC 31.2 g/dL (33.0-35.0) L 02/23/21 04:35 RDW 15.8 % (11.6-16.5) 02/23/21 04:35 Plt Count 118 X10^3/uL (150.0-450.0) L 02/23/21 04:35 Plt Count Comment Decreased (ADEQUATE) A 02/23/21 04:35 MPV 8.5 fL (7.4-11.0) 02/23/21 04:35 Neut % (Auto) 96.0 % (42.0-75.0) H 02/23/21 04:35 Lymph % (Auto) 2.4 % (21.0-51.0) L 02/23/21 04:35 [place] % (Auto) 1.5 % (0.0-13.0) 02/23/21 04:35 Eos % (Auto) 0.0 % (0.9-2.9) L 02/23/21 04:35 Baso % (Auto) 0.1 % (0.2-1.0) L 02/23/21 04:35 Neut # (Auto) 14.7 x10^3/uL (2.2-4.8) H 02/23/21 04:35 Lymph # (Auto) 0.4 X10^3/uL (1.3-2.9) L 02/23/21 04:35 [place] # (Auto) 0.2 x10^3/uL (0.3-0.8) L 02/23/21 04:35 Eos # (Auto) 0.0 x10^3/uL (0.0-0.2) 02/23/21 04:35 Baso # (Auto) 0.0 X10^3/uL (0.0-0.1) 02/23/21 04:35 Absolute Nucleated RBC 0.1 /100WBC 02/23/21 04:35 Total Counted 100 02/23/21 04:35 Neutrophils % (Manual) 96 % (39-76) H 02/23/21 04:35 Band Neutrophils % 2 % (0-10) 02/20/21 04:58 Lymphocytes % (Manual) 4 % (13-43) L 02/23/21 04:35 Monocytes % (Manual) 2 % (4-9) L 02/21/21 05:01 Plt Morphology Comment Normal (NORMAL) 02/23/21 04:35 RBC Morphology Normal (NORMAL) 02/23/21 04:35 Hypochromasia Slight A 02/21/21 05:01 Microcytosis Slight A 02/18/21 04:51 D-Dimer 0.53 ug/ml (0.0-0.57) 02/13/21 11:17 Sample Site Radha 02/23/21 04:35 ABG pH 7.270 (7.35-7.45) L 02/23/21 04:35 ABG pCO2 76.0 mmHg (35.0-45.0) H* 02/23/21 04:35 ABG pO2 76.0 mmHg (80.0-100.0) L 02/23/21 04:35 ABG HCO3 34.9 mmol/L (22-26) H* 02/23/21 04:35 ABG O2 Saturation 93.0 % (90-100) 02/23/21 04:35 ABG Base Excess 5.6 mmol/L (-2.0-2.0) H 02/23/21 04:35 Gregory Test N/a 02/23/21 04:35 A-a Gradient 542.0 mmHg 02/23/21 04:35 FiO2 100.0 02/23/21 04:35 Blood Gas Comments Jacy well ae 02/23/21 04:35 Sodium 143 mmol/L (136-145) 02/23/21 04:35 Corrected Sodium 146 mmol/L (136-145) H 02/23/21 04:35 Potassium 4.9 mmol/L (3.5-5.1) 02/23/21 04:35 Chloride 106 mmol/L (98-107) 02/23/21 04:35 Carbon Dioxide 32.6 mmol/L (21-32) H 02/23/21 04:35 BUN 29 mg/dL (7-18) H 02/23/21 04:35 Creatinine 1.03 mg/dL (0.55-1.02) H 02/23/21 04:35 Est GFR (MDRD) Af Amer > 60 (>60) 02/23/21 04:35 Est GFR (MDRD) Non-Af 57 (>60) L 02/23/21 04:35 Glucose 234 mg/dL (65-99) H 02/23/21 04:35 POC Glucose (mg/dL) 258 mg/dL (65-99) H 02/22/21 20:56 Hemoglobin A1c 13.4 % 02/14/21 04:50 Calcium 7.2 mg/dL (8.5-10.1) L 02/23/21 04:35 Corrected Calcium 9.0 mg/dL (8.5-10.1) 02/23/21 04:35 Magnesium 3.0 mg/dL (1.7-2.9) H 02/19/21 05:03 Total Bilirubin 0.30 mg/dL (0.2-1.0) 02/23/21 04:35 AST 41 Units/L (15-37) H 02/23/21 04:35 ALT 27 Units/L (12-78) 02/23/21 04:35 Alkaline Phosphatase 130 Units/L (46-116) H 02/23/21 04:35 Creatine Kinase 119 Units/L (26-192) 02/13/21 11:19 CK-MB (CK-2) 1.3 ng/mL (0-4.0) 02/13/21 11:19 CK/CKMB % Calc 1.1 % (<4) 02/13/21 11:19 Troponin I < 0.02 ng/mL (0-1.5) 02/13/21 17:35 C-Reactive Protein 33.70 mg/L (0-3.0) H 02/23/21 04:35 B-Natriuretic Peptide 66.7 pg/mL (0-79) 02/16/21 05:05 Total Protein 5.1 g/dL (6.4-8.2) L 02/23/21 04:35 Albumin 1.8 g/dL (3.4-5.0) L 02/23/21 04:35 Globulin 3.3 g/dL (2.5-4.5) 02/23/21 04:35 Albumin/Globulin Ratio 0.5 Ratio (1.1-2.1) L 02/23/21 04:35 Specimen Type Catherized urine 02/16/21 04:20 Urine Color Pale yellow (YELLOW) 02/16/21 04:20 Urine Appearance Clear (CLEAR) 02/16/21 04:20 Urine pH 6.0 (5.0 - 8.0) 02/16/21 04:20 Ur Specific [place] 1.015 (1.000-1.030) 02/16/21 04:20 Urine Protein 1+ (NEGATIVE) 02/16/21 04:20 Urine Glucose (UA) 4+ (NEGATIVE) 02/16/21 04:20 Urine Ketones 1+ (NEGATIVE) 02/16/21 04:20 Urine Occult Blood Negative (NEGATIVE) 02/16/21 04:20 Urine Nitrite Negative (NEGATIVE) 02/16/21 04:20 Urine Bilirubin Negative (NEGATIVE) 02/16/21 04:20 Urine Urobilinogen Normal (NORMAL) 02/16/21 04:20 Ur Leukocyte Esterase Negative (NEGATIVE) 02/16/21 04:20 Urine RBC None seen /HPF (0-3) 02/16/21 04:20 Urine WBC None seen /HPF (0-5) 02/16/21 04:20 Ur Squamous Epith Cells Rare /HPF (NEGATIVE) 02/16/21 04:20 Urine Bacteria Negative /HPF (NEGATIVE) 02/16/21 04:20 Urine Yeast Few /HPF (NEGATIVE) 02/16/21 04:20 Ur Culture Indicated? No/not indicated 02/16/21 04:20 - Assessment and Plan 1: Covid pneumonia with respiratory failure and on mechanical ventilation . Rt pneumothorax required chest tube . very small Lt pneuomothorax .pneumomediastinum and sub cutaneous emphysema . to clamp the chest tube today and check chest Xray at noon . - Problem Patient Problems: Patient Problems Pneumonia due to COVID-19 virus (Acute) U07.1, J12.82 Hypoxia (Acute) R09.02
[2021-02-23] MEDS ORDERED: VIBRAMYCIN IV ONE (08:43)
[2021-02-23] MEDS: VIBRAMYCIN 100 MG in D5W 250 ML IV 250 ML IV SCH ×2 (08:59→22:00)
[2021-02-23] MEDS: DILANTIN INJ 100 MG VIAL IVP SCH ×2 (09:01→21:30)
[2021-02-23] MEDS: INVANZ INJ 1 GM VIAL 1 GM in NS 100 ML IV 100 ML IV SCH (09:04)
[2021-02-23] MEDS: LACRI-LUBE S.O.P. AFFEYE SCH ×2 (09:04→21:30)
[2021-02-23] MEDS: LEVEMIR SC SCH ×2 (09:04→21:31)
[2021-02-23] MEDS ORDERED: D5W 250 ML IV 250 ML IV ONE (09:06)
[2021-02-23] MEDS: LOVENOX INJ 30 MG SYR SC SCH ×2 (09:08→21:35)
[2021-02-23] MEDS: PEPCID 20 MG IV PREMIX* 20 MG/50 ML BAG IV SCH (09:08)
[2021-02-23] MEDS: VITAMIN A PO SCH (09:09)
[2021-02-23] MEDS: BROVANA IN SCH ×2 (09:50→20:15)
[2021-02-23] MEDS: PULMICORT NEB TX 0.5 MG NEB SCH ×2 (09:50→20:15)
[2021-02-23] MEDS: ZEMURON 100 MG VIAL 500 MG in NS 500 ML IV 450 ML IV PRN (10:54)
[2021-02-23] MEDS: DIFLUCAN 100 MG IV (MIX by PHARMACY)* 100 MG/50 ML BAG IV SCH (10:55)
[2021-02-23] MEDS: DIPRIVAN PREMIX 1 GRAM IV 1,000 MG/100 ML VIAL IV PRN (10:55)
--- NOTE | 2021-02-23 11:53 | RAD ---
HISTORYCHEST TUBESTUDYSingle-view [id number]/02/2021FINDINGSAn endotracheal tube is observed stable in position with a nasogastric tube courses through the esophagus. The cardiac silhouette is cardiomegaly. Diffuse airspace opacities throughout the right left zehra thorax are again observed not significantly changed since prior examination. Right-sided chest tube remains stable in position. Diffuse subcutaneous emphysema is noted obscuring details of the chest. However, lucency in the left apical lung zone consistent with a less than 10 percent pneumothorax is observed.. The bony thorax is unremarkable.IMPRESSIONDiffuse opacity of the right and left zehra thorax consistent with underlying COVID-19 pneumonia and ARDS.Stable tubes and support lines.Persistent left pneumothorax of less than 10 percent lung volume.Electronically signed by: ALISHA JACKSON (Feb 23, 2021 11:50:41)
[2021-02-23] MEDS: LANOXIN INJ IVP SCH (16:38)
[2021-02-23] MEDS: VERSED 100 MG in NS 100 ML IV 80 ML IV PRN (19:40)
[2021-02-23] MEDS: SNACK - Diabetic Appropriate PO SCH (21:30)
[2021-02-23] MEDS ORDERED: NS 500 ML IV 500 ML IV ONE (23:37)
[2021-02-24] MEDS: ASCORBIC ACID INJ MULTI-DOSE VIAL 1,500 MG in NS 50 ML IV 50 ML IV SCH ×4 (04:00→20:00)
[2021-02-24] MEDS: D5W 1000 ML IV 1,000 ML IV SCH ×4 (04:29→19:09)
[2021-02-24 05:00] LABS: ABG BASE EXCESS 7.9 mmol/L (-2.0-2.0)
[2021-02-24 05:01] LABS: ABG HCO3 36.9 mmol/L (22-26)
[2021-02-24 05:10] LABS: BASOPHILS % (AUTO) 0.1 % (0.2-1.0); HEMATOCRIT 37.1 % (36.0-47.0); HEMOGLOBIN 11.7 g/dL (12.0-16.0); LYMPHOCYTES # (AUTO) 0.4 X10^3/uL (1.3-2.9); LYMPHOCYTES % (AUTO) 2.3 % (21.0-51.0); MEAN CORPUSCULAR HGB CONC 31.4 g/dL (33.0-35.0); MEAN CORPUSCULAR VOLUME 82.9 fL (80.0-100.0); MEAN PLATELET VOLUME 8.9 fL (7.4-11.0); MONOCYTES # (AUTO) 0.3 x10^3/uL (0.3-0.8); MONOCYTES % (AUTO) 1.8 % (0.0-13.0); NEUTROPHILS # (AUTO) 15.5 x10^3/uL (2.2-4.8); NEUTROPHILS % (AUTO) 95.8 % (42.0-75.0); PLATELET COUNT 127 X10^3/uL (150.0-450.0); RED BLOOD COUNT 4.48 X10^6/uL (3.5-5.4); RED CELL DISTRIBUTION WIDTH 15.3 % (11.6-16.5); WHITE BLOOD COUNT 16.2 X10^3/uL (3.6-10.0)
[2021-02-24 05:24] LABS: ALANINE AMINOTRANSFERASE 42 Units/L (12-78); ALBUMIN 1.4 g/dL (3.4-5.0); ALKALINE PHOSPHATASE 179 Units/L (46-116); ASPARTATE AMINO TRANSFERASE 63 Units/L (15-37); BLOOD UREA NITROGEN 28 mg/dL (7-18); CALCIUM 7.5 mg/dL (8.5-10.1); CARBON DIOXIDE 32.6 mmol/L (21-32); CHLORIDE 107 mmol/L (98-107); COR CA(FOR HYPOALB) 9.6 mg/dL (8.5-10.1); COR NA(FOR HYPERGLY) 143 mmol/L (136-145); CREATININE 0.91 mg/dL (0.55-1.02); SODIUM 142 mmol/L (136-145); TOTAL PROTEIN 4.9 g/dL (6.4-8.2); eGFR NON BLACK RACES > 60 (>60)
[2021-02-24] MEDS: SOLU-Medrol 40 MG VIAL IVP SCH ×3 (05:43→22:45)
[2021-02-24] MEDS: DIPRIVAN PREMIX 1 GRAM IV 1,000 MG/100 ML VIAL IV PRN (05:44)
[2021-02-24 05:45] LABS: PLATELET MORPHOLOGY COMMENT NORMAL (NORMAL)
[2021-02-24] MEDS: ZEMURON 100 MG VIAL 500 MG in NS 500 ML IV 450 ML IV PRN (05:45)
--- NOTE | 2021-02-24 06:23 | RAD ---
HISTORYCOVID PNEUMONIA, HYPOXIASTUDYSingle-view [id number]/02/2021FINDINGSAn endotracheal tube is observed stable in position with a nasogastric tube courses through the esophagus.. The cardiac silhouette is unremarkable. Diffuse interstitial lung changes and airspace opacity throughout the right left zehra thorax is again observed and stable. Right-sided chest tube remains stable. Improved appearance to overlying subcutaneous emphysema is noted.. The bony thorax is unremarkable.IMPRESSIONDiffuse interstitial lung changes with associated airspace opacities throughout the right and left zehra thorax.Stable tubes and support lines.Electronically signed by: ALISHA JACKSON (Feb 24, 2021 06:21:42)
[2021-02-24] MEDS: VERSED 100 MG in NS 100 ML IV 80 ML IV PRN (06:36)
[2021-02-24] MEDS: LEVEMIR SC SCH ×2 (08:33→20:51)
[2021-02-24] MEDS: DILANTIN INJ 100 MG VIAL IVP SCH ×2 (08:34→20:51)
[2021-02-24] MEDS: INVANZ INJ 1 GM VIAL 1 GM in NS 100 ML IV 100 ML IV SCH (08:36)
[2021-02-24] MEDS: LACRI-LUBE S.O.P. AFFEYE SCH ×2 (08:38→20:53)
[2021-02-24] MEDS: LANOXIN INJ IVP SCH (08:38)
[2021-02-24] MEDS: LOVENOX INJ 30 MG SYR SC SCH ×2 (09:32→20:53)
[2021-02-24] MEDS: VITAMIN A PO SCH (09:33)
[2021-02-24] MEDS: PEPCID 20 MG IV PREMIX* 20 MG/50 ML BAG IV SCH (09:36)
[2021-02-24] MEDS: LOPRESSOR INJ 5 MG AMP IVP SCH (09:43)
[2021-02-24] MEDS: BROVANA IN SCH ×2 (09:45→20:51)
[2021-02-24] MEDS: PULMICORT NEB TX 0.5 MG NEB SCH ×2 (09:45→20:51)
--- NOTE | 2021-02-24 10:11 | DR.PROGNOT ---
Hospital Progress Notes - Progress Note for Day of: Progress Note Date: 02/24/21 - Chief Complaint Chief Complaint: repeated chest Xray showed complete expansion of RT lung . RT chest tube was removed without complications . chest Xray showed expantion RT lung . - Past Medical Family Social History Past Med/Fam/Surg Hx: No changes since H&P Allergies: Allergies No Known Drug Allergies Allergy (Verified 02/12/21 08:46) - Review Of Systems ROS: No change since H&P Changes in ROS: Hypotension - Vital Signs Vital Signs: Temperature 98.2 F Pulse Rate [Left Radial] 95 Pulse Rate 106 Respiratory Rate 28 Blood Pressure [Right Arm] 136/64 Blood Pressure [Left Arm] 131/67 Blood Pressure 149/66 O2 Sat by Pulse Oximetry 96 - Physical Exam Oriented: Unable to test Eyes: Normal Ear: Normal Nose: Normal Throat: Normal Respiratory: Right, Left, Diminished, OTHER (Pt is on on mechanical ventilation ) Cardiovascular: Tachycardia : Normal GI:Auscultation: Decreased GI:Palpation: Normal GI: Tenderness: Normal Skin: Other (sub curaneous emphysema ) Musculoskeletal: Normal Psychiatric: Anxiety Mood Description: Anxious Affect: Quiet Speech Pattern: Artificially Ventilated - Laboratory and Diagnostics Result Diagrams: 02/24/21 04:35 02/24/21 04:35 Labs: 02/20/21 17:27 Blood Blood Culture - Final Methicillin Resis Staph Aureus 02/20/21 17:18 Blood Blood Culture - Preliminary 02/18/21 14:02 Sputum - Endotracheal Wash Sputum Culture - Preliminary 02/18/21 14:02 Sputum - Endotracheal Wash - Final Laboratory WBC 16.2 X10^3/uL (3.6-10.0) H 02/24/21 04:35 RBC 4.48 X10^6/uL (3.5-5.4) 02/24/21 04:35 Hgb 11.7 g/dL (12.0-16.0) L 02/24/21 04:35 Hct 37.1 % (36.0-47.0) 02/24/21 04:35 MCV 82.9 fL (80.0-100.0) 02/24/21 04:35 MCH 26.0 pg (27.0-34.0) L 02/24/21 04:35 MCHC 31.4 g/dL (33.0-35.0) L 02/24/21 04:35 RDW 15.3 % (11.6-16.5) 02/24/21 04:35 Plt Count 127 X10^3/uL (150.0-450.0) L 02/24/21 04:35 Plt Count Comment Decreased (ADEQUATE) A 02/24/21 04:35 MPV 8.9 fL (7.4-11.0) 02/24/21 04:35 Neut % (Auto) 95.8 % (42.0-75.0) H 02/24/21 04:35 Lymph % (Auto) 2.3 % (21.0-51.0) L 02/24/21 04:35 [place] % (Auto) 1.8 % (0.0-13.0) 02/24/21 04:35 Eos % (Auto) 0.0 % (0.9-2.9) L 02/24/21 04:35 Baso % (Auto) 0.1 % (0.2-1.0) L 02/24/21 04:35 Neut # (Auto) 15.5 x10^3/uL (2.2-4.8) H 02/24/21 04:35 Lymph # (Auto) 0.4 X10^3/uL (1.3-2.9) L 02/24/21 04:35 [place] # (Auto) 0.3 x10^3/uL (0.3-0.8) 02/24/21 04:35 Eos # (Auto) 0.0 x10^3/uL (0.0-0.2) 02/24/21 04:35 Baso # (Auto) 0.0 X10^3/uL (0.0-0.1) 02/24/21 04:35 Absolute Nucleated RBC 0.0 /100WBC 02/24/21 04:35 Total Counted 100 02/24/21 04:35 Neutrophils % (Manual) 100 % (39-76) H 02/24/21 04:35 Band Neutrophils % 2 % (0-10) 02/20/21 04:58 Lymphocytes % (Manual) Not Reportable 02/24/21 04:35 Monocytes % (Manual) 2 % (4-9) L 02/21/21 05:01 Plt Morphology Comment Normal (NORMAL) 02/24/21 04:35 RBC Morphology Normal (NORMAL) 02/24/21 04:35 Hypochromasia Slight A 02/21/21 05:01 Microcytosis Slight A 02/18/21 04:51 D-Dimer 0.53 ug/ml (0.0-0.57) 02/13/21 11:17 Sample Site Radha 02/24/21 04:55 ABG pH 7.300 (7.35-7.45) L 02/24/21 04:55 ABG pCO2 75.0 mmHg (35.0-45.0) H* 02/24/21 04:55 ABG pO2 90.0 mmHg (80.0-100.0) 02/24/21 04:55 ABG HCO3 36.9 mmol/L (22-26) H* 02/24/21 04:55 ABG O2 Saturation 96.0 % (90-100) 02/24/21 04:55 ABG Base Excess 7.9 mmol/L (-2.0-2.0) H 02/24/21 04:55 Gregory Test N/a 02/24/21 04:55 A-a Gradient 529.0 mmHg 02/24/21 04:55 FiO2 100.0 02/24/21 04:55 Blood Gas Comments Jacy well ae 02/24/21 04:55 Sodium 142 mmol/L (136-145) 02/24/21 04:35 Corrected Sodium 143 mmol/L (136-145) 02/24/21 04:35 Potassium 5.2 mmol/L (3.5-5.1) H 02/24/21 04:35 Chloride 107 mmol/L (98-107) 02/24/21 04:35 Carbon Dioxide 32.6 mmol/L (21-32) H 02/24/21 04:35 BUN 28 mg/dL (7-18) H 02/24/21 04:35 Creatinine 0.91 mg/dL (0.55-1.02) 02/24/21 04:35 Est GFR (MDRD) Af Amer > 60 (>60) 02/24/21 04:35 Est GFR (MDRD) Non-Af > 60 (>60) 02/24/21 04:35 Glucose 151 mg/dL (65-99) H 02/24/21 04:35 POC Glucose (mg/dL) 147 mg/dL (65-99) H 02/24/21 05:31 Hemoglobin A1c 13.4 % 02/14/21 04:50 Calcium 7.5 mg/dL (8.5-10.1) L 02/24/21 04:35 Corrected Calcium 9.6 mg/dL (8.5-10.1) 02/24/21 04:35 Magnesium 3.0 mg/dL (1.7-2.9) H 02/19/21 05:03 Total Bilirubin 0.40 mg/dL (0.2-1.0) 02/24/21 04:35 AST 63 Units/L (15-37) H 02/24/21 04:35 ALT 42 Units/L (12-78) 02/24/21 04:35 Alkaline Phosphatase 179 Units/L (46-116) H 02/24/21 04:35 Creatine Kinase 119 Units/L (26-192) 02/13/21 11:19 CK-MB (CK-2) 1.3 ng/mL (0-4.0) 02/13/21 11:19 CK/CKMB % Calc 1.1 % (<4) 02/13/21 11:19 Troponin I < 0.02 ng/mL (0-1.5) 02/13/21 17:35 C-Reactive Protein 34.50 mg/L (0-3.0) H 02/24/21 04:35 B-Natriuretic Peptide 66.7 pg/mL (0-79) 02/16/21 05:05 Total Protein 4.9 g/dL (6.4-8.2) L 02/24/21 04:35 Albumin 1.4 g/dL (3.4-5.0) L 02/24/21 04:35 Globulin 3.5 g/dL (2.5-4.5) 02/24/21 04:35 Albumin/Globulin Ratio 0.4 Ratio (1.1-2.1) L 02/24/21 04:35 Specimen Type Catherized urine 02/16/21 04:20 Urine Color Pale yellow (YELLOW) 02/16/21 04:20 Urine Appearance Clear (CLEAR) 02/16/21 04:20 Urine pH 6.0 (5.0 - 8.0) 02/16/21 04:20 Ur Specific [place] 1.015 (1.000-1.030) 02/16/21 04:20 Urine Protein 1+ (NEGATIVE) 02/16/21 04:20 Urine Glucose (UA) 4+ (NEGATIVE) 02/16/21 04:20 Urine Ketones 1+ (NEGATIVE) 02/16/21 04:20 Urine Occult Blood Negative (NEGATIVE) 02/16/21 04:20 Urine Nitrite Negative (NEGATIVE) 02/16/21 04:20 Urine Bilirubin Negative (NEGATIVE) 02/16/21 04:20 Urine Urobilinogen Normal (NORMAL) 02/16/21 04:20 Ur Leukocyte Esterase Negative (NEGATIVE) 02/16/21 04:20 Urine RBC None seen /HPF (0-3) 02/16/21 04:20 Urine WBC None seen /HPF (0-5) 02/16/21 04:20 Ur Squamous Epith Cells Rare /HPF (NEGATIVE) 02/16/21 04:20 Urine Bacteria Negative /HPF (NEGATIVE) 02/16/21 04:20 Urine Yeast Few /HPF (NEGATIVE) 02/16/21 04:20 Ur Culture Indicated? No/not indicated 02/16/21 04:20 - Assessment and Plan 1: Covid pneumonia with respiratory failure and on mechanical ventilation . Rt pneumothorax required chest tube .( resolved with chest tube ). very small Lt pneuomothorax .pneumomediastinum and sub cutaneous emphysema ( improving ). same medical plan... - Problem Patient Problems: Patient Problems Pneumonia due to COVID-19 virus (Acute) U07.1, J12.82 Hypoxia (Acute) R09.02
--- NOTE | 2021-02-24 10:18 | RAD ---
HISTORYchest tube removalSTUDYSingle-view [id number]/2021FINDINGSAn endotracheal tube is observed stable in position with a nasogastric tube courses through the esophagus. The cardiac silhouette is enlarged with a tortuous thoracic aorta. Diffuse interstitial lung changes are observed with multifocal opacification scattered throughout the right and left zehra thorax consistent with multifocal atypical pneumonia. A right-sided chest tube has been removed without residual pneumothorax identified. The bony thorax is unremarkable.IMPRESSIONInterval removal of right sided chest tube. Otherwise, stable tubes and support lines. Stable radiograph when compared to prior examination.Electronically signed by: ALISHA JACKSON (Feb 24, 2021 10:15:30)
[2021-02-24] MEDS: VIBRAMYCIN 100 MG in D5W 250 ML IV 250 ML IV SCH ×2 (11:00→22:00)
[2021-02-24] MEDS ORDERED: PHARMACY CONSULT - VANCOMYCIN XX SCH (11:00)
[2021-02-24] MEDS: VANCOMYCIN IV *PREMIX 1.25 G/250 ML BAG 1.25 G/250 ML PIGGYBACK IV SCH ×2 (12:46→20:50)
[2021-02-24] MEDS: LOPRESSOR INJ 5 MG AMP IVP PRN ×2 (13:38→20:52)
[2021-02-24] MEDS: DIFLUCAN 200 MG IV PREMIX* 200 MG/100 ML BAG IV SCH (13:53)
[2021-02-24] MEDS: MORPHINE SULFATE INJ 2 MG INJ IVP PRN (14:35)
[2021-02-24] MEDS: TYLENOL 325 MG TAB PO PRN (16:48)
[2021-02-24] MEDS: SNACK - Diabetic Appropriate PO SCH (22:34)
[2021-02-25] MEDS: D5W 1000 ML IV 1,000 ML IV SCH ×4 (02:25→20:09)
[2021-02-25] MEDS: ASCORBIC ACID INJ MULTI-DOSE VIAL 1,500 MG in NS 50 ML IV 50 ML IV SCH ×4 (03:50→20:10)
[2021-02-25 05:22] LABS: BASOPHILS % (AUTO) 0.1 % (0.2-1.0); HEMATOCRIT 33.4 % (36.0-47.0); HEMOGLOBIN 10.6 g/dL (12.0-16.0); LYMPHOCYTES # (AUTO) 0.4 X10^3/uL (1.3-2.9); LYMPHOCYTES % (AUTO) 2.2 % (21.0-51.0); MEAN CORPUSCULAR HGB CONC 31.8 g/dL (33.0-35.0); MEAN CORPUSCULAR VOLUME 81.8 fL (80.0-100.0); MEAN PLATELET VOLUME 8.8 fL (7.4-11.0); MONOCYTES # (AUTO) 0.4 x10^3/uL (0.3-0.8); MONOCYTES % (AUTO) 2.3 % (0.0-13.0); NEUTROPHILS # (AUTO) 15.7 x10^3/uL (2.2-4.8); NEUTROPHILS % (AUTO) 95.4 % (42.0-75.0); PLATELET COUNT 164 X10^3/uL (150.0-450.0); RED BLOOD COUNT 4.08 X10^6/uL (3.5-5.4); RED CELL DISTRIBUTION WIDTH 15.3 % (11.6-16.5); WHITE BLOOD COUNT 16.5 X10^3/uL (3.6-10.0)
[2021-02-25 05:45] LABS: ABG BASE EXCESS 10.4 mmol/L (-2.0-2.0)
[2021-02-25 05:46] LABS: ABG HCO3 38.6 mmol/L (22-26)
[2021-02-25 05:51] LABS: ALANINE AMINOTRANSFERASE 56 Units/L (12-78); ALBUMIN 1.4 g/dL (3.4-5.0); ALKALINE PHOSPHATASE 199 Units/L (46-116); ASPARTATE AMINO TRANSFERASE 58 Units/L (15-37); BLOOD UREA NITROGEN 33 mg/dL (7-18); CALCIUM 7.7 mg/dL (8.5-10.1); CHLORIDE 107 mmol/L (98-107); COR CA(FOR HYPOALB) 9.8 mg/dL (8.5-10.1); CREATININE 0.87 mg/dL (0.55-1.02); SODIUM 143 mmol/L (136-145); TOTAL PROTEIN 4.6 g/dL (6.4-8.2); eGFR NON BLACK RACES > 60 (>60)
[2021-02-25 05:52] LABS: PLATELET MORPHOLOGY COMMENT NORMAL (NORMAL)
[2021-02-25] MEDS: SOLU-Medrol 40 MG VIAL IVP SCH ×3 (06:11→21:02)
--- NOTE | 2021-02-25 06:40 | RAD ---
HISTORYCOVID-19 pneumoniaSTUDYAP [id number]/2021FINDINGSHeart size remains normal. Stable position of support lines ET tube in mid trachea. NG tube termination is not identified. Similar extent and distribution of bilateral pulmonary infiltrates without evidence for large pleural effusion or complicating pneumothorax.IMPRESSIONConsidering technical difference, no change in appearance of bilateral pneumonia.Electronically signed by: PAT GLORIA (Feb 25, 2021 06:38:49)
[2021-02-25] MEDS: LANOXIN INJ IVP SCH (08:19)
[2021-02-25] MEDS: BROVANA IN SCH ×2 (08:20→20:40)
[2021-02-25] MEDS: PULMICORT NEB TX 0.5 MG NEB SCH ×2 (08:20→20:40)
[2021-02-25] MEDS ORDERED: NS 100 ML IV + SPIKE MINIBAG* 100 ML IV ONE (09:39)
[2021-02-25] MEDS: DIFLUCAN 200 MG IV PREMIX* 200 MG/100 ML BAG IV SCH (09:49)
[2021-02-25] MEDS: DILANTIN INJ 100 MG VIAL IVP SCH ×2 (09:49→20:11)
[2021-02-25] MEDS: LOVENOX INJ 30 MG SYR SC SCH ×2 (09:50→20:10)
[2021-02-25] MEDS: LEVEMIR SC SCH ×2 (09:51→21:02)
[2021-02-25] MEDS: LACRI-LUBE S.O.P. AFFEYE SCH ×2 (09:52→20:10)
[2021-02-25] MEDS: LOPRESSOR TAB 25 MG NG SCH ×2 (09:52→20:11)
[2021-02-25] MEDS: VITAMIN A PO SCH (09:52)
[2021-02-25] MEDS: INVANZ INJ 1 GM VIAL 1 GM in NS 100 ML IV 100 ML IV SCH (10:27)
[2021-02-25] MEDS: VANCOMYCIN IV *PREMIX 1.25 G/250 ML BAG 1.25 G/250 ML PIGGYBACK IV SCH ×2 (10:50→21:29)
[2021-02-25] MEDS: PEPCID 20 MG IV PREMIX* 20 MG/50 ML BAG IV SCH (12:41)
[2021-02-25] MEDS ORDERED: ACTIVASE CATHFLO ONE (15:06)
[2021-02-25] MEDS: SNACK - Diabetic Appropriate PO SCH (20:09)
[2021-02-25] MEDS ORDERED: PHARMACY COMMENT IV NR (20:30)
[2021-02-25] MEDS: DIPRIVAN PREMIX 1 GRAM IV 1,000 MG/100 ML VIAL IV PRN (21:03)
[2021-02-25 21:12] LABS: CREATININE 0.88 mg/dL (0.55-1.02)
[2021-02-25] MEDS: MORPHINE SULFATE INJ 2 MG INJ IVP PRN (22:54)
[2021-02-25] MEDS: VERSED 100 MG in NS 100 ML IV 80 ML IV PRN ×3 (23:22)
[2021-02-26] MEDS: ASCORBIC ACID INJ MULTI-DOSE VIAL 1,500 MG in NS 50 ML IV 50 ML IV SCH ×4 (03:08→20:11)
[2021-02-26] MEDS: D5W 1000 ML IV 1,000 ML IV SCH ×3 (03:12→17:55)
[2021-02-26 05:02] LABS: ABG BASE EXCESS 12.8 mmol/L (-2.0-2.0)
[2021-02-26 05:03] LABS: ABG HCO3 40.8 mmol/L (22-26)
[2021-02-26] MEDS: SOLU-Medrol 40 MG VIAL IVP SCH ×3 (05:09→20:11)
[2021-02-26] MEDS: MORPHINE SULFATE INJ 2 MG INJ IVP PRN ×2 (05:10→20:14)
[2021-02-26 05:18] LABS: BASOPHILS % (AUTO) 0.1 % (0.2-1.0); HEMATOCRIT 34.8 % (36.0-47.0); LYMPHOCYTES # (AUTO) 0.4 X10^3/uL (1.3-2.9); LYMPHOCYTES % (AUTO) 2.2 % (21.0-51.0); MEAN CORPUSCULAR HGB CONC 31.6 g/dL (33.0-35.0); MEAN CORPUSCULAR VOLUME 82.2 fL (80.0-100.0); MEAN PLATELET VOLUME 8.6 fL (7.4-11.0); MONOCYTES # (AUTO) 0.5 x10^3/uL (0.3-0.8); MONOCYTES % (AUTO) 2.5 % (0.0-13.0); NEUTROPHILS # (AUTO) 18.2 x10^3/uL (2.2-4.8); NEUTROPHILS % (AUTO) 95.2 % (42.0-75.0); PLATELET COUNT 224 X10^3/uL (150.0-450.0); RED BLOOD COUNT 4.24 X10^6/uL (3.5-5.4); RED CELL DISTRIBUTION WIDTH 15.2 % (11.6-16.5); WHITE BLOOD COUNT 19.1 X10^3/uL (3.6-10.0)
[2021-02-26 05:33] LABS: ALANINE AMINOTRANSFERASE 64 Units/L (12-78); ALBUMIN 1.5 g/dL (3.4-5.0); ALKALINE PHOSPHATASE 219 Units/L (46-116); ASPARTATE AMINO TRANSFERASE 58 Units/L (15-37); BLOOD UREA NITROGEN 31 mg/dL (7-18); CHLORIDE 104 mmol/L (98-107); COR NA(FOR HYPERGLY) 141 mmol/L (136-145); SODIUM 140 mmol/L (136-145); TOTAL PROTEIN 5.1 g/dL (6.4-8.2); eGFR NON BLACK RACES > 60 (>60)
[2021-02-26 05:51] LABS: PLATELET MORPHOLOGY COMMENT NORMAL (NORMAL)
[2021-02-26] MEDS ORDERED: KAYEXALATE SUSP PO ONE (05:56)
--- NOTE | 2021-02-26 06:48 | RAD ---
HISTORYPNEUMONIA HYSTERECTOMY, HX OF SEIZURES.brSTUDYCHEST, 1 [id number]/04/2021, 02/24/2021FINDINGSStable support apparatus and cardiomediastinal silhouette. Multifocal bilateral pulmonary opacities mildly worse than prior. No sizable effusion or visible pneumothorax. No acute osseous finding.IMPRESSIONWorsening pulmonary opacities.Electronically signed by: Pablo Almanzar (Feb 26, 2021 06:47:13)
--- NOTE | 2021-02-26 08:24 | PCM.PROG ---
Progress Note Progress Note for Day of Date of Exam: 02/25/21 Subjective Subjective: Pt. ventilated. Past Medical Family Social History Past Med/Fam/Surg Hx: No changes since H&P Allergies: Allergies No Known Drug Allergies Allergy (Verified 02/12/21 08:46) Review of Systems ROS: No change since H&P Vital Signs and I&O's Vital Signs: Temperature 98.5 F Pulse Rate [Left Radial] 95 Pulse Rate 101 Respiratory Rate 28 Blood Pressure [Right Arm] 136/64 Blood Pressure [Left Arm] 131/67 Blood Pressure 154/65 O2 Sat by Pulse Oximetry 90 Intake and Output: Intake & Output 02/23/21 02/24/21 02/25/21 02/26/21 11:59 11:59 11:59 11:59 Intake Total 7470.0 / 7470.0 4558 / 4558 4718 / 4718 4550 / 4550 Output Total 3120 / 3120 1000 / 1000 4150 / 4150 5200 / 5200 Balance 4350.0 / 4350.0 3558 / 3558 568 / 568 -650 / -650 Physical Exam Oriented: Unable to test Respiratory: Right, Left, Diminished and OTHER (Pt is on on mechanical ventilation ) Cardiovascular: Tachycardia : Normal Auscultation: Bowel Sounds: Decreased Tenderness: Normal Speech Pattern: Artificially Ventilated Laboratory and Diagnostics Result Diagrams: 02/26/21 04:31 02/26/21 04:31 Labs: 02/20/21 17:27 Blood Blood Culture - Final Methicillin Resis Staph Aureus 02/20/21 17:18 Blood Blood Culture - Final 02/18/21 14:02 Sputum - Endotracheal Wash Sputum Culture - Final 02/18/21 14:02 Sputum - Endotracheal Wash - Final Laboratory WBC 19.1 X10^3/uL (3.6-10.0) H 02/26/21 04:31 RBC 4.24 X10^6/uL (3.5-5.4) 02/26/21 04:31 Hgb 11.0 g/dL (12.0-16.0) L 02/26/21 04:31 Hct 34.8 % (36.0-47.0) L 02/26/21 04:31 MCV 82.2 fL (80.0-100.0) 02/26/21 04:31 MCH 26.0 pg (27.0-34.0) L 02/26/21 04:31 MCHC 31.6 g/dL (33.0-35.0) L 02/26/21 04:31 RDW 15.2 % (11.6-16.5) 02/26/21 04:31 Plt Count 224 X10^3/uL (150.0-450.0) 02/26/21 04:31 Plt Count Comment Adequate (ADEQUATE) 02/26/21 04:31 MPV 8.6 fL (7.4-11.0) 02/26/21 04:31 Neut % (Auto) 95.2 % (42.0-75.0) H 02/26/21 04:31 Lymph % (Auto) 2.2 % (21.0-51.0) L 02/26/21 04:31 [place] % (Auto) 2.5 % (0.0-13.0) 02/26/21 04:31 Eos % (Auto) 0.0 % (0.9-2.9) L 02/26/21 04:31 Baso % (Auto) 0.1 % (0.2-1.0) L 02/26/21 04:31 Neut # (Auto) 18.2 x10^3/uL (2.2-4.8) H 02/26/21 04:31 Lymph # (Auto) 0.4 X10^3/uL (1.3-2.9) L 02/26/21 04:31 [place] # (Auto) 0.5 x10^3/uL (0.3-0.8) 02/26/21 04:31 Eos # (Auto) 0.0 x10^3/uL (0.0-0.2) 02/26/21 04:31 Baso # (Auto) 0.0 X10^3/uL (0.0-0.1) 02/26/21 04:31 Absolute Nucleated RBC 0.0 /100WBC 02/26/21 04:31 Total Counted 100 02/26/21 04:31 Neutrophils % (Manual) 98 % (39-76) H 02/26/21 04:31 Band Neutrophils % 2 % (0-10) 02/20/21 04:58 Lymphocytes % (Manual) 2 % (13-43) L 02/26/21 04:31 Monocytes % (Manual) 2 % (4-9) L 02/21/21 05:01 Plt Morphology Comment Normal (NORMAL) 02/26/21 04:31 RBC Morphology Normal (NORMAL) 02/26/21 04:31 Hypochromasia Slight A 02/21/21 05:01 Microcytosis Slight A 02/18/21 04:51 D-Dimer 0.53 ug/ml (0.0-0.57) 02/13/21 11:17 Sample Site [place] 02/26/21 05:00 ABG pH 7.380 (7.35-7.45) 02/26/21 05:00 ABG pCO2 69.0 mmHg (35.0-45.0) H* 02/26/21 05:00 ABG pO2 64.0 mmHg (80.0-100.0) L 02/26/21 05:00 ABG HCO3 40.8 mmol/L (22-26) H* 02/26/21 05:00 ABG O2 Saturation 92.0 % (90-100) 02/26/21 05:00 ABG Base Excess 12.8 mmol/L (-2.0-2.0) H 02/26/21 05:00 Gregory Test N/a 02/26/21 05:00 A-a Gradient 491.0 mmHg 02/26/21 05:00 FiO2 90.0 02/26/21 05:00 Blood Gas Comments Jacy well ms 02/26/21 05:00 Sodium 140 mmol/L (136-145) 02/26/21 04:31 Corrected Sodium 141 mmol/L (136-145) 02/26/21 04:31 Potassium 6.0 mmol/L (3.5-5.1) H* 02/26/21 04:31 Chloride 104 mmol/L (98-107) 02/26/21 04:31 Carbon Dioxide 34.0 mmol/L (21-32) H 02/26/21 04:31 BUN 31 mg/dL (7-18) H 02/26/21 04:31 Creatinine 0.80 mg/dL (0.55-1.02) 02/26/21 04:31 Est GFR (MDRD) Af Amer > 60 (>60) 02/26/21 04:31 Est GFR (MDRD) Non-Af > 60 (>60) 02/26/21 04:31 Glucose 146 mg/dL (65-99) H 02/26/21 04:31 POC Glucose (mg/dL) 145 mg/dL (65-99) H 02/25/21 19:34 Hemoglobin A1c 13.4 % 02/14/21 04:50 Calcium 8.0 mg/dL (8.5-10.1) L 02/26/21 04:31 Corrected Calcium 10.0 mg/dL (8.5-10.1) 02/26/21 04:31 Magnesium 3.0 mg/dL (1.7-2.9) H 02/19/21 05:03 Total Bilirubin 0.30 mg/dL (0.2-1.0) 02/26/21 04:31 AST 58 Units/L (15-37) H 02/26/21 04:31 ALT 64 Units/L (12-78) 02/26/21 04:31 Alkaline Phosphatase 219 Units/L (46-116) H 02/26/21 04:31 Creatine Kinase 119 Units/L (26-192) 02/13/21 11:19 CK-MB (CK-2) 1.3 ng/mL (0-4.0) 02/13/21 11:19 CK/CKMB % Calc 1.1 % (<4) 02/13/21 11:19 Troponin I < 0.02 ng/mL (0-1.5) 02/13/21 17:35 C-Reactive Protein 16.10 mg/L (0-3.0) H 02/25/21 04:45 B-Natriuretic Peptide 66.7 pg/mL (0-79) 02/16/21 05:05 Total Protein 5.1 g/dL (6.4-8.2) L 02/26/21 04:31 Albumin 1.5 g/dL (3.4-5.0) L 02/26/21 04:31 Globulin 3.6 g/dL (2.5-4.5) 02/26/21 04:31 Albumin/Globulin Ratio 0.4 Ratio (1.1-2.1) L 02/26/21 04:31 Specimen Type Catherized urine 02/16/21 04:20 Urine Color Pale yellow (YELLOW) 02/16/21 04:20 Urine Appearance Clear (CLEAR) 02/16/21 04:20 Urine pH 6.0 (5.0 - 8.0) 02/16/21 04:20 Ur Specific [place] 1.015 (1.000-1.030) 02/16/21 04:20 Urine Protein 1+ (NEGATIVE) 02/16/21 04:20 Urine Glucose (UA) 4+ (NEGATIVE) 02/16/21 04:20 Urine Ketones 1+ (NEGATIVE) 02/16/21 04:20 Urine Occult Blood Negative (NEGATIVE) 02/16/21 04:20 Urine Nitrite Negative (NEGATIVE) 02/16/21 04:20 Urine Bilirubin Negative (NEGATIVE) 02/16/21 04:20 Urine Urobilinogen Normal (NORMAL) 02/16/21 04:20 Ur Leukocyte Esterase Negative (NEGATIVE) 02/16/21 04:20 Urine RBC None seen /HPF (0-3) 02/16/21 04:20 Urine WBC None seen /HPF (0-5) 02/16/21 04:20 Ur Squamous Epith Cells Rare /HPF (NEGATIVE) 02/16/21 04:20 Urine Bacteria Negative /HPF (NEGATIVE) 02/16/21 04:20 Urine Yeast Few /HPF (NEGATIVE) 02/16/21 04:20 Ur Culture Indicated? No/not indicated 02/16/21 04:20 Vancomycin Trough 21.0 ug/mL (15-20) H* 02/25/21 20:30 Digoxin 1.18 ng/mL (0.9-2) 02/26/21 04:31 Radiology Reviewed: Yes Plan (1) Hyperkalemia: Status: Acute Plan: Kayexalate 30 Grams PO. Change IV Solumedrol to bid from tid. (2) Pneumonia due to COVID-19 virus: Status: Acute Plan: IV Levaquin and Invanz. (3) COVID-19 virus infection: Status: Acute Plan: IV Remdesivir infusion was completed on 02/17/21 after 5 days of infusion. (4) Hypoxia: Status: Acute Plan: Continue ventilation. Will ween as tolerated off of vent. (5) Hyperglycemia: Status: Acute Plan: Cover with sliding scale regular insulin. increase Levemir to 50 units bid. (6) Acute anxiety: Status: Resolved Plan: valium prn (7) Hypokalemia: Status: Resolved Plan: Potassium replacement protocol as needed. (8) Spontaneous pneumothorax: Status: Resolved Plan: Chest Tube removed. (9) Respiratory distress: Status: Inactive Plan: Patient intubated on 02/18/21. (10) Dehydration with hypernatremia: Status: Acute Plan: Cont. IVF at D5NS@150ml/hr (11) HTN (hypertension): Status: Chronic Plan: Start Lopressor 25mg bid. (12) Subcutaneous air: Status: Resolved (13) Pneumomediastinum: Status: Resolved Plan: Cont. to monitor. (14) Respiratory failure: Status: Acute Plan: Continue patient on ventilator. (15) Respiratory acidosis: Status: Resolved (16) Candidiasis of lung: Status: Acute Plan: Continue IV Diflucan. (17) Hypoalbuminemia due to protein-calorie malnutrition: Status: Acute Plan: OG tube placed. Tube feeding changed to Glucerna. (18) Hypotension: Status: Resolved Plan: Dopamine was discontinued on 02/21/21
[2021-02-26] MEDS: LANOXIN INJ IVP SCH (08:25)
[2021-02-26] MEDS: LOVENOX INJ 30 MG SYR SC SCH ×2 (08:26→20:13)
[2021-02-26] MEDS: VITAMIN A PO SCH (08:26)
[2021-02-26] MEDS: DILANTIN INJ 100 MG VIAL IVP SCH ×2 (08:28→20:12)
[2021-02-26] MEDS: DIFLUCAN 200 MG IV PREMIX* 200 MG/100 ML BAG IV SCH (08:28)
[2021-02-26] MEDS: VANCOMYCIN HCL 1 G in D5W 250 ML IV 250 ML IV SCH ×2 (08:29→20:14)
--- NOTE | 2021-02-26 08:31 | PCM.PROG ---
Progress Note Progress Note for Day of Date of Exam: 02/26/21 Subjective Subjective: Pt. ventilated. Past Medical Family Social History Past Med/Fam/Surg Hx: No changes since H&P Allergies: Allergies No Known Drug Allergies Allergy (Verified 02/12/21 08:46) Review of Systems ROS: No change since H&P Vital Signs and I&O's Vital Signs: Temperature 98.5 F Pulse Rate [Left Radial] 95 Pulse Rate 101 Respiratory Rate 28 Blood Pressure [Right Arm] 136/64 Blood Pressure [Left Arm] 131/67 Blood Pressure 154/65 O2 Sat by Pulse Oximetry 90 Intake and Output: Intake & Output 02/23/21 02/24/21 02/25/21 02/26/21 11:59 11:59 11:59 11:59 Intake Total 7470.0 / 7470.0 4558 / 4558 4718 / 4718 4550 / 4550 Output Total 3120 / 3120 1000 / 1000 4150 / 4150 5200 / 5200 Balance 4350.0 / 4350.0 3558 / 3558 568 / 568 -650 / -650 Physical Exam Oriented: Unable to test Respiratory: Right, Left, Rhonchi and OTHER (Pt is on on mechanical ventilation ) Cardiovascular: Tachycardia : Normal Auscultation: Bowel Sounds: Decreased Tenderness: Normal Speech Pattern: Artificially Ventilated Laboratory and Diagnostics Result Diagrams: 02/26/21 04:31 02/26/21 04:31 Labs: 02/20/21 17:27 Blood Blood Culture - Final Methicillin Resis Staph Aureus 02/20/21 17:18 Blood Blood Culture - Final 02/18/21 14:02 Sputum - Endotracheal Wash Sputum Culture - Final 02/18/21 14:02 Sputum - Endotracheal Wash - Final Laboratory WBC 19.1 X10^3/uL (3.6-10.0) H 02/26/21 04:31 RBC 4.24 X10^6/uL (3.5-5.4) 02/26/21 04:31 Hgb 11.0 g/dL (12.0-16.0) L 02/26/21 04:31 Hct 34.8 % (36.0-47.0) L 02/26/21 04:31 MCV 82.2 fL (80.0-100.0) 02/26/21 04:31 MCH 26.0 pg (27.0-34.0) L 02/26/21 04:31 MCHC 31.6 g/dL (33.0-35.0) L 02/26/21 04:31 RDW 15.2 % (11.6-16.5) 02/26/21 04:31 Plt Count 224 X10^3/uL (150.0-450.0) 02/26/21 04:31 Plt Count Comment Adequate (ADEQUATE) 02/26/21 04:31 MPV 8.6 fL (7.4-11.0) 02/26/21 04:31 Neut % (Auto) 95.2 % (42.0-75.0) H 02/26/21 04:31 Lymph % (Auto) 2.2 % (21.0-51.0) L 02/26/21 04:31 [place] % (Auto) 2.5 % (0.0-13.0) 02/26/21 04:31 Eos % (Auto) 0.0 % (0.9-2.9) L 02/26/21 04:31 Baso % (Auto) 0.1 % (0.2-1.0) L 02/26/21 04:31 Neut # (Auto) 18.2 x10^3/uL (2.2-4.8) H 02/26/21 04:31 Lymph # (Auto) 0.4 X10^3/uL (1.3-2.9) L 02/26/21 04:31 [place] # (Auto) 0.5 x10^3/uL (0.3-0.8) 02/26/21 04:31 Eos # (Auto) 0.0 x10^3/uL (0.0-0.2) 02/26/21 04:31 Baso # (Auto) 0.0 X10^3/uL (0.0-0.1) 02/26/21 04:31 Absolute Nucleated RBC 0.0 /100WBC 02/26/21 04:31 Total Counted 100 02/26/21 04:31 Neutrophils % (Manual) 98 % (39-76) H 02/26/21 04:31 Band Neutrophils % 2 % (0-10) 02/20/21 04:58 Lymphocytes % (Manual) 2 % (13-43) L 02/26/21 04:31 Monocytes % (Manual) 2 % (4-9) L 02/21/21 05:01 Plt Morphology Comment Normal (NORMAL) 02/26/21 04:31 RBC Morphology Normal (NORMAL) 02/26/21 04:31 Hypochromasia Slight A 02/21/21 05:01 Microcytosis Slight A 02/18/21 04:51 D-Dimer 0.53 ug/ml (0.0-0.57) 02/13/21 11:17 Sample Site [place] 02/26/21 05:00 ABG pH 7.380 (7.35-7.45) 02/26/21 05:00 ABG pCO2 69.0 mmHg (35.0-45.0) H* 02/26/21 05:00 ABG pO2 64.0 mmHg (80.0-100.0) L 02/26/21 05:00 ABG HCO3 40.8 mmol/L (22-26) H* 02/26/21 05:00 ABG O2 Saturation 92.0 % (90-100) 02/26/21 05:00 ABG Base Excess 12.8 mmol/L (-2.0-2.0) H 02/26/21 05:00 Gregory Test N/a 02/26/21 05:00 A-a Gradient 491.0 mmHg 02/26/21 05:00 FiO2 90.0 02/26/21 05:00 Blood Gas Comments Jacy well ms 02/26/21 05:00 Sodium 140 mmol/L (136-145) 02/26/21 04:31 Corrected Sodium 141 mmol/L (136-145) 02/26/21 04:31 Potassium 6.0 mmol/L (3.5-5.1) H* 02/26/21 04:31 Chloride 104 mmol/L (98-107) 02/26/21 04:31 Carbon Dioxide 34.0 mmol/L (21-32) H 02/26/21 04:31 BUN 31 mg/dL (7-18) H 02/26/21 04:31 Creatinine 0.80 mg/dL (0.55-1.02) 02/26/21 04:31 Est GFR (MDRD) Af Amer > 60 (>60) 02/26/21 04:31 Est GFR (MDRD) Non-Af > 60 (>60) 02/26/21 04:31 Glucose 146 mg/dL (65-99) H 02/26/21 04:31 POC Glucose (mg/dL) 145 mg/dL (65-99) H 02/25/21 19:34 Hemoglobin A1c 13.4 % 02/14/21 04:50 Calcium 8.0 mg/dL (8.5-10.1) L 02/26/21 04:31 Corrected Calcium 10.0 mg/dL (8.5-10.1) 02/26/21 04:31 Magnesium 3.0 mg/dL (1.7-2.9) H 02/19/21 05:03 Total Bilirubin 0.30 mg/dL (0.2-1.0) 02/26/21 04:31 AST 58 Units/L (15-37) H 02/26/21 04:31 ALT 64 Units/L (12-78) 02/26/21 04:31 Alkaline Phosphatase 219 Units/L (46-116) H 02/26/21 04:31 Creatine Kinase 119 Units/L (26-192) 02/13/21 11:19 CK-MB (CK-2) 1.3 ng/mL (0-4.0) 02/13/21 11:19 CK/CKMB % Calc 1.1 % (<4) 02/13/21 11:19 Troponin I < 0.02 ng/mL (0-1.5) 02/13/21 17:35 C-Reactive Protein 16.10 mg/L (0-3.0) H 02/25/21 04:45 B-Natriuretic Peptide 66.7 pg/mL (0-79) 02/16/21 05:05 Total Protein 5.1 g/dL (6.4-8.2) L 02/26/21 04:31 Albumin 1.5 g/dL (3.4-5.0) L 02/26/21 04:31 Globulin 3.6 g/dL (2.5-4.5) 02/26/21 04:31 Albumin/Globulin Ratio 0.4 Ratio (1.1-2.1) L 02/26/21 04:31 Specimen Type Catherized urine 02/16/21 04:20 Urine Color Pale yellow (YELLOW) 02/16/21 04:20 Urine Appearance Clear (CLEAR) 02/16/21 04:20 Urine pH 6.0 (5.0 - 8.0) 02/16/21 04:20 Ur Specific [place] 1.015 (1.000-1.030) 02/16/21 04:20 Urine Protein 1+ (NEGATIVE) 02/16/21 04:20 Urine Glucose (UA) 4+ (NEGATIVE) 02/16/21 04:20 Urine Ketones 1+ (NEGATIVE) 02/16/21 04:20 Urine Occult Blood Negative (NEGATIVE) 02/16/21 04:20 Urine Nitrite Negative (NEGATIVE) 02/16/21 04:20 Urine Bilirubin Negative (NEGATIVE) 02/16/21 04:20 Urine Urobilinogen Normal (NORMAL) 02/16/21 04:20 Ur Leukocyte Esterase Negative (NEGATIVE) 02/16/21 04:20 Urine RBC None seen /HPF (0-3) 02/16/21 04:20 Urine WBC None seen /HPF (0-5) 02/16/21 04:20 Ur Squamous Epith Cells Rare /HPF (NEGATIVE) 02/16/21 04:20 Urine Bacteria Negative /HPF (NEGATIVE) 02/16/21 04:20 Urine Yeast Few /HPF (NEGATIVE) 02/16/21 04:20 Ur Culture Indicated? No/not indicated 02/16/21 04:20 Vancomycin Trough 21.0 ug/mL (15-20) H* 02/25/21 20:30 Digoxin 1.18 ng/mL (0.9-2) 02/26/21 04:31 Radiology Reviewed: Yes Plan (1) Sepsis due to methicillin resistant Staphylococcus aureus (MRSA): Status: Acute Plan: Continue Vancomycin. (2) Hyperkalemia: Status: Acute Plan: Kayexalate 30 Grams PO. Change IV Solumedrol to bid from tid. (3) Pneumonia due to COVID-19 virus: Status: Acute Narrative Support Text: Worsening per CXR. Plan: IV Levaquin and Invanz. (4) COVID-19 virus infection: Status: Acute Plan: IV Remdesivir infusion was completed on 02/17/21 after 5 days of infusion. (5) Hypoxia: Status: Acute Plan: Continue ventilation. Will ween as tolerated off of vent. (6) Hyperglycemia: Status: Acute Plan: Cover with sliding scale regular insulin. increase Levemir to 50 units bid. (7) HTN (hypertension): Status: Chronic Plan: Start Lopressor 25mg bid. (8) Respiratory failure: Status: Acute Plan: Continue patient on ventilator. (9) Candidiasis of lung: Status: Acute Plan: Continue IV Diflucan.
[2021-02-26] MEDS: BROVANA IN SCH ×2 (08:45→20:20)
[2021-02-26] MEDS: PULMICORT NEB TX 0.5 MG NEB SCH ×2 (08:45→20:20)
[2021-02-26] MEDS ORDERED: LOPRESSOR TAB 50 MG PO SCH (09:00)
[2021-02-26] MEDS: LOPRESSOR TAB 50 MG PEG SCH ×2 (09:02→20:12)
[2021-02-26] MEDS: LACRI-LUBE S.O.P. AFFEYE SCH ×2 (09:03→20:13)
[2021-02-26] MEDS ORDERED: NS 100 ML IV + SPIKE MINIBAG* 100 ML IV ONE (09:11)
[2021-02-26] MEDS: LEVEMIR SC SCH ×2 (09:23→20:12)
[2021-02-26] MEDS: INVANZ INJ 1 GM VIAL 1 GM in NS 100 ML IV 100 ML IV SCH (10:32)
[2021-02-26] MEDS: PEPCID 20 MG IV PREMIX* 20 MG/50 ML BAG IV SCH (11:00)
[2021-02-26] MEDS: VERSED 100 MG in NS 100 ML IV 80 ML IV PRN (15:55)
[2021-02-26] MEDS ORDERED: VANCOMYCIN HCL ONE (19:07)
[2021-02-26] MEDS ORDERED: D5W 250 ML IV 250 ML IV ONE (19:20)
[2021-02-26] MEDS: SNACK - Diabetic Appropriate PO SCH (19:52)
[2021-02-26] MEDS: TYLENOL 325 MG TAB PO PRN (22:30)
[2021-02-27] MEDS: DIPRIVAN PREMIX 1 GRAM IV 1,000 MG/100 ML VIAL IV PRN ×2 (01:08→15:57)
[2021-02-27] MEDS: ASCORBIC ACID INJ MULTI-DOSE VIAL 1,500 MG in NS 50 ML IV 50 ML IV SCH ×4 (03:28→20:21)
[2021-02-27] MEDS: D5W 1000 ML IV 1,000 ML IV SCH ×3 (03:28→17:04)
[2021-02-27 05:15] LABS: BASOPHILS % (AUTO) 0.2 % (0.2-1.0); EOSINOPHILS % (AUTO) 0.2 % (0.9-2.9); HEMATOCRIT 30.5 % (36.0-47.0); HEMOGLOBIN 9.9 g/dL (12.0-16.0); LYMPHOCYTES # (AUTO) 0.4 X10^3/uL (1.3-2.9); LYMPHOCYTES % (AUTO) 2.8 % (21.0-51.0); MEAN CORPUSCULAR HEMOGLOBIN 26.3 pg (27.0-34.0); MEAN CORPUSCULAR HGB CONC 32.5 g/dL (33.0-35.0); MEAN CORPUSCULAR VOLUME 80.9 fL (80.0-100.0); MEAN PLATELET VOLUME 8.3 fL (7.4-11.0); MONOCYTES # (AUTO) 0.3 x10^3/uL (0.3-0.8); MONOCYTES % (AUTO) 1.9 % (0.0-13.0); NEUTROPHILS # (AUTO) 14.6 x10^3/uL (2.2-4.8); NEUTROPHILS % (AUTO) 94.9 % (42.0-75.0); PLATELET COUNT 246 X10^3/uL (150.0-450.0); RED BLOOD COUNT 3.77 X10^6/uL (3.5-5.4); RED CELL DISTRIBUTION WIDTH 14.8 % (11.6-16.5); WHITE BLOOD COUNT 15.4 X10^3/uL (3.6-10.0)
[2021-02-27 05:17] LABS: ABG BASE EXCESS 18.5 mmol/L (-2.0-2.0); ABG HCO3 45.9 mmol/L (22-26)
[2021-02-27 05:34] LABS: ALANINE AMINOTRANSFERASE 58 Units/L (12-78); ALBUMIN 1.4 g/dL (3.4-5.0); ALKALINE PHOSPHATASE 206 Units/L (46-116); ASPARTATE AMINO TRANSFERASE 42 Units/L (15-37); BLOOD UREA NITROGEN 25 mg/dL (7-18); CALCIUM 7.5 mg/dL (8.5-10.1); CHLORIDE 102 mmol/L (98-107); COR CA(FOR HYPOALB) 9.6 mg/dL (8.5-10.1); COR NA(FOR HYPERGLY) 141 mmol/L (136-145); CREATININE 0.79 mg/dL (0.55-1.02); SODIUM 140 mmol/L (136-145); TOTAL PROTEIN 4.7 g/dL (6.4-8.2); eGFR NON BLACK RACES > 60 (>60)
[2021-02-27] MEDS: ZEMURON 100 MG VIAL 500 MG in NS 500 ML IV 450 ML IV PRN (05:36)
[2021-02-27 05:57] LABS: PLATELET MORPHOLOGY COMMENT NORMAL (NORMAL)
[2021-02-27] MEDS: VERSED 100 MG in NS 100 ML IV 80 ML IV PRN ×2 (06:12→17:05)
--- NOTE | 2021-02-27 06:28 | RAD ---
HISTORYCOVID-19 pneumoniaSTUDYPortable AP [id number]/05/2021FINDINGSThe heart is not significantly enlarged. Stable position of support lines. There is no change in extent or distribution of diffuse bilateral airspace pulmonary involvement. No pneumothorax is identified.IMPRESSIONNo change in appearance of bilateral pneumoniaElectronically signed by: PAT GLORIA (Feb 27, 2021 06:26:58)
[2021-02-27] MEDS: VANCOMYCIN HCL 1 G in D5W 250 ML IV 250 ML IV SCH ×2 (08:22→21:38)
[2021-02-27] MEDS: SOLU-Medrol 40 MG VIAL IVP SCH ×2 (08:24→20:23)
[2021-02-27] MEDS: DIFLUCAN 200 MG IV PREMIX* 200 MG/100 ML BAG IV SCH (08:26)
[2021-02-27] MEDS: DILANTIN INJ 100 MG VIAL IVP SCH ×2 (08:28→20:24)
[2021-02-27] MEDS: LACRI-LUBE S.O.P. AFFEYE SCH ×2 (08:30→20:23)
[2021-02-27] MEDS: LEVEMIR SC SCH ×2 (08:31→20:23)
[2021-02-27] MEDS: LOPRESSOR TAB 50 MG PEG SCH ×2 (08:32→20:24)
[2021-02-27] MEDS: LOVENOX INJ 30 MG SYR SC SCH ×2 (08:33→20:24)
[2021-02-27] MEDS: PEPCID 20 MG IV PREMIX* 20 MG/50 ML BAG IV SCH (08:34)
[2021-02-27] MEDS: LANOXIN INJ IVP SCH (08:35)
[2021-02-27] MEDS: VITAMIN A PO SCH (08:44)
[2021-02-27] MEDS: INVANZ INJ 1 GM VIAL 1 GM in NS 100 ML IV 100 ML IV SCH (08:44)
[2021-02-27] MEDS: BROVANA IN SCH ×2 (09:20→20:00)
[2021-02-27] MEDS: PULMICORT NEB TX 0.5 MG NEB SCH ×2 (09:20→20:00)
[2021-02-27] MEDS: HumuLIN R SC PRN ×2 (11:33→17:05)
[2021-02-27] MEDS ORDERED: KAYEXALATE SUSP PO ONE (14:00)
--- NOTE | 2021-02-27 14:20 | PCM.PROG ---
Progress Note Progress Note for Day of Date of Exam: 02/27/21 Subjective Subjective: Pt. ventilated. Past Medical Family Social History Past Med/Fam/Surg Hx: No changes since H&P Allergies: Allergies No Known Drug Allergies Allergy (Verified 02/12/21 08:46) Review of Systems ROS: No change since H&P Vital Signs and I&O's Vital Signs: Temperature 99.4 F Pulse Rate [Left Radial] 95 Pulse Rate 86 Respiratory Rate 29 Blood Pressure [Right Arm] 136/64 Blood Pressure [Left Arm] 131/67 Blood Pressure 150/65 O2 Sat by Pulse Oximetry 90 Intake and Output: Intake & Output 02/25/21 02/26/21 02/27/21 02/28/21 11:59 11:59 11:59 11:59 Intake Total 4718 / 4718 4550 / 4550 5908 / 5908 Output Total 4150 / 4150 5200 / 5200 4900 / 4900 Balance 568 / 568 -650 / -650 1008 / 1008 Physical Exam Oriented: Unable to test Respiratory: Right, Left and Rhonchi Cardiovascular: Normal : Normal Auscultation: Bowel Sounds: Normal Tenderness: Normal Speech Pattern: Artificially Ventilated Laboratory and Diagnostics Result Diagrams: 02/27/21 04:35 02/27/21 04:35 Labs: 02/20/21 17:27 Blood Blood Culture - Final Methicillin Resis Staph Aureus 02/20/21 17:18 Blood Blood Culture - Final 02/18/21 14:02 Sputum - Endotracheal Wash Sputum Culture - Final 02/18/21 14:02 Sputum - Endotracheal Wash - Final Laboratory WBC 15.4 X10^3/uL (3.6-10.0) H 02/27/21 04:35 RBC 3.77 X10^6/uL (3.5-5.4) 02/27/21 04:35 Hgb 9.9 g/dL (12.0-16.0) L 02/27/21 04:35 Hct 30.5 % (36.0-47.0) L 02/27/21 04:35 MCV 80.9 fL (80.0-100.0) 02/27/21 04:35 MCH 26.3 pg (27.0-34.0) L 02/27/21 04:35 MCHC 32.5 g/dL (33.0-35.0) L 02/27/21 04:35 RDW 14.8 % (11.6-16.5) 02/27/21 04:35 Plt Count 246 X10^3/uL (150.0-450.0) 02/27/21 04:35 Plt Count Comment Adequate (ADEQUATE) 02/27/21 04:35 MPV 8.3 fL (7.4-11.0) 02/27/21 04:35 Neut % (Auto) 94.9 % (42.0-75.0) H 02/27/21 04:35 Lymph % (Auto) 2.8 % (21.0-51.0) L 02/27/21 04:35 [place] % (Auto) 1.9 % (0.0-13.0) 02/27/21 04:35 Eos % (Auto) 0.2 % (0.9-2.9) L 02/27/21 04:35 Baso % (Auto) 0.2 % (0.2-1.0) 02/27/21 04:35 Neut # (Auto) 14.6 x10^3/uL (2.2-4.8) H 02/27/21 04:35 Lymph # (Auto) 0.4 X10^3/uL (1.3-2.9) L 02/27/21 04:35 [place] # (Auto) 0.3 x10^3/uL (0.3-0.8) 02/27/21 04:35 Eos # (Auto) 0.0 x10^3/uL (0.0-0.2) 02/27/21 04:35 Baso # (Auto) 0.0 X10^3/uL (0.0-0.1) 02/27/21 04:35 Absolute Nucleated RBC 0.0 /100WBC 02/27/21 04:35 Total Counted 100 02/27/21 04:35 Neutrophils % (Manual) 98 % (39-76) H 02/27/21 04:35 Band Neutrophils % 2 % (0-10) 02/20/21 04:58 Lymphocytes % (Manual) 1 % (13-43) L 02/27/21 04:35 Monocytes % (Manual) 1 % (4-9) L 02/27/21 04:35 Plt Morphology Comment Normal (NORMAL) 02/27/21 04:35 RBC Morphology Normal (NORMAL) 02/27/21 04:35 Hypochromasia Slight A 02/21/21 05:01 Microcytosis Slight A 02/18/21 04:51 D-Dimer 0.53 ug/ml (0.0-0.57) 02/13/21 11:17 Sample Site [place] 02/27/21 05:12 ABG pH 7.450 (7.35-7.45) 02/27/21 05:12 ABG pCO2 66.0 mmHg (35.0-45.0) H* 02/27/21 05:12 ABG pO2 73.0 mmHg (80.0-100.0) L 02/27/21 05:12 ABG HCO3 45.9 mmol/L (22-26) H* 02/27/21 05:12 ABG O2 Saturation 95.0 % (90-100) 02/27/21 05:12 ABG Base Excess 18.5 mmol/L (-2.0-2.0) H 02/27/21 05:12 Gregory Test N/a 02/27/21 05:12 A-a Gradient 486.0 mmHg 02/27/21 05:12 FiO2 90.0 02/27/21 05:12 Blood Gas Comments Jacy well ae 02/27/21 05:12 Sodium 140 mmol/L (136-145) 02/27/21 04:35 Corrected Sodium 141 mmol/L (136-145) 02/27/21 04:35 Potassium 5.4 mmol/L (3.5-5.1) H 02/27/21 04:35 Chloride 102 mmol/L (98-107) 02/27/21 04:35 Carbon Dioxide 38.0 mmol/L (21-32) H 02/27/21 04:35 BUN 25 mg/dL (7-18) H 02/27/21 04:35 Creatinine 0.79 mg/dL (0.55-1.02) 02/27/21 04:35 Est GFR (MDRD) Af Amer > 60 (>60) 02/27/21 04:35 Est GFR (MDRD) Non-Af > 60 (>60) 02/27/21 04:35 Glucose 155 mg/dL (65-99) H 02/27/21 04:35 POC Glucose (mg/dL) 158 mg/dL (65-99) H 02/27/21 11:12 Hemoglobin A1c 13.4 % 02/14/21 04:50 Calcium 7.5 mg/dL (8.5-10.1) L 02/27/21 04:35 Corrected Calcium 9.6 mg/dL (8.5-10.1) 02/27/21 04:35 Magnesium 3.0 mg/dL (1.7-2.9) H 02/19/21 05:03 Total Bilirubin 0.30 mg/dL (0.2-1.0) 02/27/21 04:35 AST 42 Units/L (15-37) H 02/27/21 04:35 ALT 58 Units/L (12-78) 02/27/21 04:35 Alkaline Phosphatase 206 Units/L (46-116) H 02/27/21 04:35 Creatine Kinase 119 Units/L (26-192) 02/13/21 11:19 CK-MB (CK-2) 1.3 ng/mL (0-4.0) 02/13/21 11:19 CK/CKMB % Calc 1.1 % (<4) 02/13/21 11:19 Troponin I < 0.02 ng/mL (0-1.5) 02/13/21 17:35 C-Reactive Protein 16.10 mg/L (0-3.0) H 02/25/21 04:45 B-Natriuretic Peptide 66.7 pg/mL (0-79) 02/16/21 05:05 Total Protein 4.7 g/dL (6.4-8.2) L 02/27/21 04:35 Albumin 1.4 g/dL (3.4-5.0) L 02/27/21 04:35 Globulin 3.3 g/dL (2.5-4.5) 02/27/21 04:35 Albumin/Globulin Ratio 0.4 Ratio (1.1-2.1) L 02/27/21 04:35 Specimen Type Catherized urine 02/16/21 04:20 Urine Color Pale yellow (YELLOW) 02/16/21 04:20 Urine Appearance Clear (CLEAR) 02/16/21 04:20 Urine pH 6.0 (5.0 - 8.0) 02/16/21 04:20 Ur Specific [place] 1.015 (1.000-1.030) 02/16/21 04:20 Urine Protein 1+ (NEGATIVE) 02/16/21 04:20 Urine Glucose (UA) 4+ (NEGATIVE) 02/16/21 04:20 Urine Ketones 1+ (NEGATIVE) 02/16/21 04:20 Urine Occult Blood Negative (NEGATIVE) 02/16/21 04:20 Urine Nitrite Negative (NEGATIVE) 02/16/21 04:20 Urine Bilirubin Negative (NEGATIVE) 02/16/21 04:20 Urine Urobilinogen Normal (NORMAL) 02/16/21 04:20 Ur Leukocyte Esterase Negative (NEGATIVE) 02/16/21 04:20 Urine RBC None seen /HPF (0-3) 02/16/21 04:20 Urine WBC None seen /HPF (0-5) 02/16/21 04:20 Ur Squamous Epith Cells Rare /HPF (NEGATIVE) 02/16/21 04:20 Urine Bacteria Negative /HPF (NEGATIVE) 02/16/21 04:20 Urine Yeast Few /HPF (NEGATIVE) 02/16/21 04:20 Ur Culture Indicated? No/not indicated 02/16/21 04:20 Vancomycin Trough 21.0 ug/mL (15-20) H* 02/25/21 20:30 Digoxin 1.18 ng/mL (0.9-2) 02/26/21 04:31 Radiology Reviewed: Yes Plan (1) Respiratory failure with hypercapnia: Status: Acute Plan: Increase Tidal Volume to 430. (2) Sepsis due to methicillin resistant Staphylococcus aureus (MRSA): Status: Acute Plan: Continue Vancomycin. (3) Hyperkalemia: Status: Acute Plan: Kayexalate 30 Grams Per OGT x 1. (4) Pneumonia due to COVID-19 virus: Status: Acute Plan: IV Levaquin and Invanz. (5) COVID-19 virus infection: Status: Acute Plan: IV Remdesivir infusion was completed on 02/17/21 after 5 days of infusion. (6) Hyperglycemia: Status: Chronic Narrative Support Text: Overall stable. Plan: Cover with sliding scale regular insulin. Continue Levemir at 50 units bid. (7) HTN (hypertension): Status: Chronic Plan: Start Lopressor 25mg bid. (8) Respiratory failure: Status: Acute Plan: Continue patient on ventilator. (9) Candidiasis of lung: Status: Acute Plan: Discontinue IV Diflucan.
[2021-02-27 14:24] LABS: BASOPHILS # (AUTO) 0.1 X10^3/uL (0.0-0.1); BASOPHILS % (AUTO) 0.4 % (0.2-1.0); EOSINOPHILS # (AUTO) 0.1 x10^3/uL (0.0-0.2); EOSINOPHILS % (AUTO) 0.3 % (0.9-2.9); HEMOGLOBIN 10.4 g/dL (12.0-16.0); LYMPHOCYTES # (AUTO) 0.4 X10^3/uL (1.3-2.9); LYMPHOCYTES % (AUTO) 2.3 % (21.0-51.0); MEAN CORPUSCULAR HEMOGLOBIN 25.9 pg (27.0-34.0); MEAN CORPUSCULAR HGB CONC 31.4 g/dL (33.0-35.0); MEAN CORPUSCULAR VOLUME 82.5 fL (80.0-100.0); MEAN PLATELET VOLUME 7.9 fL (7.4-11.0); MONOCYTES # (AUTO) 0.3 x10^3/uL (0.3-0.8); MONOCYTES % (AUTO) 1.8 % (0.0-13.0); NEUTROPHILS # (AUTO) 17.4 x10^3/uL (2.2-4.8); NEUTROPHILS % (AUTO) 95.2 % (42.0-75.0); PLATELET COUNT 265 X10^3/uL (150.0-450.0); RED BLOOD COUNT 4.01 X10^6/uL (3.5-5.4); RED CELL DISTRIBUTION WIDTH 14.3 % (11.6-16.5); WHITE BLOOD COUNT 18.3 X10^3/uL (3.6-10.0)
[2021-02-27 14:45] LABS: PLATELET MORPHOLOGY COMMENT NORMAL (NORMAL)
[2021-02-27 15:04] LABS: ALANINE AMINOTRANSFERASE 57 Units/L (12-78); ALBUMIN 1.5 g/dL (3.4-5.0); ALKALINE PHOSPHATASE 204 Units/L (46-116); ASPARTATE AMINO TRANSFERASE 40 Units/L (15-37); BLOOD UREA NITROGEN 22 mg/dL (7-18); CALCIUM 7.8 mg/dL (8.5-10.1); CHLORIDE 102 mmol/L (98-107); COR CA(FOR HYPOALB) 9.8 mg/dL (8.5-10.1); COR NA(FOR HYPERGLY) 141 mmol/L (136-145); CREATININE 0.79 mg/dL (0.55-1.02); SODIUM 140 mmol/L (136-145); eGFR NON BLACK RACES > 60 (>60)
[2021-02-27] MEDS: SNACK - Diabetic Appropriate PO SCH (20:21)
[2021-02-27] MEDS ORDERED: PHARMACY COMMENT IV ONE (20:30)
[2021-02-27 21:03] LABS: CREATININE 0.78 mg/dL (0.55-1.02); VANCOMYCIN,TROUGH 18.7 ug/mL (15-20)
[2021-02-27] MEDS: TYLENOL 325 MG TAB PO PRN (21:10)
[2021-02-28] MEDS: DIPRIVAN PREMIX 1 GRAM IV 1,000 MG/100 ML VIAL IV PRN ×2 (01:29→14:24)
[2021-02-28] MEDS: ASCORBIC ACID INJ MULTI-DOSE VIAL 1,500 MG in NS 50 ML IV 50 ML IV SCH ×4 (02:09→21:00)
[2021-02-28] MEDS: D5W 1000 ML IV 1,000 ML IV SCH ×3 (02:09→17:30)
[2021-02-28] MEDS: ZEMURON 100 MG VIAL 500 MG in NS 500 ML IV 450 ML IV PRN (04:20)
[2021-02-28 04:25] LABS: ABG BASE EXCESS 22.4 mmol/L (-2.0-2.0)
[2021-02-28 04:26] LABS: ABG HCO3 48.1 mmol/L (22-26)
[2021-02-28 05:17] LABS: BASOPHILS % (AUTO) 0.1 % (0.2-1.0); EOSINOPHILS % (AUTO) 0.2 % (0.9-2.9); HEMATOCRIT 28.3 % (36.0-47.0); HEMOGLOBIN 9.3 g/dL (12.0-16.0); LYMPHOCYTES # (AUTO) 0.4 X10^3/uL (1.3-2.9); LYMPHOCYTES % (AUTO) 3.8 % (21.0-51.0); MEAN CORPUSCULAR HEMOGLOBIN 26.3 pg (27.0-34.0); MEAN CORPUSCULAR HGB CONC 32.8 g/dL (33.0-35.0); MEAN CORPUSCULAR VOLUME 80.3 fL (80.0-100.0); MEAN PLATELET VOLUME 8.1 fL (7.4-11.0); MONOCYTES # (AUTO) 0.2 x10^3/uL (0.3-0.8); MONOCYTES % (AUTO) 2.2 % (0.0-13.0); NEUTROPHILS # (AUTO) 10.5 x10^3/uL (2.2-4.8); NEUTROPHILS % (AUTO) 93.7 % (42.0-75.0); PLATELET COUNT 281 X10^3/uL (150.0-450.0); RED BLOOD COUNT 3.53 X10^6/uL (3.5-5.4); RED CELL DISTRIBUTION WIDTH 14.5 % (11.6-16.5); WHITE BLOOD COUNT 11.2 X10^3/uL (3.6-10.0)
[2021-02-28 05:33] LABS: ALANINE AMINOTRANSFERASE 43 Units/L (12-78); ALBUMIN 1.4 g/dL (3.4-5.0); ALKALINE PHOSPHATASE 152 Units/L (46-116); ASPARTATE AMINO TRANSFERASE 35 Units/L (15-37); BLOOD UREA NITROGEN 19 mg/dL (7-18); CALCIUM 7.4 mg/dL (8.5-10.1); CARBON DIOXIDE 39.4 mmol/L (21-32); CHLORIDE 98 mmol/L (98-107); COR CA(FOR HYPOALB) 9.5 mg/dL (8.5-10.1); CREATININE 0.73 mg/dL (0.55-1.02); SODIUM 139 mmol/L (136-145); TOTAL PROTEIN 4.5 g/dL (6.4-8.2); eGFR NON BLACK RACES > 60 (>60)
[2021-02-28 05:42] LABS: PLATELET MORPHOLOGY COMMENT NORMAL (NORMAL)
[2021-02-28] MEDS: VERSED 100 MG in NS 100 ML IV 80 ML IV PRN ×2 (05:56→21:50)
[2021-02-28] MEDS: DILANTIN INJ 100 MG VIAL IVP SCH ×2 (08:23→21:36)
[2021-02-28] MEDS: INVANZ INJ 1 GM VIAL 1 GM in NS 100 ML IV 100 ML IV SCH (08:27)
[2021-02-28] MEDS: LACRI-LUBE S.O.P. AFFEYE SCH ×2 (08:27→21:00)
[2021-02-28] MEDS: LANOXIN INJ IVP SCH (08:28)
[2021-02-28] MEDS: LOPRESSOR TAB 50 MG PEG SCH ×2 (08:29→21:10)
[2021-02-28] MEDS: SOLU-Medrol 40 MG VIAL IVP SCH ×2 (08:29→21:08)
[2021-02-28] MEDS: PEPCID 20 MG IV PREMIX* 20 MG/50 ML BAG IV SCH (08:29)
[2021-02-28] MEDS: VANCOMYCIN HCL 1 G in D5W 250 ML IV 250 ML IV SCH ×2 (08:29→21:36)
[2021-02-28] MEDS: LEVEMIR SC SCH ×2 (08:30→22:06)
[2021-02-28] MEDS: VITAMIN A PO SCH (08:30)
[2021-02-28] MEDS: LOVENOX INJ 30 MG SYR SC SCH ×2 (08:36→21:05)
[2021-02-28] MEDS: BROVANA IN SCH ×2 (09:45→21:22)
[2021-02-28] MEDS: PULMICORT NEB TX 0.5 MG NEB SCH ×2 (09:45→21:22)
--- NOTE | 2021-02-28 10:09 | RAD ---
HISTORYCOVID-19 pneumoniaSTUDYAP [id number] ed normal heart size with no change in degree or distribution of bilateral airspace disease. Stable position of support lines. No complicating pneumothorax seen.IMPRESSIONNo change in appearance of bilateral pneumonia.Electronically signed by: PAT GLORIA (Feb 28, 2021 10:06:56)
--- NOTE | 2021-02-28 11:30 | PCM.PROG ---
Progress Note Progress Note for Day of Date of Exam: 02/28/21 Subjective Subjective: Pt. ventilated. Past Medical Family Social History Past Med/Fam/Surg Hx: No changes since H&P Allergies: Allergies No Known Drug Allergies Allergy (Verified 02/12/21 08:46) Review of Systems ROS: No change since H&P Vital Signs and I&O's Vital Signs: Temperature 98.3 F Pulse Rate [Left Radial] 95 Pulse Rate 70 Respiratory Rate 28 Blood Pressure [Right Arm] 136/64 Blood Pressure [Left Arm] 131/67 Blood Pressure 128/58 O2 Sat by Pulse Oximetry 89 Intake and Output: Intake & Output 02/25/21 02/26/21 02/27/21 02/28/21 11:59 11:59 11:59 11:59 Intake Total 4718 / 4718 4550 / 4550 5908 / 5908 6029 / 6029 Output Total 4150 / 4150 5200 / 5200 4900 / 4900 5700 / 5700 Balance 568 / 568 -650 / -650 1008 / 1008 329 / 329 Physical Exam Oriented: Unable to test Respiratory: Right, Left and Rhonchi Cardiovascular: Normal Auscultation: Bowel Sounds: Normal Tenderness: Normal Skin: Other (sub curaneous emphysema ) Speech Pattern: Artificially Ventilated Laboratory and Diagnostics Result Diagrams: 02/28/21 04:30 02/28/21 04:30 Labs: 02/20/21 17:27 Blood Blood Culture - Final Methicillin Resis Staph Aureus 02/20/21 17:18 Blood Blood Culture - Final 02/18/21 14:02 Sputum - Endotracheal Wash Sputum Culture - Final 02/18/21 14:02 Sputum - Endotracheal Wash - Final Laboratory WBC 11.2 X10^3/uL (3.6-10.0) H 02/28/21 04:30 RBC 3.53 X10^6/uL (3.5-5.4) 02/28/21 04:30 Hgb 9.3 g/dL (12.0-16.0) L 02/28/21 04:30 Hct 28.3 % (36.0-47.0) L 02/28/21 04:30 MCV 80.3 fL (80.0-100.0) 02/28/21 04:30 MCH 26.3 pg (27.0-34.0) L 02/28/21 04:30 MCHC 32.8 g/dL (33.0-35.0) L 02/28/21 04:30 RDW 14.5 % (11.6-16.5) 02/28/21 04:30 Plt Count 281 X10^3/uL (150.0-450.0) 02/28/21 04:30 Plt Count Comment Adequate (ADEQUATE) 02/28/21 04:30 MPV 8.1 fL (7.4-11.0) 02/28/21 04:30 Neut % (Auto) 93.7 % (42.0-75.0) H 02/28/21 04:30 Lymph % (Auto) 3.8 % (21.0-51.0) L 02/28/21 04:30 [place] % (Auto) 2.2 % (0.0-13.0) 02/28/21 04:30 Eos % (Auto) 0.2 % (0.9-2.9) L 02/28/21 04:30 Baso % (Auto) 0.1 % (0.2-1.0) L 02/28/21 04:30 Neut # (Auto) 10.5 x10^3/uL (2.2-4.8) H 02/28/21 04:30 Lymph # (Auto) 0.4 X10^3/uL (1.3-2.9) L 02/28/21 04:30 [place] # (Auto) 0.2 x10^3/uL (0.3-0.8) L 02/28/21 04:30 Eos # (Auto) 0.0 x10^3/uL (0.0-0.2) 02/28/21 04:30 Baso # (Auto) 0.0 X10^3/uL (0.0-0.1) 02/28/21 04:30 Absolute Nucleated RBC 0.0 /100WBC 02/28/21 04:30 Total Counted 100 02/28/21 04:30 Neutrophils % (Manual) 97 % (39-76) H 02/28/21 04:30 Band Neutrophils % 2 % (0-10) 02/20/21 04:58 Lymphocytes % (Manual) 3 % (13-43) L 02/28/21 04:30 Monocytes % (Manual) 1 % (4-9) L 02/27/21 04:35 Plt Morphology Comment Normal (NORMAL) 02/28/21 04:30 RBC Morphology Normal (NORMAL) 02/28/21 04:30 Hypochromasia Slight A 02/21/21 05:01 Microcytosis Slight A 02/18/21 04:51 D-Dimer 0.53 ug/ml (0.0-0.57) 02/13/21 11:17 [address] Site [employer] [place] 02/28/21 04:20 ABG pH 7.550 (7.35-7.45) H 02/28/21 04:20 ABG pCO2 55.0 mmHg (35.0-45.0) H* 02/28/21 04:20 ABG pO2 70.0 mmHg (80.0-100.0) L 02/28/21 04:20 ABG HCO3 48.1 mmol/L (22-26) H* 02/28/21 04:20 ABG O2 Saturation 96.0 % (90-100) 02/28/21 04:20 ABG Base Excess 22.4 mmol/L (-2.0-2.0) H 02/28/21 04:20 Gregory Test N/a 02/28/21 04:20 A-a Gradient 503.0 mmHg 02/28/21 04:20 FiO2 90.0 02/28/21 04:20 Blood Gas Comments Jacy well ae 02/28/21 04:20 Sodium 139 mmol/L (136-145) 02/28/21 04:30 Corrected Sodium TNP 02/28/21 04:30 Potassium 4.4 mmol/L (3.5-5.1) 02/28/21 04:30 Chloride 98 mmol/L (98-107) 02/28/21 04:30 Carbon Dioxide 39.4 mmol/L (21-32) H 02/28/21 04:30 BUN 19 mg/dL (7-18) H 02/28/21 04:30 Creatinine 0.73 mg/dL (0.55-1.02) 02/28/21 04:30 Est GFR (MDRD) Af Amer > 60 (>60) 02/28/21 04:30 Est GFR (MDRD) Non-Af > 60 (>60) 02/28/21 04:30 Glucose 99 mg/dL (65-99) 02/28/21 04:30 POC Glucose (mg/dL) 90 mg/dL (65-99) 02/28/21 11:01 Hemoglobin A1c 13.4 % 02/14/21 04:50 Calcium 7.4 mg/dL (8.5-10.1) L 02/28/21 04:30 Corrected Calcium 9.5 mg/dL (8.5-10.1) 02/28/21 04:30 Magnesium 3.0 mg/dL (1.7-2.9) H 02/19/21 05:03 Total Bilirubin 0.30 mg/dL (0.2-1.0) 02/28/21 04:30 AST 35 Units/L (15-37) 02/28/21 04:30 ALT 43 Units/L (12-78) 02/28/21 04:30 Alkaline Phosphatase 152 Units/L (46-116) H 02/28/21 04:30 Creatine Kinase 119 Units/L (26-192) 02/13/21 11:19 CK-MB (CK-2) 1.3 ng/mL (0-4.0) 02/13/21 11:19 CK/CKMB % Calc 1.1 % (<4) 02/13/21 11:19 Troponin I < 0.02 ng/mL (0-1.5) 02/13/21 17:35 C-Reactive Protein 16.10 mg/L (0-3.0) H 02/25/21 04:45 B-Natriuretic Peptide 66.7 pg/mL (0-79) 02/16/21 05:05 Total Protein 4.5 g/dL (6.4-8.2) L 02/28/21 04:30 Albumin 1.4 g/dL (3.4-5.0) L 02/28/21 04:30 Globulin 3.1 g/dL (2.5-4.5) 02/28/21 04:30 Albumin/Globulin Ratio 0.5 Ratio (1.1-2.1) L 02/28/21 04:30 Specimen Type Catherized urine 02/16/21 04:20 Urine Color Pale yellow (YELLOW) 02/16/21 04:20 Urine Appearance Clear (CLEAR) 02/16/21 04:20 Urine pH 6.0 (5.0 - 8.0) 02/16/21 04:20 Ur Specific [place] 1.015 (1.000-1.030) 02/16/21 04:20 Urine Protein 1+ (NEGATIVE) 02/16/21 04:20 Urine Glucose (UA) 4+ (NEGATIVE) 02/16/21 04:20 Urine Ketones 1+ (NEGATIVE) 02/16/21 04:20 Urine Occult Blood Negative (NEGATIVE) 02/16/21 04:20 Urine Nitrite Negative (NEGATIVE) 02/16/21 04:20 Urine Bilirubin Negative (NEGATIVE) 02/16/21 04:20 Urine Urobilinogen Normal (NORMAL) 02/16/21 04:20 Ur Leukocyte Esterase Negative (NEGATIVE) 02/16/21 04:20 Urine RBC None seen /HPF (0-3) 02/16/21 04:20 Urine WBC None seen /HPF (0-5) 02/16/21 04:20 Ur Squamous Epith Cells Rare /HPF (NEGATIVE) 02/16/21 04:20 Urine Bacteria Negative /HPF (NEGATIVE) 02/16/21 04:20 Urine Yeast Few /HPF (NEGATIVE) 02/16/21 04:20 Ur Culture Indicated? No/not indicated 02/16/21 04:20 Vancomycin Trough 18.7 ug/mL (15-20) 02/27/21 20:36 Digoxin 1.18 ng/mL (0.9-2) 02/26/21 04:31 Radiology Reviewed: Yes Plan (1) Anemia: Status: Acute Plan: Continue IV Pepcid. Repeat CBC in am. (2) Respiratory failure with hypercapnia: Status: Resolved Plan: Increase Tidal Volume to 430. (3) Sepsis due to methicillin resistant Staphylococcus aureus (MRSA): Status: Acute Plan: Continue Vancomycin. (4) Hyperkalemia: Status: Resolved (5) Pneumonia due to COVID-19 virus: Status: Acute Plan: IV Levaquin and Invanz. Will ask Respiratory to try and ween down FiO2 today if patient tolerates it. (6) COVID-19 virus infection: Status: Acute Plan: IV Remdesivir infusion was completed on 02/17/21 after 5 days of infusion. (7) Hyperglycemia: Status: Chronic Plan: Cover with sliding scale regular insulin. Continue Levemir at 50 units bid. (8) HTN (hypertension): Status: Chronic Plan: Lopressor 50mg bid. (9) Respiratory failure: Status: Acute Plan: Continue patient on ventilator. Ween down FiO2 as tolerated.
[2021-02-28] MEDS: SNACK - Diabetic Appropriate PO SCH (19:41)
[2021-03-01] MEDS: D5W 1000 ML IV 1,000 ML IV SCH ×3 (01:07→20:55)
[2021-03-01] MEDS: ZEMURON 100 MG VIAL 500 MG in NS 500 ML IV 450 ML IV PRN (01:08)
[2021-03-01] MEDS: DIPRIVAN PREMIX 1 GRAM IV 1,000 MG/100 ML VIAL IV PRN ×3 (01:20→14:13)
[2021-03-01] MEDS: ASCORBIC ACID INJ MULTI-DOSE VIAL 1,500 MG in NS 50 ML IV 50 ML IV SCH ×4 (02:13→20:45)
[2021-03-01 05:01] LABS: ABG BASE EXCESS 18.6 mmol/L (-2.0-2.0)
[2021-03-01 05:16] LABS: BASOPHILS % (AUTO) 0.2 % (0.2-1.0); EOSINOPHILS % (AUTO) 0.4 % (0.9-2.9); HEMOGLOBIN 9.5 g/dL (12.0-16.0); LYMPHOCYTES # (AUTO) 0.5 X10^3/uL (1.3-2.9); LYMPHOCYTES % (AUTO) 3.9 % (21.0-51.0); MEAN CORPUSCULAR HEMOGLOBIN 26.3 pg (27.0-34.0); MEAN CORPUSCULAR HGB CONC 32.7 g/dL (33.0-35.0); MEAN CORPUSCULAR VOLUME 80.3 fL (80.0-100.0); MEAN PLATELET VOLUME 7.8 fL (7.4-11.0); MONOCYTES # (AUTO) 0.2 x10^3/uL (0.3-0.8); MONOCYTES % (AUTO) 1.8 % (0.0-13.0); NEUTROPHILS # (AUTO) 11.4 x10^3/uL (2.2-4.8); NEUTROPHILS % (AUTO) 93.7 % (42.0-75.0); PLATELET COUNT 343 X10^3/uL (150.0-450.0); RED BLOOD COUNT 3.61 X10^6/uL (3.5-5.4); RED CELL DISTRIBUTION WIDTH 14.2 % (11.6-16.5); WHITE BLOOD COUNT 12.1 X10^3/uL (3.6-10.0)
[2021-03-01 05:24] LABS: ALANINE AMINOTRANSFERASE 37 Units/L (12-78); ALBUMIN 1.3 g/dL (3.4-5.0); ALKALINE PHOSPHATASE 132 Units/L (46-116); ASPARTATE AMINO TRANSFERASE 39 Units/L (15-37); BLOOD UREA NITROGEN 17 mg/dL (7-18); CALCIUM 7.5 mg/dL (8.5-10.1); CARBON DIOXIDE 36.3 mmol/L (21-32); CHLORIDE 96 mmol/L (98-107); COR CA(FOR HYPOALB) 9.7 mg/dL (8.5-10.1); COR NA(FOR HYPERGLY) 135 mmol/L (136-145); CREATININE 0.79 mg/dL (0.55-1.02); SODIUM 134 mmol/L (136-145); TOTAL PROTEIN 4.6 g/dL (6.4-8.2); eGFR NON BLACK RACES > 60 (>60)
--- NOTE | 2021-03-01 06:08 | RAD ---
HISTORYCOVID-19 pneumoniaSTUDYPortable AP [id number]/07/2021FINDINGSContinu ed normal heart size, cardiac margins remain partly obscured by adjacent bilateral airspace disease, which is unchanged in extent and distribution. No large pleural effusion or pneumothorax seen. Stable position of support lines.IMPRESSIONNo significant change in appearance of bilateral pneumonia.Electronically signed by: PAT GLORIA (Mar 01, 2021 06:06:06)
[2021-03-01 06:11] LABS: BAND NEUTROPHILS % 2 % (0-10)
[2021-03-01 06:12] LABS: HYPOCHROMASIA SLIGHT; PLATELET MORPHOLOGY COMMENT NORMAL (NORMAL)
[2021-03-01] MEDS: BROVANA IN SCH ×2 (09:25→20:43)
[2021-03-01] MEDS: PULMICORT NEB TX 0.5 MG NEB SCH ×2 (09:25→20:43)
[2021-03-01] MEDS: LOPRESSOR TAB 50 MG PEG SCH ×2 (09:41→20:50)
[2021-03-01] MEDS: VITAMIN A PO SCH (09:42)
[2021-03-01] MEDS: DILANTIN INJ 100 MG VIAL IVP SCH ×2 (09:44→20:40)
[2021-03-01] MEDS: LACRI-LUBE S.O.P. AFFEYE SCH ×2 (09:44→20:55)
[2021-03-01] MEDS: LOVENOX INJ 30 MG SYR SC SCH ×2 (09:45→20:55)
[2021-03-01] MEDS: LANOXIN INJ IVP SCH (09:47)
[2021-03-01] MEDS: PEPCID 20 MG IV PREMIX* 20 MG/50 ML BAG IV SCH (09:48)
[2021-03-01] MEDS: LEVEMIR SC SCH ×2 (10:35→20:54)
[2021-03-01] MEDS: SOLU-Medrol 40 MG VIAL IVP SCH ×2 (10:36→20:52)
[2021-03-01] MEDS: VANCOMYCIN HCL 1 G in D5W 250 ML IV 250 ML IV SCH (10:50)
--- NOTE | 2021-03-01 11:33 | PCM.PROG ---
Progress Note Progress Note for Day of Date of Exam: 03/01/21 Subjective Subjective: Pt. ventilated. Past Medical Family Social History Past Med/Fam/Surg Hx: No changes since H&P Allergies: Allergies No Known Drug Allergies Allergy (Verified 02/12/21 08:46) Review of Systems ROS: No change since H&P Vital Signs and I&O's Vital Signs: Temperature 98.6 F Pulse Rate [Left Radial] 95 Pulse Rate 80 Respiratory Rate 28 Blood Pressure [Right Arm] 136/64 Blood Pressure [Left Arm] 131/67 Blood Pressure 105/51 O2 Sat by Pulse Oximetry 90 Intake and Output: Intake & Output 02/26/21 02/27/21 02/28/21 03/01/21 11:59 11:59 11:59 11:59 Intake Total 4550 / 4550 5908 / 5908 6129 / 6129 7021 / 7021 Output Total 5200 / 5200 4900 / 4900 5700 / 5700 6000 / 6000 Balance -650 / -650 1008 / 1008 429 / 429 1021 / 1021 Physical Exam Oriented: Unable to test Respiratory: Right, Left and Rhonchi Cardiovascular: Normal Auscultation: Bowel Sounds: Normal Tenderness: Normal Skin: Normal Speech Pattern: Artificially Ventilated Laboratory and Diagnostics Result Diagrams: 03/01/21 04:35 03/01/21 04:35 Labs: 02/20/21 17:27 Blood Blood Culture - Final Methicillin Resis Staph Aureus 02/20/21 17:18 Blood Blood Culture - Final 02/18/21 14:02 Sputum - Endotracheal Wash Sputum Culture - Final 02/18/21 14:02 Sputum - Endotracheal Wash - Final Laboratory WBC 12.1 X10^3/uL (3.6-10.0) H 03/01/21 04:35 RBC 3.61 X10^6/uL (3.5-5.4) 03/01/21 04:35 Hgb 9.5 g/dL (12.0-16.0) L 03/01/21 04:35 Hct 29.0 % (36.0-47.0) L 03/01/21 04:35 MCV 80.3 fL (80.0-100.0) 03/01/21 04:35 MCH 26.3 pg (27.0-34.0) L 03/01/21 04:35 MCHC 32.7 g/dL (33.0-35.0) L 03/01/21 04:35 RDW 14.2 % (11.6-16.5) 03/01/21 04:35 Plt Count 343 X10^3/uL (150.0-450.0) 03/01/21 04:35 Plt Count Comment Adequate (ADEQUATE) 03/01/21 04:35 MPV 7.8 fL (7.4-11.0) 03/01/21 04:35 Neut % (Auto) 93.7 % (42.0-75.0) H 03/01/21 04:35 Lymph % (Auto) 3.9 % (21.0-51.0) L 03/01/21 04:35 [place] % (Auto) 1.8 % (0.0-13.0) 03/01/21 04:35 Eos % (Auto) 0.4 % (0.9-2.9) L 03/01/21 04:35 Baso % (Auto) 0.2 % (0.2-1.0) 03/01/21 04:35 Neut # (Auto) 11.4 x10^3/uL (2.2-4.8) H 03/01/21 04:35 Lymph # (Auto) 0.5 X10^3/uL (1.3-2.9) L 03/01/21 04:35 [place] # (Auto) 0.2 x10^3/uL (0.3-0.8) L 03/01/21 04:35 Eos # (Auto) 0.0 x10^3/uL (0.0-0.2) 03/01/21 04:35 Baso # (Auto) 0.0 X10^3/uL (0.0-0.1) 03/01/21 04:35 Absolute Nucleated RBC 0.0 /100WBC 03/01/21 04:35 Total Counted 100 03/01/21 04:35 Neutrophils % (Manual) 92 % (39-76) H 03/01/21 04:35 Band Neutrophils % 2 % (0-10) 03/01/21 04:35 Lymphocytes % (Manual) 3 % (13-43) L 03/01/21 04:35 Monocytes % (Manual) 3 % (4-9) L 03/01/21 04:35 Plt Morphology Comment Normal (NORMAL) 03/01/21 04:35 RBC Morphology Abnormal (NORMAL) A 03/01/21 04:35 Hypochromasia Slight A 03/01/21 04:35 Microcytosis Slight A 02/18/21 04:51 D-Dimer 0.53 ug/ml (0.0-0.57) 02/13/21 11:17 Sample Site [place] 03/01/21 04:59 ABG pH 7.490 (7.35-7.45) H 03/01/21 04:59 ABG pCO2 59.0 mmHg (35.0-45.0) H* 03/01/21 04:59 ABG pO2 69.0 mmHg (80.0-100.0) L 03/01/21 04:59 ABG HCO3 45.0 mmol/L (22-26) H* 03/01/21 04:59 ABG O2 Saturation 95.0 % (90-100) 03/01/21 04:59 ABG Base Excess 18.6 mmol/L (-2.0-2.0) H 03/01/21 04:59 Gregory Test Na 03/01/21 04:59 A-a Gradient 463.0 mmHg 03/01/21 04:59 FiO2 85.0 03/01/21 04:59 Blood Gas Comments Jacy well 03/01/21 04:59 Sodium 134 mmol/L (136-145) L 03/01/21 04:35 Corrected Sodium 135 mmol/L (136-145) L 03/01/21 04:35 Potassium 4.7 mmol/L (3.5-5.1) 03/01/21 04:35 Chloride 96 mmol/L (98-107) L 03/01/21 04:35 Carbon Dioxide 36.3 mmol/L (21-32) H 03/01/21 04:35 BUN 17 mg/dL (7-18) 03/01/21 04:35 Creatinine 0.79 mg/dL (0.55-1.02) 03/01/21 04:35 Est GFR (MDRD) Af Amer > 60 (>60) 03/01/21 04:35 Est GFR (MDRD) Non-Af > 60 (>60) 03/01/21 04:35 Glucose 136 mg/dL (65-99) H 03/01/21 04:35 POC Glucose (mg/dL) 114 mg/dL (65-99) H 02/28/21 21:01 Hemoglobin A1c 13.4 % 02/14/21 04:50 Calcium 7.5 mg/dL (8.5-10.1) L 03/01/21 04:35 Corrected Calcium 9.7 mg/dL (8.5-10.1) 03/01/21 04:35 Magnesium 3.0 mg/dL (1.7-2.9) H 02/19/21 05:03 Total Bilirubin 0.30 mg/dL (0.2-1.0) 03/01/21 04:35 AST 39 Units/L (15-37) H 03/01/21 04:35 ALT 37 Units/L (12-78) 03/01/21 04:35 Alkaline Phosphatase 132 Units/L (46-116) H 03/01/21 04:35 Creatine Kinase 119 Units/L (26-192) 02/13/21 11:19 CK-MB (CK-2) 1.3 ng/mL (0-4.0) 02/13/21 11:19 CK/CKMB % Calc 1.1 % (<4) 02/13/21 11:19 Troponin I < 0.02 ng/mL (0-1.5) 02/13/21 17:35 C-Reactive Protein 16.10 mg/L (0-3.0) H 02/25/21 04:45 B-Natriuretic Peptide 66.7 pg/mL (0-79) 02/16/21 05:05 Total Protein 4.6 g/dL (6.4-8.2) L 03/01/21 04:35 Albumin 1.3 g/dL (3.4-5.0) L 03/01/21 04:35 Globulin 3.3 g/dL (2.5-4.5) 03/01/21 04:35 Albumin/Globulin Ratio 0.4 Ratio (1.1-2.1) L 03/01/21 04:35 Specimen Type Catherized urine 02/16/21 04:20 Urine Color Pale yellow (YELLOW) 02/16/21 04:20 Urine Appearance Clear (CLEAR) 02/16/21 04:20 Urine pH 6.0 (5.0 - 8.0) 02/16/21 04:20 Ur Specific [place] 1.015 (1.000-1.030) 02/16/21 04:20 Urine Protein 1+ (NEGATIVE) 02/16/21 04:20 Urine Glucose (UA) 4+ (NEGATIVE) 02/16/21 04:20 Urine Ketones 1+ (NEGATIVE) 02/16/21 04:20 Urine Occult Blood Negative (NEGATIVE) 02/16/21 04:20 Urine Nitrite Negative (NEGATIVE) 02/16/21 04:20 Urine Bilirubin Negative (NEGATIVE) 02/16/21 04:20 Urine Urobilinogen Normal (NORMAL) 02/16/21 04:20 Ur Leukocyte Esterase Negative (NEGATIVE) 02/16/21 04:20 Urine RBC None seen /HPF (0-3) 02/16/21 04:20 Urine WBC None seen /HPF (0-5) 02/16/21 04:20 Ur Squamous Epith Cells Rare /HPF (NEGATIVE) 02/16/21 04:20 Urine Bacteria Negative /HPF (NEGATIVE) 02/16/21 04:20 Urine Yeast Few /HPF (NEGATIVE) 02/16/21 04:20 Ur Culture Indicated? No/not indicated 02/16/21 04:20 Vancomycin Trough 18.7 ug/mL (15-20) 02/27/21 20:36 Digoxin 1.18 ng/mL (0.9-2) 02/26/21 04:31 Radiology Reviewed: Yes Plan (1) Anemia: Status: Acute Narrative Support Text: Stable. Plan: Continue IV Pepcid. Repeat CBC in am. (2) Respiratory failure with hypercapnia: Status: Resolved Plan: Continue Tidal Volume at 430. (3) Sepsis due to methicillin resistant Staphylococcus aureus (MRSA): Status: Acute Plan: Continue Vancomycin. (4) Pneumonia due to COVID-19 virus: Status: Acute Plan: IV Levaquin and Invanz. Will ask Respiratory to try and ween down FiO2 today if patient tolerates it. (5) COVID-19 virus infection: Status: Acute Plan: IV Remdesivir infusion was completed on 02/17/21 after 5 days of infusion. (6) Hyperglycemia: Status: Chronic Plan: Cover with sliding scale regular insulin. Continue Levemir at 50 units bid. (7) HTN (hypertension): Status: Chronic Plan: Lopressor 50mg bid. (8) Respiratory failure: Status: Acute Narrative Support Text: FiO2 was down to 75 this am. Continuing to improve overall. Plan: Continue patient on ventilator. Ween down FiO2 as tolerated.
[2021-03-01] MEDS: VERSED 100 MG in NS 100 ML IV 80 ML IV PRN (12:52)
[2021-03-01] MEDS: INVANZ INJ 1 GM VIAL 1 GM in NS 100 ML IV 100 ML IV SCH (12:52)
[2021-03-01] MEDS: HumuLIN R SC PRN (17:07)
[2021-03-01] MEDS ORDERED: BUTT CREAM (COMPOUND) ONE (17:19)
[2021-03-01] MEDS ORDERED: NS 500 ML IV 500 ML IV ONE (17:35)
[2021-03-01] MEDS: BUTT CREAM (COMPOUND) TOP PRN (17:45)
[2021-03-01] MEDS: SNACK - Diabetic Appropriate PO SCH (20:53)
[2021-03-01 21:31] LABS: CREATININE 0.72 mg/dL (0.55-1.02)
[2021-03-01 21:35] LABS: VANCOMYCIN,TROUGH 20.6 ug/mL (15-20)
[2021-03-01] MEDS: VANCOMYCIN IV *PREMIX 750 mg/150 ML BAG 750 MG/150 ML PIGGYBACK IV SCH (22:00)
[2021-03-02] MEDS: DIPRIVAN PREMIX 1 GRAM IV 1,000 MG/100 ML VIAL IV PRN ×3 (00:30→16:37)
[2021-03-02] MEDS: D5W 1000 ML IV 1,000 ML IV SCH ×4 (01:30→20:30)
[2021-03-02] MEDS: ASCORBIC ACID INJ MULTI-DOSE VIAL 1,500 MG in NS 50 ML IV 50 ML IV SCH ×4 (03:00→20:30)
[2021-03-02] MEDS: ZEMURON 100 MG VIAL 500 MG in NS 500 ML IV 450 ML IV PRN ×3 (05:00→20:56)
[2021-03-02 05:25] LABS: ABG BASE EXCESS 16.2 mmol/L (-2.0-2.0)
[2021-03-02 05:26] LABS: ABG HCO3 43.1 mmol/L (22-26)
[2021-03-02 05:29] LABS: BASOPHILS # (AUTO) 0.1 X10^3/uL (0.0-0.1); BASOPHILS % (AUTO) 0.4 % (0.2-1.0); EOSINOPHILS % (AUTO) 0.3 % (0.9-2.9); HEMOGLOBIN 10.1 g/dL (12.0-16.0); LYMPHOCYTES # (AUTO) 0.5 X10^3/uL (1.3-2.9); LYMPHOCYTES % (AUTO) 3.2 % (21.0-51.0); MEAN CORPUSCULAR HEMOGLOBIN 26.6 pg (27.0-34.0); MEAN CORPUSCULAR HGB CONC 32.8 g/dL (33.0-35.0); MEAN CORPUSCULAR VOLUME 81.1 fL (80.0-100.0); MEAN PLATELET VOLUME 7.7 fL (7.4-11.0); MONOCYTES # (AUTO) 0.2 x10^3/uL (0.3-0.8); MONOCYTES % (AUTO) 1.3 % (0.0-13.0); NEUTROPHILS # (AUTO) 14.6 x10^3/uL (2.2-4.8); NEUTROPHILS % (AUTO) 94.8 % (42.0-75.0); PLATELET COUNT 446 X10^3/uL (150.0-450.0); RED BLOOD COUNT 3.82 X10^6/uL (3.5-5.4); RED CELL DISTRIBUTION WIDTH 14.5 % (11.6-16.5); WHITE BLOOD COUNT 15.4 X10^3/uL (3.6-10.0)
[2021-03-02 05:42] LABS: ALANINE AMINOTRANSFERASE 48 Units/L (12-78); ALBUMIN 1.5 g/dL (3.4-5.0); ALKALINE PHOSPHATASE 167 Units/L (46-116); ASPARTATE AMINO TRANSFERASE 33 Units/L (15-37); BLOOD UREA NITROGEN 17 mg/dL (7-18); CALCIUM 7.5 mg/dL (8.5-10.1); CARBON DIOXIDE 37.5 mmol/L (21-32); CHLORIDE 98 mmol/L (98-107); COR CA(FOR HYPOALB) 9.5 mg/dL (8.5-10.1); COR NA(FOR HYPERGLY) 137 mmol/L (136-145); CREATININE 0.73 mg/dL (0.55-1.02); SODIUM 136 mmol/L (136-145); TOTAL PROTEIN 5.3 g/dL (6.4-8.2); eGFR NON BLACK RACES > 60 (>60)
[2021-03-02 06:10] LABS: BAND NEUTROPHILS % 1 % (0-10); HYPOCHROMASIA SLIGHT; PLATELET MORPHOLOGY COMMENT NORMAL (NORMAL)
--- NOTE | 2021-03-02 06:19 | RAD ---
HISTORYTube placementSTUDYKUBCOMPARISONKUB 02/20/2021FINDINGSEnteric tube tip is in position consistent with mid to distal stomach. There is no coiling of the tube in the gastric lumen.IMPRESSIONAs above.Electronically signed by: PAT GLORIA (Mar 02, 2021 06:15:37)
[2021-03-02] MEDS: LACRI-LUBE S.O.P. AFFEYE SCH ×2 (08:11→20:25)
[2021-03-02] MEDS: PEPCID 20 MG IV PREMIX* 20 MG/50 ML BAG IV SCH (08:33)
[2021-03-02] MEDS: LEVEMIR SC SCH ×2 (09:07→20:36)
[2021-03-02] MEDS: VANCOMYCIN IV *PREMIX 750 mg/150 ML BAG 750 MG/150 ML PIGGYBACK IV SCH ×2 (09:07→20:30)
[2021-03-02] MEDS: PULMICORT NEB TX 0.5 MG NEB SCH ×2 (09:10→21:15)
[2021-03-02] MEDS: BROVANA IN SCH ×2 (09:10→21:15)
[2021-03-02] MEDS: DILANTIN INJ 100 MG VIAL IVP SCH ×2 (09:52→20:25)
[2021-03-02] MEDS: VITAMIN A PO SCH (09:53)
[2021-03-02] MEDS: SOLU-Medrol 40 MG VIAL IVP SCH ×2 (09:54→20:40)
[2021-03-02] MEDS: LOVENOX INJ 30 MG SYR SC SCH ×2 (09:55→20:35)
[2021-03-02] MEDS: LOPRESSOR TAB 50 MG PEG SCH ×2 (09:57→20:30)
[2021-03-02] MEDS: LANOXIN INJ IVP SCH (09:58)
[2021-03-02] MEDS: INVANZ INJ 1 GM VIAL 1 GM in NS 100 ML IV 100 ML IV SCH (10:55)
--- NOTE | 2021-03-02 11:49 | PCM.PROG ---
Progress Note Progress Note for Day of Date of Exam: 03/02/21 Subjective Subjective: Pt. ventilated. Past Medical Family Social History Past Med/Fam/Surg Hx: No changes since H&P Allergies: Allergies No Known Drug Allergies Allergy (Verified 02/12/21 08:46) Review of Systems ROS: No change since H&P Vital Signs and I&O's Vital Signs: Temperature 97.9 F Pulse Rate [Left Radial] 95 Pulse Rate 79 Respiratory Rate 28 Blood Pressure [Right Arm] 136/64 Blood Pressure [Left Arm] 131/67 Blood Pressure 114/57 O2 Sat by Pulse Oximetry 90 Intake and Output: Intake & Output 02/27/21 02/28/21 03/01/21 03/02/21 11:59 11:59 11:59 11:59 Intake Total 5908 / 5908 6129 / 6129 7030 / 7030 7109 / 7109 Output Total 4900 / 4900 5700 / 5700 6000 / 6000 5925 / 5925 Balance 1008 / 1008 429 / 429 1030 / 1030 1184 / 1184 Physical Exam Oriented: Unable to test Respiratory: Right, Left and Rhonchi Cardiovascular: Normal Auscultation: Bowel Sounds: Normal Tenderness: Normal Skin: Normal Speech Pattern: Artificially Ventilated Laboratory and Diagnostics Result Diagrams: 03/02/21 04:46 03/02/21 04:46 Labs: 02/20/21 17:27 Blood Blood Culture - Final Methicillin Resis Staph Aureus 02/20/21 17:18 Blood Blood Culture - Final 02/18/21 14:02 Sputum - Endotracheal Wash Sputum Culture - Final 02/18/21 14:02 Sputum - Endotracheal Wash - Final Laboratory WBC 15.4 X10^3/uL (3.6-10.0) H 03/02/21 04:46 RBC 3.82 X10^6/uL (3.5-5.4) 03/02/21 04:46 Hgb 10.1 g/dL (12.0-16.0) L 03/02/21 04:46 Hct 31.0 % (36.0-47.0) L 03/02/21 04:46 MCV 81.1 fL (80.0-100.0) 03/02/21 04:46 MCH 26.6 pg (27.0-34.0) L 03/02/21 04:46 MCHC 32.8 g/dL (33.0-35.0) L 03/02/21 04:46 RDW 14.5 % (11.6-16.5) 03/02/21 04:46 Plt Count 446 X10^3/uL (150.0-450.0) 03/02/21 04:46 Plt Count Comment Adequate (ADEQUATE) 03/02/21 04:46 MPV 7.7 fL (7.4-11.0) 03/02/21 04:46 Neut % (Auto) 94.8 % (42.0-75.0) H 03/02/21 04:46 Lymph % (Auto) 3.2 % (21.0-51.0) L 03/02/21 04:46 [place] % (Auto) 1.3 % (0.0-13.0) 03/02/21 04:46 Eos % (Auto) 0.3 % (0.9-2.9) L 03/02/21 04:46 Baso % (Auto) 0.4 % (0.2-1.0) 03/02/21 04:46 Neut # (Auto) 14.6 x10^3/uL (2.2-4.8) H 03/02/21 04:46 Lymph # (Auto) 0.5 X10^3/uL (1.3-2.9) L 03/02/21 04:46 [place] # (Auto) 0.2 x10^3/uL (0.3-0.8) L 03/02/21 04:46 Eos # (Auto) 0.0 x10^3/uL (0.0-0.2) 03/02/21 04:46 Baso # (Auto) 0.1 X10^3/uL (0.0-0.1) 03/02/21 04:46 Absolute Nucleated RBC 0.0 /100WBC 03/02/21 04:46 Total Counted 100 03/02/21 04:46 Neutrophils % (Manual) 94 % (39-76) H 03/02/21 04:46 Band Neutrophils % 1 % (0-10) 03/02/21 04:46 Lymphocytes % (Manual) 3 % (13-43) L 03/02/21 04:46 Monocytes % (Manual) 2 % (4-9) L 03/02/21 04:46 Plt Morphology Comment Normal (NORMAL) 03/02/21 04:46 RBC Morphology Abnormal (NORMAL) A 03/02/21 04:46 Hypochromasia Slight A 03/02/21 04:46 Microcytosis Slight A 02/18/21 04:51 D-Dimer 0.53 ug/ml (0.0-0.57) 02/13/21 11:17 Sample Site Art-line 03/02/21 05:23 ABG pH 7.450 (7.35-7.45) 03/02/21 05:23 ABG pCO2 62.0 mmHg (35.0-45.0) H* 03/02/21 05:23 ABG pO2 63.0 mmHg (80.0-100.0) L 03/02/21 05:23 ABG HCO3 43.1 mmol/L (22-26) H* 03/02/21 05:23 ABG O2 Saturation 93.0 % (90-100) 03/02/21 05:23 ABG Base Excess 16.2 mmol/L (-2.0-2.0) H 03/02/21 05:23 Gregory Test Na 03/02/21 05:23 A-a Gradient 466.0 mmHg 03/02/21 05:23 FiO2 85.0 03/02/21 05:23 Blood Gas Comments Jacy well 03/02/21 05:23 Sodium 136 mmol/L (136-145) 03/02/21 04:46 Corrected Sodium 137 mmol/L (136-145) 03/02/21 04:46 Potassium 4.7 mmol/L (3.5-5.1) 03/02/21 04:46 Chloride 98 mmol/L (98-107) 03/02/21 04:46 Carbon Dioxide 37.5 mmol/L (21-32) H 03/02/21 04:46 BUN 17 mg/dL (7-18) 03/02/21 04:46 Creatinine 0.73 mg/dL (0.55-1.02) 03/02/21 04:46 Est GFR (MDRD) Af Amer > 60 (>60) 03/02/21 04:46 Est GFR (MDRD) Non-Af > 60 (>60) 03/02/21 04:46 Glucose 123 mg/dL (65-99) H 03/02/21 04:46 POC Glucose (mg/dL) 89 mg/dL (65-99) 03/02/21 11:10 Hemoglobin A1c 13.4 % 02/14/21 04:50 Calcium 7.5 mg/dL (8.5-10.1) L 03/02/21 04:46 Corrected Calcium 9.5 mg/dL (8.5-10.1) 03/02/21 04:46 Magnesium 3.0 mg/dL (1.7-2.9) H 02/19/21 05:03 Total Bilirubin 0.30 mg/dL (0.2-1.0) 03/02/21 04:46 AST 33 Units/L (15-37) 03/02/21 04:46 ALT 48 Units/L (12-78) 03/02/21 04:46 Alkaline Phosphatase 167 Units/L (46-116) H 03/02/21 04:46 Creatine Kinase 119 Units/L (26-192) 02/13/21 11:19 CK-MB (CK-2) 1.3 ng/mL (0-4.0) 02/13/21 11:19 CK/CKMB % Calc 1.1 % (<4) 02/13/21 11:19 Troponin I < 0.02 ng/mL (0-1.5) 02/13/21 17:35 C-Reactive Protein 16.10 mg/L (0-3.0) H 02/25/21 04:45 B-Natriuretic Peptide 66.7 pg/mL (0-79) 02/16/21 05:05 Total Protein 5.3 g/dL (6.4-8.2) L 03/02/21 04:46 Albumin 1.5 g/dL (3.4-5.0) L 03/02/21 04:46 Globulin 3.8 g/dL (2.5-4.5) 03/02/21 04:46 Albumin/Globulin Ratio 0.4 Ratio (1.1-2.1) L 03/02/21 04:46 Specimen Type Catherized urine 02/16/21 04:20 Urine Color Pale yellow (YELLOW) 02/16/21 04:20 Urine Appearance Clear (CLEAR) 02/16/21 04:20 Urine pH 6.0 (5.0 - 8.0) 02/16/21 04:20 Ur Specific [place] 1.015 (1.000-1.030) 02/16/21 04:20 Urine Protein 1+ (NEGATIVE) 02/16/21 04:20 Urine Glucose (UA) 4+ (NEGATIVE) 02/16/21 04:20 Urine Ketones 1+ (NEGATIVE) 02/16/21 04:20 Urine Occult Blood Negative (NEGATIVE) 02/16/21 04:20 Urine Nitrite Negative (NEGATIVE) 02/16/21 04:20 Urine Bilirubin Negative (NEGATIVE) 02/16/21 04:20 Urine Urobilinogen Normal (NORMAL) 02/16/21 04:20 Ur Leukocyte Esterase Negative (NEGATIVE) 02/16/21 04:20 Urine RBC None seen /HPF (0-3) 02/16/21 04:20 Urine WBC None seen /HPF (0-5) 02/16/21 04:20 Ur Squamous Epith Cells Rare /HPF (NEGATIVE) 02/16/21 04:20 Urine Bacteria Negative /HPF (NEGATIVE) 02/16/21 04:20 Urine Yeast Few /HPF (NEGATIVE) 02/16/21 04:20 Ur Culture Indicated? No/not indicated 02/16/21 04:20 Vancomycin Trough 20.6 ug/mL (15-20) H* 03/01/21 20:39 Digoxin 1.18 ng/mL (0.9-2) 02/26/21 04:31 Plan (1) Anemia: Status: Acute Narrative Support Text: Improved and stable. Plan: Continue IV Pepcid. Repeat CBC in am. (2) Respiratory failure with hypercapnia: Status: Resolved Narrative Support Text: Stable and slowing improving overall. Plan: Continue Tidal Volume at 430. (3) Sepsis due to methicillin resistant Staphylococcus aureus (MRSA): Status: Acute Plan: Continue Vancomycin. (4) Pneumonia due to COVID-19 virus: Status: Acute Plan: IV Levaquin and Invanz. Will ask Respiratory to try and ween down FiO2 today if patient tolerates it. (5) COVID-19 virus infection: Status: Acute Plan: IV Remdesivir infusion was completed on 02/17/21 after 5 days of infusion. (6) Hyperglycemia: Status: Chronic Plan: Cover with sliding scale regular insulin. Continue Levemir at 50 units bid. (7) HTN (hypertension): Status: Chronic Narrative Support Text: Stable overall. Plan: Lopressor 50mg bid. (8) Respiratory failure: Status: Acute Plan: Continue patient on ventilator. Ween down FiO2 as tolerated. FiO2 is 80 this am.
[2021-03-02] MEDS: SNACK - Diabetic Appropriate PO SCH (20:35)
[2021-03-03] MEDS: VERSED IV PREMIX 100 MG/100 ML IV.SOLN IV PRN ×2 (00:19→17:33)
[2021-03-03] MEDS: DIPRIVAN PREMIX 1 GRAM IV 1,000 MG/100 ML VIAL IV PRN ×4 (00:37→22:13)
[2021-03-03] MEDS: D5W 1000 ML IV 1,000 ML IV SCH ×4 (02:48→18:18)
[2021-03-03] MEDS: ASCORBIC ACID INJ MULTI-DOSE VIAL 1,500 MG in NS 50 ML IV 50 ML IV SCH ×4 (03:50→20:43)
[2021-03-03] MEDS: ZEMURON 100 MG VIAL 500 MG in NS 500 ML IV 450 ML IV PRN ×3 (04:16→19:08)
[2021-03-03 06:06] LABS: BASOPHILS % (AUTO) 0.1 % (0.2-1.0); EOSINOPHILS % (AUTO) 0.2 % (0.9-2.9); HEMOGLOBIN 8.6 g/dL (12.0-16.0); LYMPHOCYTES # (AUTO) 0.3 X10^3/uL (1.3-2.9); MEAN CORPUSCULAR HEMOGLOBIN 26.9 pg (27.0-34.0); MEAN CORPUSCULAR HGB CONC 32.9 g/dL (33.0-35.0); MEAN CORPUSCULAR VOLUME 81.7 fL (80.0-100.0); MEAN PLATELET VOLUME 7.5 fL (7.4-11.0); MONOCYTES # (AUTO) 0.1 x10^3/uL (0.3-0.8); MONOCYTES % (AUTO) 1.3 % (0.0-13.0); NEUTROPHILS # (AUTO) 10.6 x10^3/uL (2.2-4.8); NEUTROPHILS % (AUTO) 95.4 % (42.0-75.0); PLATELET COUNT 401 X10^3/uL (150.0-450.0); RED BLOOD COUNT 3.18 X10^6/uL (3.5-5.4); RED CELL DISTRIBUTION WIDTH 14.5 % (11.6-16.5); WHITE BLOOD COUNT 11.1 X10^3/uL (3.6-10.0)
[2021-03-03 06:11] LABS: ALANINE AMINOTRANSFERASE 36 Units/L (12-78); ALBUMIN 1.3 g/dL (3.4-5.0); ALKALINE PHOSPHATASE 115 Units/L (46-116); ASPARTATE AMINO TRANSFERASE 24 Units/L (15-37); BLOOD UREA NITROGEN 16 mg/dL (7-18); CALCIUM 7.2 mg/dL (8.5-10.1); CARBON DIOXIDE 33.9 mmol/L (21-32); CHLORIDE 98 mmol/L (98-107); COR CA(FOR HYPOALB) 9.4 mg/dL (8.5-10.1); COR NA(FOR HYPERGLY) 136 mmol/L (136-145); CREATININE 0.63 mg/dL (0.55-1.02); SODIUM 134 mmol/L (136-145); TOTAL PROTEIN 4.5 g/dL (6.4-8.2); eGFR NON BLACK RACES > 60 (>60)
--- NOTE | 2021-03-03 06:19 | RAD ---
HISTORYCOVID-19STUDYCHEST, 1 [id number]/2021FINDINGSThe cardiomediastinal silhouette is stable. Endotracheal and enteric tubes unchanged. Similar bilateral airspace opacities. The bony thorax appears intact.IMPRESSIONNo significant change.Electronically signed by: FLOR ESPINOZA (Mar 03, 2021 06:17:58)
[2021-03-03 06:51] LABS: BAND NEUTROPHILS % 1 % (0-10); PLATELET MORPHOLOGY COMMENT NORMAL (NORMAL)
[2021-03-03 06:52] LABS: HYPOCHROMASIA SLIGHT; TARGET CELLS PRESENT
[2021-03-03] MEDS: PULMICORT NEB TX 0.5 MG NEB SCH ×2 (08:20→20:30)
[2021-03-03] MEDS: BROVANA IN SCH ×2 (08:20→20:30)
[2021-03-03 08:48] LABS: CREATININE 0.6 mg/dL (0.55-1.02); VANCOMYCIN,TROUGH 19.2 ug/mL (15-20)
[2021-03-03] MEDS: PEPCID 20 MG IV PREMIX* 20 MG/50 ML BAG IV SCH (08:48)
[2021-03-03] MEDS: LEVEMIR SC SCH ×2 (08:55→21:39)
[2021-03-03] MEDS: DILANTIN INJ 100 MG VIAL IVP SCH ×2 (09:45→21:38)
[2021-03-03] MEDS: LANOXIN INJ IVP SCH (09:46)
[2021-03-03] MEDS: LACRI-LUBE S.O.P. AFFEYE SCH ×2 (09:48→20:46)
[2021-03-03] MEDS: INVANZ INJ 1 GM VIAL 1 GM in NS 100 ML IV 100 ML IV SCH (09:48)
[2021-03-03] MEDS: VITAMIN A PO SCH (09:50)
[2021-03-03] MEDS: LOPRESSOR TAB 50 MG PEG SCH ×2 (09:50→21:38)
[2021-03-03] MEDS: SOLU-Medrol 40 MG VIAL IVP SCH ×2 (09:50→20:46)
[2021-03-03] MEDS: LOVENOX INJ 30 MG SYR SC SCH ×2 (09:51→21:38)
[2021-03-03] MEDS: VANCOMYCIN IV *PREMIX 750 mg/150 ML BAG 750 MG/150 ML PIGGYBACK IV SCH ×2 (11:40→21:47)
[2021-03-03] MEDS: PROTONIX INJ 40 MG VIAL IVP SCH ×2 (11:59→20:47)
--- NOTE | 2021-03-03 13:57 | PCM.PROG ---
Progress Note Progress Note for Day of Date of Exam: 03/03/21 Subjective Subjective: Pt. ventilated. Past Medical Family Social History Past Med/Fam/Surg Hx: No changes since H&P Allergies: Allergies No Known Drug Allergies Allergy (Verified 02/12/21 08:46) Review of Systems ROS: No change since H&P Vital Signs and I&O's Vital Signs: Temperature 97.5 F Pulse Rate [Left Radial] 95 Pulse Rate 74 Respiratory Rate 28 Blood Pressure [Right Arm] 136/64 Blood Pressure [Left Arm] 131/67 Blood Pressure 126/58 O2 Sat by Pulse Oximetry 87 Intake and Output: Intake & Output 03/01/21 03/02/21 03/03/21 03/04/21 11:59 11:59 11:59 11:59 Intake Total 7030 / 7030 7109 / 7109 8371 / 8371 Output Total 6000 / 6000 5925 / 5925 6008 / 6008 Balance 1030 / 1030 1184 / 1184 2363 / 2363 Physical Exam Oriented: Unable to test Respiratory: Right, Left and Rhonchi Cardiovascular: Normal : Normal Auscultation: Bowel Sounds: Normal Tenderness: Normal Skin: Normal Musculoskeletal: Normal Psychiatric: Anxiety Mood Description: Anxious Affect: Quiet Speech Pattern: Artificially Ventilated Laboratory and Diagnostics Result Diagrams: 03/03/21 05:11 03/03/21 08:20 Labs: 02/20/21 17:27 Blood Blood Culture - Final Methicillin Resis Staph Aureus 02/20/21 17:18 Blood Blood Culture - Final 02/18/21 14:02 Sputum - Endotracheal Wash Sputum Culture - Final 02/18/21 14:02 Sputum - Endotracheal Wash - Final Laboratory WBC 11.1 X10^3/uL (3.6-10.0) H 03/03/21 05:11 RBC 3.18 X10^6/uL (3.5-5.4) L 03/03/21 05:11 Hgb 8.6 g/dL (12.0-16.0) L 03/03/21 05:11 Hct 26.0 % (36.0-47.0) L 03/03/21 05:11 MCV 81.7 fL (80.0-100.0) 03/03/21 05:11 MCH 26.9 pg (27.0-34.0) L 03/03/21 05:11 MCHC 32.9 g/dL (33.0-35.0) L 03/03/21 05:11 RDW 14.5 % (11.6-16.5) 03/03/21 05:11 Plt Count 401 X10^3/uL (150.0-450.0) 03/03/21 05:11 Plt Count Comment Adequate (ADEQUATE) 03/03/21 05:11 MPV 7.5 fL (7.4-11.0) 03/03/21 05:11 Neut % (Auto) 95.4 % (42.0-75.0) H 03/03/21 05:11 Lymph % (Auto) 3.0 % (21.0-51.0) L 03/03/21 05:11 [place] % (Auto) 1.3 % (0.0-13.0) 03/03/21 05:11 Eos % (Auto) 0.2 % (0.9-2.9) L 03/03/21 05:11 Baso % (Auto) 0.1 % (0.2-1.0) L 03/03/21 05:11 Neut # (Auto) 10.6 x10^3/uL (2.2-4.8) H 03/03/21 05:11 Lymph # (Auto) 0.3 X10^3/uL (1.3-2.9) L 03/03/21 05:11 [place] # (Auto) 0.1 x10^3/uL (0.3-0.8) L 03/03/21 05:11 Eos # (Auto) 0.0 x10^3/uL (0.0-0.2) 03/03/21 05:11 Baso # (Auto) 0.0 X10^3/uL (0.0-0.1) 03/03/21 05:11 Absolute Nucleated RBC 0.0 /100WBC 03/03/21 05:11 Total Counted 100 03/03/21 05:11 Neutrophils % (Manual) 95 % (39-76) H 03/03/21 05:11 Band Neutrophils % 1 % (0-10) 03/03/21 05:11 Lymphocytes % (Manual) 3 % (13-43) L 03/03/21 05:11 Monocytes % (Manual) 1 % (4-9) L 03/03/21 05:11 Plt Morphology Comment Normal (NORMAL) 03/03/21 05:11 RBC Morphology Abnormal (NORMAL) A 03/03/21 05:11 Hypochromasia Slight A 03/03/21 05:11 Microcytosis Slight A 02/18/21 04:51 Target Cells Present 03/03/21 05:11 D-Dimer 0.53 ug/ml (0.0-0.57) 02/13/21 11:17 Sample Site Art-line 03/03/21 04:56 ABG pH 7.470 (7.35-7.45) H 03/03/21 04:56 ABG pCO2 55.0 mmHg (35.0-45.0) H* 03/03/21 04:56 ABG pO2 60.0 mmHg (80.0-100.0) L 03/03/21 04:56 ABG HCO3 40.0 mmol/L (22-26) H* 03/03/21 04:56 ABG O2 Saturation 92.0 % (90-100) 03/03/21 04:56 ABG Base Excess 14.0 mmol/L (-2.0-2.0) H 03/03/21 04:56 Gregory Test Na 03/03/21 04:56 A-a Gradient 406.0 mmHg 03/03/21 04:56 FiO2 75.0 03/03/21 04:56 Blood Gas Comments Jacy well 03/03/21 04:56 Sodium 134 mmol/L (136-145) L 03/03/21 05:11 Corrected Sodium 136 mmol/L (136-145) 03/03/21 05:11 Potassium 4.3 mmol/L (3.5-5.1) 03/03/21 05:11 Chloride 98 mmol/L (98-107) 03/03/21 05:11 Carbon Dioxide 33.9 mmol/L (21-32) H 03/03/21 05:11 BUN 16 mg/dL (7-18) 03/03/21 05:11 Creatinine 0.60 mg/dL (0.55-1.02) 03/03/21 08:20 Est GFR (MDRD) Af Amer > 60 (>60) 03/03/21 05:11 Est GFR (MDRD) Non-Af > 60 (>60) 03/03/21 05:11 Glucose 174 mg/dL (65-99) H 03/03/21 05:11 POC Glucose (mg/dL) 68 mg/dL (65-99) 03/03/21 11:20 Hemoglobin A1c 13.4 % 02/14/21 04:50 Calcium 7.2 mg/dL (8.5-10.1) L 03/03/21 05:11 Corrected Calcium 9.4 mg/dL (8.5-10.1) 03/03/21 05:11 Magnesium 3.0 mg/dL (1.7-2.9) H 02/19/21 05:03 Total Bilirubin 0.30 mg/dL (0.2-1.0) 03/03/21 05:11 AST 24 Units/L (15-37) 03/03/21 05:11 ALT 36 Units/L (12-78) 03/03/21 05:11 Alkaline Phosphatase 115 Units/L (46-116) 03/03/21 05:11 Creatine Kinase 119 Units/L (26-192) 02/13/21 11:19 CK-MB (CK-2) 1.3 ng/mL (0-4.0) 02/13/21 11:19 CK/CKMB % Calc 1.1 % (<4) 02/13/21 11:19 Troponin I < 0.02 ng/mL (0-1.5) 02/13/21 17:35 C-Reactive Protein 16.10 mg/L (0-3.0) H 02/25/21 04:45 B-Natriuretic Peptide 66.7 pg/mL (0-79) 02/16/21 05:05 Total Protein 4.5 g/dL (6.4-8.2) L 03/03/21 05:11 Albumin 1.3 g/dL (3.4-5.0) L 03/03/21 05:11 Globulin 3.2 g/dL (2.5-4.5) 03/03/21 05:11 Albumin/Globulin Ratio 0.4 Ratio (1.1-2.1) L 03/03/21 05:11 Specimen Type Catherized urine 02/16/21 04:20 Urine Color Pale yellow (YELLOW) 02/16/21 04:20 Urine Appearance Clear (CLEAR) 02/16/21 04:20 Urine pH 6.0 (5.0 - 8.0) 02/16/21 04:20 Ur Specific [place] 1.015 (1.000-1.030) 02/16/21 04:20 Urine Protein 1+ (NEGATIVE) 02/16/21 04:20 Urine Glucose (UA) 4+ (NEGATIVE) 02/16/21 04:20 Urine Ketones 1+ (NEGATIVE) 02/16/21 04:20 Urine Occult Blood Negative (NEGATIVE) 02/16/21 04:20 Urine Nitrite Negative (NEGATIVE) 02/16/21 04:20 Urine Bilirubin Negative (NEGATIVE) 02/16/21 04:20 Urine Urobilinogen Normal (NORMAL) 02/16/21 04:20 Ur Leukocyte Esterase Negative (NEGATIVE) 02/16/21 04:20 Urine RBC None seen /HPF (0-3) 02/16/21 04:20 Urine WBC None seen /HPF (0-5) 02/16/21 04:20 Ur Squamous Epith Cells Rare /HPF (NEGATIVE) 02/16/21 04:20 Urine Bacteria Negative /HPF (NEGATIVE) 02/16/21 04:20 Urine Yeast Few /HPF (NEGATIVE) 02/16/21 04:20 Ur Culture Indicated? No/not indicated 02/16/21 04:20 Vancomycin Trough 19.2 ug/mL (15-20) 03/03/21 08:20 Digoxin 1.18 ng/mL (0.9-2) 02/26/21 04:31 Radiology Reviewed: Yes Plan (1) Anemia: Status: Acute Plan: Change to IV Protonix bid. Repeat CBC in am. H/H at 1500 today. (2) Respiratory failure with hypercapnia: Status: Resolved Plan: Continue Tidal Volume at 430. (3) Sepsis due to methicillin resistant Staphylococcus aureus (MRSA): Status: Acute Plan: Continue Vancomycin. (4) Pneumonia due to COVID-19 virus: Status: Acute Plan: IV Levaquin and Invanz. Will ask Respiratory to try and ween down FiO2 today if patient tolerates it. (5) COVID-19 virus infection: Status: Acute Plan: IV Remdesivir infusion was completed on 02/17/21 after 5 days of i nfusion. (6) Hyperglycemia: Status: Chronic Plan: Cover with sliding scale regular insulin. Continue Levemir at 50 units bid. (7) HTN (hypertension): Status: Chronic Plan: Lopressor 50mg bid. (8) Respiratory failure: Status: Acute Plan: Continue patient on ventilator. Ween down FiO2 as tolerated. FiO2 is 80 this am.
[2021-03-03 15:34] LABS: HEMOGLOBIN 9.7 g/dL (12.0-16.0)
[2021-03-03] MEDS: SNACK - Diabetic Appropriate PO SCH (20:42)
[2021-03-04] MEDS: D5W 1000 ML IV 1,000 ML IV SCH ×4 (01:18→18:50)
[2021-03-04] MEDS: ASCORBIC ACID INJ MULTI-DOSE VIAL 1,500 MG in NS 50 ML IV 50 ML IV SCH ×4 (02:53→21:56)
[2021-03-04] MEDS: ZEMURON 100 MG VIAL 500 MG in NS 500 ML IV 450 ML IV PRN ×3 (02:54→17:37)
[2021-03-04 04:35] LABS: ABG HCO3 36.8 mmol/L (22-26)
[2021-03-04 05:24] LABS: BASOPHILS % (AUTO) 0.2 % (0.2-1.0); EOSINOPHILS % (AUTO) 0.2 % (0.9-2.9); HEMATOCRIT 28.2 % (36.0-47.0); HEMOGLOBIN 9.1 g/dL (12.0-16.0); LYMPHOCYTES # (AUTO) 0.5 X10^3/uL (1.3-2.9); LYMPHOCYTES % (AUTO) 4.1 % (21.0-51.0); MEAN CORPUSCULAR HEMOGLOBIN 26.8 pg (27.0-34.0); MEAN CORPUSCULAR HGB CONC 32.3 g/dL (33.0-35.0); MEAN CORPUSCULAR VOLUME 83.2 fL (80.0-100.0); MEAN PLATELET VOLUME 7.4 fL (7.4-11.0); MONOCYTES # (AUTO) 0.3 x10^3/uL (0.3-0.8); MONOCYTES % (AUTO) 2.2 % (0.0-13.0); NEUTROPHILS % (AUTO) 93.3 % (42.0-75.0); PLATELET COUNT 421 X10^3/uL (150.0-450.0); RED BLOOD COUNT 3.39 X10^6/uL (3.5-5.4); RED CELL DISTRIBUTION WIDTH 14.9 % (11.6-16.5); WHITE BLOOD COUNT 12.9 X10^3/uL (3.6-10.0)
[2021-03-04 05:32] LABS: ALANINE AMINOTRANSFERASE 36 Units/L (12-78); ALBUMIN 1.4 g/dL (3.4-5.0); ALKALINE PHOSPHATASE 107 Units/L (46-116); ASPARTATE AMINO TRANSFERASE 22 Units/L (15-37); BLOOD UREA NITROGEN 16 mg/dL (7-18); CALCIUM 7.5 mg/dL (8.5-10.1); CARBON DIOXIDE 31.8 mmol/L (21-32); CHLORIDE 100 mmol/L (98-107); COR CA(FOR HYPOALB) 9.6 mg/dL (8.5-10.1); COR NA(FOR HYPERGLY) 136 mmol/L (136-145); CREATININE 0.61 mg/dL (0.55-1.02); SODIUM 136 mmol/L (136-145); TOTAL PROTEIN 4.8 g/dL (6.4-8.2); eGFR NON BLACK RACES > 60 (>60)
[2021-03-04] MEDS: DIPRIVAN PREMIX 1 GRAM IV 1,000 MG/100 ML VIAL IV PRN ×3 (05:46→23:56)
[2021-03-04 05:50] LABS: PLATELET MORPHOLOGY COMMENT NORMAL (NORMAL)
[2021-03-04 05:51] LABS: HYPOCHROMASIA SLIGHT
--- NOTE | 2021-03-04 06:44 | RAD ---
HISTORYFollow-up COVID-19STUDYChest AP [id number]/2021FINDINGSThere is an endotracheal tube above the alejandra. There is a nasogastric tube coursing below the left hemidiaphragm. Its tip is not visible. Heart remains normal in size. Diffuse bilateral alveolar infiltrates are unchanged in degree or distribution from the prior examination. No pleural effusion or pneumothorax is identified. Bony thorax is unremarkable.IMPRESSIONNo change diffuse bilateral alveolar infiltratesElectronically signed by: FLOR ESPINOZA (Mar 04, 2021 06:43:25)
--- NOTE | 2021-03-04 08:46 | PCM.PROG ---
Progress Note Progress Note for Day of Date of Exam: 03/04/21 Subjective Subjective: Pt. ventilated. Past Medical Family Social History Past Med/Fam/Surg Hx: No changes since H&P Allergies: Allergies No Known Drug Allergies Allergy (Verified 02/12/21 08:46) Review of Systems ROS: No change since H&P Vital Signs and I&O's Vital Signs: Temperature 97.6 F Pulse Rate [Left Radial] 95 Pulse Rate 75 Respiratory Rate 28 Blood Pressure [Right Arm] 136/64 Blood Pressure [Left Arm] 131/67 Blood Pressure 116/57 O2 Sat by Pulse Oximetry 93 Intake and Output: Intake & Output 03/01/21 03/02/21 03/03/21 03/04/21 11:59 11:59 11:59 11:59 Intake Total 7030 / 7030 7109 / 7109 8371 / 8371 8021 / 8021 Output Total 6000 / 6000 5925 / 5925 6008 / 6008 6450 / 6450 Balance 1030 / 1030 1184 / 1184 2363 / 2363 1571 / 1571 Physical Exam Oriented: Unable to test Eyes: Normal Respiratory: Right, Left and Rhonchi Cardiovascular: Normal Auscultation: Bowel Sounds: Normal Tenderness: Normal Skin: Decreased Turgur Musculoskeletal: Normal Psychiatric: Anxiety Mood Description: Anxious Affect: Quiet Speech Pattern: Artificially Ventilated Laboratory and Diagnostics Result Diagrams: 03/04/21 04:35 03/04/21 04:35 Labs: 02/20/21 17:27 Blood Blood Culture - Final Methicillin Resis Staph Aureus 02/20/21 17:18 Blood Blood Culture - Final 02/18/21 14:02 Sputum - Endotracheal Wash Sputum Culture - Final 02/18/21 14:02 Sputum - Endotracheal Wash - Final Laboratory WBC 12.9 X10^3/uL (3.6-10.0) H 03/04/21 04:35 RBC 3.39 X10^6/uL (3.5-5.4) L 03/04/21 04:35 Hgb 9.1 g/dL (12.0-16.0) L 03/04/21 04:35 Hct 28.2 % (36.0-47.0) L 03/04/21 04:35 MCV 83.2 fL (80.0-100.0) 03/04/21 04:35 MCH 26.8 pg (27.0-34.0) L 03/04/21 04:35 MCHC 32.3 g/dL (33.0-35.0) L 03/04/21 04:35 RDW 14.9 % (11.6-16.5) 03/04/21 04:35 Plt Count 421 X10^3/uL (150.0-450.0) 03/04/21 04:35 Plt Count Comment Adequate (ADEQUATE) 03/04/21 04:35 MPV 7.4 fL (7.4-11.0) 03/04/21 04:35 Neut % (Auto) 93.3 % (42.0-75.0) H 03/04/21 04:35 Lymph % (Auto) 4.1 % (21.0-51.0) L 03/04/21 04:35 [place] % (Auto) 2.2 % (0.0-13.0) 03/04/21 04:35 Eos % (Auto) 0.2 % (0.9-2.9) L 03/04/21 04:35 Baso % (Auto) 0.2 % (0.2-1.0) 03/04/21 04:35 Neut # (Auto) 12.0 x10^3/uL (2.2-4.8) H 03/04/21 04:35 Lymph # (Auto) 0.5 X10^3/uL (1.3-2.9) L 03/04/21 04:35 [place] # (Auto) 0.3 x10^3/uL (0.3-0.8) 03/04/21 04:35 Eos # (Auto) 0.0 x10^3/uL (0.0-0.2) 03/04/21 04:35 Baso # (Auto) 0.0 X10^3/uL (0.0-0.1) 03/04/21 04:35 Absolute Nucleated RBC 0.0 /100WBC 03/04/21 04:35 Total Counted 100 03/04/21 04:35 Neutrophils % (Manual) 95 % (39-76) H 03/04/21 04:35 Band Neutrophils % 1 % (0-10) 03/03/21 05:11 Lymphocytes % (Manual) 4 % (13-43) L 03/04/21 04:35 Monocytes % (Manual) 1 % (4-9) L 03/04/21 04:35 Plt Morphology Comment Normal (NORMAL) 03/04/21 04:35 RBC Morphology Abnormal (NORMAL) A 03/04/21 04:35 Hypochromasia Slight A 03/04/21 04:35 Microcytosis Slight A 02/18/21 04:51 Target Cells Present 03/03/21 05:11 D-Dimer 0.53 ug/ml (0.0-0.57) 02/13/21 11:17 Sample Site Radha 03/04/21 04:29 ABG pH 7.450 (7.35-7.45) 03/04/21 04:29 ABG pCO2 53.0 mmHg (35.0-45.0) H* 03/04/21 04:29 ABG pO2 57.0 mmHg (80.0-100.0) L 03/04/21 04:29 ABG HCO3 36.8 mmol/L (22-26) H* 03/04/21 04:29 ABG O2 Saturation 91.0 % (90-100) 03/04/21 04:29 ABG Base Excess 11.0 mmol/L (-2.0-2.0) H 03/04/21 04:29 Gregory Test N/a 03/04/21 04:29 A-a Gradient 269.0 mmHg 03/04/21 04:29 FiO2 55.0 03/04/21 04:29 Blood Gas Comments Jacy well ae 03/04/21 04:29 Sodium 136 mmol/L (136-145) 03/04/21 04:35 Corrected Sodium 136 mmol/L (136-145) 03/04/21 04:35 Potassium 4.6 mmol/L (3.5-5.1) 03/04/21 04:35 Chloride 100 mmol/L (98-107) 03/04/21 04:35 Carbon Dioxide 31.8 mmol/L (21-32) 03/04/21 04:35 BUN 16 mg/dL (7-18) 03/04/21 04:35 Creatinine 0.61 mg/dL (0.55-1.02) 03/04/21 04:35 Est GFR (MDRD) Af Amer > 60 (>60) 03/04/21 04:35 Est GFR (MDRD) Non-Af > 60 (>60) 03/04/21 04:35 Glucose 114 mg/dL (65-99) H 03/04/21 04:35 POC Glucose (mg/dL) 127 mg/dL (65-99) H 03/04/21 03:58 Hemoglobin A1c 13.4 % 02/14/21 04:50 Calcium 7.5 mg/dL (8.5-10.1) L 03/04/21 04:35 Corrected Calcium 9.6 mg/dL (8.5-10.1) 03/04/21 04:35 Magnesium 3.0 mg/dL (1.7-2.9) H 02/19/21 05:03 Total Bilirubin 0.20 mg/dL (0.2-1.0) 03/04/21 04:35 AST 22 Units/L (15-37) 03/04/21 04:35 ALT 36 Units/L (12-78) 03/04/21 04:35 Alkaline Phosphatase 107 Units/L (46-116) 03/04/21 04:35 Creatine Kinase 119 Units/L (26-192) 02/13/21 11:19 CK-MB (CK-2) 1.3 ng/mL (0-4.0) 02/13/21 11:19 CK/CKMB % Calc 1.1 % (<4) 02/13/21 11:19 Troponin I < 0.02 ng/mL (0-1.5) 02/13/21 17:35 C-Reactive Protein 16.10 mg/L (0-3.0) H 02/25/21 04:45 B-Natriuretic Peptide 66.7 pg/mL (0-79) 02/16/21 05:05 Total Protein 4.8 g/dL (6.4-8.2) L 03/04/21 04:35 Albumin 1.4 g/dL (3.4-5.0) L 03/04/21 04:35 Globulin 3.4 g/dL (2.5-4.5) 03/04/21 04:35 Albumin/Globulin Ratio 0.4 Ratio (1.1-2.1) L 03/04/21 04:35 Specimen Type Catherized urine 02/16/21 04:20 Urine Color Pale yellow (YELLOW) 02/16/21 04:20 Urine Appearance Clear (CLEAR) 02/16/21 04:20 Urine pH 6.0 (5.0 - 8.0) 02/16/21 04:20 Ur Specific [place] 1.015 (1.000-1.030) 02/16/21 04:20 Urine Protein 1+ (NEGATIVE) 02/16/21 04:20 Urine Glucose (UA) 4+ (NEGATIVE) 02/16/21 04:20 Urine Ketones 1+ (NEGATIVE) 02/16/21 04:20 Urine Occult Blood Negative (NEGATIVE) 02/16/21 04:20 Urine Nitrite Negative (NEGATIVE) 02/16/21 04:20 Urine Bilirubin Negative (NEGATIVE) 02/16/21 04:20 Urine Urobilinogen Normal (NORMAL) 02/16/21 04:20 Ur Leukocyte Esterase Negative (NEGATIVE) 02/16/21 04:20 Urine RBC None seen /HPF (0-3) 02/16/21 04:20 Urine WBC None seen /HPF (0-5) 02/16/21 04:20 Ur Squamous Epith Cells Rare /HPF (NEGATIVE) 02/16/21 04:20 Urine Bacteria Negative /HPF (NEGATIVE) 02/16/21 04:20 Urine Yeast Few /HPF (NEGATIVE) 02/16/21 04:20 Ur Culture Indicated? No/not indicated 02/16/21 04:20 Vancomycin Trough 19.2 ug/mL (15-20) 03/03/21 08:20 Digoxin 1.18 ng/mL (0.9-2) 02/26/21 04:31 Radiology Reviewed: Yes Plan (1) Anemia: Status: Acute Narrative Support Text: Anemia improved. Plan: Continue IV Protonix bid. (2) Sepsis due to methicillin resistant Staphylococcus aureus (MRSA): Status: Acute Plan: Continue Vancomycin. (3) Pneumonia due to COVID-19 virus: Status: Acute Plan: IV Levaquin and Invanz. Will ask Respiratory to try and ween down FiO2 today if patient tolerates it. Patient currently on FiO2 of 55. (4) COVID-19 virus infection: Status: Acute Plan: IV Remdesivir infusion was completed on 02/17/21 after 5 days of infusion. (5) Hyperglycemia: Status: Chronic Plan: Cover with sliding scale regular insulin. Continue Levemir at 50 units bid. (6) HTN (hypertension): Status: Chronic Plan: Lopressor 50mg bid. (7) Respiratory failure: Status: Acute Plan: Continue patient on ventilator. Ween down FiO2 as tolerated. FiO2 is 55this am. Decrease Solumedrol to IV 80mg daily from bid.
[2021-03-04] MEDS: LACRI-LUBE S.O.P. AFFEYE SCH ×2 (08:59→21:55)
[2021-03-04] MEDS: LOVENOX INJ 30 MG SYR SC SCH ×2 (08:59→21:52)
[2021-03-04] MEDS: LOPRESSOR TAB 50 MG PEG SCH ×2 (09:00→21:55)
[2021-03-04] MEDS: BROVANA IN SCH ×2 (09:00→20:20)
[2021-03-04] MEDS: PULMICORT NEB TX 0.5 MG NEB SCH ×2 (09:00→20:20)
[2021-03-04] MEDS: PROTONIX INJ 40 MG VIAL IVP SCH ×2 (09:01→21:52)
[2021-03-04] MEDS: VITAMIN A PO SCH (09:01)
[2021-03-04] MEDS: SOLU-Medrol 40 MG VIAL IVP SCH (09:12)
[2021-03-04] MEDS: INVANZ INJ 1 GM VIAL 1 GM in NS 100 ML IV 100 ML IV SCH (09:12)
[2021-03-04] MEDS: DILANTIN INJ 100 MG VIAL IVP SCH ×2 (09:14→21:55)
[2021-03-04] MEDS: LEVEMIR SC SCH (09:40)
[2021-03-04] MEDS: LANOXIN INJ IVP SCH (09:42)
[2021-03-04] MEDS: VANCOMYCIN IV *PREMIX 750 mg/150 ML BAG 750 MG/150 ML PIGGYBACK IV SCH ×2 (10:41→21:52)
[2021-03-04] MEDS: VERSED IV PREMIX 100 MG/100 ML IV.SOLN IV PRN (14:03)
[2021-03-04] MEDS: BUTT CREAM (COMPOUND) TOP PRN (15:00)
[2021-03-04] MEDS: HumuLIN R SC PRN ×2 (16:11→21:00)
[2021-03-04] MEDS ORDERED: SNACK - Diabetic Appropriate PO SCH (20:00)
[2021-03-04] MEDS ORDERED: LEVEMIR SC SCH (21:00)
[2021-03-04] MEDS: SNACK - Diabetic Appropriate PO SCH (21:45)
[2021-03-05] MEDS: ZEMURON 100 MG VIAL 500 MG in NS 500 ML IV 450 ML IV PRN ×3 (01:10→17:25)
[2021-03-05] MEDS: ASCORBIC ACID INJ MULTI-DOSE VIAL 1,500 MG in NS 50 ML IV 50 ML IV SCH ×4 (02:43→21:00)
[2021-03-05 04:51] LABS: ABG BASE EXCESS 8.4 mmol/L (-2.0-2.0)
[2021-03-05 04:52] LABS: ABG HCO3 34.4 mmol/L (22-26)
[2021-03-05 05:28] LABS: BASOPHILS # (AUTO) 0.1 X10^3/uL (0.0-0.1); BASOPHILS % (AUTO) 0.6 % (0.2-1.0); EOSINOPHILS # (AUTO) 0.3 x10^3/uL (0.0-0.2); EOSINOPHILS % (AUTO) 2.3 % (0.9-2.9); HEMATOCRIT 31.9 % (36.0-47.0); HEMOGLOBIN 10.3 g/dL (12.0-16.0); LYMPHOCYTES # (AUTO) 1.4 X10^3/uL (1.3-2.9); LYMPHOCYTES % (AUTO) 9.8 % (21.0-51.0); MEAN CORPUSCULAR HGB CONC 32.3 g/dL (33.0-35.0); MEAN CORPUSCULAR VOLUME 83.5 fL (80.0-100.0); MONOCYTES # (AUTO) 0.4 x10^3/uL (0.3-0.8); MONOCYTES % (AUTO) 2.9 % (0.0-13.0); NEUTROPHILS # (AUTO) 11.7 x10^3/uL (2.2-4.8); NEUTROPHILS % (AUTO) 84.4 % (42.0-75.0); PLATELET COUNT 498 X10^3/uL (150.0-450.0); RED BLOOD COUNT 3.82 X10^6/uL (3.5-5.4); RED CELL DISTRIBUTION WIDTH 15.3 % (11.6-16.5); WHITE BLOOD COUNT 13.9 X10^3/uL (3.6-10.0)
[2021-03-05] MEDS: D5W 1000 ML IV 1,000 ML IV SCH ×2 (05:35→10:36)
[2021-03-05 05:43] LABS: ALANINE AMINOTRANSFERASE 47 Units/L (12-78); ALBUMIN 1.6 g/dL (3.4-5.0); ALKALINE PHOSPHATASE 130 Units/L (46-116); ASPARTATE AMINO TRANSFERASE 22 Units/L (15-37); BLOOD UREA NITROGEN 17 mg/dL (7-18); CALCIUM 7.6 mg/dL (8.5-10.1); CARBON DIOXIDE 31.6 mmol/L (21-32); CHLORIDE 98 mmol/L (98-107); COR CA(FOR HYPOALB) 9.5 mg/dL (8.5-10.1); COR NA(FOR HYPERGLY) 138 mmol/L (136-145); CREATININE 0.65 mg/dL (0.55-1.02); SODIUM 137 mmol/L (136-145); TOTAL PROTEIN 5.3 g/dL (6.4-8.2); eGFR NON BLACK RACES > 60 (>60)
--- NOTE | 2021-03-05 06:29 | RAD ---
HISTORYFollow-up COVID-19STUDYChest AP [id number]/11/2021FINDINGSTher e is an endotracheal tube in good position above the alejandra. There is a nasogastric tube in good position. Heart size is normal. Diffuse bilateral alveolar infiltrates are unchanged when compared to the prior examination considering a difference in film technique. No pleural effusion or pneumothorax is identified. Bony thorax is unremarkable.IMPRESSIONNo change diffuse bilateral under infiltratesElectronically signed by: FLOR ESPINOZA (Mar 05, 2021 06:28:18)
[2021-03-05] MEDS: DIPRIVAN PREMIX 1 GRAM IV 1,000 MG/100 ML VIAL IV PRN ×2 (07:40→15:49)
[2021-03-05] MEDS: LACRI-LUBE S.O.P. AFFEYE SCH ×2 (08:48→21:00)
[2021-03-05] MEDS: SOLU-Medrol 40 MG VIAL IVP SCH (08:49)
[2021-03-05] MEDS: VITAMIN A PO SCH (08:49)
[2021-03-05] MEDS: PROTONIX INJ 40 MG VIAL IVP SCH ×2 (08:50→21:00)
[2021-03-05] MEDS: LOVENOX INJ 30 MG SYR SC SCH ×2 (08:51→21:00)
[2021-03-05] MEDS: DILANTIN INJ 100 MG VIAL IVP SCH ×2 (08:52→21:00)
[2021-03-05] MEDS: LANOXIN INJ IVP SCH (08:53)
[2021-03-05] MEDS: LOPRESSOR TAB 25 MG PO SCH ×2 (08:53→21:00)
--- NOTE | 2021-03-05 09:09 | PCM.PROG ---
Progress Note Progress Note for Day of Date of Exam: 03/05/21 Subjective Subjective: Pt. ventilated. Past Medical Family Social History Past Med/Fam/Surg Hx: No changes since H&P Allergies: Allergies No Known Drug Allergies Allergy (Verified 02/12/21 08:46) Review of Systems ROS: No change since H&P ROS changes noted: hypotension Vital Signs and I&O's Vital Signs: Temperature 98.5 F Pulse Rate [Left Radial] 95 Pulse Rate 89 Respiratory Rate 28 Blood Pressure [Right Arm] 136/64 Blood Pressure [Left Arm] 131/67 Blood Pressure 106/54 O2 Sat by Pulse Oximetry 95 Intake and Output: Intake & Output 03/02/21 03/03/21 03/04/21 03/05/21 11:59 11:59 11:59 11:59 Intake Total 7109 / 7109 8371 / 8371 8521 / 8521 7489 / 7489 Output Total 5925 / 5925 6008 / 6008 6450 / 6450 6250 / 6250 Balance 1184 / 1184 2363 / 2363 2071 / 2071 1239 / 1239 Physical Exam Oriented: Unable to test Eyes: Normal Ear: Normal Respiratory: Right, Left and Rhonchi Cardiovascular: Normal : Normal Auscultation: Bowel Sounds: Normal Tenderness: Normal Skin: Decreased Turgur Affect: Quiet Speech Pattern: Artificially Ventilated Laboratory and Diagnostics Result Diagrams: 03/05/21 04:59 03/05/21 04:59 Labs: 02/20/21 17:27 Blood Blood Culture - Final Methicillin Resis Staph Aureus 02/20/21 17:18 Blood Blood Culture - Final 02/18/21 14:02 Sputum - Endotracheal Wash Sputum Culture - Final 02/18/21 14:02 Sputum - Endotracheal Wash - Final Laboratory WBC 13.9 X10^3/uL (3.6-10.0) H 03/05/21 04:59 RBC 3.82 X10^6/uL (3.5-5.4) 03/05/21 04:59 Hgb 10.3 g/dL (12.0-16.0) L 03/05/21 04:59 Hct 31.9 % (36.0-47.0) L 03/05/21 04:59 MCV 83.5 fL (80.0-100.0) 03/05/21 04:59 MCH 27.0 pg (27.0-34.0) 03/05/21 04:59 MCHC 32.3 g/dL (33.0-35.0) L 03/05/21 04:59 RDW 15.3 % (11.6-16.5) 03/05/21 04:59 Plt Count 498 X10^3/uL (150.0-450.0) H 03/05/21 04:59 Plt Count Comment Adequate (ADEQUATE) 03/04/21 04:35 MPV 7.0 fL (7.4-11.0) L 03/05/21 04:59 Neut % (Auto) 84.4 % (42.0-75.0) H 03/05/21 04:59 Lymph % (Auto) 9.8 % (21.0-51.0) L 03/05/21 04:59 [place] % (Auto) 2.9 % (0.0-13.0) 03/05/21 04:59 Eos % (Auto) 2.3 % (0.9-2.9) 03/05/21 04:59 Baso % (Auto) 0.6 % (0.2-1.0) 03/05/21 04:59 Neut # (Auto) 11.7 x10^3/uL (2.2-4.8) H 03/05/21 04:59 Lymph # (Auto) 1.4 X10^3/uL (1.3-2.9) 03/05/21 04:59 [place] # (Auto) 0.4 x10^3/uL (0.3-0.8) 03/05/21 04:59 Eos # (Auto) 0.3 x10^3/uL (0.0-0.2) H 03/05/21 04:59 Baso # (Auto) 0.1 X10^3/uL (0.0-0.1) 03/05/21 04:59 Absolute Nucleated RBC 0.1 /100WBC 03/05/21 04:59 Total Counted 100 03/04/21 04:35 Neutrophils % (Manual) 95 % (39-76) H 03/04/21 04:35 Band Neutrophils % 1 % (0-10) 03/03/21 05:11 Lymphocytes % (Manual) 4 % (13-43) L 03/04/21 04:35 Monocytes % (Manual) 1 % (4-9) L 03/04/21 04:35 Plt Morphology Comment Normal (NORMAL) 03/04/21 04:35 RBC Morphology Abnormal (NORMAL) A 03/04/21 04:35 Hypochromasia Slight A 03/04/21 04:35 Microcytosis Slight A 02/18/21 04:51 Target Cells Present 03/03/21 05:11 D-Dimer 0.53 ug/ml (0.0-0.57) 02/13/21 11:17 Sample Site Radha 03/05/21 04:45 ABG pH 7.420 (7.35-7.45) 03/05/21 04:45 ABG pCO2 53.0 mmHg (35.0-45.0) H* 03/05/21 04:45 ABG pO2 64.0 mmHg (80.0-100.0) L 03/05/21 04:45 ABG HCO3 34.4 mmol/L (22-26) H* 03/05/21 04:45 ABG O2 Saturation 92.0 % (90-100) 03/05/21 04:45 ABG Base Excess 8.4 mmol/L (-2.0-2.0) H 03/05/21 04:45 Gregory Test N/a 03/05/21 04:45 A-a Gradient 262.0 mmHg 03/05/21 04:45 FiO2 55.0 03/05/21 04:45 Blood Gas Comments Jacy well ae 03/05/21 04:45 Sodium 137 mmol/L (136-145) 03/05/21 04:59 Corrected Sodium 138 mmol/L (136-145) 03/05/21 04:59 Potassium 4.3 mmol/L (3.5-5.1) 03/05/21 04:59 Chloride 98 mmol/L (98-107) 03/05/21 04:59 Carbon Dioxide 31.6 mmol/L (21-32) 03/05/21 04:59 BUN 17 mg/dL (7-18) 03/05/21 04:59 Creatinine 0.65 mg/dL (0.55-1.02) 03/05/21 04:59 Est GFR (MDRD) Af Amer > 60 (>60) 03/05/21 04:59 Est GFR (MDRD) Non-Af > 60 (>60) 03/05/21 04:59 Glucose 149 mg/dL (65-99) H 03/05/21 04:59 POC Glucose (mg/dL) 155 mg/dL (65-99) H 03/04/21 21:39 Hemoglobin A1c 13.4 % 02/14/21 04:50 Calcium 7.6 mg/dL (8.5-10.1) L 03/05/21 04:59 Corrected Calcium 9.5 mg/dL (8.5-10.1) 03/05/21 04:59 Magnesium 3.0 mg/dL (1.7-2.9) H 02/19/21 05:03 Total Bilirubin 0.30 mg/dL (0.2-1.0) 03/05/21 04:59 AST 22 Units/L (15-37) 03/05/21 04:59 ALT 47 Units/L (12-78) 03/05/21 04:59 Alkaline Phosphatase 130 Units/L (46-116) H 03/05/21 04:59 Creatine Kinase 119 Units/L (26-192) 02/13/21 11:19 CK-MB (CK-2) 1.3 ng/mL (0-4.0) 02/13/21 11:19 CK/CKMB % Calc 1.1 % (<4) 02/13/21 11:19 Troponin I < 0.02 ng/mL (0-1.5) 02/13/21 17:35 C-Reactive Protein 16.10 mg/L (0-3.0) H 02/25/21 04:45 B-Natriuretic Peptide 66.7 pg/mL (0-79) 02/16/21 05:05 Total Protein 5.3 g/dL (6.4-8.2) L 03/05/21 04:59 Albumin 1.6 g/dL (3.4-5.0) L 03/05/21 04:59 Globulin 3.7 g/dL (2.5-4.5) 03/05/21 04:59 Albumin/Globulin Ratio 0.4 Ratio (1.1-2.1) L 03/05/21 04:59 Specimen Type Catherized urine 02/16/21 04:20 Urine Color Pale yellow (YELLOW) 02/16/21 04:20 Urine Appearance Clear (CLEAR) 02/16/21 04:20 Urine pH 6.0 (5.0 - 8.0) 02/16/21 04:20 Ur Specific [place] 1.015 (1.000-1.030) 02/16/21 04:20 Urine Protein 1+ (NEGATIVE) 02/16/21 04:20 Urine Glucose (UA) 4+ (NEGATIVE) 02/16/21 04:20 Urine Ketones 1+ (NEGATIVE) 02/16/21 04:20 Urine Occult Blood Negative (NEGATIVE) 02/16/21 04:20 Urine Nitrite Negative (NEGATIVE) 02/16/21 04:20 Urine Bilirubin Negative (NEGATIVE) 02/16/21 04:20 Urine Urobilinogen Normal (NORMAL) 02/16/21 04:20 Ur Leukocyte Esterase Negative (NEGATIVE) 02/16/21 04:20 Urine RBC None seen /HPF (0-3) 02/16/21 04:20 Urine WBC None seen /HPF (0-5) 02/16/21 04:20 Ur Squamous Epith Cells Rare /HPF (NEGATIVE) 02/16/21 04:20 Urine Bacteria Negative /HPF (NEGATIVE) 02/16/21 04:20 Urine Yeast Few /HPF (NEGATIVE) 02/16/21 04:20 Ur Culture Indicated? No/not indicated 02/16/21 04:20 Vancomycin Trough 19.2 ug/mL (15-20) 03/03/21 08:20 Digoxin 1.51 ng/mL (0.9-2) 03/04/21 04:35 Radiology Reviewed: Yes Plan (1) Low blood pressure, not hypotension: Status: Acute (2) Anemia: Status: Chronic Narrative Support Text: Decrease Lopressor to 25mg bid from 50mg bid. Plan: Continue IV Protonix bid. (3) Sepsis due to methicillin resistant Staphylococcus aureus (MRSA): Status: Acute Plan: Continue Vancomycin. (4) Pneumonia due to COVID-19 virus: Status: Acute Plan: IV Levaquin and Invanz. Will ask Respiratory to try and ween down FiO2 today if patient tolerates it. Patient currently on FiO2 of 55. (5) COVID-19 virus infection: Status: Acute Plan: IV Remdesivir infusion was completed on 02/17/21 after 5 days of infusion. (6) Hyperglycemia: Status: Resolved Narrative Support Text: Blood glucose has been running lower. Plan: Hold Levemir at this time. (7) HTN (hypertension): Status: Chronic Plan: Lopressor 25mg bid. (8) Respiratory failure: Status: Acute Plan: Continue patient on ventilator. Ween down FiO2 as tolerated. FiO2 is 55 this am. Decrease Solumedrol to IV 80mg daily from bid.
[2021-03-05] MEDS: INVANZ INJ 1 GM VIAL 1 GM in NS 100 ML IV 100 ML IV SCH (09:16)
[2021-03-05] MEDS: PULMICORT NEB TX 0.5 MG NEB SCH ×2 (10:00→20:40)
[2021-03-05] MEDS: BROVANA IN SCH ×2 (10:00→20:40)
[2021-03-05] MEDS: VANCOMYCIN IV *PREMIX 750 mg/150 ML BAG 750 MG/150 ML PIGGYBACK IV SCH ×2 (10:22→22:09)
[2021-03-05] MEDS: HumuLIN R SC PRN ×3 (11:27→22:05)
[2021-03-05] MEDS: VERSED IV PREMIX 100 MG/100 ML IV.SOLN IV PRN (12:30)
[2021-03-05 20:24] LABS: CREATININE 0.67 mg/dL (0.55-1.02); VANCOMYCIN,TROUGH 19.5 ug/mL (15-20)
[2021-03-05] MEDS: SNACK - Diabetic Appropriate PO SCH (22:05)
[2021-03-05] MEDS: BUTT CREAM (COMPOUND) TOP PRN (22:09)
[2021-03-06] MEDS: D5W 1000 ML IV 1,000 ML IV SCH ×5 (01:53→19:20)
[2021-03-06] MEDS: ZEMURON 100 MG VIAL 500 MG in NS 500 ML IV 450 ML IV PRN ×3 (01:54→15:59)
[2021-03-06] MEDS: ASCORBIC ACID INJ MULTI-DOSE VIAL 1,500 MG in NS 50 ML IV 50 ML IV SCH ×4 (02:59→20:41)
[2021-03-06 04:20] LABS: ABG BASE EXCESS 9.7 mmol/L (-2.0-2.0)
[2021-03-06 04:22] LABS: ABG HCO3 35.8 mmol/L (22-26)
[2021-03-06 05:26] LABS: BASOPHILS # (AUTO) 0.1 X10^3/uL (0.0-0.1); BASOPHILS % (AUTO) 0.7 % (0.2-1.0); EOSINOPHILS # (AUTO) 0.3 x10^3/uL (0.0-0.2); EOSINOPHILS % (AUTO) 2.7 % (0.9-2.9); HEMATOCRIT 29.4 % (36.0-47.0); HEMOGLOBIN 9.5 g/dL (12.0-16.0); LYMPHOCYTES # (AUTO) 0.9 X10^3/uL (1.3-2.9); LYMPHOCYTES % (AUTO) 9.1 % (21.0-51.0); MEAN CORPUSCULAR HEMOGLOBIN 26.9 pg (27.0-34.0); MEAN CORPUSCULAR HGB CONC 32.3 g/dL (33.0-35.0); MEAN CORPUSCULAR VOLUME 83.4 fL (80.0-100.0); MEAN PLATELET VOLUME 6.9 fL (7.4-11.0); MONOCYTES # (AUTO) 0.3 x10^3/uL (0.3-0.8); MONOCYTES % (AUTO) 2.8 % (0.0-13.0); NEUTROPHILS # (AUTO) 8.6 x10^3/uL (2.2-4.8); NEUTROPHILS % (AUTO) 84.7 % (42.0-75.0); PLATELET COUNT 462 X10^3/uL (150.0-450.0); RED BLOOD COUNT 3.52 X10^6/uL (3.5-5.4); RED CELL DISTRIBUTION WIDTH 15.8 % (11.6-16.5); WHITE BLOOD COUNT 10.2 X10^3/uL (3.6-10.0)
[2021-03-06 05:36] LABS: ALANINE AMINOTRANSFERASE 38 Units/L (12-78); ALBUMIN 1.6 g/dL (3.4-5.0); ALKALINE PHOSPHATASE 123 Units/L (46-116); ASPARTATE AMINO TRANSFERASE 15 Units/L (15-37); BLOOD UREA NITROGEN 15 mg/dL (7-18); CALCIUM 7.9 mg/dL (8.5-10.1); CARBON DIOXIDE 32.2 mmol/L (21-32); CHLORIDE 104 mmol/L (98-107); COR CA(FOR HYPOALB) 9.8 mg/dL (8.5-10.1); COR NA(FOR HYPERGLY) 144 mmol/L (136-145); CREATININE 0.58 mg/dL (0.55-1.02); SODIUM 142 mmol/L (136-145); TOTAL PROTEIN 5.2 g/dL (6.4-8.2); eGFR NON BLACK RACES > 60 (>60)
--- NOTE | 2021-03-06 06:01 | RAD ---
HISTORYFollow-up COVID-19, respiratory failureSTUDYChest AP [id number] ent is rotated slightly to the right. There is an endotracheal tube in good position. There is a nasogastric tube in good position. Heart size is normal. Diffuse bilateral interstitial, ground-glass and some alveolar infiltrates are unchanged when compared to the prior examination. No pleural effusion or pneumothorax is identified. Bony thorax is unremarkable.IMPRESSIONNo change diffuse bilateral interstitial, ground-glass and some alveolar infiltrates.Electronically signed by: FLOR ESPINOZA (Mar 06, 2021 06:00:14)
[2021-03-06] MEDS: HumuLIN R SC PRN ×4 (06:03→21:07)
[2021-03-06] MEDS: VERSED IV PREMIX 100 MG/100 ML IV.SOLN IV PRN ×3 (09:00→23:10)
[2021-03-06] MEDS: DILANTIN INJ 100 MG VIAL IVP SCH ×2 (09:33→20:42)
[2021-03-06] MEDS: LACRI-LUBE S.O.P. AFFEYE SCH ×2 (09:34→21:05)
[2021-03-06] MEDS: LOVENOX INJ 30 MG SYR SC SCH ×2 (09:34→21:05)
[2021-03-06] MEDS: SOLU-Medrol 40 MG VIAL IVP SCH (09:37)
[2021-03-06] MEDS: PROTONIX INJ 40 MG VIAL IVP SCH ×2 (09:40→21:06)
[2021-03-06] MEDS ORDERED: NS 100 ML IV 100 ML ONE (09:46)
[2021-03-06] MEDS: LANOXIN INJ IVP SCH (09:54)
[2021-03-06] MEDS: INVANZ INJ 1 GM VIAL 1 GM in NS 100 ML IV 100 ML IV SCH (09:55)
[2021-03-06] MEDS: VITAMIN A PO SCH (09:55)
[2021-03-06] MEDS: BROVANA IN SCH ×2 (10:00→20:42)
[2021-03-06] MEDS: PULMICORT NEB TX 0.5 MG NEB SCH ×2 (10:00→20:42)
[2021-03-06] MEDS: DIPRIVAN PREMIX 1 GRAM IV 1,000 MG/100 ML VIAL IV PRN ×4 (10:50→18:33)
--- NOTE | 2021-03-06 19:49 | PCM.PROG ---
Progress Note Progress Note for Day of Date of Exam: 03/06/21 Subjective Subjective: Pt. ventilated. Past Medical Family Social History Past Med/Fam/Surg Hx: No changes since H&P Allergies: Allergies No Known Drug Allergies Allergy (Verified 02/12/21 08:46) Review of Systems ROS: No change since H&P Vital Signs and I&O's Vital Signs: Temperature 99.1 F Pulse Rate [Left Radial] 95 Pulse Rate 118 Respiratory Rate 28 Blood Pressure [Right Arm] 136/64 Blood Pressure [Left Arm] 131/67 Blood Pressure 120/57 O2 Sat by Pulse Oximetry 93 Intake and Output: Intake & Output 03/04/21 03/05/21 03/06/21 03/07/21 11:59 11:59 11:59 11:59 Intake Total 8521 / 8521 7989 / 7989 7453 / 7453 2256 / 2256 Output Total 6450 / 6450 8850 / 8850 4950 / 4950 2100 / 2100 Balance 2071 / 2070 -861 / -861 2503 / 2503 156 / 156 Physical Exam Oriented: Unable to test Eyes: Normal Respiratory: Right, Left and Rhonchi Cardiovascular: Normal Auscultation: Bowel Sounds: Normal Tenderness: Normal Skin: Decreased [place] Musculoskeletal: Normal Speech Pattern: Artificially Ventilated Laboratory and Diagnostics Result Diagrams: 03/06/21 05:03 03/06/21 05:03 Labs: 02/20/21 17:27 Blood Blood Culture - Final Methicillin Resis Staph Aureus 02/20/21 17:18 Blood Blood Culture - Final 02/18/21 14:02 Sputum - Endotracheal Wash Sputum Culture - Final 02/18/21 14:02 Sputum - Endotracheal Wash - Final Laboratory WBC 10.2 X10^3/uL (3.6-10.0) H 03/06/21 05:03 RBC 3.52 X10^6/uL (3.5-5.4) 03/06/21 05:03 Hgb 9.5 g/dL (12.0-16.0) L 03/06/21 05:03 Hct 29.4 % (36.0-47.0) L 03/06/21 05:03 MCV 83.4 fL (80.0-100.0) 03/06/21 05:03 MCH 26.9 pg (27.0-34.0) L 03/06/21 05:03 MCHC 32.3 g/dL (33.0-35.0) L 03/06/21 05:03 RDW 15.8 % (11.6-16.5) 03/06/21 05:03 Plt Count 462 X10^3/uL (150.0-450.0) H 03/06/21 05:03 Plt Count Comment Adequate (ADEQUATE) 03/04/21 04:35 MPV 6.9 fL (7.4-11.0) L 03/06/21 05:03 Neut % (Auto) 84.7 % (42.0-75.0) H 03/06/21 05:03 Lymph % (Auto) 9.1 % (21.0-51.0) L 03/06/21 05:03 [place] % (Auto) 2.8 % (0.0-13.0) 03/06/21 05:03 Eos % (Auto) 2.7 % (0.9-2.9) 03/06/21 05:03 Baso % (Auto) 0.7 % (0.2-1.0) 03/06/21 05:03 Neut # (Auto) 8.6 x10^3/uL (2.2-4.8) H 03/06/21 05:03 Lymph # (Auto) 0.9 X10^3/uL (1.3-2.9) L 03/06/21 05:03 [place] # (Auto) 0.3 x10^3/uL (0.3-0.8) 03/06/21 05:03 Eos # (Auto) 0.3 x10^3/uL (0.0-0.2) H 03/06/21 05:03 Baso # (Auto) 0.1 X10^3/uL (0.0-0.1) 03/06/21 05:03 Absolute Nucleated RBC 0.1 /100WBC 03/06/21 05:03 Total Counted 100 03/04/21 04:35 Neutrophils % (Manual) 95 % (39-76) H 03/04/21 04:35 Band Neutrophils % 1 % (0-10) 03/03/21 05:11 Lymphocytes % (Manual) 4 % (13-43) L 03/04/21 04:35 Monocytes % (Manual) 1 % (4-9) L 03/04/21 04:35 Plt Morphology Comment Normal (NORMAL) 03/04/21 04:35 RBC Morphology Abnormal (NORMAL) A 03/04/21 04:35 Hypochromasia Slight A 03/04/21 04:35 Microcytosis Slight A 02/18/21 04:51 Target Cells Present 03/03/21 05:11 D-Dimer 0.53 ug/ml (0.0-0.57) 02/13/21 11:17 Sample Site [place] 03/06/21 04:15 ABG pH 7.430 (7.35-7.45) 03/06/21 04:15 ABG pCO2 54.0 mmHg (35.0-45.0) H* 03/06/21 04:15 ABG pO2 68.0 mmHg (80.0-100.0) L 03/06/21 04:15 ABG HCO3 35.8 mmol/L (22-26) H* 03/06/21 04:15 ABG O2 Saturation 94.0 % (90-100) 03/06/21 04:15 ABG Base Excess 9.7 mmol/L (-2.0-2.0) H 03/06/21 04:15 Gregory Test N/a 03/06/21 04:15 A-a Gradient 221.0 mmHg 03/06/21 04:15 FiO2 50.0 03/06/21 04:15 Blood Gas Comments Jacy well ae 03/06/21 04:15 Sodium 142 mmol/L (136-145) 03/06/21 05:03 Corrected Sodium 144 mmol/L (136-145) 03/06/21 05:03 Potassium 4.1 mmol/L (3.5-5.1) 03/06/21 05:03 Chloride 104 mmol/L (98-107) 03/06/21 05:03 Carbon Dioxide 32.2 mmol/L (21-32) H 03/06/21 05:03 BUN 15 mg/dL (7-18) 03/06/21 05:03 Creatinine 0.58 mg/dL (0.55-1.02) 03/06/21 05:03 Est GFR (MDRD) Af Amer > 60 (>60) 03/06/21 05:03 Est GFR (MDRD) Non-Af > 60 (>60) 03/06/21 05:03 Glucose 163 mg/dL (65-99) H 03/06/21 05:03 POC Glucose (mg/dL) 240 mg/dL (65-99) H 03/06/21 19:35 Hemoglobin A1c 13.4 % 02/14/21 04:50 Calcium 7.9 mg/dL (8.5-10.1) L 03/06/21 05:03 Corrected Calcium 9.8 mg/dL (8.5-10.1) 03/06/21 05:03 Magnesium 3.0 mg/dL (1.7-2.9) H 02/19/21 05:03 Total Bilirubin 0.30 mg/dL (0.2-1.0) 03/06/21 05:03 AST 15 Units/L (15-37) 03/06/21 05:03 ALT 38 Units/L (12-78) 03/06/21 05:03 Alkaline Phosphatase 123 Units/L (46-116) H 03/06/21 05:03 Creatine Kinase 119 Units/L (26-192) 02/13/21 11:19 CK-MB (CK-2) 1.3 ng/mL (0-4.0) 02/13/21 11:19 CK/CKMB % Calc 1.1 % (<4) 02/13/21 11:19 Troponin I < 0.02 ng/mL (0-1.5) 02/13/21 17:35 C-Reactive Protein 16.10 mg/L (0-3.0) H 02/25/21 04:45 B-Natriuretic Peptide 66.7 pg/mL (0-79) 02/16/21 05:05 Total Protein 5.2 g/dL (6.4-8.2) L 03/06/21 05:03 Albumin 1.6 g/dL (3.4-5.0) L 03/06/21 05:03 Globulin 3.6 g/dL (2.5-4.5) 03/06/21 05:03 Albumin/Globulin Ratio 0.4 Ratio (1.1-2.1) L 03/06/21 05:03 Specimen Type Catherized urine 02/16/21 04:20 Urine Color Pale yellow (YELLOW) 02/16/21 04:20 Urine Appearance Clear (CLEAR) 02/16/21 04:20 Urine pH 6.0 (5.0 - 8.0) 02/16/21 04:20 Ur Specific [place] 1.015 (1.000-1.030) 02/16/21 04:20 Urine Protein 1+ (NEGATIVE) 02/16/21 04:20 Urine Glucose (UA) 4+ (NEGATIVE) 02/16/21 04:20 Urine Ketones 1+ (NEGATIVE) 02/16/21 04:20 Urine Occult Blood Negative (NEGATIVE) 02/16/21 04:20 Urine Nitrite Negative (NEGATIVE) 02/16/21 04:20 Urine Bilirubin Negative (NEGATIVE) 02/16/21 04:20 Urine Urobilinogen Normal (NORMAL) 02/16/21 04:20 Ur Leukocyte Esterase Negative (NEGATIVE) 02/16/21 04:20 Urine RBC None seen /HPF (0-3) 02/16/21 04:20 Urine WBC None seen /HPF (0-5) 02/16/21 04:20 Ur Squamous Epith Cells Rare /HPF (NEGATIVE) 02/16/21 04:20 Urine Bacteria Negative /HPF (NEGATIVE) 02/16/21 04:20 Urine Yeast Few /HPF (NEGATIVE) 02/16/21 04:20 Ur Culture Indicated? No/not indicated 02/16/21 04:20 Vancomycin Trough 19.5 ug/mL (15-20) 03/05/21 19:53 Digoxin 1.51 ng/mL (0.9-2) 03/04/21 04:35 Radiology Reviewed: Yes Plan (1) Low blood pressure, not hypotension: Status: Acute Plan: hold lopressor for now. (2) Anemia: Status: Chronic Plan: Continue IV Protonix bid. (3) Sepsis due to methicillin resistant Staphylococcus aureus (MRSA): Status: Resolved Plan: d/c Vancomycin. (4) Pneumonia due to COVID-19 virus: Status: Acute Plan: IV Levaquin and Invanz. Will ask Respiratory to try and ween down FiO2 today if patient tolerates it. Patient currently on FiO2 of 45. (5) COVID-19 virus infection: Status: Acute Plan: IV Remdesivir infusion was completed on 02/17/21 after 5 days of infusion. (6) Hyperglycemia: Status: Resolved Plan: Hold Levemir at this time. (7) HTN (hypertension): Status: Chronic Plan: Lopressor 25mg bid. (8) Respiratory failure: Status: Acute Plan: Continue patient on ventilator. Ween down FiO2 as tolerated. FiO2 is 50 this am. On Solumedrol IV 80mg qday. Ween down sedation to see how patient does.
[2021-03-06] MEDS ORDERED: NS 500 ML IV 500 ML IV ONE (21:30)
[2021-03-07] MEDS: ZEMURON 100 MG VIAL 500 MG in NS 500 ML IV 450 ML IV PRN (02:45)
[2021-03-07] MEDS: ASCORBIC ACID INJ MULTI-DOSE VIAL 1,500 MG in NS 50 ML IV 50 ML IV SCH ×4 (04:00→20:31)
[2021-03-07 04:44] LABS: ABG BASE EXCESS 12.6 mmol/L (-2.0-2.0)
[2021-03-07 05:11] LABS: BASOPHILS # (AUTO) 0.1 X10^3/uL (0.0-0.1); BASOPHILS % (AUTO) 0.9 % (0.2-1.0); EOSINOPHILS # (AUTO) 0.2 x10^3/uL (0.0-0.2); EOSINOPHILS % (AUTO) 2.1 % (0.9-2.9); HEMOGLOBIN 9.3 g/dL (12.0-16.0); LYMPHOCYTES # (AUTO) 0.9 X10^3/uL (1.3-2.9); LYMPHOCYTES % (AUTO) 7.7 % (21.0-51.0); MEAN CORPUSCULAR HEMOGLOBIN 26.5 pg (27.0-34.0); MEAN PLATELET VOLUME 6.7 fL (7.4-11.0); MONOCYTES # (AUTO) 0.3 x10^3/uL (0.3-0.8); MONOCYTES % (AUTO) 2.6 % (0.0-13.0); NEUTROPHILS # (AUTO) 9.9 x10^3/uL (2.2-4.8); NEUTROPHILS % (AUTO) 86.7 % (42.0-75.0); PLATELET COUNT 452 X10^3/uL (150.0-450.0); RED BLOOD COUNT 3.49 X10^6/uL (3.5-5.4); RED CELL DISTRIBUTION WIDTH 16.1 % (11.6-16.5); WHITE BLOOD COUNT 11.4 X10^3/uL (3.6-10.0)
[2021-03-07 05:24] LABS: ALANINE AMINOTRANSFERASE 29 Units/L (12-78); ALBUMIN 1.6 g/dL (3.4-5.0); ALKALINE PHOSPHATASE 106 Units/L (46-116); ASPARTATE AMINO TRANSFERASE 16 Units/L (15-37); BLOOD UREA NITROGEN 13 mg/dL (7-18); CALCIUM 8.1 mg/dL (8.5-10.1); CARBON DIOXIDE 34.7 mmol/L (21-32); CHLORIDE 107 mmol/L (98-107); COR NA(FOR HYPERGLY) 146 mmol/L (136-145); CREATININE 0.53 mg/dL (0.55-1.02); SODIUM 145 mmol/L (136-145); TOTAL PROTEIN 5.5 g/dL (6.4-8.2); eGFR NON BLACK RACES > 60 (>60)
[2021-03-07] MEDS: DIPRIVAN PREMIX 1 GRAM IV 1,000 MG/100 ML VIAL IV PRN ×2 (06:00→13:51)
--- NOTE | 2021-03-07 06:36 | RAD ---
HISTORYCOVID PNEUMONIASTUDYCHEST, 1 VIEWCOMPARISONOne day prior.TECHNIQUEAP view of the chestFINDINGSET tube in good position. NG tube in good position. Cardiac and mediastinal contours are within normal limits. No significant change in bilateral airspace and interstitial opacities. No definite pleural effusion or pneumothorax.IMPRESSIONNo significant change.Electronically signed by: Mendel Edwards (Mar 07, 2021 06:34:22)
[2021-03-07] MEDS: D5W 1000 ML IV 1,000 ML IV SCH ×3 (06:37→18:00)
[2021-03-07] MEDS: DILANTIN INJ 100 MG VIAL IVP SCH ×2 (08:21→20:32)
[2021-03-07] MEDS: LANOXIN INJ IVP SCH (08:22)
[2021-03-07] MEDS: INVANZ INJ 1 GM VIAL 1 GM in NS 100 ML IV 100 ML IV SCH (08:22)
[2021-03-07] MEDS: LACRI-LUBE S.O.P. AFFEYE SCH ×2 (08:23→20:32)
[2021-03-07] MEDS: LOVENOX INJ 30 MG SYR SC SCH ×2 (08:23→20:32)
[2021-03-07] MEDS: PROTONIX INJ 40 MG VIAL IVP SCH ×2 (08:24→21:00)
[2021-03-07] MEDS: VITAMIN A PO SCH (08:24)
[2021-03-07] MEDS: SOLU-Medrol 40 MG VIAL IVP SCH (08:24)
[2021-03-07] MEDS: BROVANA IN SCH ×2 (09:30→20:25)
[2021-03-07] MEDS: PULMICORT NEB TX 0.5 MG NEB SCH ×2 (09:30→20:25)
[2021-03-07] MEDS: HumuLIN R SC PRN ×3 (11:19→20:33)
[2021-03-07] MEDS: VERSED IV PREMIX 100 MG/100 ML IV.SOLN IV PRN (18:00)
--- NOTE | 2021-03-07 20:54 | PCM.PROG ---
Progress Note Progress Note for Day of Date of Exam: 03/07/21 Subjective Subjective: Pt. ventilated. Past Medical Family Social History Past Med/Fam/Surg Hx: No changes since H&P Allergies: Allergies No Known Drug Allergies Allergy (Verified 02/12/21 08:46) Review of Systems ROS: No change since H&P Vital Signs and I&O's Vital Signs: Temperature 99.2 F Pulse Rate [Left Radial] 95 Pulse Rate 93 Respiratory Rate 25 Blood Pressure [Right Arm] 136/64 Blood Pressure [Left Arm] 131/67 Blood Pressure 128/58 O2 Sat by Pulse Oximetry 94 Intake and Output: Intake & Output 03/05/21 03/06/21 03/07/21 03/08/21 11:59 11:59 11:59 11:59 Intake Total 7989 / 7989 7453 / 7453 4334 / 4334 1460 / 1460 Output Total 8850 / 8850 4950 / 4950 6500 / 6500 2300 / 2300 Balance -861 / -861 2503 / 2503 -2166 / -2166 -840 / -840 Physical Exam Oriented: Unable to test Eyes: Normal Respiratory: Right, Left and Rhonchi Cardiovascular: Normal : Normal Auscultation: Bowel Sounds: Normal Tenderness: Normal Skin: Normal Musculoskeletal: negative Normal Speech Pattern: Artificially Ventilated Laboratory and Diagnostics Result Diagrams: 03/07/21 04:49 03/07/21 04:49 Labs: 02/20/21 17:27 Blood Blood Culture - Final Methicillin Resis Staph Aureus 02/20/21 17:18 Blood Blood Culture - Final 02/18/21 14:02 Sputum - Endotracheal Wash Sputum Culture - Final 02/18/21 14:02 Sputum - Endotracheal Wash - Final Laboratory WBC 11.4 X10^3/uL (3.6-10.0) H 03/07/21 04:49 RBC 3.49 X10^6/uL (3.5-5.4) L 03/07/21 04:49 Hgb 9.3 g/dL (12.0-16.0) L 03/07/21 04:49 Hct 29.0 % (36.0-47.0) L 03/07/21 04:49 MCV 83.0 fL (80.0-100.0) 03/07/21 04:49 MCH 26.5 pg (27.0-34.0) L 03/07/21 04:49 MCHC 32.0 g/dL (33.0-35.0) L 03/07/21 04:49 RDW 16.1 % (11.6-16.5) 03/07/21 04:49 Plt Count 452 X10^3/uL (150.0-450.0) H 03/07/21 04:49 Plt Count Comment Adequate (ADEQUATE) 03/04/21 04:35 MPV 6.7 fL (7.4-11.0) L 03/07/21 04:49 Neut % (Auto) 86.7 % (42.0-75.0) H 03/07/21 04:49 Lymph % (Auto) 7.7 % (21.0-51.0) L 03/07/21 04:49 [place] % (Auto) 2.6 % (0.0-13.0) 03/07/21 04:49 Eos % (Auto) 2.1 % (0.9-2.9) 03/07/21 04:49 Baso % (Auto) 0.9 % (0.2-1.0) 03/07/21 04:49 Neut # (Auto) 9.9 x10^3/uL (2.2-4.8) H 03/07/21 04:49 Lymph # (Auto) 0.9 X10^3/uL (1.3-2.9) L 03/07/21 04:49 [place] # (Auto) 0.3 x10^3/uL (0.3-0.8) 03/07/21 04:49 Eos # (Auto) 0.2 x10^3/uL (0.0-0.2) 03/07/21 04:49 Baso # (Auto) 0.1 X10^3/uL (0.0-0.1) 03/07/21 04:49 Absolute Nucleated RBC 0.1 /100WBC 03/07/21 04:49 Total Counted 100 03/04/21 04:35 Neutrophils % (Manual) 95 % (39-76) H 03/04/21 04:35 Band Neutrophils % 1 % (0-10) 03/03/21 05:11 Lymphocytes % (Manual) 4 % (13-43) L 03/04/21 04:35 Monocytes % (Manual) 1 % (4-9) L 03/04/21 04:35 Plt Morphology Comment Normal (NORMAL) 03/04/21 04:35 RBC Morphology Abnormal (NORMAL) A 03/04/21 04:35 Hypochromasia Slight A 03/04/21 04:35 Microcytosis Slight A 02/18/21 04:51 Target Cells Present 03/03/21 05:11 D-Dimer 0.53 ug/ml (0.0-0.57) 02/13/21 11:17 Sample Site A-line 03/07/21 04:39 ABG pH 7.480 (7.35-7.45) H 03/07/21 04:39 ABG pCO2 51.0 mmHg (35.0-45.0) H* 03/07/21 04:39 ABG pO2 60.0 mmHg (80.0-100.0) L 03/07/21 04:39 ABG HCO3 38.0 mmol/L (22-26) H* 03/07/21 04:39 ABG O2 Saturation 92.0 % (90-100) 03/07/21 04:39 ABG Base Excess 12.6 mmol/L (-2.0-2.0) H 03/07/21 04:39 Gregory Test N/a 03/07/21 04:39 A-a Gradient 197.0 mmHg 03/07/21 04:39 FiO2 45.0 03/07/21 04:39 Blood Gas Comments Pt amos well elj 03/07/21 04:39 Sodium 145 mmol/L (136-145) 03/07/21 04:49 Corrected Sodium 146 mmol/L (136-145) H 03/07/21 04:49 Potassium 4.0 mmol/L (3.5-5.1) 03/07/21 04:49 Chloride 107 mmol/L (98-107) 03/07/21 04:49 Carbon Dioxide 34.7 mmol/L (21-32) H 03/07/21 04:49 BUN 13 mg/dL (7-18) 03/07/21 04:49 Creatinine 0.53 mg/dL (0.55-1.02) L 03/07/21 04:49 Est GFR (MDRD) Af Amer > 60 (>60) 03/07/21 04:49 Est GFR (MDRD) Non-Af > 60 (>60) 03/07/21 04:49 Glucose 141 mg/dL (65-99) H 03/07/21 04:49 POC Glucose (mg/dL) 223 mg/dL (65-99) H 03/07/21 19:43 Hemoglobin A1c 13.4 % 02/14/21 04:50 Calcium 8.1 mg/dL (8.5-10.1) L 03/07/21 04:49 Corrected Calcium 10.0 mg/dL (8.5-10.1) 03/07/21 04:49 Magnesium 3.0 mg/dL (1.7-2.9) H 02/19/21 05:03 Total Bilirubin 0.30 mg/dL (0.2-1.0) 03/07/21 04:49 AST 16 Units/L (15-37) 03/07/21 04:49 ALT 29 Units/L (12-78) 03/07/21 04:49 Alkaline Phosphatase 106 Units/L (46-116) 03/07/21 04:49 Creatine Kinase 119 Units/L (26-192) 02/13/21 11:19 CK-MB (CK-2) 1.3 ng/mL (0-4.0) 02/13/21 11:19 CK/CKMB % Calc 1.1 % (<4) 02/13/21 11:19 Troponin I < 0.02 ng/mL (0-1.5) 02/13/21 17:35 C-Reactive Protein 16.10 mg/L (0-3.0) H 02/25/21 04:45 B-Natriuretic Peptide 66.7 pg/mL (0-79) 02/16/21 05:05 Total Protein 5.5 g/dL (6.4-8.2) L 03/07/21 04:49 Albumin 1.6 g/dL (3.4-5.0) L 03/07/21 04:49 Globulin 3.9 g/dL (2.5-4.5) 03/07/21 04:49 Albumin/Globulin Ratio 0.4 Ratio (1.1-2.1) L 03/07/21 04:49 Specimen Type Catherized urine 02/16/21 04:20 Urine Color Pale yellow (YELLOW) 02/16/21 04:20 Urine Appearance Clear (CLEAR) 02/16/21 04:20 Urine pH 6.0 (5.0 - 8.0) 02/16/21 04:20 Ur Specific [place] 1.015 (1.000-1.030) 02/16/21 04:20 Urine Protein 1+ (NEGATIVE) 02/16/21 04:20 Urine Glucose (UA) 4+ (NEGATIVE) 02/16/21 04:20 Urine Ketones 1+ (NEGATIVE) 02/16/21 04:20 Urine Occult Blood Negative (NEGATIVE) 02/16/21 04:20 Urine Nitrite Negative (NEGATIVE) 02/16/21 04:20 Urine Bilirubin Negative (NEGATIVE) 02/16/21 04:20 Urine Urobilinogen Normal (NORMAL) 02/16/21 04:20 Ur Leukocyte Esterase Negative (NEGATIVE) 02/16/21 04:20 Urine RBC None seen /HPF (0-3) 02/16/21 04:20 Urine WBC None seen /HPF (0-5) 02/16/21 04:20 Ur Squamous Epith Cells Rare /HPF (NEGATIVE) 02/16/21 04:20 Urine Bacteria Negative /HPF (NEGATIVE) 02/16/21 04:20 Urine Yeast Few /HPF (NEGATIVE) 02/16/21 04:20 Ur Culture Indicated? No/not indicated 02/16/21 04:20 Vancomycin Trough 19.5 ug/mL (15-20) 03/05/21 19:53 Digoxin 1.51 ng/mL (0.9-2) 03/04/21 04:35 Radiology Reviewed: Yes Plan (1) Low blood pressure, not hypotension: Status: Acute Plan: hold lopressor for now. (2) Anemia: Status: Chronic Plan: Continue IV Protonix bid. (3) Sepsis due to methicillin resistant Staphylococcus aureus (MRSA): Status: Resolved Plan: d/c Vancomycin. (4) Pneumonia due to COVID-19 virus: Status: Acute Plan: IV Levaquin and Invanz. Will ask Respiratory to try and ween down FiO2 today if patient tolerates it. Patient currently on FiO2 of 45. (5) COVID-19 virus infection: Status: Acute Plan: IV Remdesivir infusion was completed on 02/17/21 after 5 days of infusion. (6) Hyperglycemia: Status: Resolved Plan: Hold Levemir at this time. (7) HTN (hypertension): Status: Chronic Plan: Lopressor 25mg bid. (8) Respiratory failure: Status: Acute Plan: Continue patient on ventilator. Ween down FiO2 as tolerated. FiO2 is 45 this am. On Solumedrol IV 80mg qday. Ween down sedation to see how patient does. Sedation vacation this am.
[2021-03-08] MEDS: D5W 1000 ML IV 1,000 ML IV SCH ×3 (02:23→17:19)
[2021-03-08] MEDS: ASCORBIC ACID INJ MULTI-DOSE VIAL 1,500 MG in NS 50 ML IV 50 ML IV SCH ×4 (03:00→20:48)
--- NOTE | 2021-03-08 04:31 | RAD ---
PROCEDURE: Abdomen X-ray 1 View .HISTORY: NG tube placement.TECHNIQUE: AP supine abdomen view .COMPARISON: None .TECHNICAL QUALITY: Satisfactory .FINDINGS:NG tube tips projected just to the right of the L2 vertebral body and probably in the antrum of the stomach in good position.No dilated bowel loops.IMPRESSION:Good NG-tube placement.Electronically signed by: Cruz Jalloh (Mar 08, 2021 04:28:40)
[2021-03-08 04:37] LABS: ABG BASE EXCESS 14.1 mmol/L (-2.0-2.0)
[2021-03-08 04:39] LABS: ABG HCO3 39.6 mmol/L (22-26)
[2021-03-08 04:52] LABS: BASOPHILS # (AUTO) 0.1 X10^3/uL (0.0-0.1); BASOPHILS % (AUTO) 0.9 % (0.2-1.0); EOSINOPHILS # (AUTO) 0.3 x10^3/uL (0.0-0.2); HEMATOCRIT 27.2 % (36.0-47.0); HEMOGLOBIN 8.8 g/dL (12.0-16.0); LYMPHOCYTES # (AUTO) 0.9 X10^3/uL (1.3-2.9); LYMPHOCYTES % (AUTO) 10.3 % (21.0-51.0); MEAN CORPUSCULAR HEMOGLOBIN 26.9 pg (27.0-34.0); MEAN CORPUSCULAR HGB CONC 32.3 g/dL (33.0-35.0); MEAN CORPUSCULAR VOLUME 83.3 fL (80.0-100.0); MEAN PLATELET VOLUME 6.9 fL (7.4-11.0); MONOCYTES # (AUTO) 0.3 x10^3/uL (0.3-0.8); NEUTROPHILS # (AUTO) 7.2 x10^3/uL (2.2-4.8); NEUTROPHILS % (AUTO) 81.8 % (42.0-75.0); PLATELET COUNT 399 X10^3/uL (150.0-450.0); RED BLOOD COUNT 3.27 X10^6/uL (3.5-5.4); RED CELL DISTRIBUTION WIDTH 16.6 % (11.6-16.5); WHITE BLOOD COUNT 8.8 X10^3/uL (3.6-10.0)
[2021-03-08 05:05] LABS: ALANINE AMINOTRANSFERASE 26 Units/L (12-78); ALBUMIN 1.6 g/dL (3.4-5.0); ALKALINE PHOSPHATASE 92 Units/L (46-116); ASPARTATE AMINO TRANSFERASE 13 Units/L (15-37); BLOOD UREA NITROGEN 11 mg/dL (7-18); CALCIUM 7.8 mg/dL (8.5-10.1); CARBON DIOXIDE 36.7 mmol/L (21-32); CHLORIDE 104 mmol/L (98-107); COR CA(FOR HYPOALB) 9.7 mg/dL (8.5-10.1); COR NA(FOR HYPERGLY) 142 mmol/L (136-145); CREATININE 0.47 mg/dL (0.55-1.02); SODIUM 142 mmol/L (136-145); TOTAL PROTEIN 5.5 g/dL (6.4-8.2); eGFR NON BLACK RACES > 60 (>60)
[2021-03-08] MEDS: DIPRIVAN PREMIX 1 GRAM IV 1,000 MG/100 ML VIAL IV PRN (05:45)
--- NOTE | 2021-03-08 06:02 | RAD ---
HISTORYFollow-up COVID-19STUDYChest AP [id number] e is an endotracheal tube in good position. There is a nasogastric tube coursing below the left hemidiaphragm. Its tip is not visible. Heart size is difficult to assess due to obscuration of both heart borders by diffuse bilateral ground-glass and alveolar infiltrates which are unchanged. No pleural effusion or pneumothorax is identified. Bony thorax is unremarkable.IMPRESSIONNo significant change from the prior examinationElectronically signed by: FLOR ESPINOZA (Mar 08, 2021 06:00:04)
[2021-03-08] MEDS: PULMICORT NEB TX 0.5 MG NEB SCH ×2 (08:30→20:26)
[2021-03-08] MEDS: BROVANA IN SCH ×2 (08:30→20:26)
[2021-03-08] MEDS: LOVENOX INJ 30 MG SYR SC SCH ×2 (08:36→20:49)
[2021-03-08] MEDS: VITAMIN A PO SCH (08:36)
[2021-03-08] MEDS: LANOXIN INJ IVP SCH (08:37)
[2021-03-08] MEDS: LACRI-LUBE S.O.P. AFFEYE SCH ×2 (08:38→20:49)
[2021-03-08] MEDS: DILANTIN INJ 100 MG VIAL IVP SCH ×2 (08:38→20:48)
[2021-03-08] MEDS: INVANZ INJ 1 GM VIAL 1 GM in NS 100 ML IV 100 ML IV SCH (08:38)
[2021-03-08] MEDS: SOLU-Medrol 40 MG VIAL IVP SCH (08:39)
[2021-03-08] MEDS: PROTONIX INJ 40 MG VIAL IVP SCH ×2 (08:39→20:50)
[2021-03-08] MEDS ORDERED: ALBUMIN HUMAN 25%- 100 ML 100 ML IV ONE (08:42)
[2021-03-08] MEDS: HumuLIN R SC PRN ×2 (11:38→17:00)
[2021-03-08] MEDS: VERSED IV PREMIX 100 MG/100 ML IV.SOLN IV PRN (17:10)
--- NOTE | 2021-03-08 19:27 | PCM.PROG ---
Progress Note Progress Note for Day of Date of Exam: 03/08/21 Subjective Subjective: Pt. ventilated. Past Medical Family Social History Past Med/Fam/Surg Hx: No changes since H&P Allergies: Allergies No Known Drug Allergies Allergy (Verified 02/12/21 08:46) Review of Systems ROS: No change since H&P Vital Signs and I&O's Vital Signs: Temperature 99.4 F Pulse Rate [Left Radial] 95 Pulse Rate 107 Respiratory Rate 29 Blood Pressure [Right Arm] 136/64 Blood Pressure [Left Arm] 131/67 Blood Pressure 131/61 O2 Sat by Pulse Oximetry 92 Intake and Output: Intake & Output 03/06/21 03/07/21 03/08/21 03/09/21 11:59 11:59 11:59 11:59 Intake Total 7453 / 7453 4334 / 4334 2637 / 2637 1440 / 1440 Output Total 4950 / 4950 6500 / 6500 4875 / 4875 2100 / 2100 Balance 2503 / 2503 -2166 / -2166 -2238 / -2238 -660 / -660 Physical Exam Oriented: Unable to test Eyes: Normal Respiratory: Right, Left and Rhonchi Cardiovascular: Normal Auscultation: Bowel Sounds: Normal Tenderness: Normal Skin: Normal Speech Pattern: Artificially Ventilated Laboratory and Diagnostics Result Diagrams: 03/08/21 03:58 03/08/21 03:58 Labs: 02/20/21 17:27 Blood Blood Culture - Final Methicillin Resis Staph Aureus 02/20/21 17:18 Blood Blood Culture - Final 02/18/21 14:02 Sputum - Endotracheal Wash Sputum Culture - Final 02/18/21 14:02 Sputum - Endotracheal Wash - Final Laboratory WBC 8.8 X10^3/uL (3.6-10.0) 03/08/21 03:58 RBC 3.27 X10^6/uL (3.5-5.4) L 03/08/21 03:58 Hgb 8.8 g/dL (12.0-16.0) L 03/08/21 03:58 Hct 27.2 % (36.0-47.0) L 03/08/21 03:58 MCV 83.3 fL (80.0-100.0) 03/08/21 03:58 MCH 26.9 pg (27.0-34.0) L 03/08/21 03:58 MCHC 32.3 g/dL (33.0-35.0) L 03/08/21 03:58 RDW 16.6 % (11.6-16.5) H 03/08/21 03:58 Plt Count 399 X10^3/uL (150.0-450.0) 03/08/21 03:58 Plt Count Comment Adequate (ADEQUATE) 03/04/21 04:35 MPV 6.9 fL (7.4-11.0) L 03/08/21 03:58 Neut % (Auto) 81.8 % (42.0-75.0) H 03/08/21 03:58 Lymph % (Auto) 10.3 % (21.0-51.0) L 03/08/21 03:58 [place] % (Auto) 3.0 % (0.0-13.0) 03/08/21 03:58 Eos % (Auto) 4.0 % (0.9-2.9) H 03/08/21 03:58 Baso % (Auto) 0.9 % (0.2-1.0) 03/08/21 03:58 Neut # (Auto) 7.2 x10^3/uL (2.2-4.8) H 03/08/21 03:58 Lymph # (Auto) 0.9 X10^3/uL (1.3-2.9) L 03/08/21 03:58 [place] # (Auto) 0.3 x10^3/uL (0.3-0.8) 03/08/21 03:58 Eos # (Auto) 0.3 x10^3/uL (0.0-0.2) H 03/08/21 03:58 Baso # (Auto) 0.1 X10^3/uL (0.0-0.1) 03/08/21 03:58 Absolute Nucleated RBC 0.0 /100WBC 03/08/21 03:58 Total Counted 100 03/04/21 04:35 Neutrophils % (Manual) 95 % (39-76) H 03/04/21 04:35 Band Neutrophils % 1 % (0-10) 03/03/21 05:11 Lymphocytes % (Manual) 4 % (13-43) L 03/04/21 04:35 Monocytes % (Manual) 1 % (4-9) L 03/04/21 04:35 Plt Morphology Comment Normal (NORMAL) 03/04/21 04:35 RBC Morphology Abnormal (NORMAL) A 03/04/21 04:35 Hypochromasia Slight A 03/04/21 04:35 Microcytosis Slight A 02/18/21 04:51 Target Cells Present 03/03/21 05:11 D-Dimer 0.53 ug/ml (0.0-0.57) 02/13/21 11:17 Sample Site A-line 03/08/21 04:26 ABG pH 7.490 (7.35-7.45) H 03/08/21 04:26 ABG pCO2 52.0 mmHg (35.0-45.0) H* 03/08/21 04:26 ABG pO2 58.0 mmHg (80.0-100.0) L 03/08/21 04:26 ABG HCO3 39.6 mmol/L (22-26) H* 03/08/21 04:26 ABG O2 Saturation 92.0 % (90-100) 03/08/21 04:26 ABG Base Excess 14.1 mmol/L (-2.0-2.0) H 03/08/21 04:26 Gregory Test N/a 03/08/21 04:26 A-a Gradient 162.0 mmHg 03/08/21 04:26 FiO2 40.0 03/08/21 04:26 Blood Gas Comments Pt amos well sa 03/08/21 04:26 Sodium 142 mmol/L (136-145) 03/08/21 03:58 Corrected Sodium 142 mmol/L (136-145) 03/08/21 03:58 Potassium 3.8 mmol/L (3.5-5.1) 03/08/21 03:58 Chloride 104 mmol/L (98-107) 03/08/21 03:58 Carbon Dioxide 36.7 mmol/L (21-32) H 03/08/21 03:58 BUN 11 mg/dL (7-18) 03/08/21 03:58 Creatinine 0.47 mg/dL (0.55-1.02) L 03/08/21 03:58 Est GFR (MDRD) Af Amer > 60 (>60) 03/08/21 03:58 Est GFR (MDRD) Non-Af > 60 (>60) 03/08/21 03:58 Glucose 118 mg/dL (65-99) H 03/08/21 03:58 POC Glucose (mg/dL) 278 mg/dL (65-99) H 03/08/21 16:51 Hemoglobin A1c 13.4 % 02/14/21 04:50 Calcium 7.8 mg/dL (8.5-10.1) L 03/08/21 03:58 Corrected Calcium 9.7 mg/dL (8.5-10.1) 03/08/21 03:58 Magnesium 3.0 mg/dL (1.7-2.9) H 02/19/21 05:03 Total Bilirubin 0.40 mg/dL (0.2-1.0) 03/08/21 03:58 AST 13 Units/L (15-37) L 03/08/21 03:58 ALT 26 Units/L (12-78) 03/08/21 03:58 Alkaline Phosphatase 92 Units/L (46-116) 03/08/21 03:58 Creatine Kinase 119 Units/L (26-192) 02/13/21 11:19 CK-MB (CK-2) 1.3 ng/mL (0-4.0) 02/13/21 11:19 CK/CKMB % Calc 1.1 % (<4) 02/13/21 11:19 Troponin I < 0.02 ng/mL (0-1.5) 02/13/21 17:35 C-Reactive Protein 16.10 mg/L (0-3.0) H 02/25/21 04:45 B-Natriuretic Peptide 66.7 pg/mL (0-79) 02/16/21 05:05 Total Protein 5.5 g/dL (6.4-8.2) L 03/08/21 03:58 Albumin 1.6 g/dL (3.4-5.0) L 03/08/21 03:58 Globulin 3.9 g/dL (2.5-4.5) 03/08/21 03:58 Albumin/Globulin Ratio 0.4 Ratio (1.1-2.1) L 03/08/21 03:58 Specimen Type Catherized urine 02/16/21 04:20 Urine Color Pale yellow (YELLOW) 02/16/21 04:20 Urine Appearance Clear (CLEAR) 02/16/21 04:20 Urine pH 6.0 (5.0 - 8.0) 02/16/21 04:20 Ur Specific Wellman 1.015 (1.000-1.030) 02/16/21 04:20 Urine Protein 1+ (NEGATIVE) 02/16/21 04:20 Urine Glucose (UA) 4+ (NEGATIVE) 02/16/21 04:20 Urine Ketones 1+ (NEGATIVE) 02/16/21 04:20 Urine Occult Blood Negative (NEGATIVE) 02/16/21 04:20 Urine Nitrite Negative (NEGATIVE) 02/16/21 04:20 Urine Bilirubin Negative (NEGATIVE) 02/16/21 04:20 Urine Urobilinogen Normal (NORMAL) 02/16/21 04:20 Ur Leukocyte Esterase Negative (NEGATIVE) 02/16/21 04:20 Urine RBC None seen /HPF (0-3) 02/16/21 04:20 Urine WBC None seen /HPF (0-5) 02/16/21 04:20 Ur Squamous Epith Cells Rare /HPF (NEGATIVE) 02/16/21 04:20 Urine Bacteria Negative /HPF (NEGATIVE) 02/16/21 04:20 Urine Yeast Few /HPF (NEGATIVE) 02/16/21 04:20 Ur Culture Indicated? No/not indicated 02/16/21 04:20 Vancomycin Trough 19.5 ug/mL (15-20) 03/05/21 19:53 Digoxin 1.51 ng/mL (0.9-2) 03/04/21 04:35 Radiology Reviewed: Yes Plan (1) Respiratory failure: Status: Acute Plan: Continue patient on ventilator. Ween down FiO2 as tolerated. FiO2 is 40 this am. On Solumedrol IV 80mg qday. Ween down sedation to see how patient does. Sedation vacation this am. (2) HTN (hypertension): Status: Chronic Plan: Lopressor 25mg bid. (3) Anemia: Status: Chronic Plan: Continue IV Protonix bid. cbc in am. (4) Pneumonia due to COVID-19 virus: Status: Acute Plan: IV Levaquin and Invanz. Will ask Respiratory to try and ween down FiO2 today if patient tolerates it. Patient currently on FiO2 of 45. (5) COVID-19 virus infection: Status: Resolved Plan: IV Remdesivir infusion was completed on 02/17/21 after 5 days of infusion. (6) Hyperglycemia: Status: Resolved Plan: Hold Levemir at this time.
[2021-03-09] MEDS: ASCORBIC ACID INJ MULTI-DOSE VIAL 1,500 MG in NS 50 ML IV 50 ML IV SCH ×4 (02:21→20:25)
[2021-03-09 04:28] LABS: ABG BASE EXCESS 14.8 mmol/L (-2.0-2.0)
[2021-03-09 04:29] LABS: ABG HCO3 40.4 mmol/L (22-26)
[2021-03-09] MEDS: D5W 1000 ML IV 1,000 ML IV SCH ×3 (04:48→17:24)
[2021-03-09] MEDS: DIPRIVAN PREMIX 1 GRAM IV 1,000 MG/100 ML VIAL IV PRN ×2 (05:05→15:18)
[2021-03-09 05:15] LABS: BASOPHILS # (AUTO) 0.1 X10^3/uL (0.0-0.1); BASOPHILS % (AUTO) 1.2 % (0.2-1.0); EOSINOPHILS # (AUTO) 0.4 x10^3/uL (0.0-0.2); EOSINOPHILS % (AUTO) 4.7 % (0.9-2.9); HEMATOCRIT 27.3 % (36.0-47.0); HEMOGLOBIN 8.9 g/dL (12.0-16.0); LYMPHOCYTES # (AUTO) 0.8 X10^3/uL (1.3-2.9); LYMPHOCYTES % (AUTO) 10.6 % (21.0-51.0); MEAN CORPUSCULAR HEMOGLOBIN 27.1 pg (27.0-34.0); MEAN CORPUSCULAR HGB CONC 32.7 g/dL (33.0-35.0); MEAN CORPUSCULAR VOLUME 82.8 fL (80.0-100.0); MEAN PLATELET VOLUME 6.6 fL (7.4-11.0); MONOCYTES # (AUTO) 0.3 x10^3/uL (0.3-0.8); MONOCYTES % (AUTO) 4.2 % (0.0-13.0); NEUTROPHILS # (AUTO) 6.2 x10^3/uL (2.2-4.8); NEUTROPHILS % (AUTO) 79.3 % (42.0-75.0); PLATELET COUNT 351 X10^3/uL (150.0-450.0); RED CELL DISTRIBUTION WIDTH 16.1 % (11.6-16.5); WHITE BLOOD COUNT 7.9 X10^3/uL (3.6-10.0)
[2021-03-09 05:22] LABS: ALANINE AMINOTRANSFERASE 43 Units/L (12-78); ALBUMIN 2.1 g/dL (3.4-5.0); ALKALINE PHOSPHATASE 90 Units/L (46-116); ASPARTATE AMINO TRANSFERASE 22 Units/L (15-37); BLOOD UREA NITROGEN 10 mg/dL (7-18); CHLORIDE 101 mmol/L (98-107); COR CA(FOR HYPOALB) 9.5 mg/dL (8.5-10.1); COR NA(FOR HYPERGLY) 142 mmol/L (136-145); CREATININE 0.51 mg/dL (0.55-1.02); SODIUM 141 mmol/L (136-145); TOTAL PROTEIN 5.9 g/dL (6.4-8.2); eGFR NON BLACK RACES > 60 (>60)
[2021-03-09] MEDS: PROTONIX INJ 40 MG VIAL IVP SCH ×2 (08:16→20:25)
[2021-03-09] MEDS: VITAMIN A PO SCH (08:16)
[2021-03-09] MEDS: LOVENOX INJ 30 MG SYR SC SCH ×2 (08:18→20:50)
[2021-03-09] MEDS: INVANZ INJ 1 GM VIAL 1 GM in NS 100 ML IV 100 ML IV SCH (08:18)
[2021-03-09] MEDS: LACRI-LUBE S.O.P. AFFEYE SCH ×2 (08:18→20:27)
[2021-03-09] MEDS: DILANTIN INJ 100 MG VIAL IVP SCH ×2 (08:18→20:50)
[2021-03-09] MEDS: SOLU-Medrol 40 MG VIAL IVP SCH (08:19)
[2021-03-09] MEDS: PULMICORT NEB TX 0.5 MG NEB SCH ×2 (08:50→20:28)
[2021-03-09] MEDS: BROVANA IN SCH ×2 (08:50→20:28)
--- NOTE | 2021-03-09 09:49 | RAD ---
HISTORYCOVID PNEUMONIA SX: HYSTERECTOMYSTUDYCHEST, 1 [id number] right greater than left infiltrates persist and appear worsened since prior exam. Cardiac silhouette is again obscured by the bilateral lung infiltrates. No significant pleural effusion is identified. Support lines and tubes remain stable/satisfactory in position without pneumothorax.IMPRESSIONPersistent and worsening multifocal pneumonia.Electronically signed by: COREY SEGOVIA (Mar 09, 2021 09:47:25)
[2021-03-09] MEDS: VERSED IV PREMIX 100 MG/100 ML IV.SOLN IV PRN (10:28)
[2021-03-09] MEDS: HumuLIN R SC PRN ×2 (11:38→16:08)
[2021-03-10] MEDS: VERSED IV PREMIX 100 MG/100 ML IV.SOLN IV PRN ×2 (02:17→16:54)
[2021-03-10] MEDS: D5W 1000 ML IV 1,000 ML IV SCH ×3 (03:00→17:25)
[2021-03-10] MEDS: ASCORBIC ACID INJ MULTI-DOSE VIAL 1,500 MG in NS 50 ML IV 50 ML IV SCH ×4 (03:00→20:22)
[2021-03-10 04:21] LABS: ABG BASE EXCESS 13.7 mmol/L (-2.0-2.0)
[2021-03-10 04:23] LABS: ABG HCO3 39.8 mmol/L (22-26)
[2021-03-10 04:49] LABS: BASOPHILS % (AUTO) 0.6 % (0.2-1.0); EOSINOPHILS # (AUTO) 0.4 x10^3/uL (0.0-0.2); EOSINOPHILS % (AUTO) 7.4 % (0.9-2.9); HEMATOCRIT 25.8 % (36.0-47.0); HEMOGLOBIN 8.6 g/dL (12.0-16.0); LYMPHOCYTES # (AUTO) 0.7 X10^3/uL (1.3-2.9); LYMPHOCYTES % (AUTO) 12.4 % (21.0-51.0); MEAN CORPUSCULAR HEMOGLOBIN 27.6 pg (27.0-34.0); MEAN CORPUSCULAR HGB CONC 33.4 g/dL (33.0-35.0); MEAN CORPUSCULAR VOLUME 82.6 fL (80.0-100.0); MEAN PLATELET VOLUME 6.5 fL (7.4-11.0); MONOCYTES # (AUTO) 0.2 x10^3/uL (0.3-0.8); MONOCYTES % (AUTO) 4.3 % (0.0-13.0); NEUTROPHILS # (AUTO) 4.4 x10^3/uL (2.2-4.8); NEUTROPHILS % (AUTO) 75.3 % (42.0-75.0); PLATELET COUNT 325 X10^3/uL (150.0-450.0); RED BLOOD COUNT 3.12 X10^6/uL (3.5-5.4); RED CELL DISTRIBUTION WIDTH 16.8 % (11.6-16.5); WHITE BLOOD COUNT 5.8 X10^3/uL (3.6-10.0)
[2021-03-10 05:04] LABS: ALANINE AMINOTRANSFERASE 39 Units/L (12-78); ALBUMIN 1.9 g/dL (3.4-5.0); ALKALINE PHOSPHATASE 88 Units/L (46-116); ASPARTATE AMINO TRANSFERASE 16 Units/L (15-37); BLOOD UREA NITROGEN 9 mg/dL (7-18); CALCIUM 8.3 mg/dL (8.5-10.1); CHLORIDE 104 mmol/L (98-107); COR NA(FOR HYPERGLY) 146 mmol/L (136-145); CREATININE 0.46 mg/dL (0.55-1.02); SODIUM 144 mmol/L (136-145); TOTAL PROTEIN 5.9 g/dL (6.4-8.2); eGFR NON BLACK RACES > 60 (>60)
[2021-03-10] MEDS: DIPRIVAN PREMIX 1 GRAM IV 1,000 MG/100 ML VIAL IV PRN ×3 (05:39→23:57)
[2021-03-10] MEDS: KLOR-CON PO PRN (05:50)
[2021-03-10] MEDS: HumuLIN R SC PRN ×3 (05:51→16:14)
--- NOTE | 2021-03-10 06:35 | RAD ---
HISTORYCOVID PNEUMONIA SX: HYSTERECTOMYSTUDYCHEST, 1 [id number]/16/2021FINDINGSCardiac silhouette is stable in size. There are diffuse right greater than left interstitial and alveolar opacities, which appear essentially unchanged since prior. No significant pleural effusion is identified. Support lines and tubes appear stable/satisfactory in position without pneumothorax.IMPRESSIONPersistent but stable bilateral airspace disease.Electronically signed by: COREY SEGOVIA (Mar 10, 2021 06:33:39)
[2021-03-10] MEDS: DILANTIN INJ 100 MG VIAL IVP SCH ×2 (08:09→20:23)
[2021-03-10] MEDS: SOLU-Medrol 40 MG VIAL IVP SCH (08:10)
[2021-03-10] MEDS: VITAMIN A PO SCH (08:10)
[2021-03-10] MEDS: LOVENOX INJ 30 MG SYR SC SCH ×2 (08:10→20:23)
[2021-03-10] MEDS: INVANZ INJ 1 GM VIAL 1 GM in NS 100 ML IV 100 ML IV SCH (08:10)
[2021-03-10] MEDS: LACRI-LUBE S.O.P. AFFEYE SCH ×2 (08:11→20:24)
[2021-03-10] MEDS: PROTONIX INJ 40 MG VIAL IVP SCH ×2 (08:11→20:23)
[2021-03-10] MEDS: PULMICORT NEB TX 0.5 MG NEB SCH ×2 (08:55→21:30)
[2021-03-10] MEDS: BROVANA IN SCH ×2 (08:55→21:30)
[2021-03-11] MEDS: ASCORBIC ACID INJ MULTI-DOSE VIAL 1,500 MG in NS 50 ML IV 50 ML IV SCH ×4 (04:00→20:11)
[2021-03-11] MEDS: VERSED IV PREMIX 100 MG/100 ML IV.SOLN IV PRN ×2 (04:47→19:40)
--- NOTE | 2021-03-11 05:34 | RAD ---
HISTORYVENTILATOR DEPENDENCE SX: HYSTERECTOMYSTUDYCHEST, 1 [id number]/17/2021FINDINGSThe trachea is midline. Endotracheal tube above the alejandra. NG tube below the hemidiaphragm. The cardiac silhouette is stable. Diffuse interstitial infiltrates right greater than left unchanged. No pneumothorax.. The bony thorax is unremarkable.IMPRESSIONStable portable chestElectronically signed by: Danilo Tariq (Mar 11, 2021 05:32:40)
[2021-03-11] MEDS: D5W 1000 ML IV 1,000 ML IV SCH ×3 (05:41→18:04)
[2021-03-11] MEDS: HumuLIN R SC PRN ×3 (05:41→16:17)
[2021-03-11 05:55] LABS: ABG BASE EXCESS 16.9 mmol/L (-2.0-2.0); ABG HCO3 43.2 mmol/L (22-26)
[2021-03-11 06:23] LABS: BASOPHILS % (AUTO) 0.5 % (0.2-1.0); EOSINOPHILS # (AUTO) 0.5 x10^3/uL (0.0-0.2); EOSINOPHILS % (AUTO) 9.9 % (0.9-2.9); HEMATOCRIT 26.8 % (36.0-47.0); HEMOGLOBIN 8.8 g/dL (12.0-16.0); LYMPHOCYTES # (AUTO) 0.6 X10^3/uL (1.3-2.9); MEAN CORPUSCULAR HEMOGLOBIN 27.6 pg (27.0-34.0); MEAN CORPUSCULAR HGB CONC 32.8 g/dL (33.0-35.0); MEAN CORPUSCULAR VOLUME 83.9 fL (80.0-100.0); MEAN PLATELET VOLUME 6.3 fL (7.4-11.0); MONOCYTES # (AUTO) 0.2 x10^3/uL (0.3-0.8); MONOCYTES % (AUTO) 4.9 % (0.0-13.0); NEUTROPHILS # (AUTO) 3.7 x10^3/uL (2.2-4.8); NEUTROPHILS % (AUTO) 72.7 % (42.0-75.0); PLATELET COUNT 296 X10^3/uL (150.0-450.0); RED BLOOD COUNT 3.19 X10^6/uL (3.5-5.4); WHITE BLOOD COUNT 5.1 X10^3/uL (3.6-10.0)
[2021-03-11 06:30] LABS: ALANINE AMINOTRANSFERASE 30 Units/L (12-78); ALBUMIN 1.9 g/dL (3.4-5.0); ALKALINE PHOSPHATASE 86 Units/L (46-116); ASPARTATE AMINO TRANSFERASE 13 Units/L (15-37); BLOOD UREA NITROGEN 8 mg/dL (7-18); CALCIUM 8.5 mg/dL (8.5-10.1); CHLORIDE 103 mmol/L (98-107); COR CA(FOR HYPOALB) 10.2 mg/dL (8.5-10.1); COR NA(FOR HYPERGLY) 145 mmol/L (136-145); CREATININE 0.49 mg/dL (0.55-1.02); SODIUM 143 mmol/L (136-145); TOTAL PROTEIN 5.9 g/dL (6.4-8.2); eGFR NON BLACK RACES > 60 (>60)
[2021-03-11] MEDS: PROTONIX INJ 40 MG VIAL IVP SCH ×2 (08:19→20:12)
[2021-03-11] MEDS: SOLU-Medrol 40 MG VIAL IVP SCH (08:20)
[2021-03-11] MEDS: DILANTIN INJ 100 MG VIAL IVP SCH ×2 (08:20→20:11)
[2021-03-11] MEDS: VITAMIN A PO SCH (08:20)
[2021-03-11] MEDS: INVANZ INJ 1 GM VIAL 1 GM in NS 100 ML IV 100 ML IV SCH (08:21)
[2021-03-11] MEDS: LACRI-LUBE S.O.P. AFFEYE SCH ×2 (08:21→20:11)
[2021-03-11] MEDS: LOVENOX INJ 30 MG SYR SC SCH ×2 (08:21→20:11)
[2021-03-11] MEDS: BROVANA IN SCH ×2 (09:30→20:43)
[2021-03-11] MEDS: PULMICORT NEB TX 0.5 MG NEB SCH ×2 (09:30→20:43)
--- NOTE | 2021-03-11 19:07 | PCM.PROG ---
Progress Note Progress Note for Day of Date of Exam: 03/11/21 Subjective Subjective: Pt. ventilated. She does open her eyes. Past Medical Family Social History Past Med/Fam/Surg Hx: No changes since H&P Allergies: Allergies No Known Drug Allergies Allergy (Verified 02/12/21 08:46) Review of Systems ROS: No change since H&P Vital Signs and I&O's Vital Signs: Temperature 97.9 F Pulse Rate [Left Radial] 95 Pulse Rate 78 Respiratory Rate 31 Blood Pressure [Right Arm] 136/64 Blood Pressure [Left Arm] 131/67 Blood Pressure 113/57 O2 Sat by Pulse Oximetry 95 Intake and Output: Intake & Output 03/09/21 03/10/21 03/11/21 03/12/21 11:59 11:59 11:59 11:59 Intake Total 2729 / 2729 4100 / 4100 4294 / 4294 1813 / 1813 Output Total 5400 / 5400 5300 / 5300 6300 / 6300 2500 / 2500 Balance -2671 / -2671 -1200 / -1200 -2005 / -2005 -7 / -687 Physical Exam Oriented: Unable to test Eyes: Normal Respiratory: Right, Left and Rhonchi Cardiovascular: Normal Auscultation: Bowel Sounds: Normal Tenderness: Normal Skin: Normal Speech Pattern: Artificially Ventilated Laboratory and Diagnostics Result Diagrams: 03/11/21 05:15 03/11/21 05:15 Labs: 02/20/21 17:27 Blood Blood Culture - Final Methicillin Resis Staph Aureus 02/20/21 17:18 Blood Blood Culture - Final 02/18/21 14:02 Sputum - Endotracheal Wash Sputum Culture - Final 02/18/21 14:02 Sputum - Endotracheal Wash - Final Laboratory WBC 5.1 X10^3/uL (3.6-10.0) 03/11/21 05:15 RBC 3.19 X10^6/uL (3.5-5.4) L 03/11/21 05:15 Hgb 8.8 g/dL (12.0-16.0) L 03/11/21 05:15 Hct 26.8 % (36.0-47.0) L 03/11/21 05:15 MCV 83.9 fL (80.0-100.0) 03/11/21 05:15 MCH 27.6 pg (27.0-34.0) 03/11/21 05:15 MCHC 32.8 g/dL (33.0-35.0) L 03/11/21 05:15 RDW 17.0 % (11.6-16.5) H 03/11/21 05:15 Plt Count 296 X10^3/uL (150.0-450.0) 03/11/21 05:15 Plt Count Comment Adequate (ADEQUATE) 03/04/21 04:35 MPV 6.3 fL (7.4-11.0) L 03/11/21 05:15 Neut % (Auto) 72.7 % (42.0-75.0) 03/11/21 05:15 Lymph % (Auto) 12.0 % (21.0-51.0) L 03/11/21 05:15 [place] % (Auto) 4.9 % (0.0-13.0) 03/11/21 05:15 Eos % (Auto) 9.9 % (0.9-2.9) H 03/11/21 05:15 Baso % (Auto) 0.5 % (0.2-1.0) 03/11/21 05:15 Neut # (Auto) 3.7 x10^3/uL (2.2-4.8) 03/11/21 05:15 Lymph # (Auto) 0.6 X10^3/uL (1.3-2.9) L 03/11/21 05:15 [place] # (Auto) 0.2 x10^3/uL (0.3-0.8) L 03/11/21 05:15 Eos # (Auto) 0.5 x10^3/uL (0.0-0.2) H 03/11/21 05:15 Baso # (Auto) 0.0 X10^3/uL (0.0-0.1) 03/11/21 05:15 Absolute Nucleated RBC 0.1 /100WBC 03/11/21 05:15 Total Counted 100 03/04/21 04:35 Neutrophils % (Manual) 95 % (39-76) H 03/04/21 04:35 Band Neutrophils % 1 % (0-10) 03/03/21 05:11 Lymphocytes % (Manual) 4 % (13-43) L 03/04/21 04:35 Monocytes % (Manual) 1 % (4-9) L 03/04/21 04:35 Plt Morphology Comment Normal (NORMAL) 03/04/21 04:35 RBC Morphology Abnormal (NORMAL) A 03/04/21 04:35 Hypochromasia Slight A 03/04/21 04:35 Microcytosis Slight A 02/18/21 04:51 Target Cells Present 03/03/21 05:11 D-Dimer 0.53 ug/ml (0.0-0.57) 02/13/21 11:17 Sample Site Art line 03/11/21 05:53 ABG pH 7.480 (7.35-7.45) H 03/11/21 05:53 ABG pCO2 58.0 mmHg (35.0-45.0) H* 03/11/21 05:53 ABG pO2 58.0 mmHg (80.0-100.0) L 03/11/21 05:53 ABG HCO3 43.2 mmol/L (22-26) H* 03/11/21 05:53 ABG O2 Saturation 92.0 % (90-100) 03/11/21 05:53 ABG Base Excess 16.9 mmol/L (-2.0-2.0) H 03/11/21 05:53 Gregory Test N/a 03/11/21 05:53 A-a Gradient 155.0 mmHg 03/11/21 05:53 FiO2 40.0 03/11/21 05:53 Blood Gas Comments Jacy well mtf/mts 03/11/21 05:53 Sodium 143 mmol/L (136-145) 03/11/21 05:15 Corrected Sodium 145 mmol/L (136-145) 03/11/21 05:15 Potassium 3.6 mmol/L (3.5-5.1) 03/11/21 05:15 Chloride 103 mmol/L (98-107) 03/11/21 05:15 Carbon Dioxide 34.0 mmol/L (21-32) H 03/11/21 05:15 BUN 8 mg/dL (7-18) 03/11/21 05:15 Creatinine 0.49 mg/dL (0.55-1.02) L 03/11/21 05:15 Est GFR (MDRD) Af Amer > 60 (>60) 03/11/21 05:15 Est GFR (MDRD) Non-Af > 60 (>60) 03/11/21 05:15 Glucose 189 mg/dL (65-99) H 03/11/21 05:15 POC Glucose (mg/dL) 257 mg/dL (65-99) H 03/11/21 16:12 Hemoglobin A1c 13.4 % 02/14/21 04:50 Calcium 8.5 mg/dL (8.5-10.1) 03/11/21 05:15 Corrected Calcium 10.2 mg/dL (8.5-10.1) H 03/11/21 05:15 Magnesium 3.0 mg/dL (1.7-2.9) H 02/19/21 05:03 Total Bilirubin 0.40 mg/dL (0.2-1.0) 03/11/21 05:15 AST 13 Units/L (15-37) L 03/11/21 05:15 ALT 30 Units/L (12-78) 03/11/21 05:15 Alkaline Phosphatase 86 Units/L (46-116) 03/11/21 05:15 Creatine Kinase 119 Units/L (26-192) 02/13/21 11:19 CK-MB (CK-2) 1.3 ng/mL (0-4.0) 02/13/21 11:19 CK/CKMB % Calc 1.1 % (<4) 02/13/21 11:19 Troponin I < 0.02 ng/mL (0-1.5) 02/13/21 17:35 C-Reactive Protein 16.10 mg/L (0-3.0) H 02/25/21 04:45 B-Natriuretic Peptide 66.7 pg/mL (0-79) 02/16/21 05:05 Total Protein 5.9 g/dL (6.4-8.2) L 03/11/21 05:15 Albumin 1.9 g/dL (3.4-5.0) L 03/11/21 05:15 Globulin 4.0 g/dL (2.5-4.5) 03/11/21 05:15 Albumin/Globulin Ratio 0.5 Ratio (1.1-2.1) L 03/11/21 05:15 Specimen Type Catherized urine 02/16/21 04:20 Urine Color Pale yellow (YELLOW) 02/16/21 04:20 Urine Appearance Clear (CLEAR) 02/16/21 04:20 Urine pH 6.0 (5.0 - 8.0) 02/16/21 04:20 Ur Specific [place] 1.015 (1.000-1.030) 02/16/21 04:20 Urine Protein 1+ (NEGATIVE) 02/16/21 04:20 Urine Glucose (UA) 4+ (NEGATIVE) 02/16/21 04:20 Urine Ketones 1+ (NEGATIVE) 02/16/21 04:20 Urine Occult Blood Negative (NEGATIVE) 02/16/21 04:20 Urine Nitrite Negative (NEGATIVE) 02/16/21 04:20 Urine Bilirubin Negative (NEGATIVE) 02/16/21 04:20 Urine Urobilinogen Normal (NORMAL) 02/16/21 04:20 Ur Leukocyte Esterase Negative (NEGATIVE) 02/16/21 04:20 Urine RBC None seen /HPF (0-3) 02/16/21 04:20 Urine WBC None seen /HPF (0-5) 02/16/21 04:20 Ur Squamous Epith Cells Rare /HPF (NEGATIVE) 02/16/21 04:20 Urine Bacteria Negative /HPF (NEGATIVE) 02/16/21 04:20 Urine Yeast Few /HPF (NEGATIVE) 02/16/21 04:20 Ur Culture Indicated? No/not indicated 02/16/21 04:20 Vancomycin Trough 19.5 ug/mL (15-20) 03/05/21 19:53 Digoxin 1.51 ng/mL (0.9-2) 03/04/21 04:35 Radiology Reviewed: Yes Plan (1) Respiratory failure: Status: Acute Narrative Support Text: Continues to improve. Plan: Continue patient on ventilator. Ween down FiO2 as tolerated. FiO2 is 40 this am. On Solumedrol IV 40mg qday. Ween down sedation to see how patient does. Sedation vacation this am. (2) HTN (hypertension): Status: Chronic Plan: Lopressor 25mg bid. (3) Anemia: Status: Chronic Plan: Continue IV Protonix bid. cbc in am. (4) Pneumonia due to COVID-19 virus: Status: Acute Plan: IV Levaquin and Invanz. Will ask Respiratory to try and ween down FiO2 today if patient tolerates it. Patient currently on FiO2 of 40. (5) COVID-19 virus infection: Status: Resolved Plan: IV Remdesivir infusion was completed on 02/17/21 after 5 days of infusion. (6) Hyperglycemia: Status: Resolved Plan: Hold Levemir at this time.
[2021-03-11] MEDS: KLOR-CON PO PRN (20:10)
[2021-03-12] MEDS: DIPRIVAN PREMIX 1 GRAM IV 1,000 MG/100 ML VIAL IV PRN ×2 (02:55→20:26)
[2021-03-12] MEDS: ASCORBIC ACID INJ MULTI-DOSE VIAL 1,500 MG in NS 50 ML IV 50 ML IV SCH ×4 (02:55→20:26)
[2021-03-12] MEDS: D5W 1000 ML IV 1,000 ML IV SCH ×3 (02:55→17:17)
[2021-03-12] MEDS: HumuLIN R SC PRN ×4 (05:36→20:27)
[2021-03-12 06:11] LABS: BASOPHILS % (AUTO) 0.8 % (0.2-1.0); EOSINOPHILS # (AUTO) 0.4 x10^3/uL (0.0-0.2); EOSINOPHILS % (AUTO) 9.8 % (0.9-2.9); HEMATOCRIT 28.3 % (36.0-47.0); HEMOGLOBIN 9.2 g/dL (12.0-16.0); LYMPHOCYTES # (AUTO) 0.6 X10^3/uL (1.3-2.9); LYMPHOCYTES % (AUTO) 14.3 % (21.0-51.0); MEAN CORPUSCULAR HEMOGLOBIN 27.2 pg (27.0-34.0); MEAN CORPUSCULAR HGB CONC 32.6 g/dL (33.0-35.0); MEAN CORPUSCULAR VOLUME 83.3 fL (80.0-100.0); MEAN PLATELET VOLUME 6.3 fL (7.4-11.0); MONOCYTES # (AUTO) 0.3 x10^3/uL (0.3-0.8); MONOCYTES % (AUTO) 6.8 % (0.0-13.0); NEUTROPHILS # (AUTO) 3.1 x10^3/uL (2.2-4.8); NEUTROPHILS % (AUTO) 68.3 % (42.0-75.0); PLATELET COUNT 321 X10^3/uL (150.0-450.0); RED BLOOD COUNT 3.39 X10^6/uL (3.5-5.4); RED CELL DISTRIBUTION WIDTH 16.6 % (11.6-16.5); WHITE BLOOD COUNT 4.5 X10^3/uL (3.6-10.0)
[2021-03-12 06:20] LABS: ALANINE AMINOTRANSFERASE 29 Units/L (12-78); ALKALINE PHOSPHATASE 90 Units/L (46-116); ASPARTATE AMINO TRANSFERASE 13 Units/L (15-37); BLOOD UREA NITROGEN 8 mg/dL (7-18); CALCIUM 8.7 mg/dL (8.5-10.1); CARBON DIOXIDE 35.2 mmol/L (21-32); CHLORIDE 103 mmol/L (98-107); COR CA(FOR HYPOALB) 10.3 mg/dL (8.5-10.1); COR NA(FOR HYPERGLY) 145 mmol/L (136-145); SODIUM 142 mmol/L (136-145); TOTAL PROTEIN 6.3 g/dL (6.4-8.2); eGFR NON BLACK RACES > 60 (>60)
[2021-03-12] MEDS: VITAMIN A PO SCH (08:22)
[2021-03-12] MEDS: LACRI-LUBE S.O.P. AFFEYE SCH ×2 (08:22→20:28)
[2021-03-12] MEDS: PROTONIX INJ 40 MG VIAL IVP SCH ×2 (08:22→20:28)
[2021-03-12] MEDS: INVANZ INJ 1 GM VIAL 1 GM in NS 100 ML IV 100 ML IV SCH (08:22)
[2021-03-12] MEDS: DILANTIN INJ 100 MG VIAL IVP SCH ×2 (08:23→20:29)
[2021-03-12] MEDS: SOLU-Medrol 40 MG VIAL IVP SCH (08:23)
[2021-03-12] MEDS: LOVENOX INJ 30 MG SYR SC SCH ×2 (08:23→20:29)
[2021-03-12] MEDS: PULMICORT NEB TX 0.5 MG NEB SCH ×2 (08:34→20:10)
[2021-03-12] MEDS: BROVANA IN SCH ×2 (08:34→20:10)
[2021-03-12] MEDS: KLOR-CON PO PRN (20:28)
[2021-03-12] MEDS: BUTT CREAM (COMPOUND) TOP PRN (20:30)
[2021-03-13] MEDS: BUTT CREAM (COMPOUND) TOP PRN (02:05)
[2021-03-13] MEDS: ASCORBIC ACID INJ MULTI-DOSE VIAL 1,500 MG in NS 50 ML IV 50 ML IV SCH ×3 (02:32→15:31)
[2021-03-13] MEDS: DIPRIVAN PREMIX 1 GRAM IV 1,000 MG/100 ML VIAL IV PRN (02:33)
[2021-03-13 04:09] LABS: ABG BASE EXCESS 17.9 mmol/L (-2.0-2.0); ABG HCO3 44.2 mmol/L (22-26)
[2021-03-13 05:22] LABS: EOSINOPHILS # (AUTO) 0.4 x10^3/uL (0.0-0.2); EOSINOPHILS % (AUTO) 11.2 % (0.9-2.9); HEMATOCRIT 28.4 % (36.0-47.0); HEMOGLOBIN 9.3 g/dL (12.0-16.0); LYMPHOCYTES # (AUTO) 0.7 X10^3/uL (1.3-2.9); LYMPHOCYTES % (AUTO) 19.1 % (21.0-51.0); MEAN CORPUSCULAR HEMOGLOBIN 27.1 pg (27.0-34.0); MEAN CORPUSCULAR HGB CONC 32.6 g/dL (33.0-35.0); MEAN CORPUSCULAR VOLUME 83.1 fL (80.0-100.0); MEAN PLATELET VOLUME 6.4 fL (7.4-11.0); MONOCYTES # (AUTO) 0.4 x10^3/uL (0.3-0.8); MONOCYTES % (AUTO) 10.2 % (0.0-13.0); NEUTROPHILS # (AUTO) 2.1 x10^3/uL (2.2-4.8); NEUTROPHILS % (AUTO) 58.5 % (42.0-75.0); PLATELET COUNT 331 X10^3/uL (150.0-450.0); RED BLOOD COUNT 3.41 X10^6/uL (3.5-5.4); RED CELL DISTRIBUTION WIDTH 17.3 % (11.6-16.5); WHITE BLOOD COUNT 3.6 X10^3/uL (3.6-10.0)
[2021-03-13] MEDS: HumuLIN R SC PRN ×3 (05:30→16:49)
[2021-03-13] MEDS: D5W 1000 ML IV 1,000 ML IV SCH ×2 (05:31→13:23)
[2021-03-13 05:41] LABS: ALANINE AMINOTRANSFERASE 27 Units/L (12-78); ALKALINE PHOSPHATASE 93 Units/L (46-116); ASPARTATE AMINO TRANSFERASE 13 Units/L (15-37); BLOOD UREA NITROGEN 6 mg/dL (7-18); CALCIUM 8.8 mg/dL (8.5-10.1); CARBON DIOXIDE 35.6 mmol/L (21-32); CHLORIDE 105 mmol/L (98-107); COR CA(FOR HYPOALB) 10.4 mg/dL (8.5-10.1); COR NA(FOR HYPERGLY) 147 mmol/L (136-145); CREATININE 0.44 mg/dL (0.55-1.02); SODIUM 145 mmol/L (136-145); TOTAL PROTEIN 6.5 g/dL (6.4-8.2); eGFR NON BLACK RACES > 60 (>60)
[2021-03-13] MEDS: LOPRESSOR INJ 5 MG AMP IVP PRN (07:40)
[2021-03-13] MEDS: BROVANA IN SCH (08:09)
[2021-03-13] MEDS: PULMICORT NEB TX 0.5 MG NEB SCH (08:09)
--- NOTE | 2021-03-13 08:28 | PCM.PROG ---
Progress Note Progress Note for Day of Date of Exam: 03/13/21 Subjective Subjective: Pt. ventilated. She does open her eyes. More alert this am. Past Medical Family Social History Past Med/Fam/Surg Hx: No changes since H&P Allergies: Allergies No Known Drug Allergies Allergy (Verified 02/12/21 08:46) Review of Systems ROS: No change since H&P Vital Signs and I&O's Vital Signs: Temperature 98.7 F Pulse Rate [Left Radial] 95 Pulse Rate 107 Respiratory Rate 40 Blood Pressure [Right Arm] 136/64 Blood Pressure [Left Arm] 131/67 Blood Pressure 159/71 O2 Sat by Pulse Oximetry 89 Intake and Output: Intake & Output 03/10/21 03/11/21 03/12/21 03/13/21 11:59 11:59 11:59 11:59 Intake Total 4100 / 4100 4294 / 4294 3574 / 3594 3702 / 3702 Output Total 5300 / 5300 6300 / 6300 5800 / 5800 5700 / 5700 Balance -1200 / -1200 -2005 / -6 / -2205 -1997 / Physical Exam Oriented: Unable to test Eyes: Normal Ear: Normal Nose: Normal Respiratory: Right, Left and Rhonchi Cardiovascular: Normal : Normal Auscultation: Bowel Sounds: Normal Tenderness: Normal Skin: Decreased Turgur Psychiatric: Anxiety Mood Description: Anxious Affect: Quiet Speech Pattern: Artificially Ventilated Laboratory and Diagnostics Result Diagrams: 03/13/21 04:55 03/13/21 04:55 Labs: 02/20/21 17:27 Blood Blood Culture - Final Methicillin Resis Staph Aureus 02/20/21 17:18 Blood Blood Culture - Final 02/18/21 14:02 Sputum - Endotracheal Wash Sputum Culture - Final 02/18/21 14:02 Sputum - Endotracheal Wash - Final Laboratory WBC 3.6 X10^3/uL (3.6-10.0) 03/13/21 04:55 RBC 3.41 X10^6/uL (3.5-5.4) L 03/13/21 04:55 Hgb 9.3 g/dL (12.0-16.0) L 03/13/21 04:55 Hct 28.4 % (36.0-47.0) L 03/13/21 04:55 MCV 83.1 fL (80.0-100.0) 03/13/21 04:55 MCH 27.1 pg (27.0-34.0) 03/13/21 04:55 MCHC 32.6 g/dL (33.0-35.0) L 03/13/21 04:55 RDW 17.3 % (11.6-16.5) H 03/13/21 04:55 Plt Count 331 X10^3/uL (150.0-450.0) 03/13/21 04:55 Plt Count Comment Adequate (ADEQUATE) 03/04/21 04:35 MPV 6.4 fL (7.4-11.0) L 03/13/21 04:55 Neut % (Auto) 58.5 % (42.0-75.0) 03/13/21 04:55 Lymph % (Auto) 19.1 % (21.0-51.0) L 03/13/21 04:55 [place] % (Auto) 10.2 % (0.0-13.0) 03/13/21 04:55 Eos % (Auto) 11.2 % (0.9-2.9) H 03/13/21 04:55 Baso % (Auto) 1.0 % (0.2-1.0) 03/13/21 04:55 Neut # (Auto) 2.1 x10^3/uL (2.2-4.8) L 03/13/21 04:55 Lymph # (Auto) 0.7 X10^3/uL (1.3-2.9) L 03/13/21 04:55 [place] # (Auto) 0.4 x10^3/uL (0.3-0.8) 03/13/21 04:55 Eos # (Auto) 0.4 x10^3/uL (0.0-0.2) H 03/13/21 04:55 Baso # (Auto) 0.0 X10^3/uL (0.0-0.1) 03/13/21 04:55 Absolute Nucleated RBC 0.1 /100WBC 03/13/21 04:55 Total Counted 100 03/04/21 04:35 Neutrophils % (Manual) 95 % (39-76) H 03/04/21 04:35 Band Neutrophils % 1 % (0-10) 03/03/21 05:11 Lymphocytes % (Manual) 4 % (13-43) L 03/04/21 04:35 Monocytes % (Manual) 1 % (4-9) L 03/04/21 04:35 Plt Morphology Comment Normal (NORMAL) 03/04/21 04:35 RBC Morphology Abnormal (NORMAL) A 03/04/21 04:35 Hypochromasia Slight A 03/04/21 04:35 Microcytosis Slight A 02/18/21 04:51 Target Cells Present 03/03/21 05:11 D-Dimer 0.53 ug/ml (0.0-0.57) 02/13/21 11:17 Sample Site Radha 03/13/21 04:04 ABG pH 7.490 (7.35-7.45) H 03/13/21 04:04 ABG pCO2 58.0 mmHg (35.0-45.0) H* 03/13/21 04:04 ABG pO2 60.0 mmHg (80.0-100.0) L 03/13/21 04:04 ABG HCO3 44.2 mmol/L (22-26) H* 03/13/21 04:04 ABG O2 Saturation 93.0 % (90-100) 03/13/21 04:04 ABG Base Excess 17.9 mmol/L (-2.0-2.0) H 03/13/21 04:04 Gregory Test N/a 03/13/21 04:04 A-a Gradient 153.0 mmHg 03/13/21 04:04 FiO2 40.0 03/13/21 04:04 Blood Gas Comments Jacy well ae 03/13/21 04:04 Sodium 145 mmol/L (136-145) 03/13/21 04:55 Corrected Sodium 147 mmol/L (136-145) H 03/13/21 04:55 Potassium 3.7 mmol/L (3.5-5.1) 03/13/21 04:55 Chloride 105 mmol/L (98-107) 03/13/21 04:55 Carbon Dioxide 35.6 mmol/L (21-32) H 03/13/21 04:55 BUN 6 mg/dL (7-18) L 03/13/21 04:55 Creatinine 0.44 mg/dL (0.55-1.02) L 03/13/21 04:55 Est GFR (MDRD) Af Amer > 60 (>60) 03/13/21 04:55 Est GFR (MDRD) Non-Af > 60 (>60) 03/13/21 04:55 Glucose 204 mg/dL (65-99) H 03/13/21 04:55 POC Glucose (mg/dL) 213 mg/dL (65-99) H 03/13/21 04:43 Hemoglobin A1c 13.4 % 02/14/21 04:50 Calcium 8.8 mg/dL (8.5-10.1) 03/13/21 04:55 Corrected Calcium 10.4 mg/dL (8.5-10.1) H 03/13/21 04:55 Magnesium 3.0 mg/dL (1.7-2.9) H 02/19/21 05:03 Total Bilirubin 0.30 mg/dL (0.2-1.0) 03/13/21 04:55 AST 13 Units/L (15-37) L 03/13/21 04:55 ALT 27 Units/L (12-78) 03/13/21 04:55 Alkaline Phosphatase 93 Units/L (46-116) 03/13/21 04:55 Creatine Kinase 119 Units/L (26-192) 02/13/21 11:19 CK-MB (CK-2) 1.3 ng/mL (0-4.0) 02/13/21 11:19 CK/CKMB % Calc 1.1 % (<4) 02/13/21 11:19 Troponin I < 0.02 ng/mL (0-1.5) 02/13/21 17:35 C-Reactive Protein 16.10 mg/L (0-3.0) H 02/25/21 04:45 B-Natriuretic Peptide 66.7 pg/mL (0-79) 02/16/21 05:05 Total Protein 6.5 g/dL (6.4-8.2) 03/13/21 04:55 Albumin 2.0 g/dL (3.4-5.0) L 03/13/21 04:55 Globulin 4.5 g/dL (2.5-4.5) 03/13/21 04:55 Albumin/Globulin Ratio 0.4 Ratio (1.1-2.1) L 03/13/21 04:55 Specimen Type Catherized urine 02/16/21 04:20 Urine Color Pale yellow (YELLOW) 02/16/21 04:20 Urine Appearance Clear (CLEAR) 02/16/21 04:20 Urine pH 6.0 (5.0 - 8.0) 02/16/21 04:20 Ur Specific [place] 1.015 (1.000-1.030) 02/16/21 04:20 Urine Protein 1+ (NEGATIVE) 02/16/21 04:20 Urine Glucose (UA) 4+ (NEGATIVE) 02/16/21 04:20 Urine Ketones 1+ (NEGATIVE) 02/16/21 04:20 Urine Occult Blood Negative (NEGATIVE) 02/16/21 04:20 Urine Nitrite Negative (NEGATIVE) 02/16/21 04:20 Urine Bilirubin Negative (NEGATIVE) 02/16/21 04:20 Urine Urobilinogen Normal (NORMAL) 02/16/21 04:20 Ur Leukocyte Esterase Negative (NEGATIVE) 02/16/21 04:20 Urine RBC None seen /HPF (0-3) 02/16/21 04:20 Urine WBC None seen /HPF (0-5) 02/16/21 04:20 Ur Squamous Epith Cells Rare /HPF (NEGATIVE) 02/16/21 04:20 Urine Bacteria Negative /HPF (NEGATIVE) 02/16/21 04:20 Urine Yeast Few /HPF (NEGATIVE) 02/16/21 04:20 Ur Culture Indicated? No/not indicated 02/16/21 04:20 Vancomycin Trough 19.5 ug/mL (15-20) 03/05/21 19:53 Digoxin 1.51 ng/mL (0.9-2) 03/04/21 04:35 Plan (1) Respiratory failure: Status: Acute Plan: Continue patient on ventilator. Ween down FiO2 as tolerated. FiO2 is 40 this am. On Solumedrol IV 40mg qday. Ween down sedation to see how patient does. Sedation vacation this am. Plan on extubating pt. this am. (2) HTN (hypertension): Status: Chronic Plan: Lopressor 5mg IV this am. After extubating will change to PO. (3) Anemia: Status: Chronic Plan: Continue IV Protonix bid. cbc in am. (4) Pneumonia due to COVID-19 virus: Status: Acute Plan: IV Levaquin and Invanz. Will ask Respiratory to try and ween down FiO2 today if patient tolerates it. Patient currently on FiO2 of 40. (5) COVID-19 virus infection: Status: Resolved Plan: IV Remdesivir infusion was completed on 02/17/21 after 5 days of infusion. (6) Hyperglycemia: Status: Resolved Plan: Hold Levemir at this time.
[2021-03-13] MEDS ORDERED: CATAPRES-TTS-1 TD SCH (09:00)
[2021-03-13] MEDS ORDERED: ATROPINE SULFATE ABBOJECT ONE ×3 (09:15→09:41)
[2021-03-13] MEDS ORDERED: LEVOPHED INJ 8 MG in D5W 250 ML IV 242 ML IV PRN (09:37)
[2021-03-13] MEDS: SOLU-Medrol 40 MG VIAL IVP SCH (10:00)
[2021-03-13] MEDS: INVANZ INJ 1 GM VIAL 1 GM in NS 100 ML IV 100 ML IV SCH (11:00)
[2021-03-13] MEDS ORDERED: VERSED ONE (11:05)
[2021-03-13] MEDS ORDERED: ATIVAN INJ 2 MG VIAL ONE (11:19)
[2021-03-13] MEDS: DILANTIN INJ 100 MG VIAL IVP SCH (11:20)
[2021-03-13] MEDS: LACRI-LUBE S.O.P. AFFEYE SCH (11:57)
--- NOTE | 2021-03-13 12:02 | RAD ---
HISTORYET TUBE PLACEMENT, RESP FAILURE, COVID PNEUMONIASTUDYCHEST, 1 ANDICIFDVUVAFV26/18/2021.TECHNIQUEAP view of the chestFINDINGSET tube in good position. Cardiac and mediastinal contours are within normal limits. Mild improvement in diffuse bilateral airspace and interstitial opacities. No definite pleural effusion or pneumothorax.IMPRESSIONMildly improved appearance of COVID pneumonia.Electronically signed by: Mendel Edwards (Mar 13, 2021 12:00:40)
[2021-03-13] MEDS: LOVENOX INJ 30 MG SYR SC SCH (12:35)
[2021-03-13] MEDS ORDERED: ATROPINE SULFATE IVP ONE (12:46)
[2021-03-13] MEDS: PROTONIX INJ 40 MG VIAL IVP SCH (12:51)
[2021-03-13] MEDS: VITAMIN A PO SCH (12:51)
[2021-03-13] MEDS ORDERED: LEVOPHED INJ ONE (13:32)
[2021-03-13 14:05] LABS: CREATINE KINASE 41 Units/L (26-192); TROPONIN I < 0.02 ng/mL (0-1.5)
[2021-03-13 14:07] LABS: ABG BASE EXCESS 9.3 mmol/L (-2.0-2.0)
[2021-03-13 14:08] LABS: ABG HCO3 36.3 mmol/L (22-26)
[2021-03-13 14:26] VITALS: BP 118/59
[2021-03-13] MEDS ORDERED: NS 500 ML IV 500 ML IV ONE (18:38)
== END 2021-03-13 19:05 | disposition short-term general hospital (02) | DRG 870 ==
LOC: ER 10:24 → MED/SURG 10:24 → OBSVTOIN 13:48 → MED/SURG 17:01 → ICU 02-15 10:37
PROVIDERS: ADMIT Family Medicine; ATTEND Family Medicine
DX: J12.82 Pneumonia due to coronavirus disease 2019; R73.09 Other abnormal glucose; A41.02 Sepsis due to Methicillin resistant Staphylococcus aureus; B37.1 Pulmonary candidiasis; E87.5 Hyperkalemia; I95.89 Other hypotension; J96.01 Acute respiratory failure with hypoxia; E86.0 Dehydration; D64.89 Other specified anemias; R79.82 Elevated C-reactive protein (CRP); E87.6 Hypokalemia; R26.89 Other abnormalities of gait and mobility; R06.02 Shortness of breath; J93.83 Other pneumothorax; I10 Essential (primary) hypertension; F41.8 Other specified anxiety disorders; U07.1 COVID-19; E87.0 Hyperosmolality and hypernatremia

== ENCOUNTER 2021-04-23 12:43 | Inpatient (IN) ==
[2021-04-23] MEDS ORDERED: ZOFRAN INJ 4 MG VIAL IVP PRN (15:58)
[2021-04-23] MEDS ORDERED: TYLENOL 325 MG TAB PO SCH (16:00)
[2021-04-23] MEDS: TYLENOL 325 MG TAB PO PRN (17:21)
[2021-04-23] MEDS: DILANTIN PO SCH ×2 (17:21→21:38)
[2021-04-23] MEDS ORDERED: XOPENEX 1.25 MG/3 ML NEBULE NEB ONE (19:44)
[2021-04-23] MEDS ORDERED: PULMICORT NEB TX 0.5 MG NEB ONE (19:44)
[2021-04-23] MEDS: PULMICORT NEB TX 0.5 MG NEB SCH (21:00)
[2021-04-23] MEDS: XOPENEX 1.25 MG/3 ML NEBULE NEB SCH (21:00)
[2021-04-23] MEDS: PEPCID TAB 20 MG PO SCH (21:30)
[2021-04-23] MEDS: PERIDEX or PERIOGARD MT SCH (21:37)
[2021-04-24 05:00] LABS: BASOPHILS # (AUTO) 0.2 X10^3/uL (0.0-0.1); BASOPHILS % (AUTO) 2.1 % (0.2-1.0); EOSINOPHILS # (AUTO) 0.4 x10^3/uL (0.0-0.2); HEMATOCRIT 30.4 % (36.0-47.0); HEMOGLOBIN 9.6 g/dL (12.0-16.0); LYMPHOCYTES # (AUTO) 2.7 X10^3/uL (1.3-2.9); LYMPHOCYTES % (AUTO) 26.5 % (21.0-51.0); MEAN CORPUSCULAR HEMOGLOBIN 25.8 pg (27.0-34.0); MEAN CORPUSCULAR HGB CONC 31.5 g/dL (33.0-35.0); MEAN CORPUSCULAR VOLUME 81.9 fL (80.0-100.0); MONOCYTES # (AUTO) 0.7 x10^3/uL (0.3-0.8); MONOCYTES % (AUTO) 6.7 % (0.0-13.0); NEUTROPHILS # (AUTO) 6.1 x10^3/uL (2.2-4.8); NEUTROPHILS % (AUTO) 60.7 % (42.0-75.0); PLATELET COUNT 611 X10^3/uL (150.0-450.0); RED BLOOD COUNT 3.71 X10^6/uL (3.5-5.4); RED CELL DISTRIBUTION WIDTH 19.5 % (11.6-16.5); WHITE BLOOD COUNT 10.1 X10^3/uL (3.6-10.0)
[2021-04-24 05:09] LABS: ALANINE AMINOTRANSFERASE 26 Units/L (12-78); ALBUMIN 1.7 g/dL (3.4-5.0); ALKALINE PHOSPHATASE 146 Units/L (46-116); ASPARTATE AMINO TRANSFERASE 20 Units/L (15-37); BLOOD UREA NITROGEN 35 mg/dL (7-18); CALCIUM 8.4 mg/dL (8.5-10.1); CARBON DIOXIDE 33.5 mmol/L (21-32); CHLORIDE 107 mmol/L (98-107); COR CA(FOR HYPOALB) 10.2 mg/dL (8.5-10.1); COR NA(FOR HYPERGLY) 149 mmol/L (136-145); CREATININE 0.58 mg/dL (0.55-1.02); SODIUM 147 mmol/L (136-145); TOTAL PROTEIN 7.3 g/dL (6.4-8.2); eGFR NON BLACK RACES > 60 (>60)
[2021-04-24 05:39] LABS: ABG BASE EXCESS 9.3 mmol/L (-2.0-2.0)
[2021-04-24 05:40] LABS: ABG ALLEN TEST POS; ABG HCO3 34.8 mmol/L (22-26)
--- NOTE | 2021-04-24 06:33 | RAD ---
HISTORYChest tube follow-up heart size is normal. Right-sided perihilar interstitial infiltrates are present. No definite left lung infiltrates are identified. Bony thorax is unremarkable.STUDYChest AP [id number]/2021FINDINGSTher e is a tracheostomy tube in good position. There is a left-sided chest tube terminating in the left lung apex. No definite left pneumothorax or left pleural effusion is identified.IMPRESSIONLeft chest tube terminating in the apex of the left hemithorax. No pneumothorax or pleural effusion identifiedPerihilar interstitial lung changes on the right, stableElectronically signed by: FLOR ESPINOZA (Apr 24, 2021 06:32:07)
[2021-04-24] MEDS: XOPENEX 1.25 MG/3 ML NEBULE NEB SCH ×2 (08:40→20:15)
[2021-04-24] MEDS: PULMICORT NEB TX 0.5 MG NEB SCH ×2 (08:40→20:15)
[2021-04-24] MEDS: DILANTIN PO SCH ×4 (09:44→21:20)
[2021-04-24] MEDS: LOVENOX INJ 40 MG SYR SC SCH (09:45)
[2021-04-24] MEDS: FLOMAX PO SCH (09:45)
[2021-04-24] MEDS: CORDARONE TAB 200 MG PO SCH (09:45)
[2021-04-24] MEDS: PERIDEX or PERIOGARD MT SCH ×2 (09:46→21:20)
[2021-04-24] MEDS: MORPHINE SULFATE INJ 2 MG INJ IVP PRN ×2 (10:26→17:13)
--- NOTE | 2021-04-24 12:46 | DR.H&P ---
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 Allergies Allergies Allergy/AdvReac Type Severity Reaction Status Date / Time No Known Drug Allergies Allergy Verified 02/12/21 08:46 History of Present Illness History of Present Illness: This is a 65 yo wf who was hospitalized on 2020 for Covid-19 infection and subsequently intubated on 2020, for respiratory failure due to Covid-19. She remained intubated through 2020, at which time she failed extubation and was then transferred to [facility] for further care and treatment. She did receive a t racheostomy and PEG tube while at [facility] and they have her weened down to only pressure support as the patient is breathing on her on now. She is neurologically intact and responds appropriately to questions. 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 She does have a left sided chest tube in the anterior chest for a recent left sided pneumothorax. We will resume her current treatment at this time which she was receiving at [facility]. Past Medical History Past Medical History: Diabetes (patient had been borderline but that has been accelerated by the use of steroids. ) and Seizures Past Surgical History Surgical History: Hysterectomy Family History Family Medical History: Diabetes Mellitus and Cancer Social History Does patient currently use any type of tobacco product: No Have you used tobacco products in the last 12 months: No Type of Tobacco Use: None Does any household member use tobacco: No Alcohol Use: None Drug Use: None Medications Home Medications: No Known Drug Allergies Allergy (Verified 02/12/21 08:46) CONTINUE taking the following medications phenytoin sodium extended 100 mg PO DAILY 04/24/21 [History] Labs Result Diagrams: 04/24/21 04:40 04/24/21 04:40 Labs: Laboratory WBC 10.1 X10^3/uL (3.6-10.0) H 04/24/21 04:40 RBC 3.71 X10^6/uL (3.5-5.4) 04/24/21 04:40 Hgb 9.6 g/dL (12.0-16.0) L 04/24/21 04:40 Hct 30.4 % (36.0-47.0) L 04/24/21 04:40 MCV 81.9 fL (80.0-100.0) 04/24/21 04:40 MCH 25.8 pg (27.0-34.0) L 04/24/21 04:40 MCHC 31.5 g/dL (33.0-35.0) L 04/24/21 04:40 RDW 19.5 % (11.6-16.5) H 04/24/21 04:40 Plt Count 611 X10^3/uL (150.0-450.0) H 04/24/21 04:40 MPV 7.0 fL (7.4-11.0) L 04/24/21 04:40 Neut % (Auto) 60.7 % (42.0-75.0) 04/24/21 04:40 Lymph % (Auto) 26.5 % (21.0-51.0) 04/24/21 04:40 [place] % (Auto) 6.7 % (0.0-13.0) 04/24/21 04:40 Eos % (Auto) 4.0 % (0.9-2.9) H 04/24/21 04:40 Baso % (Auto) 2.1 % (0.2-1.0) H 04/24/21 04:40 Neut # (Auto) 6.1 x10^3/uL (2.2-4.8) H 04/24/21 04:40 Lymph # (Auto) 2.7 X10^3/uL (1.3-2.9) 04/24/21 04:40 [place] # (Auto) 0.7 x10^3/uL (0.3-0.8) 04/24/21 04:40 Eos # (Auto) 0.4 x10^3/uL (0.0-0.2) H 04/24/21 04:40 Baso # (Auto) 0.2 X10^3/uL (0.0-0.1) H 04/24/21 04:40 Absolute Nucleated RBC 0.2 /100WBC 04/24/21 04:40 Sample Site Rr 04/24/21 05:00 ABG pH 7.450 (7.35-7.45) 04/24/21 05:00 ABG pCO2 50.0 mmHg (35.0-45.0) H 04/24/21 05:00 ABG pO2 91.0 mmHg (80.0-100.0) 04/24/21 05:00 ABG HCO3 34.8 mmol/L (22-26) H* 04/24/21 05:00 ABG O2 Saturation 97.0 % (90-100) 04/24/21 05:00 ABG Base Excess 9.3 mmol/L (-2.0-2.0) H 04/24/21 05:00 Gregory Test Pos 04/24/21 05:00 A-a Gradient 60.0 mmHg 04/24/21 05:00 FiO2 30.0 04/24/21 05:00 Blood Gas Comments Jacy well sw 04/24/21 05:00 Sodium 147 mmol/L (136-145) H 04/24/21 04:40 Corrected Sodium 149 mmol/L (136-145) H 04/24/21 04:40 Potassium 4.5 mmol/L (3.5-5.1) 04/24/21 04:40 Chloride 107 mmol/L (98-107) 04/24/21 04:40 Carbon Dioxide 33.5 mmol/L (21-32) H 04/24/21 04:40 BUN 35 mg/dL (7-18) H 04/24/21 04:40 Creatinine 0.58 mg/dL (0.55-1.02) 04/24/21 04:40 Est GFR (MDRD) Af Amer > 60 (>60) 04/24/21 04:40 Est GFR (MDRD) Non-Af > 60 (>60) 04/24/21 04:40 Glucose 193 mg/dL (65-99) H 04/24/21 04:40 Calcium 8.4 mg/dL (8.5-10.1) L 04/24/21 04:40 Corrected Calcium 10.2 mg/dL (8.5-10.1) H 04/24/21 04:40 Total Bilirubin 0.20 mg/dL (0.2-1.0) 04/24/21 04:40 AST 20 Units/L (15-37) 04/24/21 04:40 ALT 26 Units/L (12-78) 04/24/21 04:40 Alkaline Phosphatase 146 Units/L (46-116) H 04/24/21 04:40 Total Protein 7.3 g/dL (6.4-8.2) 04/24/21 04:40 Albumin 1.7 g/dL (3.4-5.0) L 04/24/21 04:40 Globulin 5.6 g/dL (2.5-4.5) H 04/24/21 04:40 Albumin/Globulin Ratio 0.3 Ratio (1.1-2.1) L 04/24/21 04:40 Phenytoin 7.1 ug/mL (10-20) L 04/24/21 04:40 Review of Systems Constitutional: Weakness Eyes: No Symptoms Reported ENT: No Symptoms Reported Respiratory: No Symptoms Reported Cardiovascular: No Symptoms Reported Gastrointestinal: No Symptoms Reported Genitourinary: No Symptoms Reported Musculoskeletal: No Symptoms Reported Skin: No Symptoms Reported Neurological: No Symptoms Reported Physical Exam Vital Signs: Temperature 96.8 F Pulse Rate 101 Respiratory Rate 31 Blood Pressure [Right Arm] 136/64 Blood Pressure [Left Arm] 131/67 Blood Pressure 133/65 O2 Sat by Pulse Oximetry 99 Oriented: Normal Eyes: Normal Ear: Normal Nose: Normal Throat: Normal Respiratory: Rhonchi Throughout Cardiovascular: Normal : Normal Auscultation: Bowel Sounds: Normal Palpation: Normal Tenderness: Normal Skin: Decreased Turgur Musculoskeletal: Normal Psychiatric: Other (unable to ascertain) Mood Description: Calm Affect: Quiet Speech Pattern: Trach(not ventilated) Assessment/Plan (1) Chronic hypoxemic respiratory failure: Status: Acute Plan: Continue to ween off vent. (2) DM (diabetes mellitus): Status: Acute Plan: Insulin Rx (3) Seizure disorder: Status: Acute Plan: Continue Dilantin 100 mg TID per PEG tube and check level in am. (4) Hypoalbuminemia due to protein-calorie malnutrition: Status: Acute Plan: Nutrition consult. Review H&P Reviewed: Yes Patient was examined?: Yes
--- NOTE | 2021-04-24 13:45 | PCM.PROG ---
Progress Note Progress Note for Day of Date of Exam: 04/24/21 Subjective Subjective: No problems overnight. Resting this am. CXR showed resolved left sided pneumothorax. Will have Gen. Surg. look at it for possible removal today or tomorrow. Past Medical Family Social History Past Med/Fam/Surg Hx: No changes since H&P Allergies: Allergies No Known Drug Allergies Allergy (Verified 02/12/21 08:46) Review of Systems ROS: No change since H&P Vital Signs and I&O's Vital Signs: Temperature 96.8 F Pulse Rate 101 Respiratory Rate 30 Blood Pressure [Right Arm] 136/64 Blood Pressure [Left Arm] 131/67 Blood Pressure 141/63 O2 Sat by Pulse Oximetry 99 Intake and Output: Intake & Output 04/22/21 04/23/21 04/24/21 04/25/21 11:59 11:59 11:59 11:59 Output Total 1702 / 1702 Balance -1702 / -1702 Physical Exam Oriented: Normal Eyes: Normal Ear: Normal Nose: Normal Throat: Normal Respiratory: Generalized and Rhonchi Cardiovascular: Normal : Normal Auscultation: Bowel Sounds: Normal Tenderness: Normal Skin: Decreased Turgur Musculoskeletal: Normal Psychiatric: Other (unable to ascertain) Mood Description: Calm Affect: Quiet Speech Pattern: Trach(not ventilated) Laboratory and Diagnostics Result Diagrams: 04/24/21 04:40 04/24/21 04:40 Labs: Laboratory WBC 10.1 X10^3/uL (3.6-10.0) H 04/24/21 04:40 RBC 3.71 X10^6/uL (3.5-5.4) 04/24/21 04:40 Hgb 9.6 g/dL (12.0-16.0) L 04/24/21 04:40 Hct 30.4 % (36.0-47.0) L 04/24/21 04:40 MCV 81.9 fL (80.0-100.0) 04/24/21 04:40 MCH 25.8 pg (27.0-34.0) L 04/24/21 04:40 MCHC 31.5 g/dL (33.0-35.0) L 04/24/21 04:40 RDW 19.5 % (11.6-16.5) H 04/24/21 04:40 Plt Count 611 X10^3/uL (150.0-450.0) H 04/24/21 04:40 MPV 7.0 fL (7.4-11.0) L 04/24/21 04:40 Neut % (Auto) 60.7 % (42.0-75.0) 04/24/21 04:40 Lymph % (Auto) 26.5 % (21.0-51.0) 04/24/21 04:40 [place] % (Auto) 6.7 % (0.0-13.0) 04/24/21 04:40 Eos % (Auto) 4.0 % (0.9-2.9) H 04/24/21 04:40 Baso % (Auto) 2.1 % (0.2-1.0) H 04/24/21 04:40 Neut # (Auto) 6.1 x10^3/uL (2.2-4.8) H 04/24/21 04:40 Lymph # (Auto) 2.7 X10^3/uL (1.3-2.9) 04/24/21 04:40 [place] # (Auto) 0.7 x10^3/uL (0.3-0.8) 04/24/21 04:40 Eos # (Auto) 0.4 x10^3/uL (0.0-0.2) H 04/24/21 04:40 Baso # (Auto) 0.2 X10^3/uL (0.0-0.1) H 04/24/21 04:40 Absolute Nucleated RBC 0.2 /100WBC 04/24/21 04:40 Sample Site Rr 04/24/21 05:00 ABG pH 7.450 (7.35-7.45) 04/24/21 05:00 ABG pCO2 50.0 mmHg (35.0-45.0) H 04/24/21 05:00 ABG pO2 91.0 mmHg (80.0-100.0) 04/24/21 05:00 ABG HCO3 34.8 mmol/L (22-26) H* 04/24/21 05:00 ABG O2 Saturation 97.0 % (90-100) 04/24/21 05:00 ABG Base Excess 9.3 mmol/L (-2.0-2.0) H 04/24/21 05:00 Gregory Test Pos 04/24/21 05:00 A-a Gradient 60.0 mmHg 04/24/21 05:00 FiO2 30.0 04/24/21 05:00 Blood Gas Comments Jacy well sw 04/24/21 05:00 Sodium 147 mmol/L (136-145) H 04/24/21 04:40 Corrected Sodium 149 mmol/L (136-145) H 04/24/21 04:40 Potassium 4.5 mmol/L (3.5-5.1) 04/24/21 04:40 Chloride 107 mmol/L (98-107) 04/24/21 04:40 Carbon Dioxide 33.5 mmol/L (21-32) H 04/24/21 04:40 BUN 35 mg/dL (7-18) H 04/24/21 04:40 Creatinine 0.58 mg/dL (0.55-1.02) 04/24/21 04:40 Est GFR (MDRD) Af Amer > 60 (>60) 04/24/21 04:40 Est GFR (MDRD) Non-Af > 60 (>60) 04/24/21 04:40 Glucose 193 mg/dL (65-99) H 04/24/21 04:40 Calcium 8.4 mg/dL (8.5-10.1) L 04/24/21 04:40 Corrected Calcium 10.2 mg/dL (8.5-10.1) H 04/24/21 04:40 Total Bilirubin 0.20 mg/dL (0.2-1.0) 04/24/21 04:40 AST 20 Units/L (15-37) 04/24/21 04:40 ALT 26 Units/L (12-78) 04/24/21 04:40 Alkaline Phosphatase 146 Units/L (46-116) H 04/24/21 04:40 Total Protein 7.3 g/dL (6.4-8.2) 04/24/21 04:40 Albumin 1.7 g/dL (3.4-5.0) L 04/24/21 04:40 Globulin 5.6 g/dL (2.5-4.5) H 04/24/21 04:40 Albumin/Globulin Ratio 0.3 Ratio (1.1-2.1) L 04/24/21 04:40 Phenytoin 7.1 ug/mL (10-20) L 04/24/21 04:40 Radiology Reviewed: Yes Plan (1) Pneumothorax, left: Status: Acute Plan: Consult Dr. Abel, Gen Surg. for chest tube removal when appropiate. (2) Hypernatremia: Status: Acute Plan: F/U with dietary consult. Repeat CMP in am. (3) Chronic hypoxemic respiratory failure: Status: Acute Plan: Continue to ween off vent. (4) DM (diabetes mellitus): Status: Acute Plan: Insulin Rx (5) Seizure disorder: Status: Acute Plan: Continue Dilantin 100 mg TID per PEG tube and check level in am. (6) Hypoalbuminemia due to protein-calorie malnutrition: Status: Acute Plan: Nutrition consult.
[2021-04-24] MEDS: NovoLIN R (or HumuLIN R) SUBCUT PRN ×2 (17:12→21:50)
--- NOTE | 2021-04-24 18:43 | RAD ---
EXAM: CHEST X-RAYHISTORY: Chest tube. Suction removed.TECHNIQUE: AP chest x-ray dated April 24, 2021 at 4:53 PM.COMPARISON: CXR dated April 24, 2021 at 5:21 AM.FINDINGS:Note: Exam degraded by patient rotation to the left and relatively shallow inspiratory effort.A tracheostomy tube is again noted in situ with the distal tip approximately 3.2 cm above the alejandra (adequate position).A stable left-sided chest tube is noted in situ with the distal tip in the left apical hemithorax. There is suggestion of interval appearance of a small left pleural effusion, tracking along the left peripheral left hemithorax. No pneumothorax is seen.There is aortic atherosclerosis. The heart size and mediastinum are otherwise within normal limits. There is stable appearance of diffuse bilateral lung infiltrates. There is interval progression of relative consolidative parenchymal infiltrate in the retrocardiac left lower lobe, which may represent atelectasis and/or pneumonia. The visualized bony structures are within normal limits.IMPRESSION:1. A stable left-sided chest tube is noted in situ with the distal tip in the left apical hemithorax.2. Suggestion of interval appearance of a small left pleural effusion, tracking along the left peripheral left hemithorax.3. No pneumothorax is seen.4. Stable appearance of diffuse bilateral lung infiltrates.5. Interval progression of relative consolidative parenchymal infiltrate in the retrocardiac left lower lobe, which may represent atelectasis and/or pneumonia.Electronically signed by: Qi Pedersen (Apr 24, 2021 18:41:08)
[2021-04-24 19:19] VITALS: BMI 28.9
[2021-04-24] MEDS: PEPCID TAB 20 MG PO SCH (21:20)
[2021-04-24] MEDS: SNACK - Diabetic Appropriate PO SCH (21:44)
[2021-04-25] MEDS ORDERED: SALINE 3% 15 ML NEB TX ONE (02:59)
[2021-04-25 04:33] LABS: ABG BASE EXCESS 9.9 mmol/L (-2.0-2.0)
[2021-04-25 04:34] LABS: ABG ALLEN TEST POS; ABG HCO3 36.3 mmol/L (22-26)
[2021-04-25] MEDS: DILANTIN PO SCH ×3 (05:25→21:02)
[2021-04-25 05:37] LABS: BASOPHILS # (AUTO) 0.2 X10^3/uL (0.0-0.1); BASOPHILS % (AUTO) 2.3 % (0.2-1.0); EOSINOPHILS # (AUTO) 0.2 x10^3/uL (0.0-0.2); EOSINOPHILS % (AUTO) 2.2 % (0.9-2.9); HEMATOCRIT 30.6 % (36.0-47.0); HEMOGLOBIN 9.5 g/dL (12.0-16.0); LYMPHOCYTES # (AUTO) 2.1 X10^3/uL (1.3-2.9); LYMPHOCYTES % (AUTO) 22.5 % (21.0-51.0); MEAN CORPUSCULAR HEMOGLOBIN 25.4 pg (27.0-34.0); MEAN CORPUSCULAR HGB CONC 31.2 g/dL (33.0-35.0); MEAN CORPUSCULAR VOLUME 81.4 fL (80.0-100.0); MEAN PLATELET VOLUME 7.2 fL (7.4-11.0); MONOCYTES # (AUTO) 0.7 x10^3/uL (0.3-0.8); MONOCYTES % (AUTO) 7.3 % (0.0-13.0); NEUTROPHILS # (AUTO) 6.2 x10^3/uL (2.2-4.8); NEUTROPHILS % (AUTO) 65.7 % (42.0-75.0); PLATELET COUNT 647 X10^3/uL (150.0-450.0); RED BLOOD COUNT 3.76 X10^6/uL (3.5-5.4); RED CELL DISTRIBUTION WIDTH 18.9 % (11.6-16.5); WHITE BLOOD COUNT 9.4 X10^3/uL (3.6-10.0)
[2021-04-25 05:45] LABS: ALANINE AMINOTRANSFERASE 27 Units/L (12-78); ALBUMIN 1.8 g/dL (3.4-5.0); ALKALINE PHOSPHATASE 168 Units/L (46-116); ASPARTATE AMINO TRANSFERASE 19 Units/L (15-37); BLOOD UREA NITROGEN 32 mg/dL (7-18); CALCIUM 8.1 mg/dL (8.5-10.1); CARBON DIOXIDE 32.6 mmol/L (21-32); CHLORIDE 107 mmol/L (98-107); COR CA(FOR HYPOALB) 9.9 mg/dL (8.5-10.1); COR NA(FOR HYPERGLY) 151 mmol/L (136-145); CREATININE 0.64 mg/dL (0.55-1.02); SODIUM 147 mmol/L (136-145); TOTAL PROTEIN 7.4 g/dL (6.4-8.2); eGFR NON BLACK RACES > 60 (>60)
[2021-04-25] MEDS: NovoLIN R (or HumuLIN R) SUBCUT PRN ×5 (06:40→21:00)
[2021-04-25] MEDS: LOVENOX INJ 40 MG SYR SC SCH (08:06)
[2021-04-25] MEDS: CORDARONE TAB 200 MG PO SCH (08:06)
[2021-04-25] MEDS: MORPHINE SULFATE INJ 2 MG INJ IVP PRN ×2 (08:07→18:09)
[2021-04-25] MEDS: PERIDEX or PERIOGARD MT SCH ×2 (08:07→21:02)
[2021-04-25] MEDS: FLOMAX PO SCH (08:08)
--- NOTE | 2021-04-25 08:22 | RAD ---
HISTORYFOLLOW UP CHEST TUBE/PNEUMOTHORAXSTUDYCHEST, 1 VIEWCOMPARISONOne day prior.TECHNIQUEAP view of the chest, 2 imagesFINDINGSTracheostomy tube in situ. Left thoracostomy tube in similar position. Patient is rotated. Cardiac silhouette is partially obscured. Interval mild worsening of bilateral airspace opacities. No discernible pneumothorax. Cannot exclude small bilateral pleural effusions.IMPRESSIONNo discernible pneumothorax. Mild worsening of bilateral pneumonia.Electronically signed by: Mendel Edwards (Apr 25, 2021 08:20:25)
--- NOTE | 2021-04-25 08:50 | DR.PROGNOT ---
Hospital Progress Notes - Progress Note for Day of: Progress Note Date: 04/25/21 - Chief Complaint Chief Complaint: no changes . chest tube was off suction all night ..repeated Xray showed no pneumothorax . - Past Medical Family Social History Past Med/Fam/Surg Hx: No changes since H&P Allergies: Allergies No Known Drug Allergies Allergy (Verified 02/12/21 08:46) - Review Of Systems ROS: No change since H&P - Vital Signs Vital Signs: Temperature 97.8 F Pulse Rate 99 Respiratory Rate 22 Blood Pressure [Right Arm] 136/64 Blood Pressure [Left Arm] 131/67 Blood Pressure 116/56 O2 Sat by Pulse Oximetry 98 - Physical Exam Oriented: Normal Eyes: Normal Ear: Normal Nose: Normal Throat: Normal Respiratory: Generalized, Rhonchi Cardiovascular: Normal : Normal GI:Auscultation: Normal GI:Palpation: Normal GI: Tenderness: Normal Skin: Decreased Turgur Musculoskeletal: Normal Psychiatric: Other (unable to ascertain) Mood Description: Calm Affect: Quiet Speech Pattern: Trach(not ventilated) - Laboratory and Diagnostics Result Diagrams: 04/25/21 04:50 04/25/21 04:50 Labs: Laboratory WBC 9.4 X10^3/uL (3.6-10.0) 04/25/21 04:50 RBC 3.76 X10^6/uL (3.5-5.4) 04/25/21 04:50 Hgb 9.5 g/dL (12.0-16.0) L 04/25/21 04:50 Hct 30.6 % (36.0-47.0) L 04/25/21 04:50 MCV 81.4 fL (80.0-100.0) 04/25/21 04:50 MCH 25.4 pg (27.0-34.0) L 04/25/21 04:50 MCHC 31.2 g/dL (33.0-35.0) L 04/25/21 04:50 RDW 18.9 % (11.6-16.5) H 04/25/21 04:50 Plt Count 647 X10^3/uL (150.0-450.0) H 04/25/21 04:50 MPV 7.2 fL (7.4-11.0) L 04/25/21 04:50 Neut % (Auto) 65.7 % (42.0-75.0) 04/25/21 04:50 Lymph % (Auto) 22.5 % (21.0-51.0) 04/25/21 04:50 [place] % (Auto) 7.3 % (0.0-13.0) 04/25/21 04:50 Eos % (Auto) 2.2 % (0.9-2.9) 04/25/21 04:50 Baso % (Auto) 2.3 % (0.2-1.0) H 04/25/21 04:50 Neut # (Auto) 6.2 x10^3/uL (2.2-4.8) H 04/25/21 04:50 Lymph # (Auto) 2.1 X10^3/uL (1.3-2.9) 04/25/21 04:50 [place] # (Auto) 0.7 x10^3/uL (0.3-0.8) 04/25/21 04:50 Eos # (Auto) 0.2 x10^3/uL (0.0-0.2) 04/25/21 04:50 Baso # (Auto) 0.2 X10^3/uL (0.0-0.1) H 04/25/21 04:50 Absolute Nucleated RBC 0.1 /100WBC 04/25/21 04:50 Sample Site Rr 04/25/21 04:27 ABG pH 7.420 (7.35-7.45) 04/25/21 04:27 ABG pCO2 56.0 mmHg (35.0-45.0) H* 04/25/21 04:27 ABG pO2 73.0 mmHg (80.0-100.0) L 04/25/21 04:27 ABG HCO3 36.3 mmol/L (22-26) H* 04/25/21 04:27 ABG O2 Saturation 95.0 % (90-100) 04/25/21 04:27 ABG Base Excess 9.9 mmol/L (-2.0-2.0) H 04/25/21 04:27 Gregory Test Pos 04/25/21 04:27 A-a Gradient 71.0 mmHg 04/25/21 04:27 FiO2 30.0 04/25/21 04:27 Blood Gas Comments Jacy well ae 04/25/21 04:27 Sodium 147 mmol/L (136-145) H 04/25/21 04:50 Corrected Sodium 151 mmol/L (136-145) H 04/25/21 04:50 Potassium 4.2 mmol/L (3.5-5.1) 04/25/21 04:50 Chloride 107 mmol/L (98-107) 04/25/21 04:50 Carbon Dioxide 32.6 mmol/L (21-32) H 04/25/21 04:50 BUN 32 mg/dL (7-18) H 04/25/21 04:50 Creatinine 0.64 mg/dL (0.55-1.02) 04/25/21 04:50 Est GFR (MDRD) Af Amer > 60 (>60) 04/25/21 04:50 Est GFR (MDRD) Non-Af > 60 (>60) 04/25/21 04:50 Glucose 257 mg/dL (65-99) H 04/25/21 04:50 POC Glucose (mg/dL) 301 mg/dL (65-99) H 04/24/21 20:19 Calcium 8.1 mg/dL (8.5-10.1) L 04/25/21 04:50 Corrected Calcium 9.9 mg/dL (8.5-10.1) 04/25/21 04:50 Total Bilirubin 0.20 mg/dL (0.2-1.0) 04/25/21 04:50 AST 19 Units/L (15-37) 04/25/21 04:50 ALT 27 Units/L (12-78) 04/25/21 04:50 Alkaline Phosphatase 168 Units/L (46-116) H 04/25/21 04:50 Total Protein 7.4 g/dL (6.4-8.2) 04/25/21 04:50 Albumin 1.8 g/dL (3.4-5.0) L 04/25/21 04:50 Globulin 5.6 g/dL (2.5-4.5) H 04/25/21 04:50 Albumin/Globulin Ratio 0.3 Ratio (1.1-2.1) L 04/25/21 04:50 Phenytoin 7.6 ug/mL (10-20) L 04/25/21 04:50 - Assessment and Plan 1: pneumothorax , s/p placement of chest tube . to clamp CT , repeat X Ray around noon and maybe removing CT today or in AM ..
[2021-04-25] MEDS: PULMICORT NEB TX 0.5 MG NEB SCH ×2 (09:00→20:45)
[2021-04-25] MEDS: XOPENEX 1.25 MG/3 ML NEBULE NEB SCH ×2 (09:00→20:45)
--- NOTE | 2021-04-25 13:44 | RAD ---
HISTORY:Follow-up chest tubeStudy: Single view chestComparison:Earlier same dayFINDINGS/IMPRESSION:Left chest tube in stable position at the lung apex. Small left effusion. No pneumothorax identified. Stable bilateral lung infiltrates and tracheostomy.Electronically signed by: TIMOTHY RAMON (Apr 25, 2021 13:42:59)
--- NOTE | 2021-04-25 16:10 | PCM.PROG ---
Progress Note Progress Note for Day of Date of Exam: 04/25/21 Subjective Subjective: No problems overnight. Resting this am. CXR showed resolved left sided pneumothorax. Chest Tube is clamped. If x-ray today at noon shows lung is still re-expanded will pull chest tube. Past Medical Family Social History Past Med/Fam/Surg Hx: No changes since H&P Allergies: Allergies No Known Drug Allergies Allergy (Verified 02/12/21 08:46) Review of Systems ROS: No change since H&P Vital Signs and I&O's Vital Signs: Temperature 98.2 F Pulse Rate 93 Respiratory Rate 26 Blood Pressure [Right Arm] 136/64 Blood Pressure [Left Arm] 131/67 Blood Pressure 123/68 O2 Sat by Pulse Oximetry 100 Intake and Output: Intake & Output 04/23/21 04/24/21 04/25/21 04/26/21 11:59 11:59 11:59 11:59 Intake Total 905 / 905 650 / 650 Output Total 1702 / 1702 1700 / 1700 500 / 500 Balance -1702 / -1702 -795 / -795 150 / 150 Physical Exam Oriented: Normal Eyes: Normal Ear: Normal Nose: Normal Throat: Normal Respiratory: Generalized and Rhonchi Cardiovascular: Normal : Normal Auscultation: Bowel Sounds: Normal Tenderness: Normal Skin: Decreased Turgur Musculoskeletal: Normal Psychiatric: Other (unable to ascertain) Mood Description: Calm Affect: Quiet Speech Pattern: Trach(not ventilated) Laboratory and Diagnostics Result Diagrams: 04/25/21 04:50 04/25/21 04:50 Labs: 04/23/21 16:16 Blood Blood Culture - Preliminary 04/23/21 16:14 Blood Blood Culture - Preliminary Laboratory WBC 9.4 X10^3/uL (3.6-10.0) 04/25/21 04:50 RBC 3.76 X10^6/uL (3.5-5.4) 04/25/21 04:50 Hgb 9.5 g/dL (12.0-16.0) L 04/25/21 04:50 Hct 30.6 % (36.0-47.0) L 04/25/21 04:50 MCV 81.4 fL (80.0-100.0) 04/25/21 04:50 MCH 25.4 pg (27.0-34.0) L 04/25/21 04:50 MCHC 31.2 g/dL (33.0-35.0) L 04/25/21 04:50 RDW 18.9 % (11.6-16.5) H 04/25/21 04:50 Plt Count 647 X10^3/uL (150.0-450.0) H 04/25/21 04:50 MPV 7.2 fL (7.4-11.0) L 04/25/21 04:50 Neut % (Auto) 65.7 % (42.0-75.0) 04/25/21 04:50 Lymph % (Auto) 22.5 % (21.0-51.0) 04/25/21 04:50 [place] % (Auto) 7.3 % (0.0-13.0) 04/25/21 04:50 Eos % (Auto) 2.2 % (0.9-2.9) 04/25/21 04:50 Baso % (Auto) 2.3 % (0.2-1.0) H 04/25/21 04:50 Neut # (Auto) 6.2 x10^3/uL (2.2-4.8) H 04/25/21 04:50 Lymph # (Auto) 2.1 X10^3/uL (1.3-2.9) 04/25/21 04:50 [place] # (Auto) 0.7 x10^3/uL (0.3-0.8) 04/25/21 04:50 Eos # (Auto) 0.2 x10^3/uL (0.0-0.2) 04/25/21 04:50 Baso # (Auto) 0.2 X10^3/uL (0.0-0.1) H 04/25/21 04:50 Absolute Nucleated RBC 0.1 /100WBC 04/25/21 04:50 Sample Site Rr 04/25/21 04:27 ABG pH 7.420 (7.35-7.45) 04/25/21 04:27 ABG pCO2 56.0 mmHg (35.0-45.0) H* 04/25/21 04:27 ABG pO2 73.0 mmHg (80.0-100.0) L 04/25/21 04:27 ABG HCO3 36.3 mmol/L (22-26) H* 04/25/21 04:27 ABG O2 Saturation 95.0 % (90-100) 04/25/21 04:27 ABG Base Excess 9.9 mmol/L (-2.0-2.0) H 04/25/21 04:27 Gregory Test Pos 04/25/21 04:27 A-a Gradient 71.0 mmHg 04/25/21 04:27 FiO2 30.0 04/25/21 04:27 Blood Gas Comments Jacy well ae 04/25/21 04:27 Sodium 147 mmol/L (136-145) H 04/25/21 04:50 Corrected Sodium 151 mmol/L (136-145) H 04/25/21 04:50 Potassium 4.2 mmol/L (3.5-5.1) 04/25/21 04:50 Chloride 107 mmol/L (98-107) 04/25/21 04:50 Carbon Dioxide 32.6 mmol/L (21-32) H 04/25/21 04:50 BUN 32 mg/dL (7-18) H 04/25/21 04:50 Creatinine 0.64 mg/dL (0.55-1.02) 04/25/21 04:50 Est GFR (MDRD) Af Amer > 60 (>60) 04/25/21 04:50 Est GFR (MDRD) Non-Af > 60 (>60) 04/25/21 04:50 Glucose 257 mg/dL (65-99) H 04/25/21 04:50 POC Glucose (mg/dL) 293 mg/dL (65-99) H 04/25/21 12:05 Calcium 8.1 mg/dL (8.5-10.1) L 04/25/21 04:50 Corrected Calcium 9.9 mg/dL (8.5-10.1) 04/25/21 04:50 Total Bilirubin 0.20 mg/dL (0.2-1.0) 04/25/21 04:50 AST 19 Units/L (15-37) 04/25/21 04:50 ALT 27 Units/L (12-78) 04/25/21 04:50 Alkaline Phosphatase 168 Units/L (46-116) H 04/25/21 04:50 Total Protein 7.4 g/dL (6.4-8.2) 04/25/21 04:50 Albumin 1.8 g/dL (3.4-5.0) L 04/25/21 04:50 Globulin 5.6 g/dL (2.5-4.5) H 04/25/21 04:50 Albumin/Globulin Ratio 0.3 Ratio (1.1-2.1) L 04/25/21 04:50 Phenytoin 7.6 ug/mL (10-20) L 04/25/21 04:50 Plan (1) Pneumothorax, left: Status: Acute Plan: Consult Dr. Abel, Gen Surg. for chest tube removal when appropi ate. (2) Hypernatremia: Status: Acute Plan: Start free water 400 ml Q6 hours per PEG. CMP in am. (3) Chronic hypoxemic respiratory failure: Status: Acute Plan: Continue to ween off vent. (4) DM (diabetes mellitus): Status: Acute Plan: Insulin Rx (5) Seizure disorder: Status: Acute Plan: Continue Dilantin 100 mg TID per PEG tube and check level in am. (6) Hypoalbuminemia due to protein-calorie malnutrition: Status: Acute Plan: Nutrition consult.
--- NOTE | 2021-04-25 18:08 | RAD ---
EXAM: CHEST X-RAYHISTORY: Rule out chest tube.TECHNIQUE: AP CXR dated April 25, 2021 at 6:39 PM.COMPARISON: CXR dated April 25, 2021 at 12:11 PM.FINDINGS:Status post interval left-sided chest tube removal. No pneumothorax or gross pleural effusion is seen.A tracheostomy tube is again noted with the distal tip approximately 5 cm above the alejandra (adequate position). The heart size and mediastinum are within normal limits. The visualized bony structures are within normal limits.There is coarse prominence of the bronchopulmonary markings (with minimal interval improvement compared with the previous exam); DDX includes (but is not limited to) noncardiogenic pulmonary congestion, bronchitis, ARDS, and interstitial pneumonia in the appropriate clinical setting. Clinical correlation is advised.IMPRESSION:1. Status post interval left-sided chest tube removal. No pneumothorax or gross pleural effusion is seen.2. Coarse prominence of the bronchopulmonary markings (with minimal interval improvement compared with the previous exam); DDX includes (but is not limited to) noncardiogenic pulmonary congestion, bronchitis, ARDS, and interstitial pneumonia in the appropriate clinical setting. Clinical correlation is advised.3. Recommend clinical correlation and appropriate follow-up x-ray evaluation to ensure interval clearance as clinically warranted.4. Consider follow evaluation with noncontrast chest CT for further characterization as clinically warranted.Electronically signed by: Qi Pedersen (Apr 25, 2021 18:07:17)
[2021-04-25] MEDS: SNACK - Diabetic Appropriate PO SCH (21:00)
[2021-04-25] MEDS: PEPCID TAB 20 MG PO SCH (21:01)
[2021-04-26] MEDS: DILANTIN PO SCH ×3 (05:15→21:29)
[2021-04-26 05:22] LABS: BASOPHILS # (AUTO) 0.2 X10^3/uL (0.0-0.1); BASOPHILS % (AUTO) 1.5 % (0.2-1.0); EOSINOPHILS # (AUTO) 0.4 x10^3/uL (0.0-0.2); EOSINOPHILS % (AUTO) 3.4 % (0.9-2.9); HEMATOCRIT 29.4 % (36.0-47.0); HEMOGLOBIN 9.2 g/dL (12.0-16.0); LYMPHOCYTES # (AUTO) 2.5 X10^3/uL (1.3-2.9); MEAN CORPUSCULAR HEMOGLOBIN 25.5 pg (27.0-34.0); MEAN CORPUSCULAR HGB CONC 31.3 g/dL (33.0-35.0); MEAN CORPUSCULAR VOLUME 81.6 fL (80.0-100.0); MEAN PLATELET VOLUME 6.8 fL (7.4-11.0); MONOCYTES # (AUTO) 0.8 x10^3/uL (0.3-0.8); MONOCYTES % (AUTO) 7.7 % (0.0-13.0); NEUTROPHILS # (AUTO) 6.6 x10^3/uL (2.2-4.8); NEUTROPHILS % (AUTO) 63.4 % (42.0-75.0); PLATELET COUNT 639 X10^3/uL (150.0-450.0); RED CELL DISTRIBUTION WIDTH 19.3 % (11.6-16.5); WHITE BLOOD COUNT 10.5 X10^3/uL (3.6-10.0)
[2021-04-26 05:35] LABS: ALANINE AMINOTRANSFERASE 25 Units/L (12-78); ALBUMIN 1.9 g/dL (3.4-5.0); ALKALINE PHOSPHATASE 171 Units/L (46-116); ASPARTATE AMINO TRANSFERASE 18 Units/L (15-37); BLOOD UREA NITROGEN 28 mg/dL (7-18); CALCIUM 7.9 mg/dL (8.5-10.1); CARBON DIOXIDE 30.6 mmol/L (21-32); CHLORIDE 106 mmol/L (98-107); COR CA(FOR HYPOALB) 9.6 mg/dL (8.5-10.1); COR NA(FOR HYPERGLY) 149 mmol/L (136-145); CREATININE 0.61 mg/dL (0.55-1.02); SODIUM 145 mmol/L (136-145); TOTAL PROTEIN 7.3 g/dL (6.4-8.2); eGFR NON BLACK RACES > 60 (>60)
[2021-04-26 05:41] LABS: ABG BASE EXCESS 9.7 mmol/L (-2.0-2.0)
[2021-04-26 05:43] LABS: ABG ALLEN TEST POS; ABG HCO3 35.8 mmol/L (22-26)
--- NOTE | 2021-04-26 06:05 | RAD ---
HISTORYS/P CHEST TUBE REMOVALSTUDYCHEST, 1 VIEWCOMPARISONOne day prior.TECHNIQUEAP view of the chestFINDINGSTracheostomy tube in situ. Cardiac silhouette is normal in size. There is opacification along the left side wall extending into the left apex likely a pleural effusion. No discernible pneumothorax. No significant change in bilateral airspace and interstitial opacities. Patient is rotatedIMPRESSIONNo pneumothorax identified. There is a moderate-sized left pleural effusion along the left side wall extending to the left apex.Electronically signed by: Mendel Edwards (Apr 26, 2021 06:02:33)
[2021-04-26] MEDS: NovoLIN R (or HumuLIN R) SUBCUT PRN ×4 (06:24→21:28)
[2021-04-26] MEDS: MORPHINE SULFATE INJ 2 MG INJ IVP PRN ×4 (06:33→17:05)
[2021-04-26] MEDS: LOVENOX INJ 40 MG SYR SC SCH (09:08)
[2021-04-26] MEDS: PERIDEX or PERIOGARD MT SCH ×2 (09:09→20:50)
[2021-04-26] MEDS: CORDARONE TAB 200 MG PO SCH (09:09)
[2021-04-26] MEDS: FLOMAX PO SCH (09:09)
[2021-04-26] MEDS ORDERED: LASIX IVP ONE (09:15)
[2021-04-26] MEDS ORDERED: ALBUMIN HUMAN 25%- 100 ML 100 ML IV ONE (09:15)
[2021-04-26] MEDS: PULMICORT NEB TX 0.5 MG NEB SCH ×2 (09:20→20:41)
[2021-04-26] MEDS: XOPENEX 1.25 MG/3 ML NEBULE NEB SCH ×2 (09:20→20:41)
[2021-04-26] MEDS ORDERED: NS 100 ML IV 100 ML ONE (09:59)
--- NOTE | 2021-04-26 18:09 | PCM.PROG ---
Progress Note Progress Note for Day of Date of Exam: 04/26/21 Subjective Subjective: No problems overnight. Resting this am. CXR showed resolved left sided pleural effusion. Chest Tube was pulled yesterday. Pt nods her head to yes and no questions. Past Medical Family Social History Past Med/Fam/Surg Hx: No changes since H&P Allergies: Allergies No Known Drug Allergies Allergy (Verified 02/12/21 08:46) Review of Systems ROS: No change since H&P Vital Signs and I&O's Vital Signs: Temperature 97.4 F Pulse Rate 98 Respiratory Rate 22 Blood Pressure [Right Arm] 136/64 Blood Pressure [Left Arm] 131/67 Blood Pressure 126/60 O2 Sat by Pulse Oximetry 97 Intake and Output: Intake & Output 04/24/21 04/25/21 04/26/21 04/27/21 11:59 11:59 11:59 11:59 Intake Total 905 / 905 750 / 1525 905 / 905 Output Total 1702 / 1702 1700 / 1700 2275 / 2275 667 / 667 Balance -1702 / -1702 -795 / -795 -1525 / -750 238 / 238 Physical Exam Oriented: Normal Eyes: Normal Ear: Normal Nose: Normal Throat: Normal Respiratory: Generalized and Rhonchi Cardiovascular: Normal : Normal Auscultation: Bowel Sounds: Normal Tenderness: Normal Skin: Decreased Turgur Musculoskeletal: Normal Psychiatric: Other (unable to ascertain) Mood Description: Calm Affect: Quiet Speech Pattern: Unclear Laboratory and Diagnostics Result Diagrams: 04/26/21 04:55 04/26/21 04:55 Labs: 04/23/21 16:16 Blood Blood Culture - Preliminary 04/23/21 16:14 Blood Blood Culture - Preliminary Laboratory WBC 10.5 X10^3/uL (3.6-10.0) H 04/26/21 04:55 RBC 3.60 X10^6/uL (3.5-5.4) 04/26/21 04:55 Hgb 9.2 g/dL (12.0-16.0) L 04/26/21 04:55 Hct 29.4 % (36.0-47.0) L 04/26/21 04:55 MCV 81.6 fL (80.0-100.0) 04/26/21 04:55 MCH 25.5 pg (27.0-34.0) L 04/26/21 04:55 MCHC 31.3 g/dL (33.0-35.0) L 04/26/21 04:55 RDW 19.3 % (11.6-16.5) H 04/26/21 04:55 Plt Count 639 X10^3/uL (150.0-450.0) H 04/26/21 04:55 MPV 6.8 fL (7.4-11.0) L 04/26/21 04:55 Neut % (Auto) 63.4 % (42.0-75.0) 04/26/21 04:55 Lymph % (Auto) 24.0 % (21.0-51.0) 04/26/21 04:55 [place] % (Auto) 7.7 % (0.0-13.0) 04/26/21 04:55 Eos % (Auto) 3.4 % (0.9-2.9) H 04/26/21 04:55 Baso % (Auto) 1.5 % (0.2-1.0) H 04/26/21 04:55 Neut # (Auto) 6.6 x10^3/uL (2.2-4.8) H 04/26/21 04:55 Lymph # (Auto) 2.5 X10^3/uL (1.3-2.9) 04/26/21 04:55 [place] # (Auto) 0.8 x10^3/uL (0.3-0.8) 04/26/21 04:55 Eos # (Auto) 0.4 x10^3/uL (0.0-0.2) H 04/26/21 04:55 Baso # (Auto) 0.2 X10^3/uL (0.0-0.1) H 04/26/21 04:55 Absolute Nucleated RBC 0.0 /100WBC 04/26/21 04:55 Sample Site Rrad 04/26/21 05:39 ABG pH 7.430 (7.35-7.45) 04/26/21 05:39 ABG pCO2 54.0 mmHg (35.0-45.0) H* 04/26/21 05:39 ABG pO2 70.0 mmHg (80.0-100.0) L 04/26/21 05:39 ABG HCO3 35.8 mmol/L (22-26) H* 04/26/21 05:39 ABG O2 Saturation 94.0 % (90-100) 04/26/21 05:39 ABG Base Excess 9.7 mmol/L (-2.0-2.0) H 04/26/21 05:39 Gregory Test Pos 04/26/21 05:39 A-a Gradient 76.0 mmHg 04/26/21 05:39 FiO2 30.0 04/26/21 05:39 Blood Gas Comments Jacy well-mtf 04/26/21 05:39 Sodium 145 mmol/L (136-145) 04/26/21 04:55 Corrected Sodium 149 mmol/L (136-145) H 04/26/21 04:55 Potassium 4.1 mmol/L (3.5-5.1) 04/26/21 04:55 Chloride 106 mmol/L (98-107) 04/26/21 04:55 Carbon Dioxide 30.6 mmol/L (21-32) 04/26/21 04:55 BUN 28 mg/dL (7-18) H 04/26/21 04:55 Creatinine 0.61 mg/dL (0.55-1.02) 04/26/21 04:55 Est GFR (MDRD) Af Amer > 60 (>60) 04/26/21 04:55 Est GFR (MDRD) Non-Af > 60 (>60) 04/26/21 04:55 Glucose 273 mg/dL (65-99) H 04/26/21 04:55 POC Glucose (mg/dL) 256 mg/dL (65-99) H 04/26/21 16:39 Calcium 7.9 mg/dL (8.5-10.1) L 04/26/21 04:55 Corrected Calcium 9.6 mg/dL (8.5-10.1) 04/26/21 04:55 Total Bilirubin 0.20 mg/dL (0.2-1.0) 04/26/21 04:55 AST 18 Units/L (15-37) 04/26/21 04:55 ALT 25 Units/L (12-78) 04/26/21 04:55 Alkaline Phosphatase 171 Units/L (46-116) H 04/26/21 04:55 B-Natriuretic Peptide 9.0 pg/mL (0-79) 04/26/21 04:55 Total Protein 7.3 g/dL (6.4-8.2) 04/26/21 04:55 Albumin 1.9 g/dL (3.4-5.0) L 04/26/21 04:55 Globulin 5.4 g/dL (2.5-4.5) H 04/26/21 04:55 Albumin/Globulin Ratio 0.4 Ratio (1.1-2.1) L 04/26/21 04:55 Phenytoin 7.6 ug/mL (10-20) L 04/25/21 04:50 Radiology Reviewed: Yes ST: Ischemia Plan (1) Hypoalbuminemia due to protein-calorie malnutrition: Status: Acute Plan: IV albumin today. (2) Pleural effusion, left: Status: Acute Plan: IV Lasix. BNP today and in am. (3) Hypernatremia: Status: Acute Plan: Start free water 400 ml Q6 hours per PEG. CMP in am. (4) Chronic hypoxemic respiratory failure: Status: Acute Plan: Continue to ween off vent. (5) DM (diabetes mellitus): Status: Acute Plan: Insulin Rx (6) Seizure disorder: Status: Acute Plan: Continue Dilantin 100 mg TID per PEG tube and check level in am. (7) Pneumothorax, left: Status: Resolved Plan: Consult Dr. Abel, Gen Surg. for chest tube removal when appro piate.
[2021-04-26] MEDS: SNACK - Diabetic Appropriate PO SCH (20:49)
[2021-04-26] MEDS: PEPCID TAB 20 MG PO SCH (20:50)
[2021-04-27] MEDS: MORPHINE SULFATE INJ 2 MG INJ IVP PRN ×4 (02:45→14:55)
[2021-04-27 05:15] LABS: BASOPHILS # (AUTO) 0.2 X10^3/uL (0.0-0.1); BASOPHILS % (AUTO) 1.6 % (0.2-1.0); EOSINOPHILS # (AUTO) 0.4 x10^3/uL (0.0-0.2); HEMATOCRIT 28.7 % (36.0-47.0); HEMOGLOBIN 9.2 g/dL (12.0-16.0); LYMPHOCYTES # (AUTO) 2.1 X10^3/uL (1.3-2.9); LYMPHOCYTES % (AUTO) 20.1 % (21.0-51.0); MEAN CORPUSCULAR HEMOGLOBIN 25.8 pg (27.0-34.0); MEAN CORPUSCULAR HGB CONC 32.1 g/dL (33.0-35.0); MEAN CORPUSCULAR VOLUME 80.5 fL (80.0-100.0); MEAN PLATELET VOLUME 7.5 fL (7.4-11.0); MONOCYTES # (AUTO) 0.7 x10^3/uL (0.3-0.8); MONOCYTES % (AUTO) 6.3 % (0.0-13.0); NEUTROPHILS # (AUTO) 7.1 x10^3/uL (2.2-4.8); PLATELET COUNT 603 X10^3/uL (150.0-450.0); RED BLOOD COUNT 3.57 X10^6/uL (3.5-5.4); RED CELL DISTRIBUTION WIDTH 19.6 % (11.6-16.5); WHITE BLOOD COUNT 10.5 X10^3/uL (3.6-10.0)
[2021-04-27 05:21] LABS: ALANINE AMINOTRANSFERASE 22 Units/L (12-78); ALBUMIN 2.6 g/dL (3.4-5.0); ALKALINE PHOSPHATASE 170 Units/L (46-116); ASPARTATE AMINO TRANSFERASE 21 Units/L (15-37); BLOOD UREA NITROGEN 25 mg/dL (7-18); CALCIUM 8.1 mg/dL (8.5-10.1); CARBON DIOXIDE 33.4 mmol/L (21-32); CHLORIDE 99 mmol/L (98-107); COR CA(FOR HYPOALB) 9.2 mg/dL (8.5-10.1); COR NA(FOR HYPERGLY) 147 mmol/L (136-145); SODIUM 143 mmol/L (136-145); TOTAL PROTEIN 7.8 g/dL (6.4-8.2); eGFR NON BLACK RACES > 60 (>60)
[2021-04-27] MEDS: DILANTIN PO SCH ×3 (05:30→21:44)
[2021-04-27 05:34] LABS: ANISOCYTOSIS SLIGHT; HYPOCHROMASIA SLIGHT; PLATELET MORPHOLOGY COMMENT NORMAL (NORMAL)
[2021-04-27 05:41] LABS: ABG BASE EXCESS 10.9 mmol/L (-2.0-2.0)
[2021-04-27 05:45] LABS: ABG ALLEN TEST POS; ABG HCO3 37.2 mmol/L (22-26)
[2021-04-27] MEDS: NovoLIN R (or HumuLIN R) SUBCUT PRN ×4 (05:50→20:51)
--- NOTE | 2021-04-27 07:04 | RAD ---
CHEST, 1 VIEWHISTORY: LEFT PLEURAL EFFUSIONStudy: Single view of the chest.Comparison:April 26, 2021Findings:The cardiomediastinal silhouette is normal. No change in the appearance of bilateral insterstitial and airspace opacities. Osseous structures demonstrate no acute abnormality.IMPRESSION:1. No change from prior.Electronically signed by: NAYE CROW (Apr 27, 2021 07:03:02)
[2021-04-27] MEDS: PULMICORT NEB TX 0.5 MG NEB SCH ×2 (08:46→20:20)
[2021-04-27] MEDS: XOPENEX 1.25 MG/3 ML NEBULE NEB SCH ×2 (08:46→20:20)
[2021-04-27] MEDS: CORDARONE TAB 200 MG PO SCH (09:21)
[2021-04-27] MEDS: LOVENOX INJ 40 MG SYR SC SCH (09:22)
[2021-04-27] MEDS: PERIDEX or PERIOGARD MT SCH ×2 (09:22→20:14)
[2021-04-27] MEDS: FLOMAX PO SCH (09:22)
[2021-04-27] MEDS ORDERED: NovoLIN R (or HumuLIN R) ONE (11:27)
--- NOTE | 2021-04-27 11:27 | PCM.PROG ---
Progress Note Progress Note for Day of Date of Exam: 04/27/21 Subjective Subjective: Pt is a 65 year old female admitted for acute respiratory failure and left pneumothorax. She is currently on a trach collar, utilizing 15 pressure support. Pt has continued to improve. No acute events overnight. Resting this am and following commands. CXR this morning was obtained that revealed: No change in the appearance of bilateral insterstitial and airspace opacities. Osseous structures demonstrate no acute abnormality. Labs/imaging: Wbc 10.5, Hgb 9.2, Plt 603, Na 143, K 4.2, Creatinine 0.60, Glucose 273, ABG: pH 7.43, pCO2 56, pO2 79, HCO3 37, O2 sat 96% on FiO2 30%. Will continue with current treatments. Continue to monitor and follow up labs/imaging in the morning. Time spent on clinical assessment, reviewing labs and imaging, decision making, and documentation greater than 45 minutes. Past Medical Family Social History Past Med/Fam/Surg Hx: No changes since H&P Allergies: Allergies No Known Drug Allergies Allergy (Verified 02/12/21 08:46) Review of Systems ROS: No change since H&P Vital Signs and I&O's Vital Signs: Temperature 97.2 F Pulse Rate 112 Respiratory Rate 24 Blood Pressure [Right Arm] 136/64 Blood Pressure [Left Arm] 131/67 Blood Pressure 110/58 O2 Sat by Pulse Oximetry 97 Intake and Output: Intake & Output 04/24/21 04/25/21 04/26/21 04/27/21 23:59 23:59 23:59 23:59 Intake Total 0 / 0 1555 / 1555 1005 / 1005 1160 / 1160 Output Total 1752 / 1752 1550 / 1550 2292 / 2292 700 / 700 Balance -1752 / -1752 5 / 5 -1287 / -1287 460 / 460 Physical Exam Oriented: Normal Eyes: Normal Ear: Normal Nose: Normal Throat: Normal Respiratory: Generalized and Diminished Cardiovascular: Normal : Normal Auscultation: Bowel Sounds: Normal Tenderness: Normal Skin: Decreased Turgur Musculoskeletal: Normal Psychiatric: Other (unable to ascertain) Mood Description: Calm Affect: Quiet Speech Pattern: Appropriate Laboratory and Diagnostics Result Diagrams: 04/27/21 04:18 04/27/21 04:18 Labs: 04/23/21 16:16 Blood Blood Culture - Preliminary 04/23/21 16:14 Blood Blood Culture - Preliminary Laboratory WBC 10.5 X10^3/uL (3.6-10.0) H 04/27/21 04:18 RBC 3.57 X10^6/uL (3.5-5.4) 04/27/21 04:18 Hgb 9.2 g/dL (12.0-16.0) L 04/27/21 04:18 Hct 28.7 % (36.0-47.0) L 04/27/21 04:18 MCV 80.5 fL (80.0-100.0) 04/27/21 04:18 MCH 25.8 pg (27.0-34.0) L 04/27/21 04:18 MCHC 32.1 g/dL (33.0-35.0) L 04/27/21 04:18 RDW 19.6 % (11.6-16.5) H 04/27/21 04:18 Plt Count 603 X10^3/uL (150.0-450.0) H 04/27/21 04:18 Plt Count Comment Increased (ADEQUATE) A 04/27/21 04:18 MPV 7.5 fL (7.4-11.0) 04/27/21 04:18 Neut % (Auto) 68.0 % (42.0-75.0) 04/27/21 04:18 Lymph % (Auto) 20.1 % (21.0-51.0) L 04/27/21 04:18 [place] % (Auto) 6.3 % (0.0-13.0) 04/27/21 04:18 Eos % (Auto) 4.0 % (0.9-2.9) H 04/27/21 04:18 Baso % (Auto) 1.6 % (0.2-1.0) H 04/27/21 04:18 Neut # (Auto) 7.1 x10^3/uL (2.2-4.8) H 04/27/21 04:18 Lymph # (Auto) 2.1 X10^3/uL (1.3-2.9) 04/27/21 04:18 [place] # (Auto) 0.7 x10^3/uL (0.3-0.8) 04/27/21 04:18 Eos # (Auto) 0.4 x10^3/uL (0.0-0.2) H 04/27/21 04:18 Baso # (Auto) 0.2 X10^3/uL (0.0-0.1) H 04/27/21 04:18 Absolute Nucleated RBC 0.1 /100WBC 04/27/21 04:18 Plt Morphology Comment Normal (NORMAL) 04/27/21 04:18 RBC Morphology Abnormal (NORMAL) A 04/27/21 04:18 Hypochromasia Slight A 04/27/21 04:18 Anisocytosis Slight A 04/27/21 04:18 Sample Site Rrad 04/27/21 05:39 ABG pH 7.430 (7.35-7.45) 04/27/21 05:39 ABG pCO2 56.0 mmHg (35.0-45.0) H* 04/27/21 05:39 ABG pO2 79.0 mmHg (80.0-100.0) L 04/27/21 05:39 ABG HCO3 37.2 mmol/L (22-26) H* 04/27/21 05:39 ABG O2 Saturation 96.0 % (90-100) 04/27/21 05:39 ABG Base Excess 10.9 mmol/L (-2.0-2.0) H 04/27/21 05:39 Gregory Test Pos 04/27/21 05:39 A-a Gradient 65.0 mmHg 04/27/21 05:39 FiO2 30.0 04/27/21 05:39 Blood Gas Comments Jacy abg well-mtf 04/27/21 05:39 Sodium 143 mmol/L (136-145) 04/27/21 04:18 Corrected Sodium 147 mmol/L (136-145) H 04/27/21 04:18 Potassium 4.2 mmol/L (3.5-5.1) 04/27/21 04:18 Chloride 99 mmol/L (98-107) 04/27/21 04:18 Carbon Dioxide 33.4 mmol/L (21-32) H 04/27/21 04:18 BUN 25 mg/dL (7-18) H 04/27/21 04:18 Creatinine 0.60 mg/dL (0.55-1.02) 04/27/21 04:18 Est GFR (MDRD) Af Amer > 60 (>60) 04/27/21 04:18 Est GFR (MDRD) Non-Af > 60 (>60) 04/27/21 04:18 Glucose 273 mg/dL (65-99) H 04/27/21 04:18 POC Glucose (mg/dL) 275 mg/dL (65-99) H 04/27/21 11:18 Calcium 8.1 mg/dL (8.5-10.1) L 04/27/21 04:18 Corrected Calcium 9.2 mg/dL (8.5-10.1) 04/27/21 04:18 Total Bilirubin 0.20 mg/dL (0.2-1.0) 04/27/21 04:18 AST 21 Units/L (15-37) 04/27/21 04:18 ALT 22 Units/L (12-78) 04/27/21 04:18 Alkaline Phosphatase 170 Units/L (46-116) H 04/27/21 04:18 B-Natriuretic Peptide 11.8 pg/mL (0-79) 04/27/21 04:18 Total Protein 7.8 g/dL (6.4-8.2) 04/27/21 04:18 Albumin 2.6 g/dL (3.4-5.0) L 04/27/21 04:18 Globulin 5.2 g/dL (2.5-4.5) H 04/27/21 04:18 Albumin/Globulin Ratio 0.5 Ratio (1.1-2.1) L 04/27/21 04:18 Phenytoin 7.6 ug/mL (10-20) L 04/25/21 04:50 Plan (1) Hypoalbuminemia due to protein-calorie malnutrition: Status: Acute Plan: IV albumin today. (2) Pleural effusion, left: Status: Acute Plan: IV Lasix. (3) Hypernatremia: Status: Acute Plan: Start free water 400 ml Q6 hours per PEG. CMP in am. (4) Chronic hypoxemic respiratory failure: Status: Acute Plan: Continue to ween, on trach collar (5) DM (diabetes mellitus): Status: Acute Plan: Insulin Rx (6) Seizure disorder: Status: Acute Plan: Continue Dilantin 100 mg TID per PEG tube and check level in am. (7) Pneumothorax, left: Status: Resolved Plan: Consult Dr. Abel, Gen Surg., chest tube removed
[2021-04-27] MEDS ORDERED: ZOCOR TAB 20 MG PO ONE (19:56)
[2021-04-27] MEDS: PEPCID TAB 20 MG PO SCH (20:14)
[2021-04-27] MEDS: SNACK - Diabetic Appropriate PO SCH ×2 (20:25→21:16)
[2021-04-28 05:23] LABS: BASOPHILS # (AUTO) 0.1 X10^3/uL (0.0-0.1); BASOPHILS % (AUTO) 1.1 % (0.2-1.0); EOSINOPHILS # (AUTO) 0.5 x10^3/uL (0.0-0.2); EOSINOPHILS % (AUTO) 4.5 % (0.9-2.9); HEMATOCRIT 29.6 % (36.0-47.0); HEMOGLOBIN 9.5 g/dL (12.0-16.0); LYMPHOCYTES # (AUTO) 2.5 X10^3/uL (1.3-2.9); MEAN CORPUSCULAR HEMOGLOBIN 25.7 pg (27.0-34.0); MEAN CORPUSCULAR VOLUME 80.2 fL (80.0-100.0); MONOCYTES # (AUTO) 0.7 x10^3/uL (0.3-0.8); MONOCYTES % (AUTO) 6.8 % (0.0-13.0); NEUTROPHILS % (AUTO) 64.6 % (42.0-75.0); PLATELET COUNT 596 X10^3/uL (150.0-450.0); RED BLOOD COUNT 3.69 X10^6/uL (3.5-5.4); RED CELL DISTRIBUTION WIDTH 19.9 % (11.6-16.5); WHITE BLOOD COUNT 10.9 X10^3/uL (3.6-10.0)
[2021-04-28 05:27] LABS: ALANINE AMINOTRANSFERASE 21 Units/L (12-78); ALBUMIN 2.3 g/dL (3.4-5.0); ALKALINE PHOSPHATASE 168 Units/L (46-116); ASPARTATE AMINO TRANSFERASE 17 Units/L (15-37); BLOOD UREA NITROGEN 21 mg/dL (7-18); CALCIUM 7.9 mg/dL (8.5-10.1); CARBON DIOXIDE 32.2 mmol/L (21-32); CHLORIDE 99 mmol/L (98-107); COR CA(FOR HYPOALB) 9.3 mg/dL (8.5-10.1); COR NA(FOR HYPERGLY) 142 mmol/L (136-145); CREATININE 0.58 mg/dL (0.55-1.02); SODIUM 138 mmol/L (136-145); TOTAL PROTEIN 7.3 g/dL (6.4-8.2); eGFR NON BLACK RACES > 60 (>60)
[2021-04-28] MEDS: MORPHINE SULFATE INJ 2 MG INJ IVP PRN (06:08)
[2021-04-28] MEDS: DILANTIN PO SCH ×3 (06:10→22:52)
[2021-04-28] MEDS: NovoLIN R (or HumuLIN R) SUBCUT PRN ×4 (06:11→21:04)
--- NOTE | 2021-04-28 07:10 | RAD ---
CHEST, 1 VIEWHISTORY: PNEUMOTHOAXStudy: Single view of the chest.Comparison:April 27, 2021Findings:The cardiomediastinal silhouette is normal. No change in the appearance of perihilar interstitial opacities. Osseous structures demonstrate no acute abnormality.IMPRESSION:1. No change from prior.Electronically signed by: NAYE CROW (Apr 28, 2021 07:09:10)
[2021-04-28] MEDS: FLOMAX PO SCH (08:40)
[2021-04-28] MEDS: CORDARONE TAB 200 MG PO SCH (08:40)
[2021-04-28] MEDS: LOVENOX INJ 40 MG SYR SC SCH (08:40)
[2021-04-28] MEDS: PERIDEX or PERIOGARD MT SCH ×2 (08:41→20:37)
[2021-04-28] MEDS: PULMICORT NEB TX 0.5 MG NEB SCH ×2 (09:00→21:31)
[2021-04-28] MEDS: XOPENEX 1.25 MG/3 ML NEBULE NEB SCH ×2 (09:00→21:30)
--- NOTE | 2021-04-28 10:56 | PCM.PROG ---
Progress Note Progress Note for Day of Date of Exam: 04/28/21 Subjective Subjective: Pt is a 65 year old female admitted for acute respiratory failure and left pneumothorax. She is currently on a trach collar, utilizing 17 pressure support and PEEP of 5. She continues to improve. No acute events overnight. Resting in bed this morning and following commands. CXR this morning was obtained that revealed: No change in the appearance of bilateral interstitial and airspace opacities. Osseous structures demonstrate no acute abnormality. Labs/imaging: Wbc 10.9, Hgb 9.5, Plt 596, Na 138, K 4.6, Creatinine 0.58, Glucose 268. Urine appears red this morning. Will send for culture and start on Rocephin. Otherwise will continue with current treatments. Continue to monitor and follow up labs/imaging in the morning. Time spent on clinical assessment, reviewing labs and imaging, decision making, and documentation greater than 45 minutes. Past Medical Family Social History Past Med/Fam/Surg Hx: No changes since H&P Allergies: Allergies No Known Drug Allergies Allergy (Verified 02/12/21 08:46) Review of Systems ROS: No change since H&P Vital Signs and I&O's Vital Signs: Temperature 98.6 F Pulse Rate 76 Respiratory Rate 18 Blood Pressure [Right Arm] 136/64 Blood Pressure [Left Arm] 131/67 Blood Pressure 145/79 O2 Sat by Pulse Oximetry 100 Intake and Output: Intake & Output 04/25/21 04/26/21 04/27/21 04/28/21 23:59 23:59 23:59 23:59 Intake Total 1555 / 1555 1005 / 1005 2708 / 2708 1040 / 1040 Output Total 1550 / 1550 2292 / 2292 2170 / 2170 530 / 530 Balance 5 / 5 -1287 / -1287 538 / 538 510 / 510 Physical Exam Oriented: Normal Eyes: Normal Ear: Normal Nose: Normal Throat: Normal Respiratory: Generalized and Diminished Cardiovascular: Normal : Normal Auscultation: Bowel Sounds: Normal Tenderness: Normal Skin: Decreased Turgur Musculoskeletal: Normal Psychiatric: Other (unable to ascertain) Mood Description: Calm Affect: Quiet Speech Pattern: Unclear Laboratory and Diagnostics Result Diagrams: 04/28/21 04:05 04/28/21 04:05 Labs: 04/23/21 16:16 Blood Blood Culture - Preliminary 04/23/21 16:14 Blood Blood Culture - Preliminary Laboratory WBC 10.9 X10^3/uL (3.6-10.0) H 04/28/21 04:05 RBC 3.69 X10^6/uL (3.5-5.4) 04/28/21 04:05 Hgb 9.5 g/dL (12.0-16.0) L 04/28/21 04:05 Hct 29.6 % (36.0-47.0) L 04/28/21 04:05 MCV 80.2 fL (80.0-100.0) 04/28/21 04:05 MCH 25.7 pg (27.0-34.0) L 04/28/21 04:05 MCHC 32.0 g/dL (33.0-35.0) L 04/28/21 04:05 RDW 19.9 % (11.6-16.5) H 04/28/21 04:05 Plt Count 596 X10^3/uL (150.0-450.0) H 04/28/21 04:05 Plt Count Comment Increased (ADEQUATE) A 04/27/21 04:18 MPV 7.0 fL (7.4-11.0) L 04/28/21 04:05 Neut % (Auto) 64.6 % (42.0-75.0) 04/28/21 04:05 Lymph % (Auto) 23.0 % (21.0-51.0) 04/28/21 04:05 [place] % (Auto) 6.8 % (0.0-13.0) 04/28/21 04:05 Eos % (Auto) 4.5 % (0.9-2.9) H 04/28/21 04:05 Baso % (Auto) 1.1 % (0.2-1.0) H 04/28/21 04:05 Neut # (Auto) 7.0 x10^3/uL (2.2-4.8) H 04/28/21 04:05 Lymph # (Auto) 2.5 X10^3/uL (1.3-2.9) 04/28/21 04:05 [place] # (Auto) 0.7 x10^3/uL (0.3-0.8) 04/28/21 04:05 Eos # (Auto) 0.5 x10^3/uL (0.0-0.2) H 04/28/21 04:05 Baso # (Auto) 0.1 X10^3/uL (0.0-0.1) 04/28/21 04:05 Absolute Nucleated RBC 0.0 /100WBC 04/28/21 04:05 Plt Morphology Comment Normal (NORMAL) 04/27/21 04:18 RBC Morphology Abnormal (NORMAL) A 04/27/21 04:18 Hypochromasia Slight A 04/27/21 04:18 Anisocytosis Slight A 04/27/21 04:18 Sample Site Rrad 04/27/21 05:39 ABG pH 7.430 (7.35-7.45) 04/27/21 05:39 ABG pCO2 56.0 mmHg (35.0-45.0) H* 04/27/21 05:39 ABG pO2 79.0 mmHg (80.0-100.0) L 04/27/21 05:39 ABG HCO3 37.2 mmol/L (22-26) H* 04/27/21 05:39 ABG O2 Saturation 96.0 % (90-100) 04/27/21 05:39 ABG Base Excess 10.9 mmol/L (-2.0-2.0) H 04/27/21 05:39 Gregory Test Pos 04/27/21 05:39 A-a Gradient 65.0 mmHg 04/27/21 05:39 FiO2 30.0 04/27/21 05:39 Blood Gas Comments Jacy abg well-mtf 04/27/21 05:39 Sodium 138 mmol/L (136-145) 04/28/21 04:05 Corrected Sodium 142 mmol/L (136-145) 04/28/21 04:05 Potassium 4.6 mmol/L (3.5-5.1) 04/28/21 04:05 Chloride 99 mmol/L (98-107) 04/28/21 04:05 Carbon Dioxide 32.2 mmol/L (21-32) H 04/28/21 04:05 BUN 21 mg/dL (7-18) H 04/28/21 04:05 Creatinine 0.58 mg/dL (0.55-1.02) 04/28/21 04:05 Est GFR (MDRD) Af Amer > 60 (>60) 04/28/21 04:05 Est GFR (MDRD) Non-Af > 60 (>60) 04/28/21 04:05 Glucose 268 mg/dL (65-99) H 04/28/21 04:05 POC Glucose (mg/dL) 296 mg/dL (65-99) H 04/28/21 05:26 Calcium 7.9 mg/dL (8.5-10.1) L 04/28/21 04:05 Corrected Calcium 9.3 mg/dL (8.5-10.1) 04/28/21 04:05 Total Bilirubin 0.20 mg/dL (0.2-1.0) 04/28/21 04:05 AST 17 Units/L (15-37) 04/28/21 04:05 ALT 21 Units/L (12-78) 04/28/21 04:05 Alkaline Phosphatase 168 Units/L (46-116) H 04/28/21 04:05 B-Natriuretic Peptide 11.8 pg/mL (0-79) 04/27/21 04:18 Total Protein 7.3 g/dL (6.4-8.2) 04/28/21 04:05 Albumin 2.3 g/dL (3.4-5.0) L 04/28/21 04:05 Globulin 5.0 g/dL (2.5-4.5) H 04/28/21 04:05 Albumin/Globulin Ratio 0.5 Ratio (1.1-2.1) L 04/28/21 04:05 Phenytoin 7.6 ug/mL (10-20) L 04/25/21 04:50 Plan (1) Hypoalbuminemia due to protein-calorie malnutrition: Status: Acute Plan: IV albumin today. (2) Pleural effusion, left: Status: Acute Plan: IV Lasix. (3) Hypernatremia: Status: Acute Plan: Start free water 400 ml Q6 hours per PEG. CMP in am. (4) Chronic hypoxemic respiratory failure: Status: Acute Plan: Continue to ween, on trach collar (5) DM (diabetes mellitus): Status: Acute Plan: Insulin Rx (6) Seizure disorder: Status: Acute Plan: Continue Dilantin 100 mg TID per PEG tube and check level in am. (7) Pneumothorax, left: Status: Resolved Plan: Consult Dr. Abel, Gen Surg., chest tube removed
[2021-04-28 11:13] LABS: BILIRUBIN,URINE NEGATIVE (NEGATIVE); BLOOD/HEMOGLOBIN,URINE 5+ (NEGATIVE); GLUCOSE, URINE 3+ (NEGATIVE); KETONES,URINE NEGATIVE (NEGATIVE); LEUKOCYTE ESTERASE ,URINE 3+ (NEGATIVE); NITRITES,URINE NEGATIVE (NEGATIVE); PH,URINE 6.5 (5.0 - 8.0); PROTEIN,URINE 3+ (NEGATIVE); UROBILINOGEN,URINE NORMAL (NORMAL)
[2021-04-28 11:28] LABS: APPEARANCE,URINE CLOUDY (CLEAR); COLOR,URINE PINK (YELLOW)
[2021-04-28 11:29] LABS: AMORPHOUS SEDIMENT,UR 1+ /HPF (NEGATIVE); BACTERIA,URINE TRACE /HPF (NEGATIVE); RBC,URINE TNTC /HPF (0-3); SQUAMOUS EPITHELIAL CELL,UR RARE /HPF (NEGATIVE); YEAST,URINE NUMEROUS /HPF (NEGATIVE)
[2021-04-28] MEDS ORDERED: NS 250 ML IV 250 ML IV ONE (11:44)
[2021-04-28] MEDS: ROCEPHIN 1 GRAM IV PREMIX 1 G/50 ML IV.SOLN. IV SCH (12:19)
[2021-04-28] MEDS ORDERED: HYDROGEN PEROXIDE 3% ONE (18:02)
[2021-04-28] MEDS: SNACK - Diabetic Appropriate PO SCH (20:36)
[2021-04-28] MEDS: PEPCID TAB 20 MG PO SCH (20:37)
[2021-04-28] MEDS: TYLENOL 325 MG TAB PO PRN (20:39)
[2021-04-29] MEDS: MORPHINE SULFATE INJ 2 MG INJ IVP PRN ×3 (00:47→16:17)
[2021-04-29] MEDS: DILANTIN PO SCH ×3 (05:39→22:58)
[2021-04-29] MEDS: NovoLIN R (or HumuLIN R) SUBCUT PRN ×4 (06:09→20:41)
[2021-04-29 06:50] LABS: BASOPHILS # (AUTO) 0.1 X10^3/uL (0.0-0.1); BASOPHILS % (AUTO) 1.4 % (0.2-1.0); EOSINOPHILS # (AUTO) 0.4 x10^3/uL (0.0-0.2); EOSINOPHILS % (AUTO) 3.4 % (0.9-2.9); HEMATOCRIT 31.8 % (36.0-47.0); HEMOGLOBIN 10.3 g/dL (12.0-16.0); LYMPHOCYTES # (AUTO) 2.2 X10^3/uL (1.3-2.9); MEAN CORPUSCULAR HEMOGLOBIN 26.3 pg (27.0-34.0); MEAN CORPUSCULAR HGB CONC 32.4 g/dL (33.0-35.0); MEAN PLATELET VOLUME 6.5 fL (7.4-11.0); MONOCYTES # (AUTO) 0.7 x10^3/uL (0.3-0.8); MONOCYTES % (AUTO) 6.8 % (0.0-13.0); NEUTROPHILS # (AUTO) 7.4 x10^3/uL (2.2-4.8); NEUTROPHILS % (AUTO) 68.4 % (42.0-75.0); PLATELET COUNT 519 X10^3/uL (150.0-450.0); RED BLOOD COUNT 3.93 X10^6/uL (3.5-5.4); RED CELL DISTRIBUTION WIDTH 19.6 % (11.6-16.5); WHITE BLOOD COUNT 10.8 X10^3/uL (3.6-10.0)
[2021-04-29 07:03] LABS: ALANINE AMINOTRANSFERASE 19 Units/L (12-78); ALBUMIN 2.3 g/dL (3.4-5.0); ALKALINE PHOSPHATASE 178 Units/L (46-116); ASPARTATE AMINO TRANSFERASE 20 Units/L (15-37); BLOOD UREA NITROGEN 18 mg/dL (7-18); CALCIUM 8.4 mg/dL (8.5-10.1); CARBON DIOXIDE 30.9 mmol/L (21-32); CHLORIDE 99 mmol/L (98-107); COR CA(FOR HYPOALB) 9.8 mg/dL (8.5-10.1); COR NA(FOR HYPERGLY) 141 mmol/L (136-145); CREATININE 0.55 mg/dL (0.55-1.02); SODIUM 137 mmol/L (136-145); TOTAL PROTEIN 7.6 g/dL (6.4-8.2); eGFR NON BLACK RACES > 60 (>60)
[2021-04-29] MEDS: FLOMAX PO SCH (08:20)
[2021-04-29] MEDS: CORDARONE TAB 200 MG PO SCH (08:20)
[2021-04-29] MEDS: PERIDEX or PERIOGARD MT SCH ×2 (08:20→20:38)
[2021-04-29] MEDS: ROCEPHIN 1 GRAM IV PREMIX 1 G/50 ML IV.SOLN. IV SCH (08:20)
[2021-04-29] MEDS: LOVENOX INJ 40 MG SYR SC SCH (08:20)
[2021-04-29] MEDS: PULMICORT NEB TX 0.5 MG NEB SCH ×2 (08:30→20:30)
[2021-04-29] MEDS: XOPENEX 1.25 MG/3 ML NEBULE NEB SCH ×2 (08:30→20:30)
--- NOTE | 2021-04-29 08:58 | PCM.PROG ---
Progress Note Progress Note for Day of Date of Exam: 04/29/21 Subjective Subjective: Patient is awake this am. She continues to follow commands. She can shrug her shoulders now and has weak hand bark tanner bilaterally today. She had no acute problems overnight. CMP is normal this am. Hb is 10.3 this am as well. GLU is 272. Still planning transfer later to Rehab facility when room is available. Past Medical Family Social History Past Med/Fam/Surg Hx: No changes since H&P Allergies: Allergies No Known Drug Allergies Allergy (Verified 02/12/21 08:46) Review of Systems ROS: No change since H&P Vital Signs and I&O's Vital Signs: Temperature 97.9 F Pulse Rate 96 Respiratory Rate 24 Blood Pressure [Right Arm] 136/64 Blood Pressure [Left Arm] 131/67 Blood Pressure 115/55 O2 Sat by Pulse Oximetry 98 Intake and Output: Intake & Output 04/26/21 04/27/21 04/28/21 04/29/21 11:59 11:59 11:59 11:59 Intake Total 750 / 1525 2065 / 2065 2588 / 2588 2420 / 2420 Output Total 2275 / 2275 1867 / 1867 1999 / 1999 2720 / 2720 Balance -1525 / -750 198 / 198 588 / 588 -300 / -300 Physical Exam Oriented: Normal Eyes: Normal Ear: Normal Nose: Normal Throat: Normal Respiratory: Left, Generalized, Diminished and Rhonchi Cardiovascular: Normal : Normal Auscultation: Bowel Sounds: Normal Tenderness: Normal Skin: Decreased Turgur Musculoskeletal: Normal Psychiatric: Other (unable to ascertain) Mood Description: Calm Affect: Quiet Speech Pattern: Unclear Laboratory and Diagnostics Result Diagrams: 04/29/21 06:41 04/29/21 06:41 Labs: 04/23/21 16:16 Blood Blood Culture - Preliminary 04/23/21 16:14 Blood Blood Culture - Preliminary Laboratory WBC 10.8 X10^3/uL (3.6-10.0) H 04/29/21 06:41 RBC 3.93 X10^6/uL (3.5-5.4) 04/29/21 06:41 Hgb 10.3 g/dL (12.0-16.0) L 04/29/21 06:41 Hct 31.8 % (36.0-47.0) L 04/29/21 06:41 MCV 81.0 fL (80.0-100.0) 04/29/21 06:41 MCH 26.3 pg (27.0-34.0) L 04/29/21 06:41 MCHC 32.4 g/dL (33.0-35.0) L 04/29/21 06:41 RDW 19.6 % (11.6-16.5) H 04/29/21 06:41 Plt Count 519 X10^3/uL (150.0-450.0) H 04/29/21 06:41 Plt Count Comment Increased (ADEQUATE) A 04/27/21 04:18 MPV 6.5 fL (7.4-11.0) L 04/29/21 06:41 Neut % (Auto) 68.4 % (42.0-75.0) 04/29/21 06:41 Lymph % (Auto) 20.0 % (21.0-51.0) L 04/29/21 06:41 [place] % (Auto) 6.8 % (0.0-13.0) 04/29/21 06:41 Eos % (Auto) 3.4 % (0.9-2.9) H 04/29/21 06:41 Baso % (Auto) 1.4 % (0.2-1.0) H 04/29/21 06:41 Neut # (Auto) 7.4 x10^3/uL (2.2-4.8) H 04/29/21 06:41 Lymph # (Auto) 2.2 X10^3/uL (1.3-2.9) 04/29/21 06:41 [place] # (Auto) 0.7 x10^3/uL (0.3-0.8) 04/29/21 06:41 Eos # (Auto) 0.4 x10^3/uL (0.0-0.2) H 04/29/21 06:41 Baso # (Auto) 0.1 X10^3/uL (0.0-0.1) 04/29/21 06:41 Absolute Nucleated RBC 0.1 /100WBC 04/29/21 06:41 Plt Morphology Comment Normal (NORMAL) 04/27/21 04:18 RBC Morphology Abnormal (NORMAL) A 04/27/21 04:18 Hypochromasia Slight A 04/27/21 04:18 Anisocytosis Slight A 04/27/21 04:18 Sample Site Rrad 04/27/21 05:39 ABG pH 7.430 (7.35-7.45) 04/27/21 05:39 ABG pCO2 56.0 mmHg (35.0-45.0) H* 04/27/21 05:39 ABG pO2 79.0 mmHg (80.0-100.0) L 04/27/21 05:39 ABG HCO3 37.2 mmol/L (22-26) H* 04/27/21 05:39 ABG O2 Saturation 96.0 % (90-100) 04/27/21 05:39 ABG Base Excess 10.9 mmol/L (-2.0-2.0) H 04/27/21 05:39 Gregory Test Pos 04/27/21 05:39 A-a Gradient 65.0 mmHg 04/27/21 05:39 FiO2 30.0 04/27/21 05:39 Blood Gas Comments Jacy abg well-mtf 04/27/21 05:39 Sodium 137 mmol/L (136-145) 04/29/21 06:41 Corrected Sodium 141 mmol/L (136-145) 04/29/21 06:41 Potassium 4.9 mmol/L (3.5-5.1) 04/29/21 06:41 Chloride 99 mmol/L (98-107) 04/29/21 06:41 Carbon Dioxide 30.9 mmol/L (21-32) 04/29/21 06:41 BUN 18 mg/dL (7-18) 04/29/21 06:41 Creatinine 0.55 mg/dL (0.55-1.02) 04/29/21 06:41 Est GFR (MDRD) Af Amer > 60 (>60) 04/29/21 06:41 Est GFR (MDRD) Non-Af > 60 (>60) 04/29/21 06:41 Glucose 272 mg/dL (65-99) H 04/29/21 06:41 POC Glucose (mg/dL) 273 mg/dL (65-99) H 04/29/21 06:08 Calcium 8.4 mg/dL (8.5-10.1) L 04/29/21 06:41 Corrected Calcium 9.8 mg/dL (8.5-10.1) 04/29/21 06:41 Total Bilirubin 0.10 mg/dL (0.2-1.0) L 04/29/21 06:41 AST 20 Units/L (15-37) 04/29/21 06:41 ALT 19 Units/L (12-78) 04/29/21 06:41 Alkaline Phosphatase 178 Units/L (46-116) H 04/29/21 06:41 B-Natriuretic Peptide 11.8 pg/mL (0-79) 04/27/21 04:18 Total Protein 7.6 g/dL (6.4-8.2) 04/29/21 06:41 Albumin 2.3 g/dL (3.4-5.0) L 04/29/21 06:41 Globulin 5.3 g/dL (2.5-4.5) H 04/29/21 06:41 Albumin/Globulin Ratio 0.4 Ratio (1.1-2.1) L 04/29/21 06:41 Specimen Type Catherized urine 04/28/21 10:55 Urine Color [place] (YELLOW) 04/28/21 10:55 Urine Appearance Cloudy (CLEAR) 04/28/21 10:55 Urine pH 6.5 (5.0 - 8.0) 04/28/21 10:55 Ur Specific [place] 1.010 (1.000-1.030) 04/28/21 10:55 Urine Protein 3+ (NEGATIVE) 04/28/21 10:55 Urine Glucose (UA) 3+ (NEGATIVE) 04/28/21 10:55 Urine Ketones Negative (NEGATIVE) 04/28/21 10:55 Urine Occult Blood 5+ (NEGATIVE) 04/28/21 10:55 Urine Nitrite Negative (NEGATIVE) 04/28/21 10:55 Urine Bilirubin Negative (NEGATIVE) 04/28/21 10:55 Urine Urobilinogen Normal (NORMAL) 04/28/21 10:55 Ur Leukocyte Esterase 3+ (NEGATIVE) 04/28/21 10:55 Urine RBC Tntc /HPF (0-3) A 04/28/21 10:55 Urine WBC 5-10 /HPF (0-5) A 04/28/21 10:55 Ur Squamous Epith Cells Rare /HPF (NEGATIVE) 04/28/21 10:55 Amorphous Sediment 1+ /HPF (NEGATIVE) 04/28/21 10:55 Urine Bacteria Trace /HPF (NEGATIVE) 04/28/21 10:55 Urine Yeast Numerous /HPF (NEGATIVE) 04/28/21 10:55 Ur Culture Indicated? Yes/culture set up 04/28/21 10:55 Phenytoin 7.6 ug/mL (10-20) L 04/25/21 04:50 Radiology Reviewed: Yes Plan (1) Hypoalbuminemia due to protein-calorie malnutrition: Status: Acute Plan: IV albumin today. (2) Chronic hypoxemic respiratory failure: Status: Acute Narrative Support Text: Has trach collar on. Still on assist mode. Plan: Continue to ween, on trach collar (3) DM (diabetes mellitus): Status: Acute Qualifiers: Diabetes mellitus complication status: with hyperglycemia Plan: Insulin Rx per protocol. Will add Levemir 10 Units bid. (4) Seizure disorder: Status: Acute Plan: Continue Dilantin 100 mg TID per PEG tube and check level in am. (5) Pneumothorax, left: Status: Resolved Plan: Consult Dr. Abel, Gen Surg., chest tube removed (6) Pleural effusion, left: Status: Resolved Plan: IV Lasix. (7) Hypernatremia: Status: Resolved Plan: Start free water 400 ml Q6 hours per PEG. CMP in am.
[2021-04-29] MEDS: LEVEMIR SC SCH ×2 (09:41→20:37)
[2021-04-29] MEDS ORDERED: VISTARIL PO PRN (10:04)
--- NOTE | 2021-04-29 15:55 | RAD ---
HISTORYRESPIRATORY FAILURESTUDYCHEST, 1 [id number] lungs are not well inflated. As a result, there are hypoventilatory changes.Abnormal opacity mostly in the perihilar regions extending into the apices. Could be pneumonia or pulmonary edema. Not much changed from prior study.There is a small left effusion also unchanged. No pneumothorax.Heart size is normal.Bones are unremarkable.A tracheostomy is present with the tip in the expected location of the trachea. EKG leads are noted.IMPRESSION1. Unchanged pneumonia or pulmonary edema2. Unchanged left effusionElectronically signed by: Aston Boss (Apr 29, 2021 15:54:04)
[2021-04-29] MEDS: TYLENOL 325 MG TAB PO PRN (16:54)
[2021-04-29] MEDS: SNACK - Diabetic Appropriate PO SCH ×2 (20:37)
[2021-04-29] MEDS: PEPCID TAB 20 MG PO SCH (20:38)
[2021-04-29] MEDS: VISTARIL PO PRN (22:55)
[2021-04-30] MEDS ORDERED: SALINE 3% 15 ML NEB TX ONE (00:44)
[2021-04-30] MEDS: MORPHINE SULFATE INJ 2 MG INJ IVP PRN (00:51)
[2021-04-30 04:50] LABS: ALANINE AMINOTRANSFERASE 17 Units/L (12-78); ALBUMIN 2.2 g/dL (3.4-5.0); ALKALINE PHOSPHATASE 159 Units/L (46-116); ASPARTATE AMINO TRANSFERASE 14 Units/L (15-37); BLOOD UREA NITROGEN 17 mg/dL (7-18); CALCIUM 8.1 mg/dL (8.5-10.1); CARBON DIOXIDE 30.7 mmol/L (21-32); CHLORIDE 98 mmol/L (98-107); COR CA(FOR HYPOALB) 9.5 mg/dL (8.5-10.1); COR NA(FOR HYPERGLY) 139 mmol/L (136-145); CREATININE 0.54 mg/dL (0.55-1.02); SODIUM 137 mmol/L (136-145); eGFR NON BLACK RACES > 60 (>60)
[2021-04-30 05:07] LABS: BASOPHILS # (AUTO) 0.1 X10^3/uL (0.0-0.1); BASOPHILS % (AUTO) 0.9 % (0.2-1.0); EOSINOPHILS # (AUTO) 0.4 x10^3/uL (0.0-0.2); EOSINOPHILS % (AUTO) 3.3 % (0.9-2.9); HEMATOCRIT 30.7 % (36.0-47.0); HEMOGLOBIN 9.7 g/dL (12.0-16.0); LYMPHOCYTES # (AUTO) 3.2 X10^3/uL (1.3-2.9); LYMPHOCYTES % (AUTO) 27.7 % (21.0-51.0); MEAN CORPUSCULAR HEMOGLOBIN 25.7 pg (27.0-34.0); MEAN CORPUSCULAR HGB CONC 31.7 g/dL (33.0-35.0); MEAN CORPUSCULAR VOLUME 81.1 fL (80.0-100.0); MEAN PLATELET VOLUME 6.7 fL (7.4-11.0); MONOCYTES % (AUTO) 8.6 % (0.0-13.0); NEUTROPHILS % (AUTO) 59.5 % (42.0-75.0); PLATELET COUNT 494 X10^3/uL (150.0-450.0); RED BLOOD COUNT 3.79 X10^6/uL (3.5-5.4); RED CELL DISTRIBUTION WIDTH 20.3 % (11.6-16.5); WHITE BLOOD COUNT 11.7 X10^3/uL (3.6-10.0)
[2021-04-30 05:37] LABS: ANISOCYTOSIS 1+; HYPOCHROMASIA SLIGHT; PLATELET MORPHOLOGY COMMENT NORMAL (NORMAL)
[2021-04-30] MEDS: DILANTIN PO SCH ×3 (06:06→21:13)
[2021-04-30] MEDS: LEVEMIR SC SCH ×2 (08:55→20:21)
[2021-04-30] MEDS: LOVENOX INJ 40 MG SYR SC SCH (08:56)
[2021-04-30] MEDS: CORDARONE TAB 200 MG PO SCH (09:08)
[2021-04-30] MEDS: FLOMAX PO SCH (09:08)
[2021-04-30] MEDS: ROCEPHIN 1 GRAM IV PREMIX 1 G/50 ML IV.SOLN. IV SCH (09:08)
[2021-04-30] MEDS: PERIDEX or PERIOGARD MT SCH ×2 (09:50→20:21)
[2021-04-30] MEDS: XOPENEX 1.25 MG/3 ML NEBULE NEB SCH ×2 (10:35→21:10)
[2021-04-30] MEDS: PULMICORT NEB TX 0.5 MG NEB SCH ×2 (10:35→21:10)
[2021-04-30] MEDS: NovoLIN R (or HumuLIN R) SUBCUT PRN ×3 (11:07→21:00)
--- NOTE | 2021-04-30 15:25 | PCM.PROG ---
Progress Note Progress Note for Day of Date of Exam: 04/30/21 Subjective Subjective: Patient is awake this am. She continues to follow commands. 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 She had no acute problems overnight. CMP is normal this am. Hb is 10.3 this am as well. GLU is 190. Still planning transfer later to Rehab facility when room is available. Past Medical Family Social History Past Med/Fam/Surg Hx: No changes since H&P Allergies: Allergies No Known Drug Allergies Allergy (Verified 02/12/21 08:46) Review of Systems ROS: No change since H&P Vital Signs and I&O's Vital Signs: Temperature 97.9 F Pulse Rate 111 Respiratory Rate 29 Blood Pressure [Right Arm] 136/64 Blood Pressure [Left Arm] 131/67 Blood Pressure 122/57 O2 Sat by Pulse Oximetry 98 Intake and Output: Intake & Output 04/28/21 04/29/21 04/30/21 05/01/21 11:59 11:59 11:59 11:59 Intake Total 2588 / 2588 2420 / 2420 2812 / 2812 Output Total 1999 2720 / 2720 2615 / 2615 Balance 588 / 588 -300 / -300 197 / 197 Physical Exam Oriented: Normal Eyes: Normal Ear: Normal Nose: Normal Throat: Normal Respiratory: Left, Generalized, Diminished and Rhonchi Cardiovascular: Normal : Normal Auscultation: Bowel Sounds: Normal Tenderness: Normal Skin: Decreased Turgur Musculoskeletal: Normal Psychiatric: Other (unable to ascertain) Mood Description: Calm Affect: Quiet Speech Pattern: Unclear Laboratory and Diagnostics Result Diagrams: 04/30/21 04:20 04/30/21 04:20 Labs: 04/28/21 10:55 Urine,Catheterized Urine Culture - Preliminary 04/23/21 16:16 Blood Blood Culture - Final 04/23/21 16:14 Blood Blood Culture - Final Laboratory WBC 11.7 X10^3/uL (3.6-10.0) H 04/30/21 04:20 RBC 3.79 X10^6/uL (3.5-5.4) 04/30/21 04:20 Hgb 9.7 g/dL (12.0-16.0) L 04/30/21 04:20 Hct 30.7 % (36.0-47.0) L 04/30/21 04:20 MCV 81.1 fL (80.0-100.0) 04/30/21 04:20 MCH 25.7 pg (27.0-34.0) L 04/30/21 04:20 MCHC 31.7 g/dL (33.0-35.0) L 04/30/21 04:20 RDW 20.3 % (11.6-16.5) H 04/30/21 04:20 Plt Count 494 X10^3/uL (150.0-450.0) H 04/30/21 04:20 Plt Count Comment Increased (ADEQUATE) A 04/30/21 04:20 MPV 6.7 fL (7.4-11.0) L 04/30/21 04:20 Neut % (Auto) 59.5 % (42.0-75.0) 04/30/21 04:20 Lymph % (Auto) 27.7 % (21.0-51.0) 04/30/21 04:20 [place] % (Auto) 8.6 % (0.0-13.0) 04/30/21 04:20 Eos % (Auto) 3.3 % (0.9-2.9) H 04/30/21 04:20 Baso % (Auto) 0.9 % (0.2-1.0) 04/30/21 04:20 Neut # (Auto) 7.0 x10^3/uL (2.2-4.8) H 04/30/21 04:20 Lymph # (Auto) 3.2 X10^3/uL (1.3-2.9) H 04/30/21 04:20 [place] # (Auto) 1.0 x10^3/uL (0.3-0.8) H 04/30/21 04:20 Eos # (Auto) 0.4 x10^3/uL (0.0-0.2) H 04/30/21 04:20 Baso # (Auto) 0.1 X10^3/uL (0.0-0.1) 04/30/21 04:20 Absolute Nucleated RBC 0.2 /100WBC 04/30/21 04:20 Plt Morphology Comment Normal (NORMAL) 04/30/21 04:20 RBC Morphology Abnormal (NORMAL) A 04/30/21 04:20 Hypochromasia Slight A 04/30/21 04:20 Anisocytosis 1+ A 04/30/21 04:20 Sample Site Rrad 04/27/21 05:39 ABG pH 7.430 (7.35-7.45) 04/27/21 05:39 ABG pCO2 56.0 mmHg (35.0-45.0) H* 04/27/21 05:39 ABG pO2 79.0 mmHg (80.0-100.0) L 04/27/21 05:39 ABG HCO3 37.2 mmol/L (22-26) H* 04/27/21 05:39 ABG O2 Saturation 96.0 % (90-100) 04/27/21 05:39 ABG Base Excess 10.9 mmol/L (-2.0-2.0) H 04/27/21 05:39 Gregory Test Pos 04/27/21 05:39 A-a Gradient 65.0 mmHg 04/27/21 05:39 FiO2 30.0 04/27/21 05:39 Blood Gas Comments Jacy abg well-mtf 04/27/21 05:39 Sodium 137 mmol/L (136-145) 04/30/21 04:20 Corrected Sodium 139 mmol/L (136-145) 04/30/21 04:20 Potassium 4.6 mmol/L (3.5-5.1) 04/30/21 04:20 Chloride 98 mmol/L (98-107) 04/30/21 04:20 Carbon Dioxide 30.7 mmol/L (21-32) 04/30/21 04:20 BUN 17 mg/dL (7-18) 04/30/21 04:20 Creatinine 0.54 mg/dL (0.55-1.02) L 04/30/21 04:20 Est GFR (MDRD) Af Amer > 60 (>60) 04/30/21 04:20 Est GFR (MDRD) Non-Af > 60 (>60) 04/30/21 04:20 Glucose 190 mg/dL (65-99) H 04/30/21 04:20 POC Glucose (mg/dL) 302 mg/dL (65-99) H 04/30/21 11:00 Calcium 8.1 mg/dL (8.5-10.1) L 04/30/21 04:20 Corrected Calcium 9.5 mg/dL (8.5-10.1) 04/30/21 04:20 Total Bilirubin 0.10 mg/dL (0.2-1.0) L 04/30/21 04:20 AST 14 Units/L (15-37) L 04/30/21 04:20 ALT 17 Units/L (12-78) 04/30/21 04:20 Alkaline Phosphatase 159 Units/L (46-116) H 04/30/21 04:20 B-Natriuretic Peptide 11.8 pg/mL (0-79) 04/27/21 04:18 Total Protein 7.0 g/dL (6.4-8.2) 04/30/21 04:20 Albumin 2.2 g/dL (3.4-5.0) L 04/30/21 04:20 Globulin 4.8 g/dL (2.5-4.5) H 04/30/21 04:20 Albumin/Globulin Ratio 0.5 Ratio (1.1-2.1) L 04/30/21 04:20 Specimen Type Catherized urine 04/28/21 10:55 Urine Color [place] (YELLOW) 04/28/21 10:55 Urine Appearance Cloudy (CLEAR) 04/28/21 10:55 Urine pH 6.5 (5.0 - 8.0) 04/28/21 10:55 Ur Specific [place] 1.010 (1.000-1.030) 04/28/21 10:55 Urine Protein 3+ (NEGATIVE) 04/28/21 10:55 Urine Glucose (UA) 3+ (NEGATIVE) 04/28/21 10:55 Urine Ketones Negative (NEGATIVE) 04/28/21 10:55 Urine Occult Blood 5+ (NEGATIVE) 04/28/21 10:55 Urine Nitrite Negative (NEGATIVE) 04/28/21 10:55 Urine Bilirubin Negative (NEGATIVE) 04/28/21 10:55 Urine Urobilinogen Normal (NORMAL) 04/28/21 10:55 Ur Leukocyte Esterase 3+ (NEGATIVE) 04/28/21 10:55 Urine RBC Tntc /HPF (0-3) A 04/28/21 10:55 Urine WBC 5-10 /HPF (0-5) A 04/28/21 10:55 Ur Squamous Epith Cells Rare /HPF (NEGATIVE) 04/28/21 10:55 Amorphous Sediment 1+ /HPF (NEGATIVE) 04/28/21 10:55 Urine Bacteria Trace /HPF (NEGATIVE) 04/28/21 10:55 Urine Yeast Numerous /HPF (NEGATIVE) 04/28/21 10:55 Ur Culture Indicated? Yes/culture set up 04/28/21 10:55 Phenytoin 7.6 ug/mL (10-20) L 04/25/21 04:50 Plan (1) Hypoalbuminemia due to protein-calorie malnutrition: Status: Acute Plan: IV albumin today. (2) Chronic hypoxemic respiratory failure: Status: Acute Plan: Continue to ween, on trach collar (3) DM (diabetes mellitus): Status: Acute Qualifiers: Diabetes mellitus complication status: with hyperglycemia Plan: Insulin Rx per protocol. Glucose has come down but is still elevated. Will change Levemir to 20 Units bid. (4) Seizure disorder: Status: Acute Plan: Continue Dilantin 100 mg TID per PEG tube and check level in am. (5) Pneumothorax, left: Status: Resolved Plan: Consult Dr. Abel, Gen Surg., chest tube removed (6) Pleural effusion, left: Status: Resolved Plan: IV Lasix. (7) Hypernatremia: Status: Resolved Plan: Start free water 400 ml Q6 hours per PEG. CMP in am.
[2021-04-30] MEDS: SNACK - Diabetic Appropriate PO SCH ×2 (20:20→20:21)
[2021-04-30] MEDS: PEPCID TAB 20 MG PO SCH (20:21)
[2021-04-30] MEDS: TYLENOL 325 MG TAB PO PRN (20:22)
[2021-04-30] MEDS: VISTARIL PO PRN (20:22)
[2021-05-01] MEDS: MORPHINE SULFATE INJ 2 MG INJ IVP PRN ×3 (02:18→21:50)
[2021-05-01] MEDS: NS 250 ML IV 250 ML IV PRN (02:24)
[2021-05-01] MEDS: DILANTIN PO SCH ×3 (05:21→21:40)
[2021-05-01] MEDS: NovoLIN R (or HumuLIN R) SUBCUT PRN ×4 (05:53→17:35)
[2021-05-01] MEDS: PERIDEX or PERIOGARD MT SCH ×2 (09:08→20:15)
[2021-05-01] MEDS: XOPENEX 1.25 MG/3 ML NEBULE NEB SCH ×2 (09:40→20:55)
[2021-05-01] MEDS: PULMICORT NEB TX 0.5 MG NEB SCH ×2 (09:40→20:55)
[2021-05-01] MEDS: LOVENOX INJ 40 MG SYR SC SCH (10:00)
[2021-05-01] MEDS: ROCEPHIN 1 GRAM IV PREMIX 1 G/50 ML IV.SOLN. IV SCH (10:00)
[2021-05-01] MEDS: LEVEMIR SC SCH ×2 (10:00→20:14)
[2021-05-01] MEDS: FLOMAX PO SCH (10:00)
[2021-05-01] MEDS: CORDARONE TAB 200 MG PO SCH (10:00)
[2021-05-01] MEDS: DIFLUCAN 200 MG IV PREMIX* 200 MG/100 ML BAG IV SCH (13:40)
[2021-05-01] MEDS: SNACK - Diabetic Appropriate PO SCH ×2 (20:14)
[2021-05-01] MEDS: PEPCID TAB 20 MG PO SCH (20:15)
[2021-05-01] MEDS: VISTARIL PO PRN (20:16)
[2021-05-01] MEDS: TYLENOL 325 MG TAB PO PRN (20:16)
[2021-05-01] MEDS ORDERED: SALINE 3% 15 ML NEB TX ONE (21:12)
[2021-05-02] MEDS: TYLENOL 325 MG TAB PO PRN ×2 (03:24→21:00)
[2021-05-02] MEDS: VISTARIL PO PRN ×2 (04:20→21:00)
[2021-05-02 04:53] LABS: BASOPHILS # (AUTO) 0.1 X10^3/uL (0.0-0.1); EOSINOPHILS # (AUTO) 0.4 x10^3/uL (0.0-0.2); EOSINOPHILS % (AUTO) 2.7 % (0.9-2.9); HEMATOCRIT 29.2 % (36.0-47.0); HEMOGLOBIN 9.3 g/dL (12.0-16.0); LYMPHOCYTES # (AUTO) 2.9 X10^3/uL (1.3-2.9); LYMPHOCYTES % (AUTO) 21.3 % (21.0-51.0); MEAN CORPUSCULAR HEMOGLOBIN 25.7 pg (27.0-34.0); MEAN CORPUSCULAR HGB CONC 31.9 g/dL (33.0-35.0); MEAN CORPUSCULAR VOLUME 80.6 fL (80.0-100.0); MEAN PLATELET VOLUME 6.7 fL (7.4-11.0); MONOCYTES # (AUTO) 0.9 x10^3/uL (0.3-0.8); MONOCYTES % (AUTO) 6.9 % (0.0-13.0); NEUTROPHILS # (AUTO) 9.1 x10^3/uL (2.2-4.8); NEUTROPHILS % (AUTO) 68.1 % (42.0-75.0); PLATELET COUNT 545 X10^3/uL (150.0-450.0); RED BLOOD COUNT 3.63 X10^6/uL (3.5-5.4); RED CELL DISTRIBUTION WIDTH 20.4 % (11.6-16.5); WHITE BLOOD COUNT 13.4 X10^3/uL (3.6-10.0)
[2021-05-02 05:04] LABS: ALANINE AMINOTRANSFERASE 14 Units/L (12-78); ALBUMIN 2.3 g/dL (3.4-5.0); ALKALINE PHOSPHATASE 171 Units/L (46-116); ASPARTATE AMINO TRANSFERASE 11 Units/L (15-37); BLOOD UREA NITROGEN 17 mg/dL (7-18); CALCIUM 8.3 mg/dL (8.5-10.1); CARBON DIOXIDE 30.4 mmol/L (21-32); CHLORIDE 97 mmol/L (98-107); COR CA(FOR HYPOALB) 9.7 mg/dL (8.5-10.1); COR NA(FOR HYPERGLY) 137 mmol/L (136-145); CREATININE 0.53 mg/dL (0.55-1.02); SODIUM 134 mmol/L (136-145); TOTAL PROTEIN 7.1 g/dL (6.4-8.2); eGFR NON BLACK RACES > 60 (>60)
[2021-05-02] MEDS: DILANTIN PO SCH ×3 (05:12→21:13)
[2021-05-02 05:19] LABS: ANISOCYTOSIS 1+; HYPOCHROMASIA SLIGHT; PLATELET MORPHOLOGY COMMENT NORMAL (NORMAL)
[2021-05-02] MEDS: NovoLIN R (or HumuLIN R) SUBCUT PRN ×4 (06:07→20:11)
[2021-05-02] MEDS: XOPENEX 1.25 MG/3 ML NEBULE NEB SCH ×2 (09:30→21:00)
[2021-05-02] MEDS: PULMICORT NEB TX 0.5 MG NEB SCH ×2 (09:30→21:00)
[2021-05-02] MEDS: CORDARONE TAB 200 MG PO SCH (09:40)
[2021-05-02] MEDS: LEVEMIR SC SCH ×2 (09:45→20:10)
[2021-05-02] MEDS: PERIDEX or PERIOGARD MT SCH ×2 (09:45→20:10)
[2021-05-02] MEDS: LOVENOX INJ 40 MG SYR SC SCH (09:45)
[2021-05-02] MEDS: ROCEPHIN 1 GRAM IV PREMIX 1 G/50 ML IV.SOLN. IV SCH (09:45)
[2021-05-02] MEDS: FLOMAX PO SCH (09:46)
[2021-05-02] MEDS: DIFLUCAN 200 MG IV PREMIX* 200 MG/100 ML BAG IV SCH (09:50)
[2021-05-02] MEDS: MORPHINE SULFATE INJ 2 MG INJ IVP PRN (12:49)
--- NOTE | 2021-05-02 14:03 | PCM.PROG ---
Progress Note Progress Note for Day of Date of Exam: 05/01/21 Subjective Subjective: Patients blood glucose is still running a little high. Will change tube feedings to Glucerna today. Past Medical Family Social History Past Med/Fam/Surg Hx: No changes since H&P Allergies: Allergies No Known Drug Allergies Allergy (Verified 02/12/21 08:46) Review of Systems ROS: No change since H&P Vital Signs and I&O's Vital Signs: Temperature 99.0 F Pulse Rate 112 Respiratory Rate 37 Blood Pressure [Right Arm] 136/64 Blood Pressure [Left Arm] 131/67 Blood Pressure 112/56 O2 Sat by Pulse Oximetry 100 Intake and Output: Intake & Output 04/30/21 05/01/21 05/02/21 05/03/21 11:59 11:59 11:59 11:59 Intake Total 2812 / 2812 2458 / 2458 1005 / 1005 Output Total 2615 / 2615 2420 / 2420 2475 / 2475 Balance 197 / 197 38 / 38 -1470 / -1470 Physical Exam Oriented: Normal Eyes: Normal Ear: Normal Nose: Normal Throat: Normal Respiratory: Left, Generalized, Diminished and Rhonchi Cardiovascular: Normal : Normal Auscultation: Bowel Sounds: Normal Tenderness: Normal Skin: Decreased Turgur Musculoskeletal: Normal Psychiatric: Other (unable to ascertain) Mood Description: Calm Affect: Quiet Speech Pattern: Unclear Laboratory and Diagnostics Result Diagrams: 05/02/21 04:26 05/02/21 04:26 Labs: 04/28/21 10:55 Urine,Catheterized Urine Culture - Preliminary 04/23/21 16:16 Blood Blood Culture - Final 04/23/21 16:14 Blood Blood Culture - Final Laboratory WBC 13.4 X10^3/uL (3.6-10.0) H 05/02/21 04:26 RBC 3.63 X10^6/uL (3.5-5.4) 05/02/21 04:26 Hgb 9.3 g/dL (12.0-16.0) L 05/02/21 04:26 Hct 29.2 % (36.0-47.0) L 05/02/21 04:26 MCV 80.6 fL (80.0-100.0) 05/02/21 04:26 MCH 25.7 pg (27.0-34.0) L 05/02/21 04:26 MCHC 31.9 g/dL (33.0-35.0) L 05/02/21 04:26 RDW 20.4 % (11.6-16.5) H 05/02/21 04:26 Plt Count 545 X10^3/uL (150.0-450.0) H 05/02/21 04:26 Plt Count Comment Increased (ADEQUATE) A 05/02/21 04:26 MPV 6.7 fL (7.4-11.0) L 05/02/21 04:26 Neut % (Auto) 68.1 % (42.0-75.0) 05/02/21 04:26 Lymph % (Auto) 21.3 % (21.0-51.0) 05/02/21 04:26 [place] % (Auto) 6.9 % (0.0-13.0) 05/02/21 04:26 Eos % (Auto) 2.7 % (0.9-2.9) 05/02/21 04:26 Baso % (Auto) 1.0 % (0.2-1.0) 05/02/21 04:26 Neut # (Auto) 9.1 x10^3/uL (2.2-4.8) H 05/02/21 04:26 Lymph # (Auto) 2.9 X10^3/uL (1.3-2.9) 05/02/21 04:26 [place] # (Auto) 0.9 x10^3/uL (0.3-0.8) H 05/02/21 04:26 Eos # (Auto) 0.4 x10^3/uL (0.0-0.2) H 05/02/21 04:26 Baso # (Auto) 0.1 X10^3/uL (0.0-0.1) 05/02/21 04:26 Absolute Nucleated RBC 0.1 /100WBC 05/02/21 04:26 Plt Morphology Comment Normal (NORMAL) 05/02/21 04:26 RBC Morphology Abnormal (NORMAL) A 05/02/21 04:26 Hypochromasia Slight A 05/02/21 04:26 Anisocytosis 1+ A 05/02/21 04:26 Sample Site Rrad 04/27/21 05:39 ABG pH 7.430 (7.35-7.45) 04/27/21 05:39 ABG pCO2 56.0 mmHg (35.0-45.0) H* 04/27/21 05:39 ABG pO2 79.0 mmHg (80.0-100.0) L 04/27/21 05:39 ABG HCO3 37.2 mmol/L (22-26) H* 04/27/21 05:39 ABG O2 Saturation 96.0 % (90-100) 04/27/21 05:39 ABG Base Excess 10.9 mmol/L (-2.0-2.0) H 04/27/21 05:39 Gregory Test Pos 04/27/21 05:39 A-a Gradient 65.0 mmHg 04/27/21 05:39 FiO2 30.0 04/27/21 05:39 Blood Gas Comments Jacy abg well-mtf 04/27/21 05:39 Sodium 134 mmol/L (136-145) L 05/02/21 04:26 Corrected Sodium 137 mmol/L (136-145) 05/02/21 04:26 Potassium 4.4 mmol/L (3.5-5.1) 05/02/21 04:26 Chloride 97 mmol/L (98-107) L 05/02/21 04:26 Carbon Dioxide 30.4 mmol/L (21-32) 05/02/21 04:26 BUN 17 mg/dL (7-18) 05/02/21 04:26 Creatinine 0.53 mg/dL (0.55-1.02) L 05/02/21 04:26 Est GFR (MDRD) Af Amer > 60 (>60) 05/02/21 04:26 Est GFR (MDRD) Non-Af > 60 (>60) 05/02/21 04:26 Glucose 208 mg/dL (65-99) H 05/02/21 04:26 POC Glucose (mg/dL) 319 mg/dL (65-99) H 05/02/21 12:30 Calcium 8.3 mg/dL (8.5-10.1) L 05/02/21 04:26 Corrected Calcium 9.7 mg/dL (8.5-10.1) 05/02/21 04:26 Total Bilirubin 0.10 mg/dL (0.2-1.0) L 05/02/21 04:26 AST 11 Units/L (15-37) L 05/02/21 04:26 ALT 14 Units/L (12-78) 05/02/21 04:26 Alkaline Phosphatase 171 Units/L (46-116) H 05/02/21 04:26 B-Natriuretic Peptide 11.8 pg/mL (0-79) 04/27/21 04:18 Total Protein 7.1 g/dL (6.4-8.2) 05/02/21 04:26 Albumin 2.3 g/dL (3.4-5.0) L 05/02/21 04:26 Globulin 4.8 g/dL (2.5-4.5) H 05/02/21 04:26 Albumin/Globulin Ratio 0.5 Ratio (1.1-2.1) L 05/02/21 04:26 Specimen Type Catherized urine 04/28/21 10:55 Urine Color [place] (YELLOW) 04/28/21 10:55 Urine Appearance Cloudy (CLEAR) 04/28/21 10:55 Urine pH 6.5 (5.0 - 8.0) 04/28/21 10:55 Ur Specific [place] 1.010 (1.000-1.030) 04/28/21 10:55 Urine Protein 3+ (NEGATIVE) 04/28/21 10:55 Urine Glucose (UA) 3+ (NEGATIVE) 04/28/21 10:55 Urine Ketones Negative (NEGATIVE) 04/28/21 10:55 Urine Occult Blood 5+ (NEGATIVE) 04/28/21 10:55 Urine Nitrite Negative (NEGATIVE) 04/28/21 10:55 Urine Bilirubin Negative (NEGATIVE) 04/28/21 10:55 Urine Urobilinogen Normal (NORMAL) 04/28/21 10:55 Ur Leukocyte Esterase 3+ (NEGATIVE) 04/28/21 10:55 Urine RBC Tntc /HPF (0-3) A 04/28/21 10:55 Urine WBC 5-10 /HPF (0-5) A 04/28/21 10:55 Ur Squamous Epith Cells Rare /HPF (NEGATIVE) 04/28/21 10:55 Amorphous Sediment 1+ /HPF (NEGATIVE) 04/28/21 10:55 Urine Bacteria Trace /HPF (NEGATIVE) 04/28/21 10:55 Urine Yeast Numerous /HPF (NEGATIVE) 04/28/21 10:55 Ur Culture Indicated? Yes/culture set up 04/28/21 10:55 Phenytoin 7.6 ug/mL (10-20) L 04/25/21 04:50 Plan (1) Hypoalbuminemia due to protein-calorie malnutrition: Status: Acute Plan: Changing to Glucerna tube feedings today. (2) Chronic hypoxemic respiratory failure: Status: Acute Plan: Continue to ween, on trach collar (3) DM (diabetes mellitus): Status: Acute Qualifiers: Diabetes mellitus complication status: with hyperglycemia Plan: Insulin Rx per protocol. Glucose has come down but is still elevated. Will change Levemir to 20 Units bid. (4) Seizure disorder: Status: Acute Plan: Continue Dilantin 100 mg TID per PEG tube and check level in am. (5) Pneumothorax, left: Status: Resolved Plan: Consult Dr. Abel, Gen Surg., chest tube removed (6) Pleural effusion, left: Status: Resolved Plan: IV Lasix. (7) Hypernatremia: Status: Resolved Plan: Start free water 400 ml Q6 hours per PEG. CMP in am.
[2021-05-02] MEDS: SNACK - Diabetic Appropriate PO SCH ×2 (20:09)
[2021-05-02] MEDS: PEPCID TAB 20 MG PO SCH (20:09)
[2021-05-03] MEDS: MORPHINE SULFATE INJ 2 MG INJ IVP PRN ×2 (02:23→17:00)
[2021-05-03] MEDS: VISTARIL PO PRN (05:06)
[2021-05-03] MEDS: DILANTIN PO SCH ×3 (05:06→22:12)
[2021-05-03 05:15] LABS: BASOPHILS # (AUTO) 0.1 X10^3/uL (0.0-0.1); BASOPHILS % (AUTO) 0.9 % (0.2-1.0); EOSINOPHILS # (AUTO) 0.3 x10^3/uL (0.0-0.2); EOSINOPHILS % (AUTO) 2.5 % (0.9-2.9); HEMATOCRIT 32.5 % (36.0-47.0); HEMOGLOBIN 10.3 g/dL (12.0-16.0); LYMPHOCYTES # (AUTO) 2.2 X10^3/uL (1.3-2.9); LYMPHOCYTES % (AUTO) 17.2 % (21.0-51.0); MEAN CORPUSCULAR HEMOGLOBIN 25.8 pg (27.0-34.0); MEAN CORPUSCULAR HGB CONC 31.8 g/dL (33.0-35.0); MEAN CORPUSCULAR VOLUME 80.9 fL (80.0-100.0); MEAN PLATELET VOLUME 6.6 fL (7.4-11.0); MONOCYTES # (AUTO) 0.7 x10^3/uL (0.3-0.8); MONOCYTES % (AUTO) 5.1 % (0.0-13.0); NEUTROPHILS # (AUTO) 9.7 x10^3/uL (2.2-4.8); NEUTROPHILS % (AUTO) 74.3 % (42.0-75.0); PLATELET COUNT 482 X10^3/uL (150.0-450.0); RED BLOOD COUNT 4.01 X10^6/uL (3.5-5.4); RED CELL DISTRIBUTION WIDTH 20.4 % (11.6-16.5); WHITE BLOOD COUNT 13.1 X10^3/uL (3.6-10.0)
[2021-05-03 05:45] LABS: ALANINE AMINOTRANSFERASE 15 Units/L (12-78); ALBUMIN 2.4 g/dL (3.4-5.0); ALKALINE PHOSPHATASE 187 Units/L (46-116); ASPARTATE AMINO TRANSFERASE 17 Units/L (15-37); BLOOD UREA NITROGEN 16 mg/dL (7-18); CALCIUM 8.4 mg/dL (8.5-10.1); CARBON DIOXIDE 35.3 mmol/L (21-32); CHLORIDE 97 mmol/L (98-107); COR CA(FOR HYPOALB) 9.7 mg/dL (8.5-10.1); COR NA(FOR HYPERGLY) 139 mmol/L (136-145); CREATININE 0.57 mg/dL (0.55-1.02); SODIUM 136 mmol/L (136-145); TOTAL PROTEIN 7.5 g/dL (6.4-8.2); eGFR NON BLACK RACES > 60 (>60)
[2021-05-03] MEDS: NovoLIN R (or HumuLIN R) SUBCUT PRN ×4 (05:54→20:44)
[2021-05-03 06:23] LABS: PLATELET MORPHOLOGY COMMENT NORMAL (NORMAL)
[2021-05-03] MEDS: CORDARONE TAB 200 MG PO SCH (09:15)
[2021-05-03] MEDS: DIFLUCAN 200 MG IV PREMIX* 200 MG/100 ML BAG IV SCH (09:16)
[2021-05-03] MEDS: LOVENOX INJ 40 MG SYR SC SCH (09:16)
[2021-05-03] MEDS: PERIDEX or PERIOGARD MT SCH ×2 (09:16→20:43)
[2021-05-03] MEDS: FLOMAX PO SCH (09:16)
[2021-05-03] MEDS: ROCEPHIN 1 GRAM IV PREMIX 1 G/50 ML IV.SOLN. IV SCH (09:17)
[2021-05-03] MEDS: LEVEMIR SC SCH ×3 (09:17→20:42)
[2021-05-03] MEDS: PULMICORT NEB TX 0.5 MG NEB SCH ×2 (09:26→20:00)
[2021-05-03] MEDS: XOPENEX 1.25 MG/3 ML NEBULE NEB SCH ×2 (09:26→20:00)
[2021-05-03 16:31] LABS: ABG ALLEN TEST POS; ABG BASE EXCESS 10.4 mmol/L (-2.0-2.0); ABG HCO3 37.9 mmol/L (22-26)
--- NOTE | 2021-05-03 16:59 | RAD ---
HISTORYPT ON VENT FIO2 30[facility] VIEWCOMPARISONX-ray 04/29/2021FINDINGSEndotracheal tube is seen in the trachea. Probable CHF and pulmonary edema, similar to prior study. Likely moderate left pleural effusion, similar prior study. There is poor inspiration. No pneumothorax is seen.IMPRESSIONProbable CHF with pulmonary edema and moderate left pleural effusion. Appearance is similar to prior study.Electronically signed by: Andrea Wheeler (May 03, 2021 16:57:18)
[2021-05-03] MEDS ORDERED: KAYEXALATE SUSP PO ONE (17:30)
--- NOTE | 2021-05-03 19:09 | PCM.PROG ---
Progress Note Progress Note for Day of Date of Exam: 05/03/21 Subjective Subjective: Patient is resting this am. No problems reported overnight. Potassium is 5.3 this am Past Medical Family Social History Past Med/Fam/Surg Hx: No changes since H&P Allergies: Allergies No Known Drug Allergies Allergy (Verified 02/12/21 08:46) Review of Systems ROS: No change since H&P Vital Signs and I&O's Vital Signs: Temperature 98.0 F Pulse Rate 99 Respiratory Rate 28 Blood Pressure [Right Arm] 136/64 Blood Pressure [Left Arm] 131/67 Blood Pressure 118/70 O2 Sat by Pulse Oximetry 93 Intake and Output: Intake & Output 05/01/21 05/02/21 05/03/21 05/04/21 11:59 11:59 11:59 11:59 Intake Total 2458 / 2458 1005 / 1005 340 / 340 360 / 360 Output Total 2420 / 2420 2475 / 2475 3260 / 3260 1560 / 1560 Balance 38 / 38 -1470 / -1470 -2920 / -2920 -1200 / -1200 Physical Exam Oriented: Normal Eyes: Normal Ear: Normal Nose: Normal Throat: Normal Respiratory: Left, Generalized, Diminished and Rhonchi Cardiovascular: Normal : Normal Auscultation: Bowel Sounds: Normal Tenderness: Normal Skin: Decreased Turgur Musculoskeletal: Normal Psychiatric: Other (unable to ascertain) Mood Description: Calm Affect: Quiet Speech Pattern: Artificially Ventilated Laboratory and Diagnostics Result Diagrams: 05/03/21 04:40 05/03/21 04:40 Labs: 04/28/21 10:55 Urine,Catheterized Urine Culture - Preliminary 04/23/21 16:16 Blood Blood Culture - Final 04/23/21 16:14 Blood Blood Culture - Final Laboratory WBC 13.1 X10^3/uL (3.6-10.0) H 05/03/21 04:40 RBC 4.01 X10^6/uL (3.5-5.4) 05/03/21 04:40 Hgb 10.3 g/dL (12.0-16.0) L 05/03/21 04:40 Hct 32.5 % (36.0-47.0) L 05/03/21 04:40 MCV 80.9 fL (80.0-100.0) 05/03/21 04:40 MCH 25.8 pg (27.0-34.0) L 05/03/21 04:40 MCHC 31.8 g/dL (33.0-35.0) L 05/03/21 04:40 RDW 20.4 % (11.6-16.5) H 05/03/21 04:40 Plt Count 482 X10^3/uL (150.0-450.0) H 05/03/21 04:40 Plt Count Comment Increased (ADEQUATE) A 05/03/21 04:40 MPV 6.6 fL (7.4-11.0) L 05/03/21 04:40 Neut % (Auto) 74.3 % (42.0-75.0) 05/03/21 04:40 Lymph % (Auto) 17.2 % (21.0-51.0) L 05/03/21 04:40 [place] % (Auto) 5.1 % (0.0-13.0) 05/03/21 04:40 Eos % (Auto) 2.5 % (0.9-2.9) 05/03/21 04:40 Baso % (Auto) 0.9 % (0.2-1.0) 05/03/21 04:40 Neut # (Auto) 9.7 x10^3/uL (2.2-4.8) H 05/03/21 04:40 Lymph # (Auto) 2.2 X10^3/uL (1.3-2.9) 05/03/21 04:40 [place] # (Auto) 0.7 x10^3/uL (0.3-0.8) 05/03/21 04:40 Eos # (Auto) 0.3 x10^3/uL (0.0-0.2) H 05/03/21 04:40 Baso # (Auto) 0.1 X10^3/uL (0.0-0.1) 05/03/21 04:40 Absolute Nucleated RBC 0.0 /100WBC 05/03/21 04:40 Plt Morphology Comment Normal (NORMAL) 05/03/21 04:40 RBC Morphology Normal (NORMAL) 05/03/21 04:40 Hypochromasia Slight A 05/02/21 04:26 Anisocytosis 1+ A 05/02/21 04:26 Sample Site Rrad 05/03/21 16:24 ABG pH 7.380 (7.35-7.45) 05/03/21 16:24 ABG pCO2 64.0 mmHg (35.0-45.0) H* 05/03/21 16:24 ABG pO2 62.0 mmHg (80.0-100.0) L 05/03/21 16:24 ABG HCO3 37.9 mmol/L (22-26) H* 05/03/21 16:24 ABG O2 Saturation 91.0 % (90-100) 05/03/21 16:24 ABG Base Excess 10.4 mmol/L (-2.0-2.0) H 05/03/21 16:24 Gregory Test Pos 05/03/21 16:24 A-a Gradient 72.0 mmHg 05/03/21 16:24 FiO2 30.0 05/03/21 16:24 Blood Gas Comments Pt amos well elj 05/03/21 16:24 Sodium 136 mmol/L (136-145) 05/03/21 04:40 Corrected Sodium 139 mmol/L (136-145) 05/03/21 04:40 Potassium 5.3 mmol/L (3.5-5.1) H 05/03/21 04:40 Chloride 97 mmol/L (98-107) L 05/03/21 04:40 Carbon Dioxide 35.3 mmol/L (21-32) H 05/03/21 04:40 BUN 16 mg/dL (7-18) 05/03/21 04:40 Creatinine 0.57 mg/dL (0.55-1.02) 05/03/21 04:40 Est GFR (MDRD) Af Amer > 60 (>60) 05/03/21 04:40 Est GFR (MDRD) Non-Af > 60 (>60) 05/03/21 04:40 Glucose 241 mg/dL (65-99) H 05/03/21 04:40 POC Glucose (mg/dL) 235 mg/dL (65-99) H 05/03/21 16:04 Calcium 8.4 mg/dL (8.5-10.1) L 05/03/21 04:40 Corrected Calcium 9.7 mg/dL (8.5-10.1) 05/03/21 04:40 Total Bilirubin 0.10 mg/dL (0.2-1.0) L 05/03/21 04:40 AST 17 Units/L (15-37) 05/03/21 04:40 ALT 15 Units/L (12-78) 05/03/21 04:40 Alkaline Phosphatase 187 Units/L (46-116) H 05/03/21 04:40 B-Natriuretic Peptide 11.8 pg/mL (0-79) 04/27/21 04:18 Total Protein 7.5 g/dL (6.4-8.2) 05/03/21 04:40 Albumin 2.4 g/dL (3.4-5.0) L 05/03/21 04:40 Globulin 5.1 g/dL (2.5-4.5) H 05/03/21 04:40 Albumin/Globulin Ratio 0.5 Ratio (1.1-2.1) L 05/03/21 04:40 Specimen Type Catherized urine 04/28/21 10:55 Urine Color [place] (YELLOW) 04/28/21 10:55 Urine Appearance Cloudy (CLEAR) 04/28/21 10:55 Urine pH 6.5 (5.0 - 8.0) 04/28/21 10:55 Ur Specific [place] 1.010 (1.000-1.030) 04/28/21 10:55 Urine Protein 3+ (NEGATIVE) 04/28/21 10:55 Urine Glucose (UA) 3+ (NEGATIVE) 04/28/21 10:55 Urine Ketones Negative (NEGATIVE) 04/28/21 10:55 Urine Occult Blood 5+ (NEGATIVE) 04/28/21 10:55 Urine Nitrite Negative (NEGATIVE) 04/28/21 10:55 Urine Bilirubin Negative (NEGATIVE) 04/28/21 10:55 Urine Urobilinogen Normal (NORMAL) 04/28/21 10:55 Ur Leukocyte Esterase 3+ (NEGATIVE) 04/28/21 10:55 Urine RBC Tntc /HPF (0-3) A 04/28/21 10:55 Urine WBC 5-10 /HPF (0-5) A 04/28/21 10:55 Ur Squamous Epith Cells Rare /HPF (NEGATIVE) 04/28/21 10:55 Amorphous Sediment 1+ /HPF (NEGATIVE) 04/28/21 10:55 Urine Bacteria Trace /HPF (NEGATIVE) 04/28/21 10:55 Urine Yeast Numerous /HPF (NEGATIVE) 04/28/21 10:55 Ur Culture Indicated? Yes/culture set up 04/28/21 10:55 Phenytoin 8.1 ug/mL (10-20) L 05/03/21 04:40 Resp Viral Panel (PCR) See scanned report 04/30/21 17:10 Plan (1) Hyperkalemia: Status: Resolved Plan: Kayexylate 30 grams per GT today. (2) Hypoalbuminemia due to protein-calorie malnutrition: Status: Acute Plan: Changing to Glucerna tube feedings today. (3) Chronic hypoxemic respiratory failure: Status: Acute Plan: Continue to ween, on trach collar (4) DM (diabetes mellitus): Status: Acute Qualifiers: Diabetes mellitus complication status: with hyperglycemia Plan: Insulin Rx per protocol. Glucose has come down but is still elevated. Will change Levemir to 20 Units bid. (5) Seizure disorder: Status: Acute Plan: Continue Dilantin 100 mg TID per PEG tube and check level in am. (6) Pneumothorax, left: Status: Resolved Plan: Consult Dr. Abel, Gen Surg., chest tube removed (7) Pleural effusion, left: Status: Resolved Plan: IV Lasix. (8) Hypernatremia: Status: Resolved Plan: Start free water 400 ml Q6 hours per PEG. CMP in am.
[2021-05-03] MEDS: SNACK - Diabetic Appropriate PO SCH ×2 (19:26)
[2021-05-03] MEDS ORDERED: SNACK - Diabetic Appropriate PO SCH (20:00)
[2021-05-03] MEDS: PEPCID TAB 20 MG PO SCH (20:43)
[2021-05-03] MEDS ORDERED: LEVEMIR SC SCH (21:00)
[2021-05-04] MEDS: TYLENOL 325 MG TAB PO PRN (00:10)
[2021-05-04] MEDS: VISTARIL PO PRN ×2 (00:22→09:45)
[2021-05-04] MEDS: MORPHINE SULFATE INJ 2 MG INJ IVP PRN (03:18)
[2021-05-04 04:25] LABS: ABG BASE EXCESS 11.3 mmol/L (-2.0-2.0)
[2021-05-04 04:26] LABS: ABG ALLEN TEST POS; ABG HCO3 40.8 mmol/L (22-26)
[2021-05-04] MEDS: DILANTIN PO SCH ×3 (05:50→21:07)
[2021-05-04 06:05] LABS: BASOPHILS # (AUTO) 0.1 X10^3/uL (0.0-0.1); BASOPHILS % (AUTO) 0.6 % (0.2-1.0); EOSINOPHILS # (AUTO) 0.2 x10^3/uL (0.0-0.2); EOSINOPHILS % (AUTO) 1.9 % (0.9-2.9); HEMATOCRIT 32.5 % (36.0-47.0); HEMOGLOBIN 10.4 g/dL (12.0-16.0); LYMPHOCYTES # (AUTO) 2.1 X10^3/uL (1.3-2.9); LYMPHOCYTES % (AUTO) 16.6 % (21.0-51.0); MEAN CORPUSCULAR HEMOGLOBIN 26.1 pg (27.0-34.0); MEAN CORPUSCULAR VOLUME 81.6 fL (80.0-100.0); MEAN PLATELET VOLUME 6.8 fL (7.4-11.0); MONOCYTES # (AUTO) 0.8 x10^3/uL (0.3-0.8); MONOCYTES % (AUTO) 6.2 % (0.0-13.0); NEUTROPHILS # (AUTO) 9.6 x10^3/uL (2.2-4.8); NEUTROPHILS % (AUTO) 74.7 % (42.0-75.0); PLATELET COUNT 435 X10^3/uL (150.0-450.0); RED BLOOD COUNT 3.98 X10^6/uL (3.5-5.4); RED CELL DISTRIBUTION WIDTH 20.3 % (11.6-16.5); WHITE BLOOD COUNT 12.8 X10^3/uL (3.6-10.0)
--- NOTE | 2021-05-04 06:24 | RAD ---
HISTORYRESP FAILURE SX: HYST.STUDYCHESJavier, 1 [id number]/10/2021FINDINGSTrachea is midline. Tracheostomy tube in place. There is low lung volumes. There is mild elevation of the right diaphragm. There is a persistent left lower lower radiopacity with effacement of the diaphragm.. There is also some perihilar infiltrates as well as in the periphery of the right upper lobe no evidence of a pneumothorax or subcutaneous emphysema.IMPRESSIONPersistent left lower lobe radiopacity with effacement of the diaphragm. Overall no interval change.Electronically signed by: Queenie Arredondo (May 04, 2021 06:23:29)
[2021-05-04 06:47] LABS: ALANINE AMINOTRANSFERASE 17 Units/L (12-78); ALBUMIN 2.3 g/dL (3.4-5.0); ALKALINE PHOSPHATASE 186 Units/L (46-116); ASPARTATE AMINO TRANSFERASE 15 Units/L (15-37); BLOOD UREA NITROGEN 17 mg/dL (7-18); CALCIUM 8.3 mg/dL (8.5-10.1); CARBON DIOXIDE 35.4 mmol/L (21-32); CHLORIDE 96 mmol/L (98-107); COR CA(FOR HYPOALB) 9.7 mg/dL (8.5-10.1); COR NA(FOR HYPERGLY) 139 mmol/L (136-145); CREATININE 0.49 mg/dL (0.55-1.02); SODIUM 137 mmol/L (136-145); TOTAL PROTEIN 7.1 g/dL (6.4-8.2); eGFR NON BLACK RACES > 60 (>60)
[2021-05-04 07:23] LABS: ANISOCYTOSIS SLIGHT; PLATELET MORPHOLOGY COMMENT NORMAL (NORMAL)
[2021-05-04] MEDS: PULMICORT NEB TX 0.5 MG NEB SCH ×2 (09:25→21:15)
[2021-05-04] MEDS: XOPENEX 1.25 MG/3 ML NEBULE NEB SCH ×2 (09:25→21:15)
[2021-05-04] MEDS: LEVEMIR SC SCH ×2 (09:30→21:03)
[2021-05-04] MEDS: LOVENOX INJ 40 MG SYR SC SCH (09:45)
[2021-05-04] MEDS: PERIDEX or PERIOGARD MT SCH ×2 (09:45→21:30)
[2021-05-04] MEDS: DIFLUCAN 200 MG IV PREMIX* 200 MG/100 ML BAG IV SCH (09:50)
[2021-05-04] MEDS: CORDARONE TAB 200 MG PO SCH (10:00)
[2021-05-04] MEDS: ROCEPHIN 1 GRAM IV PREMIX 1 G/50 ML IV.SOLN. IV SCH (10:50)
[2021-05-04] MEDS: FLOMAX PO SCH (11:01)
[2021-05-04 16:43] LABS: CKMB % 11.2 % (<4); CREATINE KINASE 17 Units/L (26-192); CREATINE KINASE MB 1.9 ng/mL (0-4.0); TROPONIN I < 0.02 ng/mL (0-1.5)
--- NOTE | 2021-05-04 17:02 | PCM.PROG ---
Progress Note Progress Note for Day of Date of Exam: 05/04/21 Subjective Subjective: Patient had an episode of asystole last night, early this am, late in the morning and again this afternoon. She has short bursts of Tachycardia then asystole. I am checking her CE's and an EKG now. It also appears she may be having possible breakthrough seizures. We have increased her Dilantin level this am. Past Medical Family Social History Past Med/Fam/Surg Hx: No changes since H&P Allergies: Allergies No Known Drug Allergies Allergy (Verified 02/12/21 08:46) Review of Systems ROS: No change since H&P Vital Signs and I&O's Vital Signs: Temperature 98.9 F Pulse Rate 116 Respiratory Rate 32 Blood Pressure [Right Arm] 136/64 Blood Pressure [Left Arm] 131/67 Blood Pressure 130/71 O2 Sat by Pulse Oximetry 98 Intake and Output: Intake & Output 05/02/21 05/03/21 05/04/21 05/05/21 11:59 11:59 11:59 11:59 Intake Total 1005 / 1005 340 / 340 1665 / 1665 555 / 555 Output Total 2475 / 2475 3260 / 3260 2590 / 2590 855 / 855 Balance -1470 / -1470 -2920 / -2920 -925 / -925 -300 / -300 Physical Exam Oriented: Normal Eyes: Normal Ear: Normal Nose: Normal Throat: Normal Respiratory: Left, Generalized, Diminished and Rhonchi Cardiovascular: Normal : Normal Auscultation: Bowel Sounds: Normal Tenderness: Normal Skin: Decreased Turgur Musculoskeletal: Normal Psychiatric: Other (unable to ascertain) Mood Description: Calm Affect: Quiet Speech Pattern: Artificially Ventilated Laboratory and Diagnostics Result Diagrams: 05/04/21 04:50 05/04/21 04:50 Labs: 04/28/21 10:55 Urine,Catheterized Urine Culture - Preliminary 04/23/21 16:16 Blood Blood Culture - Final 04/23/21 16:14 Blood Blood Culture - Final Laboratory WBC 12.8 X10^3/uL (3.6-10.0) H 05/04/21 04:50 RBC 3.98 X10^6/uL (3.5-5.4) 05/04/21 04:50 Hgb 10.4 g/dL (12.0-16.0) L 05/04/21 04:50 Hct 32.5 % (36.0-47.0) L 05/04/21 04:50 MCV 81.6 fL (80.0-100.0) 05/04/21 04:50 MCH 26.1 pg (27.0-34.0) L 05/04/21 04:50 MCHC 32.0 g/dL (33.0-35.0) L 05/04/21 04:50 RDW 20.3 % (11.6-16.5) H 05/04/21 04:50 Plt Count 435 X10^3/uL (150.0-450.0) 05/04/21 04:50 Plt Count Comment Adequate (ADEQUATE) 05/04/21 04:50 MPV 6.8 fL (7.4-11.0) L 05/04/21 04:50 Neut % (Auto) 74.7 % (42.0-75.0) 05/04/21 04:50 Lymph % (Auto) 16.6 % (21.0-51.0) L 05/04/21 04:50 [place] % (Auto) 6.2 % (0.0-13.0) 05/04/21 04:50 Eos % (Auto) 1.9 % (0.9-2.9) 05/04/21 04:50 Baso % (Auto) 0.6 % (0.2-1.0) 05/04/21 04:50 Neut # (Auto) 9.6 x10^3/uL (2.2-4.8) H 05/04/21 04:50 Lymph # (Auto) 2.1 X10^3/uL (1.3-2.9) 05/04/21 04:50 [place] # (Auto) 0.8 x10^3/uL (0.3-0.8) 05/04/21 04:50 Eos # (Auto) 0.2 x10^3/uL (0.0-0.2) 05/04/21 04:50 Baso # (Auto) 0.1 X10^3/uL (0.0-0.1) 05/04/21 04:50 Absolute Nucleated RBC 0.0 /100WBC 05/04/21 04:50 Plt Morphology Comment Normal (NORMAL) 05/04/21 04:50 RBC Morphology Abnormal (NORMAL) A 05/04/21 04:50 Hypochromasia Slight A 05/02/21 04:26 Anisocytosis Slight A 05/04/21 04:50 Sample Site Lr 05/04/21 04:20 ABG pH 7.310 (7.35-7.45) L 05/04/21 04:20 ABG pCO2 81.0 mmHg (35.0-45.0) H* 05/04/21 04:20 ABG pO2 86.0 mmHg (80.0-100.0) 05/04/21 04:20 ABG HCO3 40.8 mmol/L (22-26) H* 05/04/21 04:20 ABG O2 Saturation 96.0 % (90-100) 05/04/21 04:20 ABG Base Excess 11.3 mmol/L (-2.0-2.0) H 05/04/21 04:20 Gregory Test Pos 05/04/21 04:20 A-a Gradient 98.0 mmHg 05/04/21 04:20 FiO2 40.0 05/04/21 04:20 Blood Gas Comments Jacy well ae 05/04/21 04:20 Sodium 137 mmol/L (136-145) 05/04/21 04:50 Corrected Sodium 139 mmol/L (136-145) 05/04/21 04:50 Potassium 4.6 mmol/L (3.5-5.1) 05/04/21 04:50 Chloride 96 mmol/L (98-107) L 05/04/21 04:50 Carbon Dioxide 35.4 mmol/L (21-32) H 05/04/21 04:50 BUN 17 mg/dL (7-18) 05/04/21 04:50 Creatinine 0.49 mg/dL (0.55-1.02) L 05/04/21 04:50 Est GFR (MDRD) Af Amer > 60 (>60) 05/04/21 04:50 Est GFR (MDRD) Non-Af > 60 (>60) 05/04/21 04:50 Glucose 184 mg/dL (65-99) H 05/04/21 04:50 POC Glucose (mg/dL) 215 mg/dL (65-99) H 05/04/21 11:57 Calcium 8.3 mg/dL (8.5-10.1) L 05/04/21 04:50 Corrected Calcium 9.7 mg/dL (8.5-10.1) 05/04/21 04:50 Magnesium 2.4 mg/dL (1.7-2.9) 05/04/21 04:50 Total Bilirubin 0.10 mg/dL (0.2-1.0) L 05/04/21 04:50 AST 15 Units/L (15-37) 05/04/21 04:50 ALT 17 Units/L (12-78) 05/04/21 04:50 Alkaline Phosphatase 186 Units/L (46-116) H 05/04/21 04:50 Creatine Kinase 17 Units/L (26-192) L 05/04/21 16:08 CK-MB (CK-2) 1.9 ng/mL (0-4.0) 05/04/21 16:08 CK/CKMB % Calc 11.2 % (<4) 05/04/21 16:08 Troponin I < 0.02 ng/mL (0-1.5) 05/04/21 16:08 B-Natriuretic Peptide 11.8 pg/mL (0-79) 04/27/21 04:18 Total Protein 7.1 g/dL (6.4-8.2) 05/04/21 04:50 Albumin 2.3 g/dL (3.4-5.0) L 05/04/21 04:50 Globulin 4.8 g/dL (2.5-4.5) H 05/04/21 04:50 Albumin/Globulin Ratio 0.5 Ratio (1.1-2.1) L 05/04/21 04:50 Specimen Type Catherized urine 04/28/21 10:55 Urine Color [place] (YELLOW) 04/28/21 10:55 Urine Appearance Cloudy (CLEAR) 04/28/21 10:55 Urine pH 6.5 (5.0 - 8.0) 04/28/21 10:55 Ur Specific [place] 1.010 (1.000-1.030) 04/28/21 10:55 Urine Protein 3+ (NEGATIVE) 04/28/21 10:55 Urine Glucose (UA) 3+ (NEGATIVE) 04/28/21 10:55 Urine Ketones Negative (NEGATIVE) 04/28/21 10:55 Urine Occult Blood 5+ (NEGATIVE) 04/28/21 10:55 Urine Nitrite Negative (NEGATIVE) 04/28/21 10:55 Urine Bilirubin Negative (NEGATIVE) 04/28/21 10:55 Urine Urobilinogen Normal (NORMAL) 04/28/21 10:55 Ur Leukocyte Esterase 3+ (NEGATIVE) 04/28/21 10:55 Urine RBC Tntc /HPF (0-3) A 04/28/21 10:55 Urine WBC 5-10 /HPF (0-5) A 04/28/21 10:55 Ur Squamous Epith Cells Rare /HPF (NEGATIVE) 04/28/21 10:55 Amorphous Sediment 1+ /HPF (NEGATIVE) 04/28/21 10:55 Urine Bacteria Trace /HPF (NEGATIVE) 04/28/21 10:55 Urine Yeast Numerous /HPF (NEGATIVE) 04/28/21 10:55 Ur Culture Indicated? Yes/culture set up 04/28/21 10:55 Phenytoin 9.4 ug/mL (10-20) L 05/04/21 04:50 Phenytoin Cancelled 05/04/21 04:50 Resp Viral Panel (PCR) See scanned report 04/30/21 17:10 Radiology Reviewed: Yes Plan (1) Cardiac asystole: Status: Acute Plan: Checking CE's and EKG. (2) Respiratory failure with hypercapnia: Status: Acute Narrative Support Text: Discussed with grand-daughter this morning that patient could take a quick turn for the worse regarding patients brief episodes of tacycardia. Grand-daughter understands. (3) Hypoalbuminemia due to protein-calorie malnutrition: Status: Acute Plan: Changing to Glucerna tube feedings today. (4) Chronic hypoxemic respiratory failure: Status: Acute Plan: Continue to ween, on trach collar (5) DM (diabetes mellitus): Status: Acute Qualifiers: Diabetes mellitus complication status: with hyperglycemia Plan: Insulin Rx per protocol. Glucose has come down but is still elevated. Will change Levemir to 20 Units bid. (6) Seizure disorder: Status: Acute Plan: Continue Dilantin 100 mg TID per PEG tube and check level in am. (7) Pneumothorax, left: Status: Resolved Plan: Consult Dr. Abel, Gen Surg., chest tube removed (8) Pleural effusion, left: Status: Resolved Plan: IV Lasix. (9) Hypernatremia: Status: Resolved Plan: Start free water 400 ml Q6 hours per PEG. CMP in am. (10) Hyperkalemia: Status: Resolved Plan: Kayexylate 30 grams per GT today.
[2021-05-04] MEDS ORDERED: SODIUM BICARBONATE 8.4% INJ ADULT ONE (17:54)
[2021-05-04] MEDS ORDERED: NS 1,000 ML IV 1,000 ML ONE (17:54)
[2021-05-04] MEDS: NovoLIN R (or HumuLIN R) SUBCUT PRN (18:10)
[2021-05-04 18:23] LABS: ABG BASE EXCESS 16.4 mmol/L (-2.0-2.0)
[2021-05-04 18:24] LABS: ABG ALLEN TEST POS; ABG HCO3 44.1 mmol/L (22-26)
[2021-05-04] MEDS: NS 1,000 ML IV 1,000 ML with SODIUM BICARBONATE 8.4% INJ ADULT 50 ML IV SCH ×2 (18:40)
[2021-05-04] MEDS: PEPCID TAB 20 MG PO SCH (21:05)
[2021-05-05 05:18] LABS: BASOPHILS # (AUTO) 0.1 X10^3/uL (0.0-0.1); BASOPHILS % (AUTO) 0.8 % (0.2-1.0); EOSINOPHILS # (AUTO) 0.2 x10^3/uL (0.0-0.2); EOSINOPHILS % (AUTO) 1.5 % (0.9-2.9); HEMATOCRIT 32.7 % (36.0-47.0); HEMOGLOBIN 10.4 g/dL (12.0-16.0); LYMPHOCYTES # (AUTO) 2.5 X10^3/uL (1.3-2.9); LYMPHOCYTES % (AUTO) 18.8 % (21.0-51.0); MEAN CORPUSCULAR HGB CONC 31.7 g/dL (33.0-35.0); MEAN CORPUSCULAR VOLUME 82.1 fL (80.0-100.0); MEAN PLATELET VOLUME 6.9 fL (7.4-11.0); MONOCYTES % (AUTO) 7.3 % (0.0-13.0); NEUTROPHILS # (AUTO) 9.4 x10^3/uL (2.2-4.8); NEUTROPHILS % (AUTO) 71.6 % (42.0-75.0); PLATELET COUNT 348 X10^3/uL (150.0-450.0); RED BLOOD COUNT 3.99 X10^6/uL (3.5-5.4); RED CELL DISTRIBUTION WIDTH 20.3 % (11.6-16.5); WHITE BLOOD COUNT 13.2 X10^3/uL (3.6-10.0)
[2021-05-05 05:26] LABS: ALANINE AMINOTRANSFERASE 19 Units/L (12-78); ALBUMIN 2.4 g/dL (3.4-5.0); ALKALINE PHOSPHATASE 192 Units/L (46-116); ASPARTATE AMINO TRANSFERASE 27 Units/L (15-37); BLOOD UREA NITROGEN 17 mg/dL (7-18); CALCIUM 8.2 mg/dL (8.5-10.1); CARBON DIOXIDE 37.6 mmol/L (21-32); CHLORIDE 96 mmol/L (98-107); COR CA(FOR HYPOALB) 9.5 mg/dL (8.5-10.1); COR NA(FOR HYPERGLY) 139 mmol/L (136-145); CREATININE 0.49 mg/dL (0.55-1.02); SODIUM 137 mmol/L (136-145); TOTAL PROTEIN 7.2 g/dL (6.4-8.2); eGFR NON BLACK RACES > 60 (>60)
[2021-05-05 05:43] LABS: ANISOCYTOSIS 1+; PLATELET MORPHOLOGY COMMENT NORMAL (NORMAL)
[2021-05-05] MEDS: DILANTIN PO SCH ×3 (05:45→21:31)
[2021-05-05] MEDS: NovoLIN R (or HumuLIN R) SUBCUT PRN (06:27)
[2021-05-05 09:20] LABS: ABG ALLEN TEST POS; ABG HCO3 46.1 mmol/L (22-26)
[2021-05-05] MEDS: XOPENEX 1.25 MG/3 ML NEBULE NEB SCH ×2 (09:30→21:30)
[2021-05-05] MEDS: PULMICORT NEB TX 0.5 MG NEB SCH ×2 (09:30→21:30)
[2021-05-05] MEDS ORDERED: NS 250 ML IV 250 ML IV ONE (09:41)
[2021-05-05] MEDS: FLOMAX PO SCH (09:42)
[2021-05-05] MEDS: CORDARONE TAB 200 MG PO SCH (09:42)
[2021-05-05] MEDS: ROCEPHIN 1 GRAM IV PREMIX 1 G/50 ML IV.SOLN. IV SCH (09:42)
[2021-05-05] MEDS: LEVEMIR SC SCH ×2 (09:42→20:15)
[2021-05-05] MEDS: LOVENOX INJ 40 MG SYR SC SCH (09:42)
[2021-05-05] MEDS: NS 250 ML IV 250 ML IV PRN (09:42)
[2021-05-05] MEDS: PERIDEX or PERIOGARD MT SCH ×2 (09:42→20:15)
[2021-05-05] MEDS: DIFLUCAN 200 MG IV PREMIX* 200 MG/100 ML BAG IV SCH (10:30)
[2021-05-05] MEDS: NS 1,000 ML IV 1,000 ML with SODIUM BICARBONATE 8.4% INJ ADULT 50 ML IV SCH ×2 (11:02)
[2021-05-05] MEDS: VISTARIL PO PRN ×2 (11:05→20:50)
--- NOTE | 2021-05-05 15:12 | PCM.PROG ---
Progress Note Progress Note for Day of Date of Exam: 05/05/21 Subjective Subjective: Patient had an episode of asystole again last night at 0300. Her granddaughter reports that she feels better today. Miss Niño is awake and shakes her head yes or no to questions. I suspect her mild acidosis and retained CO2 yesterday were causing her asystole yesterday. He has slowed since correcting those problems. PH is now 7.42 and pCO2 is 71 down from 81. Past Medical Family Social History Past Med/Fam/Surg Hx: No changes since H&P Allergies: Allergies No Known Drug Allergies Allergy (Verified 02/12/21 08:46) Review of Systems ROS: No change since H&P Vital Signs and I&O's Vital Signs: Temperature 98.6 F Pulse Rate 83 Respiratory Rate 26 Blood Pressure [Right Arm] 136/64 Blood Pressure [Left Arm] 131/67 Blood Pressure 119/58 O2 Sat by Pulse Oximetry 95 Intake and Output: Intake & Output 05/03/21 05/04/21 05/05/21 05/06/21 11:59 11:59 11:59 11:59 Intake Total 340 / 340 1665 / 1665 2163 / 2163 Output Total 3260 / 3260 2590 / 2590 2115 / 2115 Balance -2920 / -2920 -925 / -925 48 / 48 Physical Exam Oriented: Normal Eyes: Normal Ear: Normal Nose: Normal Throat: Normal Respiratory: Left, Generalized, Diminished and Rhonchi Cardiovascular: Normal : Normal Auscultation: Bowel Sounds: Normal Tenderness: Normal Skin: Decreased Turgur Musculoskeletal: Normal Psychiatric: Other (unable to ascertain) Mood Description: Calm Affect: Quiet Speech Pattern: Artificially Ventilated Laboratory and Diagnostics Result Diagrams: 05/05/21 04:05 05/05/21 04:05 Labs: 04/28/21 10:55 Urine,Catheterized Urine Culture - Preliminary 04/23/21 16:16 Blood Blood Culture - Final 04/23/21 16:14 Blood Blood Culture - Final Laboratory WBC 13.2 X10^3/uL (3.6-10.0) H 05/05/21 04:05 RBC 3.99 X10^6/uL (3.5-5.4) 05/05/21 04:05 Hgb 10.4 g/dL (12.0-16.0) L 05/05/21 04:05 Hct 32.7 % (36.0-47.0) L 05/05/21 04:05 MCV 82.1 fL (80.0-100.0) 05/05/21 04:05 MCH 26.0 pg (27.0-34.0) L 05/05/21 04:05 MCHC 31.7 g/dL (33.0-35.0) L 05/05/21 04:05 RDW 20.3 % (11.6-16.5) H 05/05/21 04:05 Plt Count 348 X10^3/uL (150.0-450.0) 05/05/21 04:05 Plt Count Comment Adequate (ADEQUATE) 05/05/21 04:05 MPV 6.9 fL (7.4-11.0) L 05/05/21 04:05 Neut % (Auto) 71.6 % (42.0-75.0) 05/05/21 04:05 Lymph % (Auto) 18.8 % (21.0-51.0) L 05/05/21 04:05 [place] % (Auto) 7.3 % (0.0-13.0) 05/05/21 04:05 Eos % (Auto) 1.5 % (0.9-2.9) 05/05/21 04:05 Baso % (Auto) 0.8 % (0.2-1.0) 05/05/21 04:05 Neut # (Auto) 9.4 x10^3/uL (2.2-4.8) H 05/05/21 04:05 Lymph # (Auto) 2.5 X10^3/uL (1.3-2.9) 05/05/21 04:05 [place] # (Auto) 1.0 x10^3/uL (0.3-0.8) H 05/05/21 04:05 Eos # (Auto) 0.2 x10^3/uL (0.0-0.2) 05/05/21 04:05 Baso # (Auto) 0.1 X10^3/uL (0.0-0.1) 05/05/21 04:05 Absolute Nucleated RBC 0.0 /100WBC 05/05/21 04:05 Plt Morphology Comment Normal (NORMAL) 05/05/21 04:05 RBC Morphology Abnormal (NORMAL) A 05/05/21 04:05 Hypochromasia Slight A 05/02/21 04:26 Anisocytosis 1+ A 05/05/21 04:05 Sample Site Lr 05/05/21 09:13 ABG pH 7.420 (7.35-7.45) 05/05/21 09:13 ABG pCO2 71.0 mmHg (35.0-45.0) H* 05/05/21 09:13 ABG pO2 65.0 mmHg (80.0-100.0) L 05/05/21 09:13 ABG HCO3 46.1 mmol/L (22-26) H* 05/05/21 09:13 ABG O2 Saturation 93.0 % (90-100) 05/05/21 09:13 ABG Base Excess 18.0 mmol/L (-2.0-2.0) H 05/05/21 09:13 Gregory Test Pos 05/05/21 09:13 A-a Gradient 60.0 mmHg 05/05/21 09:13 FiO2 30.0 05/05/21 09:13 Blood Gas Comments Jacy well cb 05/05/21 09:13 Sodium 137 mmol/L (136-145) 05/05/21 04:05 Corrected Sodium 139 mmol/L (136-145) 05/05/21 04:05 Potassium 5.1 mmol/L (3.5-5.1) 05/05/21 04:05 Chloride 96 mmol/L (98-107) L 05/05/21 04:05 Carbon Dioxide 37.6 mmol/L (21-32) H 05/05/21 04:05 BUN 17 mg/dL (7-18) 05/05/21 04:05 Creatinine 0.49 mg/dL (0.55-1.02) L 05/05/21 04:05 Est GFR (MDRD) Af Amer > 60 (>60) 05/05/21 04:05 Est GFR (MDRD) Non-Af > 60 (>60) 05/05/21 04:05 Glucose 199 mg/dL (65-99) H 05/05/21 04:05 POC Glucose (mg/dL) 179 mg/dL (65-99) H 05/05/21 12: Calcium 8.2 mg/dL (8.5-10.1) L 05/05/21 04:05 Corrected Calcium 9.5 mg/dL (8.5-10.1) 05/05/21 04:05 Magnesium 2.4 mg/dL (1.7-2.9) 05/04/21 04:50 Total Bilirubin 0.20 mg/dL (0.2-1.0) 05/05/21 04:05 AST 27 Units/L (15-37) 05/05/21 04:05 ALT 19 Units/L (12-78) 05/05/21 04:05 Alkaline Phosphatase 192 Units/L (46-116) H 05/05/21 04:05 Creatine Kinase 17 Units/L (26-192) L 05/04/21 16:08 CK-MB (CK-2) 1.9 ng/mL (0-4.0) 05/04/21 16:08 CK/CKMB % Calc 11.2 % (<4) 05/04/21 16:08 Troponin I < 0.02 ng/mL (0-1.5) 05/04/21 16:08 B-Natriuretic Peptide 11.8 pg/mL (0-79) 04/27/21 04:18 Total Protein 7.2 g/dL (6.4-8.2) 05/05/21 04:05 Albumin 2.4 g/dL (3.4-5.0) L 05/05/21 04:05 Globulin 4.8 g/dL (2.5-4.5) H 05/05/21 04:05 Albumin/Globulin Ratio 0.5 Ratio (1.1-2.1) L 05/05/21 04:05 Specimen Type Catherized urine 04/28/21 10:55 Urine Color [place] (YELLOW) 04/28/21 10:55 Urine Appearance Cloudy (CLEAR) 04/28/21 10:55 Urine pH 6.5 (5.0 - 8.0) 04/28/21 10:55 Ur Specific [place] 1.010 (1.000-1.030) 04/28/21 10:55 Urine Protein 3+ (NEGATIVE) 04/28/21 10:55 Urine Glucose (UA) 3+ (NEGATIVE) 04/28/21 10:55 Urine Ketones Negative (NEGATIVE) 04/28/21 10:55 Urine Occult Blood 5+ (NEGATIVE) 04/28/21 10:55 Urine Nitrite Negative (NEGATIVE) 04/28/21 10:55 Urine Bilirubin Negative (NEGATIVE) 04/28/21 10:55 Urine Urobilinogen Normal (NORMAL) 04/28/21 10:55 Ur Leukocyte Esterase 3+ (NEGATIVE) 04/28/21 10:55 Urine RBC Tntc /HPF (0-3) A 04/28/21 10:55 Urine WBC 5-10 /HPF (0-5) A 04/28/21 10:55 Ur Squamous Epith Cells Rare /HPF (NEGATIVE) 04/28/21 10:55 Amorphous Sediment 1+ /HPF (NEGATIVE) 04/28/21 10:55 Urine Bacteria Trace /HPF (NEGATIVE) 04/28/21 10:55 Urine Yeast Numerous /HPF (NEGATIVE) 04/28/21 10:55 Ur Culture Indicated? Yes/culture set up 04/28/21 10:55 Phenytoin 9.4 ug/mL (10-20) L 05/04/21 04:50 Phenytoin Cancelled 05/04/21 04:50 Resp Viral Panel (PCR) See scanned report 04/30/21 17:10 Radiology Reviewed: Yes EKG Reviewed: Yes Plan (1) Cardiac asystole: Status: Acute Narrative Support Text: Cardiac enzymes and EKG were normal yesterday aft ernoon. Only 1 episode of asystole of a short number of seconds at 0300 this am. Plan: Monitor for acidosis and retained CO2 levels. (2) Respiratory failure with hypercapnia: Status: Acute (3) Hypoalbuminemia due to protein-calorie malnutrition: Status: Acute Plan: Changing to Glucerna tube feedings today. (4) Chronic hypoxemic respiratory failure: Status: Acute Plan: Continue to ween, on trach collar (5) DM (diabetes mellitus): Status: Acute Qualifiers: Diabetes mellitus complication status: with hyperglycemia Plan: Insulin Rx per protocol. Glucose has come down but is still elevated. Will change Levemir to 20 Units bid. (6) Seizure disorder: Status: Acute Plan: Continue Dilantin 100 mg TID per PEG tube and check level in am. (7) Pneumothorax, left: Status: Resolved Plan: Consult Dr. Abel, Gen Surg., chest tube removed (8) Pleural effusion, left: Status: Resolved Plan: IV Lasix. (9) Hypernatremia: Status: Resolved Plan: Start free water 400 ml Q6 hours per PEG. CMP in am. (10) Hyperkalemia: Status: Resolved Plan: Kayexylate 30 grams per GT today.
[2021-05-05] MEDS: MORPHINE SULFATE INJ 2 MG INJ IVP PRN (17:30)
[2021-05-05] MEDS: PEPCID TAB 20 MG PO SCH (20:15)
[2021-05-05] MEDS: TYLENOL 325 MG TAB PO PRN (20:50)
[2021-05-06] MEDS: MORPHINE SULFATE INJ 2 MG INJ IVP PRN (04:36)
[2021-05-06 05:26] LABS: BASOPHILS # (AUTO) 0.1 X10^3/uL (0.0-0.1); EOSINOPHILS # (AUTO) 0.3 x10^3/uL (0.0-0.2); EOSINOPHILS % (AUTO) 2.3 % (0.9-2.9); HEMOGLOBIN 10.5 g/dL (12.0-16.0); LYMPHOCYTES # (AUTO) 3.8 X10^3/uL (1.3-2.9); MEAN CORPUSCULAR HEMOGLOBIN 25.9 pg (27.0-34.0); MEAN CORPUSCULAR HGB CONC 31.7 g/dL (33.0-35.0); MEAN CORPUSCULAR VOLUME 81.6 fL (80.0-100.0); MEAN PLATELET VOLUME 7.1 fL (7.4-11.0); MONOCYTES # (AUTO) 1.4 x10^3/uL (0.3-0.8); MONOCYTES % (AUTO) 10.3 % (0.0-13.0); NEUTROPHILS # (AUTO) 8.3 x10^3/uL (2.2-4.8); NEUTROPHILS % (AUTO) 59.4 % (42.0-75.0); PLATELET COUNT 400 X10^3/uL (150.0-450.0); RED BLOOD COUNT 4.04 X10^6/uL (3.5-5.4); RED CELL DISTRIBUTION WIDTH 20.5 % (11.6-16.5); WHITE BLOOD COUNT 13.9 X10^3/uL (3.6-10.0)
[2021-05-06 05:33] LABS: ALANINE AMINOTRANSFERASE 17 Units/L (12-78); ALBUMIN 2.3 g/dL (3.4-5.0); ALKALINE PHOSPHATASE 188 Units/L (46-116); ASPARTATE AMINO TRANSFERASE 25 Units/L (15-37); BLOOD UREA NITROGEN 17 mg/dL (7-18); CALCIUM 8.2 mg/dL (8.5-10.1); CARBON DIOXIDE 39.5 mmol/L (21-32); CHLORIDE 97 mmol/L (98-107); COR CA(FOR HYPOALB) 9.6 mg/dL (8.5-10.1); COR NA(FOR HYPERGLY) 141 mmol/L (136-145); CREATININE 0.48 mg/dL (0.55-1.02); SODIUM 139 mmol/L (136-145); TOTAL PROTEIN 7.1 g/dL (6.4-8.2); eGFR NON BLACK RACES > 60 (>60)
[2021-05-06] MEDS: DILANTIN PO SCH ×3 (05:37→21:54)
[2021-05-06 05:51] LABS: ANISOCYTOSIS 1+; PLATELET MORPHOLOGY COMMENT NORMAL (NORMAL)
--- NOTE | 2021-05-06 06:30 | RAD ---
HISTORYVENTILATOR DEPENDENCE, COVID+STUDYCHEST, 1 [id number]/2021.TECHNIQUEAP view of the chestFINDINGSTracheostomy tube in situ. Cardiac and mediastinal contours are within normal limits. No significant change in bilateral airspace and interstitial pulmonary opacities with stable silhouetting of the central left hemidiaphragm. No definite pleural effusion or pneumothorax.IMPRESSIONNo significant change.Electronically signed by: Mendel Edwards (May 06, 2021 06:28:42)
[2021-05-06] MEDS: DIFLUCAN 200 MG IV PREMIX* 200 MG/100 ML BAG IV SCH (09:03)
[2021-05-06] MEDS: ROCEPHIN 1 GRAM IV PREMIX 1 G/50 ML IV.SOLN. IV SCH (09:03)
[2021-05-06] MEDS: LOVENOX INJ 40 MG SYR SC SCH (09:04)
[2021-05-06] MEDS: LEVEMIR SC SCH ×2 (09:04→21:52)
[2021-05-06] MEDS: FLOMAX PO SCH (09:04)
[2021-05-06] MEDS: CORDARONE TAB 200 MG PO SCH (09:04)
[2021-05-06] MEDS: PERIDEX or PERIOGARD MT SCH ×2 (09:05→21:54)
[2021-05-06] MEDS: XOPENEX 1.25 MG/3 ML NEBULE NEB SCH ×2 (09:50→21:07)
[2021-05-06] MEDS: PULMICORT NEB TX 0.5 MG NEB SCH ×2 (09:50→21:07)
--- NOTE | 2021-05-06 14:50 | PCM.PROG ---
Progress Note Progress Note for Day of Date of Exam: 05/06/21 Subjective Subjective: Patient had multiple episodes of asystole again last night. Her granddaughter reports that she feels better today. Miss Niño is awake and shakes her head yes or no to questions. Late yesterday afternoon the patient's granddaughter decided to just treat her with what we are doing now. She does not want Pressors nor CRP if pt. becomes hypotensive or codes. Past Medical Family Social History Past Med/Fam/Surg Hx: No changes since H&P Allergies: Allergies No Known Drug Allergies Allergy (Verified 02/12/21 08:46) Review of Systems ROS: No change since H&P Vital Signs and I&O's Vital Signs: Temperature 98.9 F Pulse Rate 84 Respiratory Rate 19 Blood Pressure [Right Arm] 136/64 Blood Pressure [Left Arm] 131/67 Blood Pressure 114/55 O2 Sat by Pulse Oximetry 100 Intake and Output: Intake & Output 05/04/21 05/05/21 05/06/21 05/07/21 11:59 11:59 11:59 11:59 Intake Total 1665 / 1665 2163 / 2163 1145 / 1145 Output Total 2590 / 2590 2115 / 2115 1770 / 1770 Balance -925 / -925 48 / 48 -625 / -625 Physical Exam Oriented: Normal Eyes: Normal Ear: Normal Nose: Normal Throat: Normal Respiratory: Left, Generalized, Diminished and Rhonchi Cardiovascular: Normal : Normal Auscultation: Bowel Sounds: Normal Tenderness: Normal Skin: Decreased Turgur Musculoskeletal: Normal Psychiatric: Other (unable to ascertain) Mood Description: Calm Affect: Quiet Speech Pattern: Artificially Ventilated Laboratory and Diagnostics Result Diagrams: 05/06/21 04:18 05/06/21 04:18 Labs: 04/28/21 10:55 Urine,Catheterized Urine Culture - Preliminary 04/23/21 16:16 Blood Blood Culture - Final 04/23/21 16:14 Blood Blood Culture - Final Laboratory WBC 13.9 X10^3/uL (3.6-10.0) H 05/06/21 04:18 RBC 4.04 X10^6/uL (3.5-5.4) 05/06/21 04:18 Hgb 10.5 g/dL (12.0-16.0) L 05/06/21 04:18 Hct 33.0 % (36.0-47.0) L 05/06/21 04:18 MCV 81.6 fL (80.0-100.0) 05/06/21 04:18 MCH 25.9 pg (27.0-34.0) L 05/06/21 04:18 MCHC 31.7 g/dL (33.0-35.0) L 05/06/21 04:18 RDW 20.5 % (11.6-16.5) H 05/06/21 04:18 Plt Count 400 X10^3/uL (150.0-450.0) 05/06/21 04:18 Plt Count Comment Adequate (ADEQUATE) 05/06/21 04:18 MPV 7.1 fL (7.4-11.0) L 05/06/21 04:18 Neut % (Auto) 59.4 % (42.0-75.0) 05/06/21 04:18 Lymph % (Auto) 27.0 % (21.0-51.0) 05/06/21 04:18 [place] % (Auto) 10.3 % (0.0-13.0) 05/06/21 04:18 Eos % (Auto) 2.3 % (0.9-2.9) 05/06/21 04:18 Baso % (Auto) 1.0 % (0.2-1.0) 05/06/21 04:18 Neut # (Auto) 8.3 x10^3/uL (2.2-4.8) H 05/06/21 04:18 Lymph # (Auto) 3.8 X10^3/uL (1.3-2.9) H 05/06/21 04:18 [place] # (Auto) 1.4 x10^3/uL (0.3-0.8) H 05/06/21 04:18 Eos # (Auto) 0.3 x10^3/uL (0.0-0.2) H 05/06/21 04:18 Baso # (Auto) 0.1 X10^3/uL (0.0-0.1) 05/06/21 04:18 Absolute Nucleated RBC 0.5 /100WBC 05/06/21 04:18 Plt Morphology Comment Normal (NORMAL) 05/06/21 04:18 RBC Morphology Abnormal (NORMAL) A 05/06/21 04:18 Hypochromasia Slight A 05/02/21 04:26 Anisocytosis 1+ A 05/06/21 04:18 Sample Site Lr 05/05/21 09:13 ABG pH 7.420 (7.35-7.45) 05/05/21 09:13 ABG pCO2 71.0 mmHg (35.0-45.0) H* 05/05/21 09:13 ABG pO2 65.0 mmHg (80.0-100.0) L 05/05/21 09:13 ABG HCO3 46.1 mmol/L (22-26) H* 05/05/21 09:13 ABG O2 Saturation 93.0 % (90-100) 05/05/21 09:13 ABG Base Excess 18.0 mmol/L (-2.0-2.0) H 05/05/21 09:13 Gregory Test Pos 05/05/21 09:13 A-a Gradient 60.0 mmHg 05/05/21 09:13 FiO2 30.0 05/05/21 09:13 Blood Gas Comments Jacy well cb 05/05/21 09:13 Sodium 139 mmol/L (136-145) 05/06/21 04:18 Corrected Sodium 141 mmol/L (136-145) 05/06/21 04:18 Potassium 4.9 mmol/L (3.5-5.1) 05/06/21 04:18 Chloride 97 mmol/L (98-107) L 05/06/21 04:18 Carbon Dioxide 39.5 mmol/L (21-32) H 05/06/21 04:18 BUN 17 mg/dL (7-18) 05/06/21 04:18 Creatinine 0.48 mg/dL (0.55-1.02) L 05/06/21 04:18 Est GFR (MDRD) Af Amer > 60 (>60) 05/06/21 04:18 Est GFR (MDRD) Non-Af > 60 (>60) 05/06/21 04:18 Glucose 177 mg/dL (65-99) H 05/06/21 04:18 POC Glucose (mg/dL) 142 mg/dL (65-99) H 05/06/21 12:38 Calcium 8.2 mg/dL (8.5-10.1) L 05/06/21 04:18 Corrected Calcium 9.6 mg/dL (8.5-10.1) 05/06/21 04:18 Magnesium 2.4 mg/dL (1.7-2.9) 05/04/21 04:50 Total Bilirubin 0.20 mg/dL (0.2-1.0) 05/06/21 04:18 AST 25 Units/L (15-37) 05/06/21 04:18 ALT 17 Units/L (12-78) 05/06/21 04:18 Alkaline Phosphatase 188 Units/L (46-116) H 05/06/21 04:18 Creatine Kinase 17 Units/L (26-192) L 05/04/21 16:08 CK-MB (CK-2) 1.9 ng/mL (0-4.0) 05/04/21 16:08 CK/CKMB % Calc 11.2 % (<4) 05/04/21 16:08 Troponin I < 0.02 ng/mL (0-1.5) 05/04/21 16:08 B-Natriuretic Peptide 11.8 pg/mL (0-79) 04/27/21 04:18 Total Protein 7.1 g/dL (6.4-8.2) 05/06/21 04:18 Albumin 2.3 g/dL (3.4-5.0) L 05/06/21 04:18 Globulin 4.8 g/dL (2.5-4.5) H 05/06/21 04:18 Albumin/Globulin Ratio 0.5 Ratio (1.1-2.1) L 05/06/21 04:18 Specimen Type Catherized urine 04/28/21 10:55 Urine Color [place] (YELLOW) 04/28/21 10:55 Urine Appearance Cloudy (CLEAR) 04/28/21 10:55 Urine pH 6.5 (5.0 - 8.0) 04/28/21 10:55 Ur Specific [place] 1.010 (1.000-1.030) 04/28/21 10:55 Urine Protein 3+ (NEGATIVE) 04/28/21 10:55 Urine Glucose (UA) 3+ (NEGATIVE) 04/28/21 10:55 Urine Ketones Negative (NEGATIVE) 04/28/21 10:55 Urine Occult Blood 5+ (NEGATIVE) 04/28/21 10:55 Urine Nitrite Negative (NEGATIVE) 04/28/21 10:55 Urine Bilirubin Negative (NEGATIVE) 04/28/21 10:55 Urine Urobilinogen Normal (NORMAL) 04/28/21 10:55 Ur Leukocyte Esterase 3+ (NEGATIVE) 04/28/21 10:55 Urine RBC Tntc /HPF (0-3) A 04/28/21 10:55 Urine WBC 5-10 /HPF (0-5) A 04/28/21 10:55 Ur Squamous Epith Cells Rare /HPF (NEGATIVE) 04/28/21 10:55 Amorphous Sediment 1+ /HPF (NEGATIVE) 04/28/21 10:55 Urine Bacteria Trace /HPF (NEGATIVE) 04/28/21 10:55 Urine Yeast Numerous /HPF (NEGATIVE) 04/28/21 10:55 Ur Culture Indicated? Yes/culture set up 04/28/21 10:55 Phenytoin 9.4 ug/mL (10-20) L 05/04/21 04:50 Phenytoin Cancelled 05/04/21 04:50 Resp Viral Panel (PCR) See scanned report 04/30/21 17:10 Radiology Reviewed: Yes Plan (1) Cardiac asystole: Status: Acute Plan: Monitor for acidosis and retained CO2 levels. (2) Respiratory failure with hypercapnia: Status: Acute Narrative Support Text: Improved. (3) Hypoalbuminemia due to protein-calorie malnutrition: Status: Acute Plan: Changing to Glucerna tube feedings today. (4) Chronic hypoxemic respiratory failure: Status: Acute Plan: Continue to ween, on trach collar (5) DM (diabetes mellitus): Status: Acute Qualifiers: Diabetes mellitus complication status: with hyperglycemia Plan: Insulin Rx per protocol. Glucose has come down but is still elevated. Will change Levemir to 20 Units bid. (6) Seizure disorder: Status: Acute Plan: Continue Dilantin 100 mg TID per PEG tube and check level in am. (7) Pneumothorax, left: Status: Resolved Plan: Consult Dr. Abel, Gen Surg., chest tube removed (8) Pleural effusion, left: Status: Resolved Plan: IV Lasix. (9) Hypernatremia: Status: Resolved Plan: Continue free water 200 ml Q6 hours per PEG. (10) Hyperkalemia: Status: Resolved
[2021-05-06] MEDS: PEPCID TAB 20 MG PO SCH (21:54)
[2021-05-07] MEDS: NS 250 ML IV 250 ML IV PRN (02:34)
[2021-05-07 05:53] LABS: BASOPHILS # (AUTO) 0.1 X10^3/uL (0.0-0.1); BASOPHILS % (AUTO) 1.2 % (0.2-1.0); EOSINOPHILS # (AUTO) 0.4 x10^3/uL (0.0-0.2); EOSINOPHILS % (AUTO) 3.3 % (0.9-2.9); HEMATOCRIT 29.7 % (36.0-47.0); HEMOGLOBIN 9.7 g/dL (12.0-16.0); LYMPHOCYTES # (AUTO) 2.8 X10^3/uL (1.3-2.9); LYMPHOCYTES % (AUTO) 24.8 % (21.0-51.0); MEAN CORPUSCULAR HEMOGLOBIN 26.1 pg (27.0-34.0); MEAN CORPUSCULAR HGB CONC 32.6 g/dL (33.0-35.0); MEAN CORPUSCULAR VOLUME 80.3 fL (80.0-100.0); MEAN PLATELET VOLUME 6.9 fL (7.4-11.0); MONOCYTES # (AUTO) 0.6 x10^3/uL (0.3-0.8); MONOCYTES % (AUTO) 5.4 % (0.0-13.0); NEUTROPHILS # (AUTO) 7.4 x10^3/uL (2.2-4.8); NEUTROPHILS % (AUTO) 65.3 % (42.0-75.0); PLATELET COUNT 430 X10^3/uL (150.0-450.0); RED CELL DISTRIBUTION WIDTH 20.4 % (11.6-16.5); WHITE BLOOD COUNT 11.3 X10^3/uL (3.6-10.0)
[2021-05-07 06:04] LABS: ALANINE AMINOTRANSFERASE 19 Units/L (12-78); ALBUMIN 2.4 g/dL (3.4-5.0); ALKALINE PHOSPHATASE 172 Units/L (46-116); ASPARTATE AMINO TRANSFERASE 17 Units/L (15-37); BLOOD UREA NITROGEN 17 mg/dL (7-18); CALCIUM 8.5 mg/dL (8.5-10.1); CARBON DIOXIDE 34.4 mmol/L (21-32); CHLORIDE 96 mmol/L (98-107); COR CA(FOR HYPOALB) 9.8 mg/dL (8.5-10.1); CREATININE 0.39 mg/dL (0.55-1.02); SODIUM 135 mmol/L (136-145); eGFR NON BLACK RACES > 60 (>60)
[2021-05-07] MEDS: DILANTIN PO SCH ×3 (06:30→21:05)
[2021-05-07] MEDS: MORPHINE SULFATE INJ 2 MG INJ IVP PRN ×2 (06:49→14:54)
[2021-05-07 07:05] LABS: ANISOCYTOSIS 1+; PLATELET MORPHOLOGY COMMENT NORMAL (NORMAL)
[2021-05-07] MEDS: CORDARONE TAB 200 MG PO SCH (08:17)
[2021-05-07] MEDS: FLOMAX PO SCH (08:19)
[2021-05-07] MEDS: DIFLUCAN 200 MG IV PREMIX* 200 MG/100 ML BAG IV SCH (08:19)
[2021-05-07] MEDS: LEVEMIR SC SCH ×2 (08:20→21:02)
[2021-05-07] MEDS: LOVENOX INJ 40 MG SYR SC SCH (08:20)
[2021-05-07] MEDS: PERIDEX or PERIOGARD MT SCH ×2 (08:21→21:04)
[2021-05-07] MEDS: TYLENOL 325 MG TAB PO PRN (08:35)
[2021-05-07] MEDS: PULMICORT NEB TX 0.5 MG NEB SCH ×2 (08:45→20:20)
[2021-05-07] MEDS: XOPENEX 1.25 MG/3 ML NEBULE NEB SCH ×2 (08:45→20:20)
[2021-05-07] MEDS: ROCEPHIN 1 GRAM IV PREMIX 1 G/50 ML IV.SOLN. IV SCH (09:22)
[2021-05-07] MEDS: VISTARIL PO PRN ×2 (09:23→21:07)
[2021-05-07] MEDS: LIORESAL PO SCH ×3 (10:59→21:05)
[2021-05-07] MEDS: NovoLIN R (or HumuLIN R) SUBCUT PRN ×2 (12:10→21:04)
--- NOTE | 2021-05-07 14:23 | PCM.PROG ---
Progress Note Progress Note for Day of Date of Exam: 05/07/21 Subjective Subjective: Patient had no episodes of asystole last night. Her granddaughter reports that she feels better today. Miss Niño is awake and shakes her head yes or no to questions. Late yesterday afternoon the patient's granddaughter decided to just treat her with what we are doing now. She does not want Pressors nor CRP if pt. becomes hypotensive or codes. No episodes of asystole yesterday or overnight. Past Medical Family Social History Past Med/Fam/Surg Hx: No changes since H&P Allergies: Allergies No Known Drug Allergies Allergy (Verified 02/12/21 08:46) Review of Systems ROS: No change since H&P Vital Signs and I&O's Vital Signs: Temperature 99.2 F Pulse Rate 92 Respiratory Rate 28 Blood Pressure [Right Arm] 136/64 Blood Pressure [Left Arm] 131/67 Blood Pressure 133/62 O2 Sat by Pulse Oximetry 97 Intake and Output: Intake & Output 05/05/21 05/06/21 05/07/21 05/08/21 11:59 11:59 11:59 11:59 Intake Total 2163 / 2163 1145 / 1145 380 / 380 Output Total 2115 / 2115 1770 / 1770 1800 / 1800 Balance 48 / 48 -625 / -625 -1420 / -1420 Physical Exam Oriented: Normal Eyes: Normal Ear: Normal Nose: Normal Throat: Normal Respiratory: Left, Generalized, Diminished and Rhonchi Cardiovascular: Normal : Normal Auscultation: Bowel Sounds: Normal Tenderness: Normal Skin: Decreased Turgur Musculoskeletal: Normal Psychiatric: Other (unable to ascertain) Mood Description: Calm Affect: Depressed and Flat Speech Pattern: Artificially Ventilated Laboratory and Diagnostics Result Diagrams: 05/07/21 04:46 05/07/21 04:46 Labs: 04/28/21 10:55 Urine,Catheterized Urine Culture - Preliminary 04/23/21 16:16 Blood Blood Culture - Final 04/23/21 16:14 Blood Blood Culture - Final Laboratory WBC 11.3 X10^3/uL (3.6-10.0) H 05/07/21 04:46 RBC 3.70 X10^6/uL (3.5-5.4) 05/07/21 04:46 Hgb 9.7 g/dL (12.0-16.0) L 05/07/21 04:46 Hct 29.7 % (36.0-47.0) L 05/07/21 04:46 MCV 80.3 fL (80.0-100.0) 05/07/21 04:46 MCH 26.1 pg (27.0-34.0) L 05/07/21 04:46 MCHC 32.6 g/dL (33.0-35.0) L 05/07/21 04:46 RDW 20.4 % (11.6-16.5) H 05/07/21 04:46 Plt Count 430 X10^3/uL (150.0-450.0) 05/07/21 04:46 Plt Count Comment Adequate (ADEQUATE) 05/07/21 04:46 MPV 6.9 fL (7.4-11.0) L 05/07/21 04:46 Neut % (Auto) 65.3 % (42.0-75.0) 05/07/21 04:46 Lymph % (Auto) 24.8 % (21.0-51.0) 05/07/21 04:46 [place] % (Auto) 5.4 % (0.0-13.0) 05/07/21 04:46 Eos % (Auto) 3.3 % (0.9-2.9) H 05/07/21 04:46 Baso % (Auto) 1.2 % (0.2-1.0) H 05/07/21 04:46 Neut # (Auto) 7.4 x10^3/uL (2.2-4.8) H 05/07/21 04:46 Lymph # (Auto) 2.8 X10^3/uL (1.3-2.9) 05/07/21 04:46 [place] # (Auto) 0.6 x10^3/uL (0.3-0.8) 05/07/21 04:46 Eos # (Auto) 0.4 x10^3/uL (0.0-0.2) H 05/07/21 04:46 Baso # (Auto) 0.1 X10^3/uL (0.0-0.1) 05/07/21 04:46 Absolute Nucleated RBC 0.0 /100WBC 05/07/21 04:46 Plt Morphology Comment Normal (NORMAL) 05/07/21 04:46 RBC Morphology Abnormal (NORMAL) A 05/07/21 04:46 Hypochromasia Slight A 05/02/21 04:26 Anisocytosis 1+ A 05/07/21 04:46 Sample Site Lr 05/05/21 09:13 ABG pH 7.420 (7.35-7.45) 05/05/21 09:13 ABG pCO2 71.0 mmHg (35.0-45.0) H* 05/05/21 09:13 ABG pO2 65.0 mmHg (80.0-100.0) L 05/05/21 09:13 ABG HCO3 46.1 mmol/L (22-26) H* 05/05/21 09:13 ABG O2 Saturation 93.0 % (90-100) 05/05/21 09:13 ABG Base Excess 18.0 mmol/L (-2.0-2.0) H 05/05/21 09:13 Gregory Test Pos 05/05/21 09:13 A-a Gradient 60.0 mmHg 05/05/21 09:13 FiO2 30.0 05/05/21 09:13 Blood Gas Comments Jacy well cb 05/05/21 09:13 Sodium 135 mmol/L (136-145) L 05/07/21 04:46 Corrected Sodium TNP 05/07/21 04:46 Potassium 4.0 mmol/L (3.5-5.1) 05/07/21 04:46 Chloride 96 mmol/L (98-107) L 05/07/21 04:46 Carbon Dioxide 34.4 mmol/L (21-32) H 05/07/21 04:46 BUN 17 mg/dL (7-18) 05/07/21 04:46 Creatinine 0.39 mg/dL (0.55-1.02) L 05/07/21 04:46 Est GFR (MDRD) Af Amer > 60 (>60) 05/07/21 04:46 Est GFR (MDRD) Non-Af > 60 (>60) 05/07/21 04:46 Glucose 104 mg/dL (65-99) H 05/07/21 04:46 POC Glucose (mg/dL) 187 mg/dL (65-99) H 05/07/21 12:00 Calcium 8.5 mg/dL (8.5-10.1) 05/07/21 04:46 Corrected Calcium 9.8 mg/dL (8.5-10.1) 05/07/21 04:46 Magnesium 2.4 mg/dL (1.7-2.9) 05/04/21 04:50 Total Bilirubin 0.10 mg/dL (0.2-1.0) L 05/07/21 04:46 AST 17 Units/L (15-37) 05/07/21 04:46 ALT 19 Units/L (12-78) 05/07/21 04:46 Alkaline Phosphatase 172 Units/L (46-116) H 05/07/21 04:46 Creatine Kinase 17 Units/L (26-192) L 05/04/21 16:08 CK-MB (CK-2) 1.9 ng/mL (0-4.0) 05/04/21 16:08 CK/CKMB % Calc 11.2 % (<4) 05/04/21 16:08 Troponin I < 0.02 ng/mL (0-1.5) 05/04/21 16:08 B-Natriuretic Peptide 11.8 pg/mL (0-79) 04/27/21 04:18 Total Protein 7.0 g/dL (6.4-8.2) 05/07/21 04:46 Albumin 2.4 g/dL (3.4-5.0) L 05/07/21 04:46 Globulin 4.6 g/dL (2.5-4.5) H 05/07/21 04:46 Albumin/Globulin Ratio 0.5 Ratio (1.1-2.1) L 05/07/21 04:46 Specimen Type Catherized urine 04/28/21 10:55 Urine Color [place] (YELLOW) 04/28/21 10:55 Urine Appearance Cloudy (CLEAR) 04/28/21 10:55 Urine pH 6.5 (5.0 - 8.0) 04/28/21 10:55 Ur Specific [place] 1.010 (1.000-1.030) 04/28/21 10:55 Urine Protein 3+ (NEGATIVE) 04/28/21 10:55 Urine Glucose (UA) 3+ (NEGATIVE) 04/28/21 10:55 Urine Ketones Negative (NEGATIVE) 04/28/21 10:55 Urine Occult Blood 5+ (NEGATIVE) 04/28/21 10:55 Urine Nitrite Negative (NEGATIVE) 04/28/21 10:55 Urine Bilirubin Negative (NEGATIVE) 04/28/21 10:55 Urine Urobilinogen Normal (NORMAL) 04/28/21 10:55 Ur Leukocyte Esterase 3+ (NEGATIVE) 04/28/21 10:55 Urine RBC Tntc /HPF (0-3) A 04/28/21 10:55 Urine WBC 5-10 /HPF (0-5) A 04/28/21 10:55 Ur Squamous Epith Cells Rare /HPF (NEGATIVE) 04/28/21 10:55 Amorphous Sediment 1+ /HPF (NEGATIVE) 04/28/21 10:55 Urine Bacteria Trace /HPF (NEGATIVE) 04/28/21 10:55 Urine Yeast Numerous /HPF (NEGATIVE) 04/28/21 10:55 Ur Culture Indicated? Yes/culture set up 04/28/21 10:55 Phenytoin 9.4 ug/mL (10-20) L 05/04/21 04:50 Phenytoin Cancelled 05/04/21 04:50 Resp Viral Panel (PCR) See scanned report 04/30/21 17:10 Plan (1) Cardiac asystole: Status: Acute Plan: Monitor for acidosis and retained CO2 levels. (2) Respiratory failure with hypercapnia: Status: Acute Plan: ABG in am (3) Hypoalbuminemia due to protein-calorie malnutrition: Status: Acute Plan: Changing to Glucerna tube feedings today. (4) Chronic hypoxemic respiratory failure: Status: Acute Plan: Continue to ween, on trach collar. F/U ABG in am. (5) DM (diabetes mellitus): Status: Acute Qualifiers: Diabetes mellitus complication status: with hyperglycemia Plan: Insulin Rx per protocol. Glucose has come down but is still elevated. Will change Levemir to 20 Units bid. (6) Seizure disorder: Status: Acute Plan: Continue Dilantin 100 mg TID per PEG tube and check level in am. (7) Pneumothorax, left: Status: Resolved Plan: Consult Dr. Abel, Gen Surg., chest tube removed (8) Pleural effusion, left: Status: Resolved Plan: IV Lasix. (9) Hypernatremia: Status: Resolved Plan: Continue free water 200 ml Q6 hours per PEG. (10) Hyperkalemia: Status: Resolved Plan: Kayexylate 30 grams per GT today.
[2021-05-07] MEDS: PEPCID TAB 20 MG PO SCH (21:04)
[2021-05-08 05:20] LABS: ABG BASE EXCESS 11.4 mmol/L (-2.0-2.0)
[2021-05-08 05:21] LABS: ABG ALLEN TEST POS; ABG HCO3 39.3 mmol/L (22-26)
[2021-05-08 05:26] LABS: ALANINE AMINOTRANSFERASE 20 Units/L (12-78); ALBUMIN 2.5 g/dL (3.4-5.0); ALKALINE PHOSPHATASE 203 Units/L (46-116); ASPARTATE AMINO TRANSFERASE 15 Units/L (15-37); BLOOD UREA NITROGEN 18 mg/dL (7-18); CALCIUM 8.6 mg/dL (8.5-10.1); CARBON DIOXIDE 35.3 mmol/L (21-32); CHLORIDE 96 mmol/L (98-107); COR CA(FOR HYPOALB) 9.8 mg/dL (8.5-10.1); COR NA(FOR HYPERGLY) 135 mmol/L (136-145); CREATININE 0.45 mg/dL (0.55-1.02); SODIUM 134 mmol/L (136-145); TOTAL PROTEIN 7.4 g/dL (6.4-8.2); eGFR NON BLACK RACES > 60 (>60)
[2021-05-08] MEDS: DILANTIN PO SCH ×3 (06:05→21:10)
[2021-05-08] MEDS: LIORESAL PO SCH ×3 (06:06→21:10)
[2021-05-08] MEDS: XOPENEX 1.25 MG/3 ML NEBULE NEB SCH ×2 (08:00→20:50)
[2021-05-08] MEDS: PULMICORT NEB TX 0.5 MG NEB SCH ×2 (08:00→20:50)
[2021-05-08] MEDS: ROCEPHIN 1 GRAM IV PREMIX 1 G/50 ML IV.SOLN. IV SCH (08:01)
[2021-05-08] MEDS: LEVEMIR SC SCH ×2 (08:05→20:43)
[2021-05-08] MEDS: CORDARONE TAB 200 MG PO SCH (08:05)
[2021-05-08] MEDS: LOVENOX INJ 40 MG SYR SC SCH (08:05)
[2021-05-08] MEDS: FLOMAX PO SCH (08:05)
[2021-05-08] MEDS: PERIDEX or PERIOGARD MT SCH ×2 (08:06→20:44)
[2021-05-08] MEDS: DIFLUCAN 200 MG IV PREMIX* 200 MG/100 ML BAG IV SCH (08:39)
[2021-05-08] MEDS ORDERED: LEXAPRO ONE (10:14)
[2021-05-08] MEDS: LEXAPRO PO SCH ×2 (10:32→10:34)
[2021-05-08] MEDS: NovoLIN R (or HumuLIN R) SUBCUT PRN (12:24)
[2021-05-08] MEDS: PEPCID TAB 20 MG PO SCH (20:44)
[2021-05-08] MEDS: VISTARIL PO PRN (20:45)
[2021-05-09 04:01] LABS: BASOPHILS # (AUTO) 0.1 X10^3/uL (0.0-0.1); EOSINOPHILS # (AUTO) 0.2 x10^3/uL (0.0-0.2); EOSINOPHILS % (AUTO) 1.5 % (0.9-2.9); HEMOGLOBIN 10.2 g/dL (12.0-16.0); LYMPHOCYTES # (AUTO) 2.3 X10^3/uL (1.3-2.9); LYMPHOCYTES % (AUTO) 20.3 % (21.0-51.0); MEAN CORPUSCULAR HEMOGLOBIN 26.4 pg (27.0-34.0); MEAN CORPUSCULAR HGB CONC 31.8 g/dL (33.0-35.0); MEAN CORPUSCULAR VOLUME 82.8 fL (80.0-100.0); MEAN PLATELET VOLUME 6.7 fL (7.4-11.0); MONOCYTES # (AUTO) 0.8 x10^3/uL (0.3-0.8); MONOCYTES % (AUTO) 6.9 % (0.0-13.0); NEUTROPHILS # (AUTO) 8.1 x10^3/uL (2.2-4.8); NEUTROPHILS % (AUTO) 70.3 % (42.0-75.0); PLATELET COUNT 367 X10^3/uL (150.0-450.0); RED BLOOD COUNT 3.86 X10^6/uL (3.5-5.4); RED CELL DISTRIBUTION WIDTH 20.3 % (11.6-16.5); WHITE BLOOD COUNT 11.6 X10^3/uL (3.6-10.0)
[2021-05-09 04:24] LABS: ALANINE AMINOTRANSFERASE 18 Units/L (12-78); ALBUMIN 2.3 g/dL (3.4-5.0); ALKALINE PHOSPHATASE 210 Units/L (46-116); ASPARTATE AMINO TRANSFERASE 13 Units/L (15-37); BLOOD UREA NITROGEN 16 mg/dL (7-18); CALCIUM 8.6 mg/dL (8.5-10.1); CARBON DIOXIDE 36.3 mmol/L (21-32); CHLORIDE 97 mmol/L (98-107); COR NA(FOR HYPERGLY) 140 mmol/L (136-145); CREATININE 0.41 mg/dL (0.55-1.02); SODIUM 137 mmol/L (136-145); eGFR NON BLACK RACES > 60 (>60)
[2021-05-09 04:50] LABS: PLATELET MORPHOLOGY COMMENT NORMAL (NORMAL)
[2021-05-09 04:51] LABS: ANISOCYTOSIS 1+; STOMATOCYTES PRESENT
[2021-05-09] MEDS: DILANTIN PO SCH ×3 (05:47→21:07)
[2021-05-09] MEDS: LIORESAL PO SCH ×3 (05:47→22:00)
[2021-05-09] MEDS: NovoLIN R (or HumuLIN R) SUBCUT PRN ×3 (05:57→17:01)
--- NOTE | 2021-05-09 05:59 | RAD ---
PROCEDURE: Chest X-ray 1 View .HISTORY: VENTILATOR DEPENDENCE .TECHNIQUE: AP view .COMPARISON: 05/06/2021.TECHNICAL QUALITY: Satisfactory .FINDINGS:Tracheostomy tube in good position.Unremarkable cardio mediastinal silhouette.Patchy consolidation both lung lockhart similar to previous study. No pleural fluid or pneumothorax.IMPRESSION:Unchanged mild bilateral pneumonia.Electronically signed by: Cruz Jalloh (May 09, 2021 05:57:50)
[2021-05-09] MEDS ORDERED: LEXAPRO ONE (07:39)
[2021-05-09] MEDS: FLOMAX PO SCH (08:11)
[2021-05-09] MEDS: DIFLUCAN 200 MG IV PREMIX* 200 MG/100 ML BAG IV SCH (08:11)
[2021-05-09] MEDS: CORDARONE TAB 200 MG PO SCH (08:11)
[2021-05-09] MEDS: LEVEMIR SC SCH ×2 (08:12→20:49)
[2021-05-09] MEDS: LEXAPRO PO SCH (08:12)
[2021-05-09] MEDS: LOVENOX INJ 40 MG SYR SC SCH (08:12)
[2021-05-09] MEDS: PERIDEX or PERIOGARD MT SCH ×2 (08:13→20:49)
[2021-05-09] MEDS ORDERED: VALIUM INJ IVP PRN (08:25)
[2021-05-09] MEDS: PULMICORT NEB TX 0.5 MG NEB SCH ×2 (08:45→21:30)
[2021-05-09] MEDS: XOPENEX 1.25 MG/3 ML NEBULE NEB SCH ×2 (08:45→21:30)
[2021-05-09] MEDS: ROCEPHIN 1 GRAM IV PREMIX 1 G/50 ML IV.SOLN. IV SCH (10:39)
--- NOTE | 2021-05-09 10:43 | PCM.PROG ---
Progress Note Progress Note for Day of Date of Exam: 05/08/21 Subjective Subjective: Pt. reports she is feeling depressed. Will start her on Lexapro 10mg daily. The patient's granddaughter decided to just treat her with what we are doing now. She does not want Pressors nor CRP if patient becomes hypotensive or codes. No episodes of asystole yesterday or overnight. Past Medical Family Social History Past Med/Fam/Surg Hx: No changes since H&P Allergies: Allergies No Known Drug Allergies Allergy (Verified 02/12/21 08:46) Review of Systems ROS: No change since H&P Vital Signs and I&O's Vital Signs: Temperature 97.7 F Pulse Rate 81 Respiratory Rate 20 Blood Pressure [Right Arm] 136/64 Blood Pressure [Left Arm] 131/67 Blood Pressure 155/71 O2 Sat by Pulse Oximetry 100 Intake and Output: Intake & Output 05/06/21 05/07/21 05/08/21 05/09/21 11:59 11:59 11:59 11:59 Intake Total 1145 / 1145 380 / 380 3693 / 3693 2582 / 2582 Output Total 1770 / 1770 1800 / 1800 2430 / 2430 3050 / 3050 Balance -625 / -625 -1420 / -1420 1263 / 1263 -468 / -468 Physical Exam Oriented: Normal Eyes: Normal Ear: Normal Nose: Normal Throat: Normal Respiratory: Left, Generalized, Diminished and Rhonchi Cardiovascular: Normal : Normal Auscultation: Bowel Sounds: Normal Tenderness: Normal Skin: Decreased Turgur Musculoskeletal: Motor Deficit Psychiatric: Depression and Other (unable to ascertain) Mood Description: Depressed Affect: Depressed and Flat Speech Pattern: Artificially Ventilated Laboratory and Diagnostics Result Diagrams: 05/09/21 03:08 05/09/21 03:08 Labs: 04/28/21 10:55 Urine,Catheterized Urine Culture - Preliminary 04/23/21 16:16 Blood Blood Culture - Final 04/23/21 16:14 Blood Blood Culture - Final Laboratory WBC 11.6 X10^3/uL (3.6-10.0) H 05/09/21 03:08 RBC 3.86 X10^6/uL (3.5-5.4) 05/09/21 03:08 Hgb 10.2 g/dL (12.0-16.0) L 05/09/21 03:08 Hct 32.0 % (36.0-47.0) L 05/09/21 03:08 MCV 82.8 fL (80.0-100.0) 05/09/21 03:08 MCH 26.4 pg (27.0-34.0) L 05/09/21 03:08 MCHC 31.8 g/dL (33.0-35.0) L 05/09/21 03:08 RDW 20.3 % (11.6-16.5) H 05/09/21 03:08 Plt Count 367 X10^3/uL (150.0-450.0) 05/09/21 03:08 Plt Count Comment Adequate (ADEQUATE) 05/09/21 03:08 MPV 6.7 fL (7.4-11.0) L 05/09/21 03:08 Neut % (Auto) 70.3 % (42.0-75.0) 05/09/21 03:08 Lymph % (Auto) 20.3 % (21.0-51.0) L 05/09/21 03:08 [place] % (Auto) 6.9 % (0.0-13.0) 05/09/21 03:08 Eos % (Auto) 1.5 % (0.9-2.9) 05/09/21 03:08 Baso % (Auto) 1.0 % (0.2-1.0) 05/09/21 03:08 Neut # (Auto) 8.1 x10^3/uL (2.2-4.8) H 05/09/21 03:08 Lymph # (Auto) 2.3 X10^3/uL (1.3-2.9) 05/09/21 03:08 [place] # (Auto) 0.8 x10^3/uL (0.3-0.8) 05/09/21 03:08 Eos # (Auto) 0.2 x10^3/uL (0.0-0.2) 05/09/21 03:08 Baso # (Auto) 0.1 X10^3/uL (0.0-0.1) 05/09/21 03:08 Absolute Nucleated RBC 0.1 /100WBC 05/09/21 03:08 Plt Morphology Comment Normal (NORMAL) 05/09/21 03:08 RBC Morphology Abnormal (NORMAL) A 05/09/21 03:08 Hypochromasia Slight A 05/02/21 04:26 Anisocytosis 1+ A 05/09/21 03:08 Stomatocytes Present 05/09/21 03:08 Sample Site Lr 05/08/21 05:15 ABG pH 7.370 (7.35-7.45) 05/08/21 05:15 ABG pCO2 68.0 mmHg (35.0-45.0) H* 05/08/21 05:15 ABG pO2 84.0 mmHg (80.0-100.0) 05/08/21 05:15 ABG HCO3 39.3 mmol/L (22-26) H* 05/08/21 05:15 ABG O2 Saturation 96.0 % (90-100) 05/08/21 05:15 ABG Base Excess 11.4 mmol/L (-2.0-2.0) H 05/08/21 05:15 Gregory Test Pos 05/08/21 05:15 A-a Gradient 81.0 mmHg 05/08/21 05:15 FiO2 35.0 05/08/21 05:15 Blood Gas Comments Jacy well ae 05/08/21 05:15 Sodium 137 mmol/L (136-145) 05/09/21 03:08 Corrected Sodium 140 mmol/L (136-145) 05/09/21 03:08 Potassium 5.0 mmol/L (3.5-5.1) 05/09/21 03:08 Chloride 97 mmol/L (98-107) L 05/09/21 03:08 Carbon Dioxide 36.3 mmol/L (21-32) H 05/09/21 03:08 BUN 16 mg/dL (7-18) 05/09/21 03:08 Creatinine 0.41 mg/dL (0.55-1.02) L 05/09/21 03:08 Est GFR (MDRD) Af Amer > 60 (>60) 05/09/21 03:08 Est GFR (MDRD) Non-Af > 60 (>60) 05/09/21 03:08 Glucose 236 mg/dL (65-99) H 05/09/21 03:08 POC Glucose (mg/dL) 233 mg/dL (65-99) H 05/09/21 05:49 Calcium 8.6 mg/dL (8.5-10.1) 05/09/21 03:08 Corrected Calcium 10.0 mg/dL (8.5-10.1) 05/09/21 03:08 Magnesium 2.4 mg/dL (1.7-2.9) 05/04/21 04:50 Total Bilirubin 0.20 mg/dL (0.2-1.0) 05/09/21 03:08 AST 13 Units/L (15-37) L 05/09/21 03:08 ALT 18 Units/L (12-78) 05/09/21 03:08 Alkaline Phosphatase 210 Units/L (46-116) H 05/09/21 03:08 Creatine Kinase 17 Units/L (26-192) L 05/04/21 16:08 CK-MB (CK-2) 1.9 ng/mL (0-4.0) 05/04/21 16:08 CK/CKMB % Calc 11.2 % (<4) 05/04/21 16:08 Troponin I < 0.02 ng/mL (0-1.5) 05/04/21 16:08 B-Natriuretic Peptide 11.8 pg/mL (0-79) 04/27/21 04:18 Total Protein 7.0 g/dL (6.4-8.2) 05/09/21 03:08 Albumin 2.3 g/dL (3.4-5.0) L 05/09/21 03:08 Globulin 4.7 g/dL (2.5-4.5) H 05/09/21 03:08 Albumin/Globulin Ratio 0.5 Ratio (1.1-2.1) L 05/09/21 03:08 Specimen Type Catherized urine 04/28/21 10:55 Urine Color [place] (YELLOW) 04/28/21 10:55 Urine Appearance Cloudy (CLEAR) 04/28/21 10:55 Urine pH 6.5 (5.0 - 8.0) 04/28/21 10:55 Ur Specific [place] 1.010 (1.000-1.030) 04/28/21 10:55 Urine Protein 3+ (NEGATIVE) 04/28/21 10:55 Urine Glucose (UA) 3+ (NEGATIVE) 04/28/21 10:55 Urine Ketones Negative (NEGATIVE) 04/28/21 10:55 Urine Occult Blood 5+ (NEGATIVE) 04/28/21 10:55 Urine Nitrite Negative (NEGATIVE) 04/28/21 10:55 Urine Bilirubin Negative (NEGATIVE) 04/28/21 10:55 Urine Urobilinogen Normal (NORMAL) 04/28/21 10:55 Ur Leukocyte Esterase 3+ (NEGATIVE) 04/28/21 10:55 Urine RBC Tntc /HPF (0-3) A 04/28/21 10:55 Urine WBC 5-10 /HPF (0-5) A 04/28/21 10:55 Ur Squamous Epith Cells Rare /HPF (NEGATIVE) 04/28/21 10:55 Amorphous Sediment 1+ /HPF (NEGATIVE) 04/28/21 10:55 Urine Bacteria Trace /HPF (NEGATIVE) 04/28/21 10:55 Urine Yeast Numerous /HPF (NEGATIVE) 04/28/21 10:55 Ur Culture Indicated? Yes/culture set up 04/28/21 10:55 Phenytoin 9.4 ug/mL (10-20) L 05/04/21 04:50 Phenytoin Cancelled 05/04/21 04:50 Resp Viral Panel (PCR) See scanned report 04/30/21 17:10 Radiology Reviewed: Yes Plan (1) Depression: Status: Acute Qualifiers: Depression Type: reactive depression Qualified Code(s): F32.9 - Major depressive disorder, single episode, unspecified Narrative Support Text: Patient reports depression today. She seems like she is giving up. She reports she is tired. Plan: Start Lexapro 10mg daily. (2) Difficulty weaning from ventilator: Status: Acute Plan: Respiratory is working on weening her off ventilator. Very slow progress at this time. Awaiting to be transfered to [facility] where they do long-term weening off ventilators. Patient is curently on their waiting list. (3) Respiratory failure with hypercapnia: Status: Acute Plan: ABG in am (4) Hypoalbuminemia due to protein-calorie malnutrition: Status: Acute Plan: Changing to Glucerna tube feedings today. (5) Chronic hypoxemic respiratory failure: Status: Acute Plan: Continue to ween, on trach collar. F/U ABG in am. (6) DM (diabetes mellitus): Status: Acute Qualifiers: Diabetes mellitus complication status: with hyperglycemia Plan: Insulin Rx per protocol. Glucose has come down but is still elevated. Will change Levemir to 20 Units bid. (7) Seizure disorder: Status: Acute Plan: Continue Dilantin 100 mg TID per PEG tube and check level in am. (8) Pneumothorax, left: Status: Resolved Plan: Consult Dr. Abel, Gen Surg., chest tube removed (9) Pleural effusion, left: Status: Resolved Plan: IV Lasix. (10) Hypernatremia: Status: Resolved Plan: Continue free water 200 ml Q6 hours per PEG. (11) Hyperkalemia: Status: Resolved Plan: Kayexylate 30 grams per GT today. (12) Cardiac asystole: Status: Acute Plan: Monitor for acidosis and retained CO2 levels.
--- NOTE | 2021-05-09 11:03 | PCM.PROG ---
Progress Note Progress Note for Day of Date of Exam: 05/09/21 Subjective Subjective: Pt. reports she is feeling anxious and depressed. Shes on Lexapro 10mg daily. Will add IV valium 5mg IV Q8H prn anxiety. The patient's granddaughter continues to just want her treated with what we are doing now. She does not want Pressors nor CRP if patient becomes hypotensive or codes. No episodes of asystole yesterday or overnight. Hb 10.2 today, Cr 0.41, Glu is 236 and CO2 is 36.3 Past Medical Family Social History Past Med/Fam/Surg Hx: No changes since H&P Allergies: Allergies No Known Drug Allergies Allergy (Verified 02/12/21 08:46) Review of Systems ROS: No change since H&P Vital Signs and I&O's Vital Signs: Temperature 97.7 F Pulse Rate 81 Respiratory Rate 20 Blood Pressure [Right Arm] 136/64 Blood Pressure [Left Arm] 131/67 Blood Pressure 155/71 O2 Sat by Pulse Oximetry 100 Intake and Output: Intake & Output 05/06/21 05/07/21 05/08/21 05/09/21 11:59 11:59 11:59 11:59 Intake Total 1145 / 1145 380 / 380 3693 / 3693 2582 / 2582 Output Total 1770 / 1770 1800 / 1800 2430 / 2430 3050 / 3050 Balance -625 / -625 -1420 / -1420 1263 / 1263 -468 / -468 Physical Exam Oriented: Normal Eyes: Normal Ear: Normal Nose: Normal Throat: Normal Respiratory: Left, Generalized, Diminished and Rhonchi Cardiovascular: Normal : Normal Auscultation: Bowel Sounds: Normal Palpation: Normal Tenderness: Normal Skin: Decreased Turgur Musculoskeletal: Right, Left, Arm, Elbow, Forearm, Wrist, Hand, Hip, Thigh, Knee, Leg and Motor Deficit Psychiatric: Anxiety, Depression and Other (unable to ascertain) Mood Description: Depressed, Sad, Withdrawn and Anxious Affect: Anxious, Depressed and Flat Speech Pattern: Artificially Ventilated Laboratory and Diagnostics Result Diagrams: 05/09/21 03:08 05/09/21 03:08 Labs: 04/28/21 10:55 Urine,Catheterized Urine Culture - Preliminary 04/23/21 16:16 Blood Blood Culture - Final 04/23/21 16:14 Blood Blood Culture - Final Laboratory WBC 11.6 X10^3/uL (3.6-10.0) H 05/09/21 03:08 RBC 3.86 X10^6/uL (3.5-5.4) 05/09/21 03:08 Hgb 10.2 g/dL (12.0-16.0) L 05/09/21 03:08 Hct 32.0 % (36.0-47.0) L 05/09/21 03:08 MCV 82.8 fL (80.0-100.0) 05/09/21 03:08 MCH 26.4 pg (27.0-34.0) L 05/09/21 03:08 MCHC 31.8 g/dL (33.0-35.0) L 05/09/21 03:08 RDW 20.3 % (11.6-16.5) H 05/09/21 03:08 Plt Count 367 X10^3/uL (150.0-450.0) 05/09/21 03:08 Plt Count Comment Adequate (ADEQUATE) 05/09/21 03:08 MPV 6.7 fL (7.4-11.0) L 05/09/21 03:08 Neut % (Auto) 70.3 % (42.0-75.0) 05/09/21 03:08 Lymph % (Auto) 20.3 % (21.0-51.0) L 05/09/21 03:08 [place] % (Auto) 6.9 % (0.0-13.0) 05/09/21 03:08 Eos % (Auto) 1.5 % (0.9-2.9) 05/09/21 03:08 Baso % (Auto) 1.0 % (0.2-1.0) 05/09/21 03:08 Neut # (Auto) 8.1 x10^3/uL (2.2-4.8) H 05/09/21 03:08 Lymph # (Auto) 2.3 X10^3/uL (1.3-2.9) 05/09/21 03:08 [place] # (Auto) 0.8 x10^3/uL (0.3-0.8) 05/09/21 03:08 Eos # (Auto) 0.2 x10^3/uL (0.0-0.2) 05/09/21 03:08 Baso # (Auto) 0.1 X10^3/uL (0.0-0.1) 05/09/21 03:08 Absolute Nucleated RBC 0.1 /100WBC 05/09/21 03:08 Plt Morphology Comment Normal (NORMAL) 05/09/21 03:08 RBC Morphology Abnormal (NORMAL) A 05/09/21 03:08 Hypochromasia Slight A 05/02/21 04:26 Anisocytosis 1+ A 05/09/21 03:08 Stomatocytes Present 05/09/21 03:08 Sample Site Lr 05/08/21 05:15 ABG pH 7.370 (7.35-7.45) 05/08/21 05:15 ABG pCO2 68.0 mmHg (35.0-45.0) H* 05/08/21 05:15 ABG pO2 84.0 mmHg (80.0-100.0) 05/08/21 05:15 ABG HCO3 39.3 mmol/L (22-26) H* 05/08/21 05:15 ABG O2 Saturation 96.0 % (90-100) 05/08/21 05:15 ABG Base Excess 11.4 mmol/L (-2.0-2.0) H 05/08/21 05:15 Gregory Test Pos 05/08/21 05:15 A-a Gradient 81.0 mmHg 05/08/21 05:15 FiO2 35.0 05/08/21 05:15 Blood Gas Comments Jacy well ae 05/08/21 05:15 Sodium 137 mmol/L (136-145) 05/09/21 03:08 Corrected Sodium 140 mmol/L (136-145) 05/09/21 03:08 Potassium 5.0 mmol/L (3.5-5.1) 05/09/21 03:08 Chloride 97 mmol/L (98-107) L 05/09/21 03:08 Carbon Dioxide 36.3 mmol/L (21-32) H 05/09/21 03:08 BUN 16 mg/dL (7-18) 05/09/21 03:08 Creatinine 0.41 mg/dL (0.55-1.02) L 05/09/21 03:08 Est GFR (MDRD) Af Amer > 60 (>60) 05/09/21 03:08 Est GFR (MDRD) Non-Af > 60 (>60) 05/09/21 03:08 Glucose 236 mg/dL (65-99) H 05/09/21 03:08 POC Glucose (mg/dL) 233 mg/dL (65-99) H 05/09/21 05:49 Calcium 8.6 mg/dL (8.5-10.1) 05/09/21 03:08 Corrected Calcium 10.0 mg/dL (8.5-10.1) 05/09/21 03:08 Magnesium 2.4 mg/dL (1.7-2.9) 05/04/21 04:50 Total Bilirubin 0.20 mg/dL (0.2-1.0) 05/09/21 03:08 AST 13 Units/L (15-37) L 05/09/21 03:08 ALT 18 Units/L (12-78) 05/09/21 03:08 Alkaline Phosphatase 210 Units/L (46-116) H 05/09/21 03:08 Creatine Kinase 17 Units/L (26-192) L 05/04/21 16:08 CK-MB (CK-2) 1.9 ng/mL (0-4.0) 05/04/21 16:08 CK/CKMB % Calc 11.2 % (<4) 05/04/21 16:08 Troponin I < 0.02 ng/mL (0-1.5) 05/04/21 16:08 B-Natriuretic Peptide 11.8 pg/mL (0-79) 04/27/21 04:18 Total Protein 7.0 g/dL (6.4-8.2) 05/09/21 03:08 Albumin 2.3 g/dL (3.4-5.0) L 05/09/21 03:08 Globulin 4.7 g/dL (2.5-4.5) H 05/09/21 03:08 Albumin/Globulin Ratio 0.5 Ratio (1.1-2.1) L 05/09/21 03:08 Specimen Type Catherized urine 04/28/21 10:55 Urine Color [place] (YELLOW) 04/28/21 10:55 Urine Appearance Cloudy (CLEAR) 04/28/21 10:55 Urine pH 6.5 (5.0 - 8.0) 04/28/21 10:55 Ur Specific [place] 1.010 (1.000-1.030) 04/28/21 10:55 Urine Protein 3+ (NEGATIVE) 04/28/21 10:55 Urine Glucose (UA) 3+ (NEGATIVE) 04/28/21 10:55 Urine Ketones Negative (NEGATIVE) 04/28/21 10:55 Urine Occult Blood 5+ (NEGATIVE) 04/28/21 10:55 Urine Nitrite Negative (NEGATIVE) 04/28/21 10:55 Urine Bilirubin Negative (NEGATIVE) 04/28/21 10:55 Urine Urobilinogen Normal (NORMAL) 04/28/21 10:55 Ur Leukocyte Esterase 3+ (NEGATIVE) 04/28/21 10:55 Urine RBC Tntc /HPF (0-3) A 04/28/21 10:55 Urine WBC 5-10 /HPF (0-5) A 04/28/21 10:55 Ur Squamous Epith Cells Rare /HPF (NEGATIVE) 04/28/21 10:55 Amorphous Sediment 1+ /HPF (NEGATIVE) 04/28/21 10:55 Urine Bacteria Trace /HPF (NEGATIVE) 04/28/21 10:55 Urine Yeast Numerous /HPF (NEGATIVE) 04/28/21 10:55 Ur Culture Indicated? Yes/culture set up 04/28/21 10:55 Phenytoin 9.4 ug/mL (10-20) L 05/04/21 04:50 Phenytoin Cancelled 05/04/21 04:50 Resp Viral Panel (PCR) See scanned report 04/30/21 17:10 Radiology Reviewed: Yes Plan (1) Anxiety: Status: Acute Narrative Support Text: Increased worrying and anxiety. Feels tired. Seems to be giving up. Plan: Added Valium 5mg IV Q8H prn anxiety this am. (2) Depression: Status: Acute Qualifiers: Depression Type: reactive depression Qualified Code(s): F32.9 - Major depressive disorder, single episode, unspecified Plan: Start Lexapro 10mg daily. (3) Difficulty weaning from ventilator: Status: Acute Plan: Respiratory is working on weening her off ventilator. Very slow progress at this time. Awaiting to be transfered to [facility] where they do long-term weening off ventilators. Patient is curently on their waiting list. (4) Respiratory failure with hypercapnia: Status: Acute Plan: ABG in am (5) Hypoalbuminemia due to protein-calorie malnutrition: Status: Acute Plan: Changing to Glucerna tube feedings today. (6) Chronic hypoxemic respiratory failure: Status: Acute Plan: Continue to ween, on trach collar. F/U ABG in am. (7) DM (diabetes mellitus): Status: Acute Qualifiers: Diabetes mellitus complication status: with hyperglycemia Plan: Insulin Rx per protocol. Glucose has come down but is still elevated. Will change Levemir to 20 Units bid. (8) Seizure disorder: Status: Acute Plan: Continue Dilantin 100 mg TID per PEG tube and check level in am. (9) Pneumothorax, left: Status: Resolved Plan: Consult Dr. Abel, Gen Surg., chest tube removed (10) Pleural effusion, left: Status: Resolved Plan: IV Lasix. (11) Hypernatremia: Status: Resolved Plan: Continue free water 200 ml Q6 hours per PEG. (12) Hyperkalemia: Status: Resolved Plan: Kayexylate 30 grams per GT today. (13) Cardiac asystole: Status: Acute Plan: Monitor for acidosis and retained CO2 levels.
[2021-05-09] MEDS ORDERED: NS 250 ML IV 250 ML IV ONE (11:14)
[2021-05-09] MEDS: PEPCID TAB 20 MG PO SCH (20:50)
[2021-05-10] MEDS: VISTARIL PO PRN (02:40)
[2021-05-10] MEDS: MORPHINE SULFATE INJ 2 MG INJ IVP PRN (04:39)
[2021-05-10 05:09] LABS: BASOPHILS # (AUTO) 0.1 X10^3/uL (0.0-0.1); BASOPHILS % (AUTO) 0.6 % (0.2-1.0); EOSINOPHILS # (AUTO) 0.1 x10^3/uL (0.0-0.2); EOSINOPHILS % (AUTO) 0.8 % (0.9-2.9); HEMOGLOBIN 9.8 g/dL (12.0-16.0); LYMPHOCYTES # (AUTO) 2.1 X10^3/uL (1.3-2.9); LYMPHOCYTES % (AUTO) 16.9 % (21.0-51.0); MEAN CORPUSCULAR HGB CONC 31.7 g/dL (33.0-35.0); MEAN CORPUSCULAR VOLUME 82.3 fL (80.0-100.0); MEAN PLATELET VOLUME 7.1 fL (7.4-11.0); MONOCYTES # (AUTO) 0.7 x10^3/uL (0.3-0.8); MONOCYTES % (AUTO) 5.7 % (0.0-13.0); NEUTROPHILS # (AUTO) 9.5 x10^3/uL (2.2-4.8); PLATELET COUNT 361 X10^3/uL (150.0-450.0); RED BLOOD COUNT 3.77 X10^6/uL (3.5-5.4); RED CELL DISTRIBUTION WIDTH 20.5 % (11.6-16.5); WHITE BLOOD COUNT 12.5 X10^3/uL (3.6-10.0)
[2021-05-10 05:23] LABS: ALANINE AMINOTRANSFERASE 15 Units/L (12-78); ALBUMIN 2.2 g/dL (3.4-5.0); ALKALINE PHOSPHATASE 191 Units/L (46-116); ASPARTATE AMINO TRANSFERASE 11 Units/L (15-37); BLOOD UREA NITROGEN 17 mg/dL (7-18); CALCIUM 8.4 mg/dL (8.5-10.1); CARBON DIOXIDE 35.6 mmol/L (21-32); CHLORIDE 94 mmol/L (98-107); COR CA(FOR HYPOALB) 9.8 mg/dL (8.5-10.1); COR NA(FOR HYPERGLY) 136 mmol/L (136-145); CREATININE 0.42 mg/dL (0.55-1.02); SODIUM 134 mmol/L (136-145); eGFR NON BLACK RACES > 60 (>60)
[2021-05-10 05:33] LABS: ANISOCYTOSIS 1+; PLATELET MORPHOLOGY COMMENT NORMAL (NORMAL); STOMATOCYTES PRESENT
[2021-05-10 05:34] LABS: ABG BASE EXCESS 15.9 mmol/L (-2.0-2.0); ABG HCO3 43.5 mmol/L (22-26)
[2021-05-10 05:35] LABS: ABG ALLEN TEST POS
[2021-05-10] MEDS: LIORESAL PO SCH (05:41)
[2021-05-10] MEDS: DILANTIN PO SCH (05:41)
[2021-05-10] MEDS ORDERED: VALIUM INJ IVP PRN (08:32)
[2021-05-10] MEDS ORDERED: MORPHINE SULFATE INJ 2 MG INJ ONE (08:39)
[2021-05-10] MEDS ORDERED: MORPHINE SULFATE INJ 4 MG ONE (08:39)
[2021-05-10] MEDS: MORPHINE SULFATE INJ 4 MG IVP PRN ×3 (08:52→12:23)
[2021-05-10 12:26] VITALS: BP 143/63
== END 2021-05-10 16:05 | disposition expired | DRG 199 ==
LOC: ICU 12:45
PROVIDERS: ADMIT Family Medicine; ATTEND Family Medicine
DX: J96.22 Acute and chronic respiratory failure with hypercapnia; J96.21 Acute and chronic respiratory failure with hypoxia; F41.8 Other specified anxiety disorders; Z99.11 Dependence on respirator [ventilator] status; F32.89 Other specified depressive episodes; R26.89 Other abnormalities of gait and mobility; J91.8 Pleural effusion in other conditions classified elsewhere; G40.802 Other epilepsy, not intractable, without status epilepticus; E87.0 Hyperosmolality and hypernatremia; J93.83 Other pneumothorax; R79.89 Other specified abnormal findings of blood chemistry; E87.5 Hyperkalemia; U09.9 Post COVID-19 condition, unspecified; Z66 Do not resuscitate; R13.11 Dysphagia, oral phase; E11.65 Type 2 diabetes mellitus with hyperglycemia; E88.09 Other disorders of plasma-protein metabolism, not elsewhere classified; Z93.1 Gastrostomy status